=== PATIENT | female | born 1955 | race Caucasian/White ===

== ENCOUNTER 2023-10-18 04:17 | Observation (INO) | payer MEDICARE, MEDICAID, SELFPAY ==
[2023-10-18] VITALS (12 sets, daily range): BP systolic 118–167; BP diastolic 56–74; PULSE 62–93; RESP 16–21; TEMP 36–37.2; O2SAT 94–98; BMI 42.3
--- NOTE | 2023-10-18 | ECG_ITS ---
Test Reason : DYSPNEA Blood Pressure : / mmHG Vent. Rate : 075 BPM Atrial Rate : 075 BPM P-R Int : 138 ms QRS Dur : 088 ms QT Int : 426 ms P-R-T Axes : 055 006 038 degrees QTc Int : 475 ms Sinus rhythm with Premature atrial complexes Otherwise normal ECG No previous ECGs available Referred By: Generic ED Physician Electronically Signed By:PERRY MATTA
--- NOTE | ~2023-10-18 | XR_ITS ---
EXAMINATION: XR CHEST CLINICAL INFORMATION: Chest pain. COMPARISON: None available. TECHNIQUE: Frontal view of the chest was obtained. FINDINGS: The cardiac mediastinal silhouette is within normal limits. There appears to be minimal atelectasis or scarring at the right lung base. The lungs are otherwise clear. The bony structures and soft tissues are unremarkable. XR/XR chest 1V IMPRESSION: Minimal atelectasis or scarring at the right lung base. No other significant abnormality seen.
[2023-10-18 05:09] LABS: Basophils Absolute Auto 0.1 X10*3/uL (0.0-0.2); Basophils Percent Auto 0.5 % (0-2); Eosinophils Percent Auto 0.1 % (0-4); Hematocrit 37.4 % (37.0-47.0); Hemoglobin 12.2 g/dl (12.0-16.0); Imm Gran Abs Auto 0.05 X10*3/uL (0.00-0.03); Imm Gran Pct Auto 0.4 % (0.0-0.4); Lymphocytes Absolute Auto 0.9 X10*3/uL (1.2-4.9); Lymphocytes Percent Auto 7.1 % (20-40); MANUAL DIFF FLAG NO; Mean Corpuscular HGB Conc 32.6 g/dl (31.0-35.0); Mean Corpuscular Hemoglobin 31.3 pg (27.0-33.0); Mean Corpuscular Volume 95.9 fL (80.0-98.0); Mean Platelet Volume 8.5 fL (9.4-12.3); Monocytes Percent Auto 7.4 % (2-11); Neutrophils Absolute Auto 11.3 x10*3/uL (2.0-8.3); Neutrophils Percent Auto 84.5 % (45-73); Platelet Count 345 X10*3/uL (160-400); Red Cell Distribution Width 13.3 % (11.0-16.0); White Blood Count 13.3 X10*3/uL (4.8-10.8)
[2023-10-18 05:15] LABS: Prothrombin Time 12.4 SEC (11.1-13.3)
[2023-10-18 05:18] LABS: Partial Thromboplastin Time 31.6 SEC (26.0-36.4)
[2023-10-18 05:24] LABS: Alanine Aminotransferase 15 U/L (0-31); Albumin Level 3.4 g/dL (3.5-5.0); Alkaline Phosphatase 85 U/L (39-117); Anion Gap 17 (12-20); Aspartate Amino Transferase 20 U/L (5-31); Bilirubin Total 0.8 mg/dL (0.0-1.0); Blood Urea Nitrogen 13 mg/dL (9-16); Calcium 9.2 mg/dL (8.4-10.2); Carbon Dioxide 25 mmol/L (22-29); Chloride 108 mmol/L (96-108); Creatinine Clr Calc Pharmacy 79.6; Estimated Glomerular Filt Rate > 60; Glucose Random 105 mg/dL (60-115); Potassium 4.5 mmol/L (3.3-5.1); Sodium 145 mmol/L (135-145); Total Protein 6.3 g/dL (6.5-8.0)
--- OUTSIDE RECORDS SUMMARY | 2023-10-18 05:25 | XMS_ITS | Continuity of Care Document ---
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 Role Phone Quinn Mckeon MD, Emilee Rivera Primary Care Physic yakov [place] [facility] [place] 10[place]20 - 11/28/20 Wound Care [address] [place] [id number] Attending Physician: Steven Sofia MD Admitting Physician: Steven Sofia MD Referring Physician: Quinn Mckeon MD, Emilee Rivera Allergies, Adverse Reactions, Alerts Substance Reaction Severity Status codeine Active ibuprofen heartburn if too muc h slight itch - no hives Active sulindac Active aspirin Active Adhesive Bandage Active Latex Active Nickel Active CeleBREX Active Immunizations Given and Recorded Vaccine Date Status Refusal Reason pneumococcal 23-valent vaccine 11/04/19 Given Not Given Vaccine Date Status Refusal Reason pneumococcal 23-valent vaccine 11/03/14 Not Given Patient Refuses influenza virus vaccine, inactivated 08/02/20 Not Given Patient Refuses influenza virus vaccine, inactivated 11/03/14 Not Given Patient Refuses Medications 1 box of tubigrip elasticated stocking 1 box of tubigrip elasticated stocking, See Instructions, # 1 Unknown, Refills 6, Tot. Refills 6, Maintenance, size G; use as directed, 11/14/20 16:00:00 EST, Supply Start Date: 11/14/20 Status: Ordered Albuterol 90 mcg Inhaler 2, puffs, Inhalation, Every 4 hours, PRN, Maintenance, 08/29/13 12:15:58 Start Date: 08/29/13 Status: Ordered bisacodyl 10 mg rectal suppository 1 supp = 10 mg, Rectally, Daily, PRN for constipation, # 10 supp, 0 Refills, Maintenance, 10/21/19 10:24:00 EST, Suppository Start Date: 10/21/19 Status: Ordered budesonide 3 mg oral delayed release capsule 2 capsule = 6 mg, By Mouth, Daily in AM, 0 Refills, Maintenance, 10/21/19 10:21:00 EST Start Date: 10/21/19 Status: Ordered Compression Stockings 20-30mm, Topically, Daily, # 3 pair, Refills 3, Tot. Refills 3, Maintenance, Dx: CVI with ulceration, Dr. Wade Mendosa-Supervising MD, 08/02/15 12:30:30, [phone], Compound Start Date: 08/02/15 Status: Ordered duloxetine 60 mg oral enteric coated capsule 1 capsule = 60 mg, By Mouth, Daily, # 30 capsule, 0 Refills, Maintenance, 08/03/20 16:38:00 EDT, Capsule, [facility], 153, cm, 08/03/20 8:39:00 EDT, Height, 61.8, kg, 08/01/20 2:42:00 EDT, Dry Weight Start Date: 08/03/20 Status: Ordered Ensure Ensure, Refills 0, Maintenance, 10/21/19 10:22:00 EST, Compound Start Date: 10/21/19 Status: Ordered Flovent HFA 110 mcg/inh inhalation aerosol 2 puffs = 220 mcg, Inhalation, 2 times a day, # 1 each, 0 Refills, Maintenance, 08/03/20 16:37:00 EDT, Aerosol, [facility], 153, cm, 08/03/20 8:39:00 EDT, Height, 61.8, kg, 08/01/20 2:42:00 EDT, Dry Weight Start Date: 08/03/20 Status: Ordered gabapentin 800 mg oral tablet 1 tablet = 800 mg, By Mouth, 3 times a day, # 90 tablet, 0 Refills, Maintenance, 08/03/20 16:38:00 EDT, Tablet, [facility], 153, cm, 08/03/20 8:39:00 EDT, Height, 61.8, kg, 08/01/20 2:42:00 EDT, Dry Weight Start Date: 08/03/20 Status: Ordered HydrOXYzine See Instructions, 25, 0 Refills, Maintenance, 07/31/20 20:06:00 EDT Start Date: 07/31/20 Status: Ordered Lasix 40 mg oral tablet 20 mg, 0.5, tablet, By Mouth, Daily, PRN, if worsening leg swelling can take 1/2 tablet once a day,# 15 tablet, Refills 0, Tot. Refills 0, Maintenance, Congestion, 08/03/20 16:45:00 EDT, Route to Pharmacy Electronically, [facility], 153... Start Date: 08/03/20 Status: Ordered naloxone 4 mg/0.1 mL nasal spray Once, 0 Refills, Maintenance, 10/21/19 10:26:00 EST Start Date: 10/21/19 Status: Ordered prazosin 2 mg oral capsule 1 capsule = 2 mg, By Mouth, Daily at bedtime Start Date: 10/02/19 Status: Ordered Protonix 40 mg oral delayed release tablet 1 tablet = 40 mg, By Mouth, Daily, # 30 tablet, 0 Refills, Maintenance, 08/03/20 16:37:00 EDT, EC Tablet, 153, cm, 08/03/20 8:39:00 EDT, Height, 61.8, kg, 08/01/20 2:42:00 EDT, Dry Weight Start Date: 08/03/20 Status: Ordered Santyl Topical Oint 1 applicator, Topically, Daily, 0 Refills, Maintenance, Ointment Start Date: 11/10/19 Status: Ordered topiramate 50 mg oral tablet 2 tablet = 100 mg, By Mouth, 2 times a day, 0 Refills, Maintenance, 11/01/14 14:42:34 Start Date: 11/01/14 Status: Ordered ZyrTEC 10 mg oral tablet 1 tablet = 10 mg, By Mouth, Daily, # 30 tablet, 0 Refills, Maintenance, 11/10/19 9:53:00 EST, Tablet Start Date: 11/10/19 Status: Ordered Problem List Condition Effective Dates Status Health Status Inform ant Lymphocytic colitis(Confirmed) 10/08/18 Active Depression(Confirmed) Active GIB (gastrointestinal bleedi ng)- 2nd to NSAID use(Confirmed) Active Migraines(Confirmed) Active OA (osteoarthritis)(Confirmed) Active Polysubstance abuse(Confirmed) Active Serrated polyp of colon(Confirmed) 10/08/18 Active Social History Social History Type Response Smoking Status Former smoker entered on: 11/01/14 Sex
--- OUTSIDE RECORDS SUMMARY | 2023-10-18 05:25 | XMS_ITS | Continuity of Care Document ---
Author Name Unknown Organization [facility] Address [address] [place] [phone]- Care Team Providers Care Senior Training Specialist Name Role Phone Quinn Mckeon MD, Emilee Rivera Primary Care Physic yakov [place] [facility] [place] [facility] [address] [place] [phone]- [place] Allergies, Adverse Reactions, Alerts Substance Reaction Severity Status codeine Active Adhesive Bandage Active CeleBREX Active Nickel Active ibuprofen heartburn if too muc h slight itch - no hives Active sulindac Active aspirin Active Latex Active Immunizations Given and Recorded Vaccine Date [...] EST, Suppository Start Date: 10/21/19 Status: Ordered Compression Stockings 20-30mm, Topically, Daily, # 3 pair, Refills 3, Tot. Refills 3, Maintenance, Dx: CVI with ulceration, Dr. Wade Mendosa-Supervising MD, 08/02/15 12:30:30, [phone], Compound Start Date: 08/02/15 Status: Ordered duloxetine 60 mg oral enteric coated capsule 1 capsule = 60 mg, By Mouth, Daily, # 30 capsule, 0 Refills, Maintenance, 08/03/20 16:38:00 EDT, Capsule, [facility], 153, cm, 08/03/20 8:39:00 EDT, Height, 61.8, kg, 08/01/20 2:42:00 EDT, Dry Weight Start Date: 08/03/20 Status: Ordered Ensure Ensure, Refills 0, Maintenance, 10/21/19 10:22:00 EST, Compound Start Date: 10/21/19 Status: Ordered Flovent HFA 110 mcg/inh inhalation aerosol 2 puffs = 220 mcg, Inhalation, 2 times a day, # 1 each, 0 Refills, Maintenance, 08/03/20 16:37:00 EDT, Aerosol, [facility], 153, cm, 08/03/20 8:39:00 EDT, Height, 61.8, kg, 08/01/20 2:42:00 EDT, Dry Weight Start Date: 08/03/20 Status: Ordered gabapentin 800 mg oral tablet 1 tablet = 800 mg, By Mouth, 3 times a day, # 90 tablet, 0 Refills, Maintenance, 08/03/20 16:38:00 EDT, Tablet, [facility], 153, cm, 08/03/20 8:39:00 [...] 08/03/20 16:45:00 EDT, Route to Pharmacy Electronically, [facility], 153... Start Date: 08/03/20 Status: Ordered [...] Maintenance, Ointment Start Date: 11/10/19 Status: Ordered Suprep Bowel Prep Kit oral liquid See Instructions, 176ml x 2 as directed, # 1 kit, 0 Refills, Maintenance, 08/16/21 16:27:00 EDT, [id number], Partial fill upon patient request if the prescription is for a schedule II opioid drug., 176ml x 2 as directed, 153, cm, 08/19... Start Date: 08/16/21 Status: Ordered topiramate 50 mg oral tablet [...] bleedi ng)- 2nd to NSAID use(Confirmed) Active H/O gastric bypass(Confirmed) 2003 Active Migraines(Confirmed) Active OA (osteoarthritis)(Confirmed) Active Polysubstance abuse(Confirmed) Active Serrated polyp of colon(Confirmed) 10/08/18 Active Social History Social History Type Response Smoking Status Former smoker entered on: 11/01/14 Sex
--- OUTSIDE RECORDS SUMMARY | 2023-10-18 05:25 | XMS_ITS | Continuity of Care Document ---
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 Role Phone Quinn Mckeon MD, Emilee Rivera Primary Care Physic yakov Encounter [facility] Date(s): 04/03/20 - 05/03/20 [facility] [address] [place] [phone] [facility] Attending Physician: Admalona, Alfonzo Admitting Physician: AdmtrAlfonzo Referring Physician: Admtr, Ar8 Allergies, Adverse Reactions, Alerts Substance Reaction Severity [...] inactivated 11/03/14 Not Given Patient Refuses Medications Albuterol 90 mcg Inhaler 2, puffs, Inhalation, [...] [phone], Compound Start Date: 08/02/15 Status: Ordered Cymbalta 60 mg oral enteric coated capsule 1 capsule = 60 mg, By Mouth, 2 times a day Start Date: 10/02/19 Status: Ordered Eliquis 5 mg oral tablet 1 tablet = 5 mg, By Mouth, 2 times a day, # 60 tablet, 0 Refills, Maintenance, 11/02/19 4:18:00 EST, Tablet Start Date: 11/02/19 Status: Ordered Ensure Ensure, Refills 0, Maintenance, 10/21/19 10:22:00 EST, Compound Start Date: 10/21/19 Status: Ordered Flovent HFA 110 mcg/inh inhalation aerosol 2 puffs, Inhalation, 2 times a day, # 12 Gm, 0 Refills, Maintenance, 08/29/18 12:28:34 EST, Aerosol Start Date: 08/29/18 Status: Ordered gabapentin 800 mg oral tablet 1 tablet = 800 mg, By Mouth, 3 times a day, # 90 tablet, 0 Refills, Maintenance, 11/10/19 9:50:00 EST, Tablet Start Date: 11/10/19 Status: Ordered naloxone 4 mg/0.1 mL nasal spray Once, 0 Refills, Maintenance, 10/21/19 10:26:00 EST Start Date: 10/21/19 Status: Ordered prazosin 2 mg oral capsule 1 capsule = 2 mg, By Mouth, Daily at bedtime Start Date: 10/02/19 Status: Ordered Protonix 40 mg oral delayed release tablet 1 tablet = 40 mg, By Mouth, Daily, # 30 tablet, 0 Refills, Maintenance, 09/01/18 17:07:49 EST, EC Tablet Start Date: 09/01/18 Status: Ordered Santyl Topical Oint 1 applicator, Topically, Daily, 0 Refills, Maintenance, Ointment Start Date: 11/10/19 Status: Ordered topiramate 50 mg oral tablet 2 tablet = 100 mg, By Mouth, 2 times a day, 0 Refills, Maintenance, 11/01/14 14:42:34 Start Date: 11/01/14 Status: Ordered Tylenol 325 mg oral tablet 650 mg, 2, tablet, By Mouth, Every 6 hours, Refills 0, Maintenance, 10/07/19 15:37:00 EST Start Date: 10/07/19 Status: Ordered ZyrTEC 10 mg oral tablet [...]
--- OUTSIDE RECORDS SUMMARY | 2023-10-18 05:25 | XMS_ITS | Continuity of Care Document ---
Author Name Unknown Organization Wound Care Address [address] [place] [phone]- Care Team Providers Care Correctional Program Officer Name Role Phone Quinn Mckeon MD, Emilee Rivera Primary Care Physic yakov En[place] [id number] Date(s): 11/14/20 - 12/14/20 W[facility] Care [address] [place] [id number] Attending Physician: Alfonzo Grossman Admitting Physician: AdmtrAlfonzo Referring Physician: Admtr Ar8 Allergies, Adverse Reactions, Alerts Substance Reaction [...] 0 Refills, Maintenance, 08/03/20 16:38:00 EDT, Capsule, [facility], 153, cm, 08/03/20 8:39:00 EDT, Height, 61.8, kg, 08/01/20 2:42:00 EDT, Dry Weight Start Date: 08/03/20 Status: Ordered Ensure Ensure, Refills 0, Maintenance, 10/21/19 10:22:00 EST, Compound Start Date: 10/21/19 Status: Ordered Flovent HFA 110 mcg/inh inhalation aerosol 2 puffs = 220 mcg, Inhalation, 2 times a day, # 1 each, 0 Refills, Maintenance, 08/03/20 16:37:00 EDT, Aerosol, [facility], 153, cm, 08/03/20 8:39:00 EDT, Height, 61.8, kg, 08/01/20 2:42:00 EDT, Dry Weight Start Date: 08/03/20 Status: Ordered gabapentin 800 mg oral tablet 1 tablet = 800 mg, By Mouth, 3 times a day, # 90 tablet, 0 Refills, Maintenance, 08/03/20 16:38:00 EDT, Tablet, [facility], 153, cm, 08/03/20 8:39:00 [...] 08/03/20 16:45:00 EDT, Route to Pharmacy Electronically, [facility], 153... Start Date: 08/03/20 [...]
--- OUTSIDE RECORDS SUMMARY | 2023-10-18 05:25 | XMS_ITS | Continuity of Care Document ---
Author Name Unknown Organization [facility] ter Address [address] [place] [address]- Care Team Providers Care Telemarketing Representative Name Role Phone Quinn Mckeon MD, Emilee Rivera Primary Care Physic yakov Encounter [facility] [place] Date(s): 10/03/19 - 10/07/[address] [address]- [facility] Discharge Disposition: A-Transfer SNF Attending Physician: Jose Wan MD Admitting Physician: Jose Wan MD Referring Physician: Not on Staff, Referring MD Allergies, Adverse Reactions, Alerts Substance Reaction Severity Status codeine Active ibuprofen heartburn if too muc h slight itch - no hives Active sulindac Active aspirin Active Adhesive Bandage Active Latex Active Nickel Active CeleBREX Active Immunizations Not Given Vaccine Date Status Refusal Reason influenza virus vaccine, inactivated 11/03/14 Not Given Patient Refuses pneumococcal 23-valent vaccine 11/03/14 Not Given Patient Refuses Medications Albuterol 90 mcg Inhaler 2, puffs, Inhalation, Every 4 hours, PRN, Maintenance, 08/29/13 12:15:58 Start Date: 08/29/13 Status: Ordered Bacitracin Topical Oint 1 applicator, Topically, 2 times a day, 0 Refills, Maintenance, Ointment Start Date: 10/07/19 Status: Ordered Bactrim DS Tablet 1, tablet, By Mouth, 2 times a day, Maintenance, 10/07/19 15:37:00 EST Start Date: 10/07/19 Stop Date: 10/13/19 Status: Ordered budesonide 3 mg oral delayed release capsule 3 capsule = 9 mg, By Mouth, Daily in AM, for 8 week(s), # 168 capsule, 1 Refills, Acute 10/18/19 16:43:05 EST, 06/28/19 16:43:05 EDT Start Date: 06/28/19 Stop Date: 10/18/19 Status: Ordered Compression Stockings 20-30mm, Topically, Daily, # 3 pair, Refills 3, Tot. Refills 3, Maintenance, Dx: CVI with ulceration, Dr. Wade Mendosa-Supervising MD, 08/02/15 12:30:30, [phone], Compound Start Date: 08/02/15 Status: Ordered Cymbalta 60 mg oral enteric coated capsule 1 capsule = 60 mg, By Mouth, 2 times a day Start Date: 10/02/19 Status: Ordered Flovent HFA 110 mcg/inh inhalation aerosol 2 puffs, Inhalation, 2 times a day, # 12 Gm, 0 Refills, Maintenance, 08/29/18 12:28:34 EST, Aerosol Start Date: 08/29/18 Status: Ordered gabapentin 100 mg oral capsule 100 mg, 1, capsule, By Mouth, 3 times a day, Refills 0, Maintenance, 10/07/19 15:37:00 EST Start Date: 10/07/19 Status: Ordered Imodium A-D 2 mg, By Mouth, Every 4 hours, PRN, Maintenance, Loose Stool, 10/02/19 20:57:08 EST Start Date: 10/02/19 Status: Ordered LORazepam 0.5 mg oral tablet 1 tablet = 0.5 mg, By Mouth, 2 times a day, PRN as needed for anxiety Start Date: 10/02/19 Status: Ordered Multivitamin 1 tablet, By Mouth, Daily, Maintenance, 10/02/19 20:56:39 EST Start Date: 10/02/19 Status: Ordered oxyCODONE 15 mg oral tablet 1 tablet = 15 mg, By Mouth, 4 times a day, PRN Pain Start Date: 10/02/19 Status: Ordered prazosin 2 mg oral capsule 1 capsule = 2 mg, By Mouth, Daily at bedtime, for nightmares Start Date: 10/02/19 Status: Ordered Protonix 40 mg oral delayed release tablet 1 tablet = 40 mg, By Mouth, Daily, # 30 tablet, 0 Refills, Maintenance, 09/01/18 17:07:49 EST, EC Tablet Start Date: 09/01/18 Status: Ordered Santyl Topical Oint 1 applicator, Topically, Daily, 0 Refills, Maintenance, Ointment Start Date: 10/07/19 Status: Ordered topiramate 50 mg oral tablet 2 tablet = 100 mg, By Mouth, 2 times a day, 0 Refills, Maintenance, 11/01/14 14:42:34 Start Date: 11/01/14 Status: Ordered Tylenol 325 mg oral tablet 650 mg, 2, tablet, By Mouth, Every 6 hours, Refills 0, Maintenance, 10/07/19 15:37:00 EST Start Date: 10/07/19 Status: Ordered Viactiv Soft Calcium Chews 1 tablet, By Mouth, Daily, Maintenance, 10/02/19 20:57:44 EST Start Date: 10/02/19 Status: Ordered warfarin 2.5 mg oral tablet 1 tablet = 2.5 mg, By Mouth, Daily, 0 Refills, Maintenance, 10/07/19 15:37:00 EST, Tablet Start Date: 10/07/19 Status: Ordered Zyrtec 10 mg oral tablet 1 tablet = 10 mg, By Mouth, Daily, PRN allergy symptoms, 0 Refills, Maintenance, 12/18/14 10:24:44 EST Start Date: 12/18/14 Status: Ordered Problem List Condition Effective Dates Status Health Status Inform ant Lymphocytic colitis(Confirmed) 10/08/18 Active Depression(Confirmed) Active GIB (gastrointestinal bleedi ng)- 2nd to NSAID use(Confirmed) Active Migraines(Confirmed) Active OA (osteoarthritis)(Confirmed) Active Polysubstance abuse(Confirmed) Active Serrated polyp of colon(Confirmed) 10/08/18 Active Results Radiology Reports (Most Recent Ten) * Exam Date Time Procedure Performing Provider Status 10/02/19 6:14 PM Hand Min 3 Views Right Anthony Willoughby; Auth (Verified) Notes: (Hand Min 3 Views Right) Reason For Exam: with Pain;Trauma RESULT: Hand Min 3 Views Right Hand Min 3 Views Right CLINICAL INDICATION: Reason: Trauma; with Pain; Clinical Question(s): Fracture COMPARISONS: None TECHNIQUE: AP, lateral and oblique views of the right hand were obtained. FINDINGS: There is an old healed distal radial fracture. No acute wrist fracture. Metacarpal and phalanges appear intact. Normal radiocarpal alignment is maintained. There is crowding of the carpal joint spaces. There is degenerative joint space narrowing at the basal joint of the thumb. There is mild-moderate PIP and DIP joint space narrowing. No retained radiodense foreign body. IMPRESSION: Old healed distal radial fracture. No acute abnormality. WSN: [id number] Dictated By: Rod Aleman MD Dictated Date/Time: 10/02/19 6:44 pm Reviewed By: Rod Aleman MD Signed By: Rod Alemna MD Signed Date/Time: 10/02/19 6:44 pm Transcribed By: CRISSY Transcribed Date/Time: 10/02/19 6:43 pm * Exam Date Time Procedure Performing Provider Status 10/02/19 6:14 PM Forearm 2 Views Right Stupak , Anthony; Auth (Verified) Notes: (Forearm 2 Views Right) Reason For Exam: Trauma RESULT: Forearm 2 Views Right Forearm 2 Views Right CLINICAL INDICATION: Reason: Trauma; Clinical Question(s): Other: COMPARISONS: None TECHNIQUE: AP and lateral views of the right forearm were obtained. FINDINGS: Old healed distal radial fracture. No acute fracture or dislocation. Radial head is overlapping the ulna on both views. Articulations at the elbow and wrist are anatomic. No retained foreign body. IMPRESSION: No acute fracture or dislocation. Old healed distal radial fracture. Poor visualization of radial head on both views. If patient has elbow tenderness, dedicated elbow imaging may be indicated. WSN: [id number] Dictated By: Rod Aleman MD Dictated Date/Time: 10/02/19 6:43 pm Reviewed By: Rod Aleman MD Signed By: Rod Aleman MD Signed Date/Time: 10/02/19 6:43 pm Transcribed By: CRISSY Transcribed Date/Time: 10/02/19 6:32 pm * Exam Date Time Procedure Performing Provider Status 10/02/19 6:14 PM Humerus Min 2 Views Right Stupak , Ol eg; Auth (Verified) Notes: (Humerus Min 2 Views Right) Reason For Exam: Trauma RESULT: Humerus Min 2 Views Right Humerus Min 2 Views Right, 810 oh views Reason: Trauma; Clinical Question(s): Other: COMPARISON: None. FINDINGS: AP view slightly overpenetrated overlying the elbow. No fractures or bone lesions. The visualized portions of the joints are normal. Normal soft tissues. IMPRESSION: Overpenetrated exam. No fracture or dislocation given this limitation. WSN: [id number] Dictated By: Rod Aleman MD Dictated Date/Time: 10/02/19 6:32 pm Reviewed By: Rod Aleman MD Signed By: Rod Aleman MD Signed Date/Time: 10/02/19 6:32 pm Transcribed By: CSB Transcribed Date/Time: 10/02/19 6:31 pm * Exam Date Time Procedure Performing Provider Status 10/02/19 6:14 PM Shoulder Min 2 Views Right Stupak , O leg; Auth (Verified) Notes: (Shoulder Min 2 Views Right) Reason For Exam: Trauma RESULT: Shoulder Min 2 Views Right Shoulder Min 2 Views Right CLINICAL INDICATION: Reason: Trauma; Clinical Question(s): Other: COMPARISONS: None TECHNIQUE: 3 views of the right shoulder. FINDINGS: There is no fracture or dislocation. There is no acromioclavicular joint widening. No periarticular calcifications. IMPRESSION: No fracture or dislocation. WSN: [id number] Dictated By: Rod Aleman MD Dictated Date/Time: 10/02/19 6:31 pm Reviewed By: Rod Aleman MD Signed By: Rod Aleman MD Signed Date/Time: 10/02/19 6:31 pm Transcribed By: CRISSY Transcribed Date/Time: 10/02/19 6:30 pm * Exam Date Time Procedure Performing Provider Status 10/02/19 6:14 PM XR Femur 2 Views Right Stupak , Anthony; Auth (Verified) Notes: (XR Femur 2 Views Right) Reason For Exam: with Pain;Trauma RESULT: Femur 2 Views Right Femur 2 Views Right, AP and lateral views Reason: Trauma; with Pain; Clinical Question(s): Fracture COMPARISON: None. FINDINGS: No fracture, dislocation or bone lesion. There is mild-moderate joint space narrowing at the hip and knee joints. No dislocation. Normal soft tissues. IMPRESSION: No acute abnormality. WSN: [id number] Dictated By: Rod Aleman MD Dictated Date/Time: 10/02/19 6:30 pm Reviewed By: Rod Aleman MD Signed By: Rod Aleman MD Signed Date/Time: 10/02/19 6:30 pm Transcribed By: MODESTAB Transcribed Date/Time: 10/02/19 6:29 pm * Exam Date Time Procedure Performing Provider Status 10/02/19 6:14 PM Knee 1 or 2 Views Left Stupak , Anthony; Auth (Verified) Notes: (Knee 1 or 2 Views Left) Reason For Exam: with Pain;Trauma RESULT: Knee 1 or 2 Views Left Knee 1 or 2 Views Left CLINICAL INDICATION: Reason: Trauma; with Pain; Clinical Question(s): Fracture COMPARISONS: None TECHNIQUE: AP and lateral views of the left knee were obtained. FINDINGS: Status post left total knee arthroplasty. No hardware failure or loosening. No fracture or dislocation. No joint effusion. The patella is normally positioned. IMPRESSION: No acute abnormality. WSN: [id number] Dictated By: Rod Aleman MD Dictated Date/Time: 10/02/19 6:29 pm Reviewed By: Rod Aleman MD Signed By: Rod Aleman MD Signed Date/Time: 10/02/19 6:29 pm Transcribed By: CRISSY Transcribed Date/Time: 10/02/19 6:28 pm * Exam Date Time Procedure Performing Provider Status 10/02/19 6:14 PM XR Femur 2 Views Left Stupak , Anthony; Auth (Verified) Notes: (XR Femur 2 Views Left) Reason For Exam: with Pain;Trauma RESULT: Femur 2 Views Left Femur 2 Views Left, AP and lateral views Reason: Trauma; with Pain; Clinical Question(s): Fracture COMPARISON: None. FINDINGS: No fracture, dislocation or bone lesion. There is a left total knee arthroplasty. See left knee x-ray report for further discussion. Visualized portions of the joints are normal. Normal soft tissues. IMPRESSION: No fracture or dislocation. WSN: [id number] Dictated By: Rod Aleman MD Dictated Date/Time: 10/02/19 6:27 pm Reviewed By: Rod Aleman MD Signed By: Rod Aleman MD Signed Date/Time: 10/02/19 6:27 pm Transcribed By: CRISSY Transcribed Date/Time: 10/02/19 6:27 pm * Exam Date Time Procedure Performing Provider Status 10/02/19 6:14 PM Foot Min 3 Views Left Stupak , Anthony; Auth (Verified) Notes: (Foot Min 3 Views Left) Reason For Exam: with Pain;Trauma RESULT: Foot Min 3 Views Left Foot Min 3 Views Left CLINICAL INDICATION: Reason: Trauma; with Pain; Clinical Question(s): Fracture COMPARISONS: None TECHNIQUE: AP, lateral and oblique views of the left foot were obtained. FINDINGS: There is no fracture or dislocation. MTP and IP joint spaces are maintained. The Lisfranc joint space is normally aligned. No retained foreign body. Hindfoot midfoot alignment is normal. There is a prominent plantar calcaneal heel spur with adjacent soft tissue edema. IMPRESSION: No fracture or dislocation. Large plantar calcaneal heel spur. WSN: [id number] Dictated By: Rod Aleman MD Dictated Date/Time: 10/02/19 6:26 pm Reviewed By: Rod Aleman MD Signed By: Rod Aleman MD Signed Date/Time: 10/02/19 6:26 pm Transcribed By: CRISSY Transcribed Date/Time: 10/02/19 6:25 pm * Exam Date Time Procedure Performing Provider Status 10/02/19 6:14 PM Calcaneus Min 2 Views Left Stupak , O leg; Auth (Verified) Notes: (Calcaneus Min 2 Views Left) Reason For Exam: with Pain;Trauma RESULT: Calcaneus Min 2 Views Left Calcaneus Min 2 Views Left Reason: Trauma; with Pain; Clinical Question(s): Fracture. COMPARISON: None FINDINGS: 2 views of the left calcaneus. No evidence of acute or healing fracture or bone lesion. There is a prominent plantar calcaneal heel spur with adjacent soft tissue edema. There is also degenerative spur at the Achilles insertion along the posterior calcaneus. Normal alignment at the subtalar joint. IMPRESSION: No calcaneal fracture. Large plantar calcaneal heel spur with adjacent soft tissue edema. WSN: [id number] Dictated By: Rod Aleman MD Dictated Date/Time: 10/02/19 6:24 pm Reviewed By: Rod Aleman MD Signed By: Rod Aleman MD Signed Date/Time: 10/02/19 6:24 pm Transcribed By: CRISSY Transcribed Date/Time: 10/02/19 6:18 pm * Exam Date Time Procedure Performing Provider Status 10/02/19 4:58 PM Pelvis 1 or 2 Views Sudhir Marshall; Michaela h (Verified) Notes: (Pelvis 1 or 2 Views) Reason For Exam: Trauma RESULT: Pelvis 1 or 2 Views Pelvis 1 or 2 Views INDICATION/CLINICAL QUESTION: Reason: Trauma; Clinical Question(s): Other:. / Other: COMPARISON: None.. TECHNIQUE: AP pelvis. FINDINGS: There is no fracture or focal lesion of the bony pelvis. The sacroiliac joints show no gross abnormality. There is no fracture in the visualized parts of the femurs. The hip joints are grossly normal. No concerning soft tissue abnormality. IMPRESSION: 1. No bone or joint abnormality seen. WSN: [id number] Dictated By: Juan Daniel Burgess MD Dictated Date/Time: 10/02/19 5:04 pm Reviewed By: Juan Daniel Burgess MD Signed By: Juan Daniel Burgess MD Signed Date/Time: 10/02/19 5:04 pm Transcribed By: CRISSY Transcribed Date/Time: 10/02/19 5:03 pm Vital Signs Most recent to oldest [Reference Range]: 1 2 3 Height 157 cm (10/07/19 4:11 PM) 157 cm (10/07/19 12:42 PM) 157 cm (10/07/19 8:36 AM) Weight 65.3 kg (10/03/19 6:16 PM) 71.3 kg (10/02/19 10:51 PM) Oxygen Saturation [94-100 %] 100 % (10/07/19 4:11 PM) 96 % (10/07/19 12:42 PM) 98 % (10/07/19 8:36 AM) Pulse Rate [55-90 bpm] 67 bpm (10/07/19 4:11 PM) 58 bpm (10/07/19 12:42 PM) 56 bpm (10/07/19 8:36 AM) Body Mass Index [18.5-24.99] 26.49 *H* (10/03/19 6:16 PM) 28.93 *H* (10/02/19 10:51 PM) Blood Pressure [90-138/55-84 mm Hg] 107/54mm Hg (10/07/19 4:11 PM) 102/53mm Hg (10/07/19 12:42 PM) 104/55mm Hg (10/07/19 8:36 AM) Respiratory Rate [16-30 br/min] 18 br/min (10/07/19 4:11 PM) 18 br/min (10/07/19 4:00 PM) 17 br/min (10/07/19 1:29 PM) Temperature [96.8-100.4 DegF] 98.3 DegF (10/07/19 4:11 PM) 98.2 DegF (10/07/19 12:42 PM) 98.4 DegF (10/07/19 8:36 AM) Liters per Minute 0 L/min (10/05/19 4:30 AM) 0 L/min (10/04/19 11:54 PM) Mode of Delivery (Oxygen) Room air (10/07/19 3:00 AM) Room air (10/07/19 12:00 AM) Room air (10/06/19 8:14 PM) Blood pressure sites Arm, left (10/07/19 3:00 AM) Arm, left (10/07/19 12:00 AM) Arm, left (10/06/19 8:14 PM) Temperature Route Oral (10/07/19 4:11 PM) Oral (10/07/19 12:42 PM) Oral (10/07/19 8:36 AM) Dry Weight 65.3 kg (10/03/19 6:16 PM) 71.3 kg (10/02/19 10:51 PM) Sensory deficits None (10/03/19 6:16 PM) Mobility assistance Partial assistance (10/03/19 6:16 PM) Social History Social History Type Response Smoking Status Former smoker entered on: 11/01/14 Sex
--- OUTSIDE RECORDS SUMMARY | 2023-10-18 05:25 | XMS_ITS | Continuity of Care Document ---
Author Name Unknown Organization [facility] Address [address] [place] [phone]- Care Team Providers Care Financial Services Assistant Name Role Phone Quinn Mckeon MD, Emilee Rivera Primary Care Physic yakov Encounter [facility] [place] Date(s): 08/23/21 - 12/20/21 [facility] [address] [place] [address]- Attending Physician: Danyelle Chen MD Admitting Physician: Danyelle Chen MD Referring Physician: Emilee Chaidez MD Allergies, Adverse Reactions, Alerts Substance Reaction [...] 0 Refills, Maintenance, 08/03/20 16:38:00 EDT, Capsule, [facility], 153, cm, 08/03/20 8:39:00 EDT, Height, 61.8, kg, 08/01/20 2:42:00 EDT, Dry Weight Start Date: 08/03/20 Status: Ordered Ensure Ensure, Refills 0, Maintenance, 10/21/19 10:22:00 EST, Compound Start Date: 10/21/19 Status: Ordered Flovent HFA 110 mcg/inh inhalation aerosol 2 puffs = 220 mcg, Inhalation, 2 times a day, # 1 each, 0 Refills, Maintenance, 08/03/20 16:37:00 EDT, Aerosol, [facility], 153, cm, 08/03/20 8:39:00 EDT, Height, 61.8, kg, 08/01/20 2:42:00 EDT, Dry Weight Start Date: 08/03/20 Status: Ordered gabapentin 800 mg oral tablet 1 tablet = 800 mg, By Mouth, 3 times a day, # 90 tablet, 0 Refills, Maintenance, 08/03/20 16:38:00 EDT, Tablet, [facility], 153, cm, 08/03/20 8:39:00 EDT, [...] 08/03/20 16:45:00 EDT, Route to Pharmacy Electronically, [facility], 153... Start Date: 08/03/20 Status: [...] kit, 0 Refills, Maintenance, 08/16/21 16:27:00 EDT, [id number], Partial fill upon patient request if the [...]
--- OUTSIDE RECORDS SUMMARY | 2023-10-18 05:25 | XMS_ITS | Continuity of Care Document ---
Author Name Unknown Organization [facility] Address [address] [place] [id number]- Care Team Providers Care Personal Development Coach Name Role Phone Quinn Mckeon MD, Emilee Rivera Primary Care Physic yakov Encounter [facility] [place] Date(s): 07/14/20 - 08/19/20 [facility] [address] [place] [id number]- [facility] Attending Physician: Steven Sofia MD Admitting Physician: Steven Sofia MD Referring Physician: Quinn Mckeon MD, Emilee Rivera Allergies, Adverse Reactions, Alerts Substance Reaction Severity Status codeine Active ibuprofen heartburn if too muc h slight itch - no hives Active sulindac Active aspirin Active Adhesive Bandage Active Nickel Active CeleBREX Active Latex Active Immunizations Given and Recorded [...] Dx: CVI with ulceration, Dr. Wade Mendosa-Supervising , 08/02/15 12:30:30, [phone], Compound Start Date: 08/02/15 Status: Ordered duloxetine 60 mg oral enteric coated capsule 1 capsule = 60 mg, By Mouth, Daily, # 30 capsule, 0 Refills, Maintenance, 08/03/20 16:38:00 EDT, Capsule, [facility], 153, cm, 08/03/20 8:39:00 EDT, Height, 61.8, kg, 08/01/20 2:42:00 EDT, Dry Weight Start Date: 08/03/20 Status: Ordered Ensure Ensure, Refills 0, Maintenance, 10/21/19 10:22:00 EST, Compound Start Date: 10/21/19 Status: Ordered Flovent HFA 110 mcg/inh inhalation aerosol 2 puffs = 220 mcg, Inhalation, 2 times a day, # 1 each, 0 Refills, Maintenance, 08/03/20 16:37:00 EDT, Aerosol, [facility], 153, cm, 08/03/20 8:39:00 EDT, Height, 61.8, kg, 08/01/20 2:42:00 EDT, Dry Weight Start Date: 08/03/20 Status: Ordered gabapentin 800 mg oral tablet 1 tablet = 800 mg, By Mouth, 3 times a day, # 90 tablet, 0 Refills, Maintenance, 08/03/20 16:38:00 EDT, Tablet, [facility], 153, cm, 08/03/20 8:39:00 EDT, Height, [...] 08/03/20 16:45:00 EDT, Route to Pharmacy Electronically, [facility], 153... Start Date: 08/03/20 [...]
--- OUTSIDE RECORDS SUMMARY | 2023-10-18 05:25 | XMS_ITS | Continuity of Care Document ---
Author Name Unknown Organization [facility] Address [address] [place] [id number]- Care Team Providers Care Assistant Hall Director Name Role Phone Quinn Mckeon MD, Emilee Rivera Primary Care Physic yakov Encounter [facility] [place] Date(s): 04/22/22 - 04/22/[address] [address]- Encounter Diagnosis Esophageal foreign body(Final) - 04/22/22 Discharge Disposition: A-D/C Home Attending Physician: Jose Ko MD Admitting Physician: Jose Ko MD Referring Physician: Not on Staff, Referring MD Allergies, Adverse Reactions, Alerts Substance Reaction Severity Status codeine Active sulindac Active Adhesive Bandage Active CeleBREX Active ibuprofen heartburn if too muc h slight itch - no hives Active aspirin Active Latex Active Nickel Active Immunizations Given and Recorded Vaccine Date [...] 0 Refills, Maintenance, 08/03/20 16:38:00 EDT, Capsule, [facility], 153, cm, 08/03/20 8:39:00 EDT, Height, 61.8, kg, 08/01/20 2:42:00 EDT, Dry Weight Start Date: 08/03/20 Status: Ordered Ensure Ensure, Refills 0, Maintenance, 10/21/19 10:22:00 EST, Compound Start Date: 10/21/19 Status: Ordered Flovent HFA 110 mcg/inh inhalation aerosol 2 puffs = 220 mcg, Inhalation, 2 times a day, # 1 each, 0 Refills, Maintenance, 08/03/20 16:37:00 EDT, Aerosol, [facility], 153, cm, 08/03/20 8:39:00 EDT, Height, 61.8, kg, 08/01/20 2:42:00 EDT, Dry Weight Start Date: 08/03/20 Status: Ordered gabapentin 800 mg oral tablet 1 tablet = 800 mg, By Mouth, 3 times a day, # 90 tablet, 0 Refills, Maintenance, 08/03/20 16:38:00 EDT, Tablet, [facility], 153, cm, 08/03/20 8:39:00 EDT, [...] 08/03/20 16:45:00 EDT, Route to Pharmacy Electronically, [facility], 153... Start Date: 08/03/20 Status: Ordered naloxone 4 mg/0.1 mL nasal spray Once, 0 Refills, Maintenance, 10/21/19 10:26:00 EST Start Date: 10/21/19 Status: Ordered OxyCODONE 5mg/5mL Liquid 10 mg, Solution, By Mouth, Once, STAT, 04/22/22 10:12:00 EDT, Stop date 04/22/22 10:12:00 EDT Start Date: 04/22/22 Stop Date: 04/22/22 Status: Completed prazosin 2 mg oral capsule 1 capsule [...] kit, 0 Refills, Maintenance, 08/16/21 16:27:00 EDT, [facility] #[id number], Partial fill upon patient request if the [...] Active Serrated polyp of colon(Confirmed) 10/08/18 Active Vital Signs Most recent to oldest [Reference Range]: 1 2 3 Height 149.9 cm (04/22/22 10:14 AM) 149.9 cm (04/22/22 8:01 AM) Weight 61.2 kg (04/22/22 10:14 AM) 61.2 kg (04/22/22 8:01 AM) Oxygen Saturation [94-100 %] 96 % (04/22/22 12:19 PM) 96 % (04/22/22 10:14 AM) 96 % (04/22/22 9:37 AM) Pulse Rate [55-90 bpm] 59 bpm (04/22/22 12:19 PM) 50 bpm *L* (04/22/22 10:14 AM) 60 bpm (04/22/22 9:37 AM) Body Mass Index [18.5-24.99] 27.24 *H* (04/22/22 10:14 AM) 27.24 *H* (04/22/22 8:01 AM) Blood Pressure [90-138/55-84 mm Hg] 135/70mm Hg (04/22/22 12:19 PM) 137/69mm Hg (04/22/22 10:14 AM) 133/72mm Hg (04/22/22 9:37 AM) Respiratory Rate [16-30 br/min] 18 br/min (04/22/22 12:19 PM) 18 br/min (04/22/22 11:40 AM) 18 br/min (04/22/22 10:40 AM) Temperature [96.8-100.4 DegF] 98.6 DegF (04/22/22 10:14 AM) 97 DegF (04/22/22 9:08 AM) 97.7 DegF (04/22/22 8:01 AM) Mode of Delivery (Oxygen) Room air (04/22/22 12:19 PM) Room air (04/22/22 10:14 AM) Room air (04/22/22 9:37 AM) Blood pressure sites Arm, left (04/22/22 12:19 PM) Arm, left (04/22/22 9:37 AM) Arm, left (04/22/22 9:18 AM) Temperature Route Oral (04/22/22 10:14 AM) Temporal (04/22/22 9:08 AM) Temporal (04/22/22 8:01 AM) Weight Obtained Via Patient/family stated (04/22/22 8:01 AM) Social History Social History Type Response Smoking Status Former smoker entered on: 11/01/14 Sex
--- OUTSIDE RECORDS SUMMARY | 2023-10-18 05:25 | XMS_ITS | Continuity of Care Document ---
Author Name Unknown Organization [facility] ter Address [address] [place] [address]- Care Team Providers Care Broadband Technician Name Role Phone Quinn Mckeon MD, Emilee Rivera Primary Care Physic yakov Encounter [facility] Date(s): 09/29/22 - 11/27/[address] [address]- Attending Physician: Emilee Chaidez MD Admitting Physician: Emilee Chaidez MD Referring Physician: Emilee Chaidez MD Allergies, [...] 0 Refills, Maintenance, 08/03/20 16:38:00 EDT, Capsule, [facility], 153, cm, 08/03/20 8:39:00 EDT, Height, 61.8, kg, 08/01/20 2:42:00 EDT, Dry Weight Start Date: 08/03/20 Status: Ordered Ensure Ensure, Refills 0, Maintenance, 10/21/19 10:22:00 EST, Compound Start Date: 10/21/19 Status: Ordered Flovent HFA 110 mcg/inh inhalation aerosol 2 puffs = 220 mcg, Inhalation, 2 times a day, # 1 each, 0 Refills, Maintenance, 08/03/20 16:37:00 EDT, Aerosol, [facility], 153, cm, 08/03/20 8:39:00 EDT, Height, 61.8, kg, 08/01/20 2:42:00 EDT, Dry Weight Start Date: 08/03/20 Status: Ordered gabapentin 800 mg oral tablet 1 tablet = 800 mg, By Mouth, 3 times a day, # 90 tablet, 0 Refills, Maintenance, 08/03/20 16:38:00 EDT, Tablet, [facility], 153, cm, 08/03/20 8:39:00 EDT, [...] 08/03/20 16:45:00 EDT, Route to Pharmacy Electronically, [facility], 153... Start Date: 08/03/20 Status: [...] kit, 0 Refills, Maintenance, 08/16/21 16:27:00 EDT, [id number], Partial fill upon patient request if the [...] Date: 11/10/19 Status: Ordered Problem List Condition Confirmation Course Effective Dates Status H ealth Status Informant Lymphocytic colitis Confirmed 10/08/18 Active Depression Confirmed Active GIB (gastrointestinal bleeding)- 2nd to NSAID use Confirmed Active H/O gastric bypass Confirmed 2003 Active Migraines Confirmed Active OA (osteoarthritis) Confirmed Active Polysubstance abuse Confirmed Active Serrated polyp of colon Confirmed 10/08/18 Active Social History Social History Type Response Smoking Status Former smoker entered on: 11/01/14 Sex Patient Care team information Care Team Personnel Name: Sonia Bahena RN Position: [facility] RN Member Role: Primary Care Nurse Name: Kaylynn Hsu RN Position: [facility] AMB Nurse Member Role: Primary Care Nurse Name: Emilee Chaidez MD Position: [facility] Physician (General Medicine) Member Role: PCP Address: Address: [address] [place] [address] [facility] [address] Name: Lucía Allen RN Position: [facility] RN Member Role: Primary Care Nurse Name: Oralia Crisostomo RN Position: [facility] RN Member Role: Primary Care Nurse Name: Rodolfo Delgado RN Position: [facility] RN Supv Member Role: Primary Care Nurse Name: Fiona Kinsey RN Position: [facility] SN RN Member Role: Primary Care Nurse Name: Erika Sweet RN Position: [facility] RN Member Role: Primary Care Nurse Name: Kathy Quintana RN Position: [facility] ED RN W/OE and Tasks Member Role: Primary Care Nurse Name: Blanquita Jessica RN Position: [facility] RN Member Role: Primary Care Nurse Name: Sharee Gonzales RN Position: [facility] SN RN Member Role: Primary Care Nurse Care Team Related Persons Name: MATTIE LLAMAS Address: home [address] [place] [address] Name: ARMINDA QUIROGA Address: home [address] [address] Name: MARY SANTA Address: [place] [address]
--- OUTSIDE RECORDS SUMMARY | 2023-10-18 05:25 | XMS_ITS | Continuity of Care Document ---
Author Name Unknown Organization [facility] Address [address] [place] [address]- Care Team Providers Care Quantitative Manager Name Role Phone Quinn Mckeon MD, Emilee Rivera Primary Care Physic yakov Encounter [facility] Date(s): 09/11/20 - 10/17/20 [facility] [address] [place] [id number] Attending Physician: Steven Sofia MD [...] Refills, Maintenance, 08/03/20 16:38:00 EDT, Capsule, [facility], 153, cm, 08/03/20 8:39:00 EDT, Height, 61.8, kg, 08/01/20 2:42:00 EDT, Dry Weight Start Date: 08/03/20 Status: Ordered Ensure Ensure, Refills 0, Maintenance, 10/21/19 10:22:00 EST, Compound Start Date: 10/21/19 Status: Ordered Flovent HFA 110 mcg/inh inhalation aerosol 2 puffs = 220 mcg, Inhalation, 2 times a day, # 1 each, 0 Refills, Maintenance, 08/03/20 16:37:00 EDT, Aerosol, [facility], 153, cm, 08/03/20 8:39:00 EDT, Height, 61.8, kg, 08/01/20 2:42:00 EDT, Dry Weight Start Date: 08/03/20 Status: Ordered gabapentin 800 mg oral tablet 1 tablet = 800 mg, By Mouth, 3 times a day, # 90 tablet, 0 Refills, Maintenance, 08/03/20 16:38:00 EDT, Tablet, [facility], 153, cm, 08/03/20 8:39:00 EDT, [...] 16:45:00 EDT, Route to Pharmacy Electronically, [facility], 153... Start Date: 08/03/20 Status: [...]
--- OUTSIDE RECORDS SUMMARY | 2023-10-18 05:25 | XMS_ITS | Continuity of Care Document ---
Author Name Unknown Organization [facility] Address [address] [place] [address]- Care Team Providers Care Hvac Manager Name Role Phone Quinn Mckeon MD, Emilee Rivera Primary Care Physic yakov Encounter [facility] Date(s): 07/31/20 - 08/04/[address] [address]- [facility] Encounter Diagnosis Cellulitis(Final) - 07/31/20 Discharge Disposition: A-Transfer VNA/Home Health Attending Physician: Raul Lopez MD Admitting Physician: Anthony Cartagena MD Referring Physician: Not on Staff, Referring [...] 08/29/13 12:15:58 Start Date: 08/29/13 Status: Ordered Bactrim DS 800 mg-160 mg oral tablet 1 tablet, By Mouth, 2 times a day, for 2 days, # 4 tablet, 0 Refills, Acute 08/05/20 16:39:00 EDT, 08/03/20 16:39:00 EDT, Tablet, [facility], 1 tablet By Mouth 2 times a day,x2 days, 153, cm, 08/03/20 8:39:00 EDT, Height, 61.8, kg, 08/01... Start Date: 08/03/20 Stop Date: 08/05/20 Status: Ordered bisacodyl 10 mg rectal suppository [...] 0 Refills, Maintenance, 08/03/20 16:38:00 EDT, Capsule, [facility], 153, cm, 08/03/20 8:39:00 EDT, Height, 61.8, kg, 08/01/20 2:42:00 EDT, Dry Weight Start Date: 08/03/20 Status: Ordered Ensure Ensure, Refills 0, Maintenance, 10/21/19 10:22:00 EST, Compound Start Date: 10/21/19 Status: Ordered Flovent HFA 110 mcg/inh inhalation aerosol 2 puffs = 220 mcg, Inhalation, 2 times a day, # 1 each, 0 Refills, Maintenance, 08/03/20 16:37:00 EDT, Aerosol, [facility], 153, cm, 08/03/20 8:39:00 EDT, Height, 61.8, kg, 08/01/20 2:42:00 EDT, Dry Weight Start Date: 08/03/20 Status: Ordered gabapentin 800 mg oral tablet 1 tablet = 800 mg, By Mouth, 3 times a day, # 90 tablet, 0 Refills, Maintenance, 08/03/20 16:38:00 EDT, Tablet, [facility], 153, cm, 08/03/20 8:39:00 [...] 08/03/20 16:45:00 EDT, Route to Pharmacy Electronically, [facility], 153... Start Date: 08/03/20 Status: Ordered naloxone 4 mg/0.1 mL nasal spray Once, 0 Refills, Maintenance, 10/21/19 10:26:00 EST Start Date: 10/21/19 Status: Ordered oxyCODONE 15 mg oral tablet 1 tablet = 15 mg, By Mouth, Every 6 hours, PRN as needed for pain, maximum 4 tablets a day, # 16 tablet, 0 Refills, Acute 08/07/20 16:41:00 EDT, 08/03/20 16:38:00 EDT, Tablet, [facility], Partial fill upon patient request, 153, cm, 08/03... Start Date: 08/03/20 Stop Date: 08/07/20 Status: Ordered prazosin 2 mg oral capsule [...] 2, tablet, By Mouth, Every 6 hours, # 90 tablet, Refills 0, Tot. Refills 0, Acute 08/15/20 16:42:00 EDT, 08/03/20 16:42:00 EDT, Route to Pharmacy Electronically, [facility], 153, cm, 08/03/20 8:39:00 EDT, Height, 61.8, kg, ... Start Date: 08/03/20 Stop Date: 08/15/20 Status: Ordered ZyrTEC 10 mg oral tablet [...] Serrated polyp of colon(Confirmed) 10/08/18 Active Results Orders for Microbiology Reports Name Date Wound Superficial Culture W/ Gram Smear 07/31/20 Microbiology Reports TEST:Superficial Wound Culture STATUS:Auth (Verified) BODY SITE: SOURCE:SWAB1 COLLECTED DATE/TIME:07/31/20 10:20 PM Superficial Wound Culture SPECIMEN DESCRIPTION : SWAB ANKLE LT SPECIAL REQUESTS : NONE GRAM STAIN : 1+ POLYMORPHONUCLEAR LEUKOCYTES 1+ SQ.EPITHELIAL CELLS NO ORGANISMS SEEN CULTURE : NO GROWTH 2 DAYS REPORT STATUS : FINAL 08/03/2020 Vital Signs Most recent to oldest [Reference Range]: 1 2 3 Height 153 cm (08/04/20 9:23 AM) 153 cm (08/03/20 8:26 PM) 153 cm (08/03/20 8:39 AM) Weight 61.8 kg (08/01/20 2:38 AM) Oxygen Saturation [94-100 %] 96 % (08/04/20 9:23 AM) 98 % (08/03/20 8:26 PM) 97 % (08/03/20 8:39 AM) Pulse Rate [55-90 bpm] 62 bpm (08/04/20 9:23 AM) 66 bpm (08/03/20 8:26 PM) 50 bpm *L* (08/03/20 8:39 AM) Body Mass Index [18.5-24.99] 26.4 *H* (08/01/20 2:38 AM) Blood Pressure [90-138/55-84 mm Hg] 102/51mm Hg (08/04/20 9:23 AM) 104/58mm Hg (08/03/20 8:26 PM) 91/50mm Hg (08/03/20 8:39 AM) Respiratory Rate [16-30 br/min] 18 br/min (08/04/20 11:21 AM) 18 br/min (08/04/20 9:23 AM) 18 br/min (08/04/20 8:58 AM) Temperature [96.8-100.4 DegF] 98.3 DegF (08/04/20 9:23 AM) 98.1 DegF (08/03/20 8:26 PM) 98.1 DegF (08/03/20 8:39 AM) Mode of Delivery (Oxygen) Room air (08/04/20 9:23 AM) Room air (08/03/20 8:26 PM) Room air (08/03/20 8:39 AM) Blood pressure sites Arm, left (08/04/20 9:23 AM) Arm, right (08/03/20 8:26 PM) Arm, left (08/03/20 8:39 AM) Temperature Route Oral (08/04/20 9:23 AM) Oral (08/03/20 8:26 PM) Oral (08/03/20 8:39 AM) Dry Weight 61.8 kg (08/01/20 2:38 AM) Social History Social History Type Response Smoking Status Former smoker entered on: 11/01/14 Sex
--- OUTSIDE RECORDS SUMMARY | 2023-10-18 05:25 | XMS_ITS | Continuity of Care Document ---
Author Name Unknown Organization [facility] Address [address] [place] [phone]- Care Team Providers Care Courtesy Car Driver Name Role Phone Quinn Mckeon MD, Emilee Rivera Primary Care Physic yakov Encounter [facility] Date(s): 01/04/20 - 05/03/20 [facility] [address] [place] [id number]- [facility] Attending Physician: Bebo Altamirano MD Admitting Physician: Bebo Altamirano MD Referring Physician: Not on Staff, Referring [...]
--- OUTSIDE RECORDS SUMMARY | 2023-10-18 05:25 | XMS_ITS | Continuity of Care Document ---
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 Start Date: 10/12/19 Stop Date: 10/19/19 Status: Ordered Compression Stockings 20-30mm, Topically, Daily, [...] to oldest [Reference Range]: 1 2 3 Oxygen Saturation [94-100 %] 99 % (10/12/19 9:57 PM) 96 % (10/12/19 8:20 PM) 97 % (10/12/19 6:17 PM) Pulse Rate [55-90 bpm] 65 bpm (10/12/19 9:57 PM) 64 bpm (10/12/19 8:20 PM) 61 bpm (10/12/19 6:17 PM) Blood Pressure [90-138/55-84 mm Hg] 111/65mm Hg (10/12/19 9:57 PM) 100/60mm Hg (10/12/19 8:50 PM) 93/53mm Hg (10/12/19 8:20 PM) Respiratory Rate [16-30 br/min] 17 br/min (10/12/19 9:57 PM) 18 br/min (10/12/19 8:20 PM) 16 br/min (10/12/19 6:17 PM) Temperature [96.8-100.4 DegF] 98.5 DegF (10/12/19 6:30 PM) 98.5 DegF (10/12/19 3:47 PM) Mode of Delivery (Oxygen) Room air (10/12/19 9:57 PM) Room air (10/12/19 8:20 PM) Room air (10/12/19 6:17 PM) Blood pressure sites Arm, left (10/12/19 8:20 PM) Arm, left (10/12/19 6:17 PM) Arm, left (10/12/19 3:47 PM) Temperature Route Oral (10/12/19 6:30 PM) Oral (10/12/19 3:47 PM) Social History Social History Type Response Smoking Status Former smoker entered on: 11/01/14 Sex
--- OUTSIDE RECORDS SUMMARY | 2023-10-18 05:25 | XMS_ITS | Continuity of Care Document ---
Author Name Unknown Organization [facility] ter Address [address] [place] [phone]- Care Team Providers Care Transplant Case Manager Name Role Phone Quinn Mckeon MD, Emilee Rivera Primary Care Physic yakov Encounter [facility] Date(s): 08/16/21 - 11/27/[address] [address]- Attending Physician: Danyelle Chen MD Admitting Physician: Gustavo ZIEGLER, Danyelle Bruce Allergies, Adverse Reactions, Alerts Substance Reaction Severity [...] 0 Refills, Maintenance, 08/03/20 16:38:00 EDT, Capsule, [facility], 153, cm, 08/03/20 8:39:00 EDT, Height, 61.8, kg, 08/01/20 2:42:00 EDT, Dry Weight Start Date: 08/03/20 Status: Ordered Ensure Ensure, Refills 0, Maintenance, 10/21/19 10:22:00 EST, Compound Start Date: 10/21/19 Status: Ordered Flovent HFA 110 mcg/inh inhalation aerosol 2 puffs = 220 mcg, Inhalation, 2 times a day, # 1 each, 0 Refills, Maintenance, 08/03/20 16:37:00 EDT, Aerosol, [facility], 153, cm, 08/03/20 8:39:00 EDT, Height, 61.8, kg, 08/01/20 2:42:00 EDT, Dry Weight Start Date: 08/03/20 Status: Ordered gabapentin 800 mg oral tablet 1 tablet = 800 mg, By Mouth, 3 times a day, # 90 tablet, 0 Refills, Maintenance, 08/03/20 16:38:00 EDT, Tablet, [facility], 153, cm, 08/03/20 8:39:00 EDT, Height, [...] 08/03/20 16:45:00 EDT, Route to Pharmacy Electronically, [facility], 153... Start Date: 08/03/20 Status: Ordered [...] kit, 0 Refills, Maintenance, 08/16/21 16:27:00 EDT, [id number], Partial fill upon patient request if the [...]
--- OUTSIDE RECORDS SUMMARY | 2023-10-18 05:25 | XMS_ITS | Continuity of Care Document ---
Author Name Unknown Organization [facility] Address [address] [place] [phone]- Care Team Providers Care Telephone Messenger Name Role Phone Quinn Mckeon MD, Emilee Rivera Primary Care Physic yakov Encounter [facility] Date(s): 11/20/21 - 12/20/21 [facility] [address] [place] [address]- Attending Physician: Alfonzo Grossman Admitting Physician: AdmAlfonzo sage Referring Physician: Admtr, Ar8 Allergies, Adverse Reactions, Alerts Substance Reaction Severity Status codeine Active ibuprofen heartburn if too muc h slight itch - no hives Active sulindac Active aspirin Active Adhesive Bandage Active CeleBREX Active Latex Active Nickel Active Immunizations Given [...] 0 Refills, Maintenance, 08/03/20 16:38:00 EDT, Capsule, [facility], 153, cm, 08/03/20 8:39:00 EDT, Height, 61.8, kg, 08/01/20 2:42:00 EDT, Dry Weight Start Date: 08/03/20 Status: Ordered Ensure Ensure, Refills 0, Maintenance, 10/21/19 10:22:00 EST, Compound Start Date: 10/21/19 Status: Ordered Flovent HFA 110 mcg/inh inhalation aerosol 2 puffs = 220 mcg, Inhalation, 2 times a day, # 1 each, 0 Refills, Maintenance, 08/03/20 16:37:00 EDT, Aerosol, [facility], 153, cm, 08/03/20 8:39:00 EDT, Height, 61.8, kg, 08/01/20 2:42:00 EDT, Dry Weight Start Date: 08/03/20 Status: Ordered gabapentin 800 mg oral tablet 1 tablet = 800 mg, By Mouth, 3 times a day, # 90 tablet, 0 Refills, Maintenance, 08/03/20 16:38:00 EDT, Tablet, [facility], 153, cm, 08/03/20 8:39:00 [...] 08/03/20 16:45:00 EDT, Route to Pharmacy Electronically, [facility], 153... Start Date: 08/03/20 Status: [...] kit, 0 Refills, Maintenance, 08/16/21 16:27:00 EDT, [facility][id number], Partial fill upon patient request if the [...]
--- OUTSIDE RECORDS SUMMARY | 2023-10-18 05:26 | XMS_ITS | Continuity of Care Document ---
Author Name Unknown Organization [facility] Address [address] [place] [phone]- Care Team Providers Care Fpga Design Engineer Name Role Phone Quinn Mckeon MD, Emilee Rivera Primary Care Physic yakov Encounter [facility] [place] Date(s): 10/11/20 - 11/16/20 [facility] [address] [place] [id number] Attending Physician: Steven Sofia MD Admitting Physician: Steven Sofia MD Referring Physician: Emilee Chaidez MD Allergies, [...] 0 Refills, Maintenance, 08/03/20 16:38:00 EDT, Capsule, [facility], 153, cm, 08/03/20 8:39:00 EDT, Height, 61.8, kg, 08/01/20 2:42:00 EDT, Dry Weight Start Date: 08/03/20 Status: Ordered Ensure Ensure, Refills 0, Maintenance, 10/21/19 10:22:00 EST, Compound Start Date: 10/21/19 Status: Ordered Flovent HFA 110 mcg/inh inhalation aerosol 2 puffs = 220 mcg, Inhalation, 2 times a day, # 1 each, 0 Refills, Maintenance, 08/03/20 16:37:00 EDT, Aerosol, [facility], 153, cm, 08/03/20 8:39:00 EDT, Height, 61.8, kg, 08/01/20 2:42:00 EDT, Dry Weight Start Date: 08/03/20 Status: Ordered gabapentin 800 mg oral tablet 1 tablet = 800 mg, By Mouth, 3 times a day, # 90 tablet, 0 Refills, Maintenance, 08/03/20 16:38:00 EDT, Tablet, [facility], 153, cm, 08/03/20 8:39:00 EDT, Height, [...] 08/03/20 16:45:00 EDT, Route to Pharmacy Electronically, [facility], 153... Start Date: 08/03/20 [...]
--- OUTSIDE RECORDS SUMMARY | 2023-10-18 05:26 | XMS_ITS | Continuity of Care Document ---
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 Name Role Phone Quinn Mckeon MD, Emilee Rivera Primary Care Physic yakov Encounter [facility] Date(s): 11/01/19 - 11/10/[address] [address]- [facility] Encounter Diagnosis CHF (congestive heart failure)(Final) - 11/01/19 Leg edema(Discharge Diagnosis) - 11/01/19 Chronic pain in right shoulder(Discharge Diagnosis) - 11/10/19 Wrist drop, right wrist(Discharge Diagnosis) - 11/10/19 Discharge Disposition: A-Transfer SNF Attending Physician: Kathy Stewart MD Admitting Physician: Mamta Rene MD Referring Physician: Not on Staff, Referring [...] EST, Tablet Start Date: 11/10/19 Status: Ordered LORazepam 0.5 mg oral tablet 1 tablet = 0.5 mg, By Mouth, 2 times a day, PRN as needed for anxiety, for 3 days, # 6 tablet, 0 Refills, Acute 11/13/19 9:51:00 EST, 11/10/19 9:51:00 EST, Tablet, Partial fill available upon request. Printing Rx since pt going to Rehab Start Date: 11/10/19 Stop Date: 11/13/19 Status: Ordered naloxone 4 mg/0.1 mL nasal spray Once, 0 Refills, Maintenance, 10/21/19 10:26:00 EST Start Date: 10/21/19 Status: Ordered oxyCODONE 15 mg oral tablet 1 tablet = 15 mg, By Mouth, 4 times a day, PRN Pain, for 3 days, # 12 tablet, 0 Refills, Acute 11/13/19 9:51:00 EST, 11/10/19 9:51:00 EST, Tablet, Partial fill upon patient request. Printing Rx sincept going to Rehab Start Date: 11/10/19 Stop Date: 11/13/19 Status: Ordered prazosin 2 mg oral capsule [...] Active Serrated polyp of colon(Confirmed) 10/08/18 Active Diagnosis Diagnosis Type Effective Dates Health Status Cl inical Service Informant Leg edema Discharge Diagnosis 11/01/19 Non-Specified Chronic pain in right shoulder Discharge Diagnosis 11/10/19 Non-Specified Wrist drop, right wrist Discharge Diagnosis 11/10/19 Non-Specified Results Radiology Reports * Exam Date Time Procedure Performing Provider Status 11/07/19 7:50 PM Chest 2 Views Frontal and Lat Samantha Negrete; Auth (Verified) Notes: (Chest 2 Views Frontal and Lat) Reason For Exam: Cough RESULT: Chest 2 Views Frontal and Lat Chest 2 Views Frontal and Lat Refer to EMR; Reason: Cough; Clinical Question(s): Pneumonia; Hx of Present Illness: from home, woke up with severe non pitting edema bilat LE and RUE 4+, recently had a dresser fall on her for 48 hrs, pinched nerve and a R brachial DVT from accident, no CP (11 01 19 13:41); Other Objective Findings: pt a Ox4, speech clear, resp even and unlabored, able to speak in full sentences, lung sounds cl COMPARISON: 11/01/2019. FINDINGS: LINES AND TUBES: None. LUNGS AND PLEURA: Clear lungs. Normal pulmonary vascularity. No pleural effusion. No pneumothorax. HEART, MEDIASTINUM AND JACKI: Heart is normal in size. Normal mediastinal and hilar contour. BONES AND SOFT TISSUES: No acute abnormality. IMPRESSION: No acute abnormality. Right lower lobe infiltrate has resolved. WSN: [id number] Dictated By: Rod Aleman MD Dictated Date/Time: 11/07/19 8:27 pm Reviewed By: Rod Aleman MD Signed By: Rod Aleman MD Signed Date/Time: 11/07/19 8:27 pm Transcribed By: CRISSY Transcribed Date/Time: 11/07/19 8:16 pm * Exam Date Time Procedure Performing Provider Status 11/04/19 1:35 PM Shoulder Min 2 Views Right Philly Lafleur; Auth (Verified) Notes: (Shoulder Min 2 Views Right) Reason For Exam: fall;Decreased ROM RESULT: Shoulder Min 2 Views Right Shoulder Min 2 Views Right, 3 views Refer to EMR; Reason: Decreased ROM; fall; Clinical Question(s): Fracture; Hx of Present Illness: from home, woke up with severe non pitting edema bilat LE and RUE 4+, recently had a dresser fall on her for 48 hrs, pinched nerve and a R brachial DVT from accident, no CP (11 01 19 13:41); Other Objective Findings: pt a Ox4, speech clear, resp even and unlabored, able to speak in full sentences, l COMPARISON: None. FINDINGS: No fracture or dislocation. No arthritic change of the glenohumeral joint. Normal AC joint and portions of the clavicle included on the exam. Small calcifications adjacent to the humeral head likely reflect rotator cuff tendinopathy. IMPRESSION: 1. No acute fracture or dislocation. 2. Small calcification adjacent to the humeral head likely reflecting underlying rotator cuff tendinopathy. WSN: [id number] Dictated By: Dustin Sharp MD Dictated Date/Time: 11/04/19 1:54 pm Reviewed By: Dustin Sharp MD Signed By: Dustin Sharp MD Signed Date/Time: 11/04/19 1:54 pm Transcribed By: CRISSY Transcribed Date/Time: 11/04/19 1:52 pm * Exam Date Time Procedure Performing Provider Status 11/04/19 1:35 PM Wrist Comp Min 3 Views Right Philly Lafleur; Auth (Verified) Notes: (Wrist Comp Min 3 Views Right) Reason For Exam: fall;Decreased ROM RESULT: Wrist Comp Min 3 Views Right Wrist Comp Min 3 Views Right Refer to EMR; Reason: Decreased ROM; fall; Clinical Question(s): Fracture; Hx of Present Illness: from home, woke up with severe non pitting edema bilat LE and RUE 4+, recently had a dresser fall on her for 48 hrs, pinched nerve and a R brachial DVT from accident, no CP (11 01 19 13:41); Other Objective Findings: pt a Ox4, speech clear, resp even and unlabored, able to speak in full sentences, l COMPARISON: Radiographs of the right wrist dated October 02, 2019. FINDINGS: Irregularity of the distal right radius with dorsal regulation of the distal fracture fragment is similar to the prior study and consistent with a healed remote prior fracture. There is no definite evidence of new superimposed fracture. There are mild degenerative changes at the first CMC and triscaphe joints. IMPRESSION: 1. No acute fracture or dislocation. 2. Similar appearance of the chronic deformity of the distal right radius without convincing evidence of reinjury. WSN: [id number] Dictated By: Dustin Sharp MD Dictated Date/Time: 11/04/19 1:52 pm Reviewed By: Dustin Sharp MD Signed By: Dustin Sharp MD Signed Date/Time: 11/04/19 1:52 pm Transcribed By: CRISSY Transcribed Date/Time: 11/04/19 1:47 pm * Exam Date Time Procedure Performing Provider Status 11/01/19 4:25 PM Chest 2 Views Frontal and Lat Yuliana Klaudia; Gricel (Verified) Notes: (Chest 2 Views Frontal and Lat) Reason For Exam: Shortness of Breath RESULT: Chest 2 Views Frontal and Lat Chest 2 Views Frontal and Lat INDICATION: Shortness of breath. COMPARISON: Multiple priors, most recent 10/02/2019. FINDINGS: LINES AND TUBES: None. LUNGS AND PLEURA: Minimal hazy opacity overlying the right lower lobe. There is also mild increased pulmonary vascularity with slight Kimber B lines. No pleural effusion or pneumothorax. HEART, MEDIASTINUM AND JACKI: Heart is normal in size. Normal mediastinal and hilar contour. BONES AND SOFT TISSUES: No acute osseous abnormality. Mild degenerative changes of the visualized spine. IMPRESSION: Minimal hazy opacity overlying the right lower lobe, which could represent atelectasis and/or pneumonia in the appropriate clinical setting. Follow-up after treatment is recommended. Possible mild interstitial edema. I have personally reviewed the images and I agree with this report. WSN: [id number] Dictated By: Gilmer Suarez MD Dictated Date/Time: 11/01/19 4:29 pm Reviewed By: Moses Joy MD Signed By: Moses Joy MD Signed Date/Time: 11/01/19 4:34 pm Transcribed By: CRISSY Transcribed Date/Time: 11/01/19 4:27 pm Vital Signs Most recent to oldest [Reference Range]: 1 2 3 Height 153 cm (11/10/19 2:51 PM) 153 cm (11/10/19 5:08 AM) 153 cm (11/09/19 8:46 PM) Weight 60.2 kg (11/10/19 6:24 AM) 54.7 kg (11/09/19 4:23 AM) 53.1 kg (11/08/19 7:19 PM) Oxygen Saturation [94-100 %] 95 % (11/10/19 2:51 PM) 99 % (11/10/19 5:08 AM) 97 % (11/09/19 7:48 PM) Pulse Rate [55-90 bpm] 62 bpm (11/10/19 2:51 PM) 65 bpm (11/10/19 5:08 AM) 67 bpm (11/09/19 8:46 PM) Body Mass Index [18.5-24.99] 22.68 (11/08/19 7:19 PM) 21.91 (11/06/19 7:48 AM) 26.49 *H* (11/02/19 10:51 PM) Blood Pressure [90-138/55-84 mm Hg] 146/62mm Hg *H* (11/10/19 2:51 PM) 129/77mm Hg (11/10/19 5:08 AM) 108/54mm Hg (11/09/19 8:46 PM) Respiratory Rate [16-30 br/min] 16 br/min (11/10/19 2:51 PM) 20 br/min (11/10/19 9:58 AM) 20 br/min (11/10/19 9:58 AM) Temperature [96.8-100.4 DegF] 98.6 DegF (11/10/19 2:51 PM) 98.3 DegF (11/10/19 5:08 AM) 98.0 DegF (11/09/19 7:48 PM) Mode of Delivery (Oxygen) Room air (11/10/19 2:51 PM) Room air (11/10/19 5:08 AM) Room air (11/09/19 7:48 PM) Blood pressure sites Arm, right (11/10/19 2:51 PM) Leg, right (11/10/19 5:08 AM) Leg, right (11/09/19 8:46 PM) Temperature Route Oral (11/10/19 2:51 PM) Oral (11/10/19 5:08 AM) Oral (11/09/19 7:48 PM) Dry Weight 57.1 kg (11/02/19 10:51 PM) Weight Obtained Via Bed scale (11/10/19 6:24 AM) Standing scale (11/09/19 4:23 AM) Bed scale (11/08/19 7:19 PM) Dry Weight Obtained Via Patient/family s tated (11/02/19 10:51 PM) Sensory deficits None (11/02/19 10:51 PM) Mobility assistance Independent (11/02/19 10:51 PM) Social History Social History Type Response Smoking Status Former smoker entered on: 11/01/14 Sex
[2023-10-18 05:31] LABS: Troponin-I High Sensitivity 8.6 ng/L (<3.5-17.0)
[2023-10-18 05:46] LABS: Influenza A PCR NEGATIVE (Negative); Influenza B PCR NEGATIVE (Negative); Resp Syncy Virus RNA Qual PCR NEGATIVE (Negative); SARS COV2 PCR INHOUSE NEGATIVE (Negative)
--- NOTE | 2023-10-18 06:45 | ED_ITS ---
HPI - SOB/Dyspnea General Chief Complaint: Dyspnea Stated Complaint: DIFFICULTY BREATHING Time Seen by Provider: 10/18/23 06:40 Source: patient and EMS Mode of arrival: EMS Limitations: no limitations History of Present Illness HPI Narrative: 67 year old female with pmhx significant for asthma presents to the ED today via EMS from home for evaluation of cough and shortness of breath x6 days. Reports dry cough beginning 6 days ago with yellow sputum production that began yesterday. Admits to feeling more short of breath than usual. Has using her albuterol inhaler at home, last used around 0300 this morning without relief. Patient reports right sided chest discomfort on coughing. Denies chest pain or palpitations. Denies known sick contacts. Denies hx of COPD. Denies current or previous tobacco use. Denies recent travel or long car rides. Denies fever, chills, BELTRAN, dizziness, sore throat, N/V, palpitations. Related Data Allergies Allergy/AdvReac Type Severity Reaction Status Date / Time No Known Allergies Allergy Verified 10/18/23 05:23 Review of Systems 2 Review of Systems: Constitutional: No fever, chills, fatigue, night sweats, weight changes ENT/Mouth: No ear pain, hearing loss, nasal congestion, sinus pain, rhinorrhea, sore throat Eyes: No eye pain, swelling, redness, vision changes, discharge Cardio: No chest pain, palpitations, WARD, orthopnea, peripheral edema Pulm: +SOB, +cough, +sputum, No wheezing, dyspnea, hemoptysis GI: No nausea, vomiting, hematemesis, abdominal pain, diarrhea, constipation, hematochezia, melena : No irregular bleeding, dysuria, frequency, urgency, hesitancy, hematuria, flank pain, urinary flow changes, urinary incontinence or retention MSK: No back pain, neck pain, joint pain, myalgias Skin: No lesions, rashes Neuro: No weakness, numbness, paresthesias, LOC, dizziness, headache All other systems reviewed and are negative. [facility] Past Medical History Attestation statement: The following information was validated with the patient. Source: old records reviewed and nursing notes reviewed Social History Social History Smoked in Last 30 Days: No Advance Directives: No Advance Directives Information Provided: No Physical Exam 2 Vital Signs: Vital Signs: Last Vital Signs Temp 99.0 F 10/18/23 04:35 Pulse 93 10/18/23 10:09 Resp 19 10/18/23 10:09 BP 130/56 L 10/18/23 10:09 Pulse Ox 94 10/18/23 10:09 O2 Del Method Room Air 10/18/23 10:09 BMI result Body Mass Index 42.3 Patient initially tachypneic to 21, now WNL Const: General: cooperative, comfortable, no acute distress, alert and awake Nutritional Appearance: overweight Orientation/consciousness: patient oriented x3 Limitations: no limitations HEENT: Head: Yes normal to inspection General nose exam: Normal external nose present and No nasal discharge present Eyes: General: appearance normal, both eyes and all related structures C onjunctivae: conjunctivae normal Sclerae: sclerae normal Pupils: Equal, round and reactive pupils present Neck: Neck: Yes normal visual inspection and Yes no lymphadenopathy Chest: Chest palpation & inspection: normal inspection of the chest, normal palpation of entire chest wall, no crepitus and no tenderness Resp: Other: + bilateral expiratory wheezes and rhonc hi. Actively coughing on exam. Effort & Inspection: normal respiratory effort, able to speak in complete sentences and Actively coughing Cardio: Other: + 1+ pitting edema to b/l LE Jugular venous distension: no JVD Rate: regular rate Rhythm: regular rhythm Peripheral pulses: radial pulses present GI: Inspection: Yes normal to inspection Palpation (GI): Soft to palpation, nontender and no guarding Skin: General skin exam: no rashes or lesions noted Neuro: General: patient oriented x3, gait normal and moves all extremities Cranial nerves: Yes Equal, round and reactive pupils present Extrem: General: Yes normal to inspection, Yes capillary refill normal, Yes no calf tenderness and Yes normal gait Course Course Course Narrative: 0753-- patient tested negative for flu, RSV, COVID. CBC with slight leukocytosis to 13.3, left shift. No anemia. H&H stable. Chemistry without acute electrolyte abnormality requiring intervention. Troponin undetectable however will repeat. Chest x-ray shows minimal atelectasis or scarring at the right lung base, otherwise unremarkable. EKG showing sinus rhythm with premature atrial complexes, rate of 75 beats per minute, QT 426, QTC 475, no acute iscemic changes or ST elevations. 0851-- Patient reports some improvement in breathing after RT albuterol duoneb and solumedrol. On exam, patient still has bilateral expiratory wheezes and rhonchi after treatment. > patient has 1+ pitting edema to bilateral LE. BNP is elevated to 476 without priors to compare to. Patient is denying any known cardiovascular disease or CHF. Given patient's continued rhonchi on exam despite breathing treatments along with peripheral edema and elevated BNP, I'm suspecting new onset heart failure. Will present for admission. 917-- Delta troponin flat. Spoke with hospitalist Dr. Kyle who will put in admission orders for new onset heart failure and asthma exacerbation. Medications Administered Discontinued Medications Generic Name Dose Route Start Last Admin Trade Name Freq PRN Reason Stop Dose Admin Acetaminophen 975 mg 10/18/23 08:17 10/18/23 08:35 Acetaminophen 325 Mg Tablet PO 10/18/23 08:18 975 mg ONCE ONE Administration Albuterol Sulfate 2.5 mg/ 5 mg 10/18/23 07:44 10/18/23 07:47 Albuterol Sulfate 2.5 mg INHALE 10/18/23 07:45 5 mg ONCE ONE Administration Albuterol Sulfate 2.5 mg/ 0 mg 10/18/23 07:33 10/18/23 07:36 Albuterol/Ipratropium 3 ml INHALE 10/18/23 07:34 1 dose ONCE ONE Administration Furosemide 40 mg 10/18/23 09:39 10/18/23 10:03 Furosemide 40 Mg/4 Ml Vial IVPUSH 10/18/23 09:40 40 mg ONCE ONE Administration Protocol Methylprednisolone Sodium Succinate 125 mg 10/18/23 07:52 10/18/23 10:01 Methylprednisolone Sod Succ 125 Mg/2 Ml Vial IVPUSH 10/18/23 07:53 125 mg ONCE ONE Administration Oxycodone HCl 15 mg 10/18/23 07:20 10/18/23 07:33 Oxycodone Hcl Immed Release 15 Mg Tablet PO 10/18/23 07:21 15 mg ONCE ONE Administration Medical Decision Making Medical Decision Making MDM Narrative: 67 year old female with pmhx significant for asthma presents to the ED today via EMS from home for evaluation of productive cough and shortness of breath x6 days. Vital signs notable for tachypnea on arrival. Now WNL. Afebrile. Patient is nontoxic appearing and in no acute distress. Lungs with bilateral expiratory wheezes and rhonchi. RRR. No JVD. No calf tenderness. 1+ pitting edema to b/l LE. Clinical concern for viral syndrome, pneumonia, asthma exacerbation, CHF. Unlikely pulmonary embolism, pleural effusion, arrhythmia, ACS, dissection, DVT, cardiac tamponade. Plan for EKG, labs, trop, chest x-ray, ED bronch protocol, re-evaluation Differential Diagnosis Differential Diagnoses: The differential diagnosis associated with the presentation includes as above. Admission/Observation Consideration of admission/observation: Escalation of care including admission/observation considered This 67-year-old patient with suspected new onset heart failure will be admitted. Consult Healthcare Provider Management of the patient was discussed with: Hospitalist (Dr. Kyle) Lab Data MDM Lab Attestation statement: I reviewed the patient's lab results. as above. 10/18/23 05:02 10/18/23 05:02 Labs: Lab Results 10/18/23 10/18/23 Range/Units 05:02 08:50 WBC 13.3 H (4.8-10.8) X10*3/uL RBC 3.90 L (4.20-5.50) X10*6/uL Hgb 12.2 (12.0-16.0) g/dl Hct 37.4 (37.0-47.0) % MCV 95.9 (80.0-98.0) fL MCH 31.3 (27.0-33.0) pg MCHC 32.6 (31.0-35.0) g/dl RDW 13.3 (11.0-16.0) % Plt Count 345 (160-400) X10*3/uL MPV 8.5 L (9.4-12.3) fL Immature Gran % (Auto) 0.4 (0.0-0.4) % Neut % (Auto) 84.5 H (45-73) % Lymph % (Auto) 7.1 L (20-40) % [place] % (Auto) 7.4 (2-11) % Eos % (Auto) 0.1 (0-4) % Baso % (Auto) 0.5 (0-2) % Lymph # (Auto) 0.9 L (1.2-4.9) X10*3/uL [place] # (Auto) 1.0 (0.1-1.2) X10*3/uL Eos # (Auto) 0.0 (0.0-0.4) X10*3/uL Baso # (Auto) 0.1 (0.0-0.2) X10*3/uL Abs Immat Gran (auto) 0.05 H (0.00-0.03) X10*3/uL Absolute Neuts (auto) 11.3 H (2.0-8.3) x10*3/uL Absolute Nucleated RBC 0.000 (0.0-0.012) X10*3/uL Nucleated RBC % (auto) 0.0 (0.0-0.2) /100WBC PT 12.4 (11.1-13.3) SEC INR 1.0 (0.9-1.1) APTT 31.6 (26.0-36.4) SEC Sodium 145 (135-145) mmol/L Potassium 4.5 (3.3-5.1) mmol/L Chloride 108 (96-108) mmol/L Carbon Dioxide 25 (22-29) mmol/L Anion Gap 17 (12-20) BUN 13 (9-16) mg/dL Creatinine 0.71 (0.5-1.4) mg/dL Estim Creat Clear Calc 79.6 Estimated GFR > 60 Random Glucose 105 (60-115) mg/dL Calcium 9.2 (8.4-10.2) mg/dL Total Bilirubin 0.8 (0.0-1.0) mg/dL AST 20 (5-31) U/L ALT 15 (0-31) U/L Alkaline Phosphatase 85 (39-117) U/L Troponin I High Sens 8.6 8.4 (<3.5-17.0) ng/L B-Natriuretic Peptide 476 H (<100) pg/mL Total Protein 6.3 L (6.5-8.0) g/dL Albumin 3.4 L (3.5-5.0) g/dL Influenza Type A (PCR) NEGATIVE (Negative) Influenza Type B (PCR) NEGATIVE (Negative) RSV RNA Qual (PCR) NEGATIVE (Negative) SARS-CoV-2 RNA (RT-PCR) NEGATIVE (Negative) Independent Interpretation I performed an independent interpretation of an: EKG and Plain X-Ray Interpretation: EKG showing sinus rhythm with premature atrial complexes, rate of 75 beats per minute, QT 426, QTC 475, no acute iscemic changes or ST elevations. I have personally reviewed chest x-ray and agree with radiologist's interpretation. Radiology Impression Discussion of test interpretation with radiology: I have reviewed the radiologist's reading. Radiologist Impression: XR chest 1V IMPRESSION: Minimal atelectasis or scarring at the right lung base. No other significant abnormality seen. Independent Historian Clinical information obtained from an independent historian. History obtained from or confirmed by: EMS External Record Review External record reviewed: Inpatient record Prescription Management I considered prescription management with: Other (steroid) Chronic Conditions Patient?s care impacted by: Other (asthma) Social Determinants Patient?s care significantly limited by Social Determinants of Health including: Other Social Determinant of Health Critical Care Time Critical Care Time Critical Care Time: Yes Total Critical Care Time: 60 Attestation: Critical care time in the amount of 60 minutes has been provided to the patient in terms of direct patient care, frequent reevaluation, consultation with hospitalist, review and interpretation of medical data and results, and management of potentially life-threatening conditions. This is all outside of any medical procedures. Discharge Plan Discharge Clinical Impression: Asthma with exacerbation, Congestive heart failure Patient Disposition: Admitted As Inpatient
--- NOTE | 2023-10-18 07:00 | CA_ITS ---
Transthoracic Echocardiogram Patient (Last, First, Middle): Meaghan Martino M Gender: Female Date of : 1955 Age: 67 Procedure Date: 10/18/2023 Procedure Type: Transthoracic Echocardiogram Location: ER Height: 149.86 cm Weight: 94.8 kg BSA: 1.88 m2 Heart Rate: bpm BP: 118 / 66 mmHg Gunner'S Mate G: Referring MD: Ion Shah MD Symptoms: chf? Study Quality: Fair ECG Rhythm: Sinus Conclusions: - The left ventricular systolic function is hyperdynamic. The visually estimated ejection fraction is >70%. - There is mild to moderate tricuspid valve regurgitation. - Moderate pulmonary hypertension is present. - The inferior vena cava is dilated and collapses less than 50% with inspiration. Findings Left Ventricle Normal left ventricular cavity size. There is moderately increased left ventricular wall thickness. The left ventricular systolic function is hyperdynamic. The visually estimated ejection fraction is >70%. There is no evidence of regional wall motion abnormalities. Diastolic function is normal for age. Right Ventricle Mildly increased right ventricular cavity size. There is normal right ventricular systolic function. Atria The left atrium is moderately dilated. The right atrium is normal in size. Aortic Valve There is a normal trileaflet aortic valve. There is mild calcification of the aortic valve. There is no aortic valve stenosis. There is no aortic valve regurgitation. Mitral Valve The mitral valve appears normal. There is trace mitral valve regurgitation. There is no mitral valve stenosis. Pulmonic Valve The pulmonic valve is likely normal. Tricuspid Valve Normal tricuspid valve structure. There is mild to moderate tricuspid valve regurgitation. Moderate pulmonary hypertension is present. Great Vessels The asc aorta is normal in size. Venous The inferior vena cava is dilated and collapses less than 50% with inspiration. Pericardium/Pleural There is no evidence of pericardial effusion. Prior Study Comparison No prior study available for comparison. Measurements 2D Linear Measurements IVSd: 1.30 0.6-0.9/0.6-1.0 cm LVIDd: 4.82 3.9-5.3/4.2-5.9 cm LVIDd Index: 2.56 2.4-3.2/2.2-3.1 cm/m2 LVIDs: 2.91 2.0-3.6 cm LVPWd: 1.30 0.7-1.1 cm Ao Root: 3.20 2.1-3.5 cm LA Diam: 4.40 2.7-3.8/3.0-4.0 cm LAIDs Index: 2.34 1.5-2.3 cm/m2 LV Mass: 308.40 67-162/88-224 g LV Mass Index: 164.04 43-95/49-115 g/m2 LVOT Diam: 2.00 3.0+(-)1.3 cm 2D Systolic Function EF 4C: 72.80 >55% EF 2C: 75.50 >55% EF BiP: 73.90 >55% Mitral Valve MV Pk E: 0.90 MV PK A: 0.78 MV Decel Time: 163.00 E/A: 1.20 E'Lateral: 9.90 E'Medial: 9.36 E/E' Med: 9.60 E/E' Lat: 9.00 PHT: 48.00 MVA PHT: 4.58 Decel [place]: 5.48 Aortic Valve AoV Pk Jose Cruz: 1.86 AoV Mn Jose Cruz: 1.18 AoV VTI: 0.37 AoV Pk Grad: 14.00 Aov Mn Grad: 7.00 TAWNYA Cont.VTI: 3.13 LVOT LVOT Pk Jose Cruz: 1.54 LVOT Mn Jose Cruz: 1.09 LVOT VTI: 0.37 LVOT Pk Grad: 9.00 LVOT Mn Grad: 5.00 LVOT Diam: 2.00 LVOT Area: 3.14 Diastolic Function MV Pk E: 0.90 MV Pk A: 0.78 E/A: 1.20 E'Medial: 9.36 E/E' Med: 9.60 E' Laterial: 9.90 E/E' Lat: 9.00 Right Ventricle TAPSE (mm): 30.00 TVS' Jose Cruz: 20.00 Tricuspid Valve TR Pk Jose Cruz: 3.16 TR Pk Grad: 40.00 RA Press: 15.00 RVSP: 55.00 Great Vessels Aorta Ao Root-2D: 3.20 2.0-3.7 cm Ao Asc: 3.00 2.1-3.4 cm Pulmonary Valve PV Pk Jose Cruz: 1.29 Peak PV Grad: 7.00 Updated in Other Vendor System with Status of Final Iker Madden MD electronically signed on 10/18/2023 2:34:23 PM with status of Final
--- NOTE | 2023-10-18 07:24 | PC.NURSE ---
Addendum entered by Gay Garcia RN 10/18/23 07:44: pt had bad pleth. pt sating 96% on room air. Original Note: assumed care of pt at 0700. pt a&o x4, calm, and cooperative. pt ambulated to bathroom independently. currently asking for her oxycodone that she takes at home for arthritic pain. LASHAWN Palmer aware and ordered. pt also asking for Ventolin inhaler. pt on bedside monitor, rr even/unlabored, sating 92% on room air. resting quietly on stretcher, call riley within reach. plan of care ongoing.
[2023-10-18] MEDS: oxyCODONE HCl Immed Release 15 MG TABLET PO ×3 (07:33→22:03)
[2023-10-18] MEDS: Albuterol Sulfate 2.5 MG, Albuterol/Iprat 2.5/0.5MG 3 ML 3 ML INHALE (07:36)
[2023-10-18] MEDS: Albuterol Sulfate 2.5 MG, Albuterol Sulfate (0.083%) 2.5 MG 5 MG INHALE (07:47)
--- NOTE | 2023-10-18 07:47 | PC.NURSE ---
pt medicated per dec for arthritic pain. RT currently in pt room giving pt breathing treatment.
--- NOTE | 2023-10-18 08:18 | PC.NURSE ---
pt teary, stating she keeps having to blow her nose. asking for more tissues and gaviota bag for trash. pt also requesting tylenol for headache that was not relieved with oxycodone. LASHAWN Palmer aware.
[2023-10-18] MEDS: Acetaminophen 325 MG TABLET 975 MG PO (08:35)
[2023-10-18 08:59] LABS: B Type Natriuretic Peptide 476 pg/mL (<100)
[2023-10-18 09:18] LABS: Troponin-I High Sensitivity 8.4 ng/L (<3.5-17.0)
[2023-10-18] MEDS: methylPREDNISolone Sod Succ 125 MG/2 ML VIAL IVPUSH (10:01)
[2023-10-18] MEDS: Furosemide 40 MG/4 ML VIAL IVPUSH (10:03)
--- NOTE | 2023-10-18 10:08 | PC.NURSE ---
pt late medication administration due to code in next room. pt medicated per dec. pt allowed to unhook from monitor to ambulate to bathroom. plan of care ongoing.
--- NOTE | 2023-10-18 10:39 | PHA.MEDREC ---
Pharmacy Consult ? Medication Reconciliation Pharmacy has completed the medication reconciliation.
--- NOTE | 2023-10-18 10:56 | P.HPHOSP_ITS ---
History of Present Illness Date of Service: 10/18/23 Attending physician on admission: Ion Shah Chief Complaint: sob ,cough 67 y/o F pmhx significant for asthma(mild intermittent asthma),morbid obesity- presents to the ED today via EMS from home for evaluation of cough and shortness of breath x6 days.she says she has soarthroat and rinnhae with it, Reports dry cough beginning 6 days ago with yellow sputum production , tried nebs no relief, aggressive cough. Denies recent travel or Denies known sick contacts. She says she uses 1 pillow to sleep which is usual, denies orthopnea. Denies gaining any weight, has mild leg edema but no pains. Denies chest pain or palpitations or current or previous tobacco use. Denies fever, chills, BELTRAN, dizziness, sore throat, N/V. labs imaging ekg reviewed: wbc: 13.3 bmp fine bnp: 476 trops flat ekg-Sinus rhythm with Premature atrial complexes. cxr:Minimal atelectasis or scarring at the right lung base.No other significant abnormality seen In ED:patient given neb,steriods ,lasix -requested admission - asthma excerebation. Review of Systems 2 Review of Systems: Yes all other systems are reviewed and are negative [facility] Social History Smoked in Last 30 Days: No Advance Directives: No Advance Directives Information Provided: No Meds Allergies Allergy/AdvReac Type Severity Reaction Status Date / Time No Known Allergies Allergy Verified 10/18/23 05:23 Active Medications: Current Medications Albuterol/Ipratropium (Albuterol/Iprat 2.5/0.5mg 3 Ml Ampul.Neb) 3 ml INHALE Q4H ARMANDO Albuterol/Ipratropium (Albuterol/Iprat 2.5/0.5mg 3 Ml Ampul.Neb) 3 ml INHALE Q3H PRN PRN Reason: sob Cefuroxime Axetil (Cefuroxime Axetil 500 Mg Tablet) 500 mg PO BID ONE Stop: 10/18/23 10:54 Doxycycline Monohydrate (Doxycycline Monohydrate 100 Mg Capsule) 100 mg PO BID ARMANDO Gabapentin (Gabapentin 300 Mg Capsule) 300 mg PO TID ARMANDO Methylprednisolone Sodium Succinate (Methylprednisolone Sod Succ 40 Mg/Ml Vial) 40 mg IVPUSH BID [facility] Non-Formulary Medication (Pantoprazole) 40 mg PO DAILY@0630 [facility] Sodium Chloride (0.9 % Sodium Chloride Flush 3 Ml Syringe) 3 ml IVFLUSH QSHIFT [facility] Home Medications Medication Instructions Recorded Confirmed Last Taken Type albuterol sulfate 90 mcg/actuation 2 puff inhalation QID PRN 10/18/23 10/18/23 Unknown History aerosol inhaler (Ventolin HFA) Shortness Of Breath Or Wheezing fluticasone propionate 50 1 spray intranasal BID PRN Allergy 10/18/23 10/18/23 Unknown History mcg/actuation nasal Symptoms spray,suspension (Flonase Allergy Relief) gabapentin 300 mg capsule 300 mg PO TID 10/18/23 10/18/23 10/17/23 History oxycodone 15 mg tablet 15 mg PO QID PRN pain 10/18/23 10/18/23 10/17/23 History pantoprazole 40 mg tablet,delayed 40 mg PO DAILY@0630 10/18/23 10/18/23 10/17/23 History release Physical Exam 2 Vital Signs and Narrative: Vital Signs: Last Vital Signs Temp 99.0 F 10/18/23 04:35 Pulse 93 10/18/23 10:09 Resp 19 10/18/23 10:09 BP 130/56 L 10/18/23 10:09 Pulse Ox 94 10/18/23 10:09 O2 Del Method Room Air 10/18/23 10:09 BMI result Body Mass Index 42.3 Appearance: Alert.? Oriented X3.sob ,taking in bronken sentences.? Eyes: Pupils equal, round and reactive to light.? Sclera nonicteric.? ENT: Pharynx normal.? Moist mucous membranes. cvs: rrr, [id number] . res: air entry diminshed ,has b/l exp. wheezing abd: no rebound or guarding ,nt, bs present. ext pulses present , no cyanosis , generalized weak.leg edema 1+ neuro: axo3 , nonfocal. Results Labs 10/18/23 05:02 10/18/23 05:02 Labs: Laboratory Results - last 24 hr 10/18/23 05:02 MCV 95.9 MCH 31.3 MCHC 32.6 RDW 13.3 Plt Count 345 MPV 8.5 L Immature Gran % (Auto) 0.4 Neut % (Auto) 84.5 H Lymph % (Auto) 7.1 L [place] % (Auto) 7.4 Eos % (Auto) 0.1 Baso % (Auto) 0.5 Lymph # (Auto) 0.9 L [place] # (Auto) 1.0 Eos # (Auto) 0.0 Baso # (Auto) 0.1 Abs Immat Gran (auto) 0.05 H Absolute Neuts (auto) 11.3 H Absolute Nucleated RBC 0.000 Nucleated RBC % (auto) 0.0 PT 12.4 INR 1.0 APTT 31.6 Anion Gap 17 Estim Creat Clear Calc 79.6 Estimated GFR > 60 Random Glucose 105 Calcium 9.2 Total Bilirubin 0.8 AST 20 ALT 15 Alkaline Phosphatase 85 B-Natriuretic Peptide 476 H Total Protein 6.3 L Albumin 3.4 L Influenza Type A (PCR) NEGATIVE Influenza Type B (PCR) NEGATIVE RSV RNA Qual (PCR) NEGATIVE SARS-CoV-2 RNA (RT-PCR) NEGATIVE Imaging Radiologist's Impressions: Impressions Chest X-Ray 10/18/23 04:40 IMPRESSION: Minimal atelectasis or scarring at the right lung base. No other significant abnormality seen. Assessment and Plan (1) Asthma with exacerbation: Qualifiers: Asthma severity: mild Asthma persistence: intermittent Qualified Code(s): J45.21 - Mild intermittent asthma with (acute) exacerbation Status: Acute Plan 67 y/o F pmhx significant for asthma(mild intermittent asthma),morbid obesity came with mild intermittent asthma exacerbation with acute bronchitis , mild intermittent asthma exacerbation with acute bronchitis : has sob with minimal excersion even after nebs ,steriods,also failed nebs at home had productive cough with sputum any URI like symptoms normal lactic acid Added respiratory panel,procalcitonin levels continue nebs ,steriods ,antibiotics, moniter for worsening respiratory symptoms Morbid obesity: Encouraged to lose weight, cut on calories elevated bnp/leg edema:? chf (less likely) given lasix in ed. echo added . given presenatation-seems more asthma/bronchitis Patient will benefit from 24-48 hour hospital stay: Consideringmild intermittent asthma exacerbation with acute bronchitis-failed outpatient nebs, has URI like symptoms-needs nebs , IV steroids, antibiotics and also need workup for cardiac disease-considering elevated BNP, leg edema-received Lasix and need renal function and electrolyte monitoring. Quality Stroke Does the patient have a stroke diagnosis?: No VTE Prior VTE?: No VTE Risk Level:: Medical - moderate - high VTE Device Contraindication: N/A - Device Ordered VTE Drug Contraindication: N/A - Med Ordered
[2023-10-18] MEDS: cefuroxime axetiL 500 MG TABLET PO (11:56)
[2023-10-18] MEDS: Albuterol/Iprat 2.5/0.5MG 3 ML AMPUL.NEB INHALE ×3 (12:10→19:20)
[2023-10-18 13:20] LABS: Procalcitonin 0.03 ng/mL
[2023-10-18] MEDS: Butalb/Acetamin/Caff 50/325/40 TABLET 1 TAB PO ×2 (14:41→19:16)
[2023-10-18] MEDS: Enoxaparin Sodium 40 MG/0.4 ML SYRINGE SUBCUT (14:41)
--- NOTE | 2023-10-18 14:47 | PC.NURSE ---
pt medicated per mar for headache as headache was unrelieved by oxycodone and tylenol. pt resting quietly. teary. rr even/unlabored. plan of care ongoing.
[2023-10-18] MEDS: Gabapentin 300 MG CAPSULE PO ×2 (15:15→21:38)
--- NOTE | 2023-10-18 15:29 | PC.NURSE ---
pt was pacing around ED and out of room at legal secretary receptionist desk demanding her oxycodone, becoming agitated. pt medicated per dec for pain. pt resting quietly. awaiting bed assignment.
[2023-10-18] MEDS: Doxycycline Monohydrate 100 MG CAPSULE PO (21:38)
[2023-10-18] MEDS: methylPREDNISolone Sod Succ 40 MG/ML VIAL IVPUSH (21:39)
[2023-10-18] MEDS: 0.9 % Sodium Chloride Flush 3 ML SYRINGE IVFLUSH (21:39)
[2023-10-18] MEDS: Acetaminophen 325 MG TABLET 650 MG PO (22:02)
[2023-10-19] MEDS: Albuterol/Iprat 2.5/0.5MG 3 ML AMPUL.NEB INHALE ×3 (00:11→12:24)
[2023-10-19 00:12] VITALS: PULSE 70; RESP 16; O2SAT 95
[2023-10-19 03:53] VITALS: PULSE 78; RESP 16; O2SAT 96
[2023-10-19 04:00] VITALS: BP 140/73; PULSE 84; RESP 16; TEMP 36; O2SAT 95
[2023-10-19] MEDS: Omeprazole 20 MG CAPSULE.DR PO (05:37)
[2023-10-19] MEDS: guaiFENesin 200 MG/10 ML 10 ML LIQUID PO ×4 (05:43→16:03)
[2023-10-19] MEDS: oxyCODONE HCl Immed Release 15 MG TABLET PO ×3 (05:43→16:03)
[2023-10-19] MEDS: Acetaminophen 325 MG TABLET 650 MG PO ×2 (06:53→12:15)
[2023-10-19 07:35] VITALS: BP 106/55; PULSE 72; RESP 16; TEMP 36.1; O2SAT 93
[2023-10-19] MEDS: predniSONE 20 MG TABLET 40 MG PO (08:18)
[2023-10-19] MEDS: Butalb/Acetamin/Caff 50/325/40 TABLET 1 TAB PO ×2 (08:18→12:16)
[2023-10-19] MEDS: Doxycycline Monohydrate 100 MG CAPSULE PO ×2 (08:18→14:49)
[2023-10-19] MEDS: Gabapentin 300 MG CAPSULE PO ×2 (08:18→14:32)
[2023-10-19] MEDS: Loratadine 10 MG TABLET PO (08:18)
[2023-10-19] MEDS: cefuroxime axetiL 500 MG TABLET PO ×2 (08:18→14:49)
[2023-10-19] MEDS: 0.9 % Sodium Chloride Flush 3 ML SYRINGE IVFLUSH (08:23)
--- NOTE | 2023-10-19 11:22 | MHC.CM.PN ---
pt lives alone has servies thru [facility] [facility] and mow may need a ride home
[2023-10-19 11:30] LABS: Adenovirus PCR Not Detected (Not Detect.); Bordetella parapertussis PCR Not Detected (Not Detect.); Bordetella pertussis PCR Not Detected (Not Detect.); Chlamydia pneumoniae PCR Not Detected (Not Detect.); Coronavirus 229E PCR Not Detected (Not Detect.); Coronavirus HKU1 PCR Not Detected (Not Detect.); Coronavirus NL63 PCR Not Detected (Not Detect.); Coronavirus OC43 PCR Not Detected (Not Detect.); Human metapneumovirus PCR Not Detected (Not Detect.); Influenza A PCR Not Detected (Not Detect.); Influenza B PCR Not Detected (Not Detect.); Mycoplasma pneumoniae PCR Not Detected (Not Detect.); Parainfluenza 1 PCR Not Detected (Not Detect.); Parainfluenza 2 PCR Not Detected (Not Detect.); Parainfluenza 3 PCR Not Detected (Not Detect.); Parainfluenza 4 PCR Not Detected (Not Detect.); RSV PCR Not Detected (Not Detect.); Rhino/Enterovirus PCR Not Detected (Not Detect.)
--- NOTE | 2023-10-19 12:17 | PM.DS ---
DS: Providers Provider Date of Service: 10/19/23 Date of admission: 10/18/23 10:47 Date of discharge: 10/19/23 Primary care physician: Emilee Lopez MD Attending physician on discharge: Ion Shah Discharging clinician: Ion Shah DS: Diagnosis Discharge Diagnosis (1) Asthma with exacerbation: Status: Acute DS: Summary Hospital Course Hospital Course: Hospital course: mild intermittent asthma exacerbation with acute bronchitis-failed outpatient nebs, has URI like symptoms,mild leucocytosis -needs nebs , IV steroids, antibiotics with supportive management patient seems to be improved significantly . sats fine ,no fever. respiratory viral panel negative and throat cultures still pending upon discharge ,she denies any throat pain today-since patient improved significantly follow throat culture results outpatiently with pcp. patient will complete 6more days of po ceftin 500mg po bid and doxyxycline 100 mg po bid ,continue loratidine and robitussin. inaddition she was told by Ed ? chf -given her presentation less likely but considering elevated BNP, mild leg edema-received Lasix in ed ,echo ef : 70% ,has moderate pulm htn. she requesting for po lasix until she see pcp and consider outpatient cardiology eval as per pcp. plan: complete 6more days of po ceftin 500mg po bid and doxyxycline 100 mg po bid ,continue loratidine and robitussin. follow throat culture results outpatiently with pcp. consider outpatient cardiology eval as per pcp. Above management discussed with patient detail, she understand and in agreement above plan, time spent 50 min. Time Attestation Discharge coordination time: Greater than 30 minutes Quality: Safe Use of Opioids Does Pt have an Active Cancer Diagnosis on the Problem List?: No Quality: Stroke Does the patient have a stroke diagnosis?: No Physical Exam Vital Signs: Vital Signs: Last Vital Signs Temp 96.9 F 10/19/23 07:35 Pulse 72 10/19/23 07:35 Resp 16 10/19/23 07:35 BP 106/55 L 10/19/23 07:35 Pulse Ox 93 10/19/23 07:35 O2 Del Method Room Air 10/19/23 07:35 BMI result Body Mass Index 42.3 Appearance: Alert.? Oriented X3.not in any distress ,back to baseline.? Eyes: Pupils equal, round and reactive to light.? Sclera nonicteric.? ENT: Pharynx normal.? Moist mucous membranes. throat-no erythema or pain. cvs: rrr, [id number] . res: air entry fair , no rales or wheezing. abd: no rebound or guarding ,nt, bs present. ext pulses present , no cyanosis , trace edema. neuro: axo3 , nonfocal. DS: Data Data Completed and Pending Labs on day of discharge: Laboratory Results - last 24 hr 10/18/23 05:02 Procalcitonin 0.03 Imaging Chest x-ray: Radiologist's impression: ITS Impressions Chest X-Ray 10/18/23 04:40 IMPRESSION: Minimal atelectasis or scarring at the right lung base. No other significant abnormality seen. Echo: Conclusions: - The left ventricular systolic function is hyperdynamic. The visually estimated ejection fraction is >70%. - There is mild to moderate tricuspid valve regurgitation. - Moderate pulmonary hypertension is present. - The inferior vena cava is dilated and collapses less than 50% with inspiration. Findings Left Ventricle Normal left ventricular cavity size. There is moderately increased left ventricular wall thickness. The left ventricular systolic function is hyperdynamic. The visually estimated ejection fraction is >70%. There is no evidence of regional wall motion abnormalities. Diastolic function is normal for age. Right Ventricle Mildly increased right ventricular cavity size. There is normal right ventricular systolic function. Atria The left atrium is moderately dilated. The right atrium is normal in size. Aortic Valve There is a normal trileaflet aortic valve. There is mild calcification of the aortic valve. There is no aortic valve stenosis. There is no aortic valve regurgitation. Mitral Valve The mitral valve appears normal. There is trace mitral valve regurgitation. There is no mitral valve stenosis. Pulmonic Valve The pulmonic valve is likely normal. Tricuspid Valve Normal tricuspid valve structure. There is mild to moderate tricuspid valve regurgitation. Moderate pulmonary hypertension is present. Great Vessels The asc aorta is normal in size. Venous The inferior vena cava is dilated and collapses less than 50% with inspiration. Pericardium/Pleural There is no evidence of pericardial effusion. Prior Study Comparison No prior study available for comparison. Discharge Plan Discharge Anticipated Discharge Date/Time: 10/19/23 12:07 Patient Disposition: Home Health Service Discharge Diagnosis: Asthma exacerbation with acute bronchitis. Pulmonary hypertension Referrals: Emilee Lopez MD [Primary Care Provider] - 1 Week Discharge Medications: New doxycycline monohydrate 100 mg Capsule 100 mg PO BID Qty: 14 0RF loratadine 10 mg Tablet 10 mg PO DAILY Qty: 10 0RF prednisone 20 mg Tablet 40 mg PO DAILY Qty: 8 0RF cefuroxime axetil 500 mg Tablet 500 mg PO BID Qty: 14 0RF guaifenesin 100 mg/5 mL Liquid 100 mg PO Q4H PRN (Reason: cough) Qty: 100 0RF furosemide [Lasix] 20 mg tablet 20 mg PO Q OTHER DAY Qty: 10 0RF Continued oxycodone 15 mg tablet 15 mg PO QID PRN (Reason: pain) pantoprazole 40 mg tablet,delayed release (DR/EC) 40 mg PO DAILY@0630 gabapentin 300 mg capsule 300 mg PO TID albuterol sulfate [Ventolin HFA] 90 mcg/actuation HFA aerosol inhaler 2 puff INHALATION QID PRN (Reason: Shortness Of Breath Or Wheezing) fluticasone propionate [Flonase Allergy Relief] 50 mcg/actuation [place],Suspension 1 spray INTRANASAL BID PRN (Reason: Allergy Symptoms) Rx Instructions: administer into each nostril Discharge Orders: Discharge Order (Routine); Ordered 10/19/23 Ordered By: Ion Shah Diet: Advance to usual diet Activity on Discharge: As tolerated Stand Alone Forms: Patient Portal Discharge page Care Plan Goals: mild intermittent asthma exacerbation with acute bronchitis-failed outpatient nebs, has URI like symptoms,mild leucocytosis -needs nebs , IV steroids, antibiotics with supportive management patient seems to be improved significantly . sats fine ,no fever. respiratory viral negative and throat cultures still pending at discharge ( follow outpatiently) since patient improved significantly. patient will complete 6more days of po ceftin 500mg po bid and doxyxycline 100 mg po bid ,continue loratidine and robitussin. inaddition she was told by Ed ? chf -given her presentation less likely but considering elevated BNP, mild leg edema-received Lasix in ed ,echo ef : 70% ,has moderate pulm htn. she requesting for po lasix until she see pcp and consider outpatient cardiology eval as per pcp. Health Concerns: as above. Plan of Treatment: as above. Assessment: as above.
--- NOTE | 2023-10-19 12:21 | P.F2F_ITS ---
Service Date Service Date: 10/19/23 Encounter Date of encounter: 10/19/23 Encounter: mild intermittent asthma exacerbation with acute bronchitis ,elevated bnp. Reasons for Services Signs and symptoms assessed: sob or fevers or new symptoms Reason for long-term: CV/CP assess and/or care, medication management, medication treatment and teach disease management MD Overseeing Care: Emilee Lopez Homebound: Leaving the home is medically contraindicated at this time without the asist of a device and/or another person due th the listed conditions above and below. Reason homebound: weakness related to hospital stay Homebound supporting statement: Patient was asthma exacerbation with acute bronchitis,morbid obesity- need help with appointments ,labs draws and disease amangement. Certification: Based on the above findings, I certify that this patient is confined to the home and needs intermittent long-term care, physical therapy and/or speech therapy, or continues to need occupational therapy. The patient is under my care, and I have initiated the establishment of the plan of care. The patient will be followed by a physician who will periodically review the plan of care. Time Spent With Patient Time: Total time managing care of this patient today ____ minutes.
[2023-10-19 12:25] VITALS: PULSE 68; RESP 16; O2SAT 96
[2023-10-19 12:26] LABS: SARS-CoV-2 PCR Not Detected (Not Detect.)
--- NOTE | 2023-10-19 12:42 | MHC.CM.PN ---
pt referred to [facility] as [facility]ns not responding to coworkers referrals
== END 2023-10-19 16:04 | disposition home health service (06) ==
LOC: HO.ED 09:36 → HO.EDOVER 11:02 → HO.S3 19:08
PROVIDERS: Physician Assistant Medical; Admitting Provider Internal Medicine; Emergency Provider Emergency Medicine; PCP Internal Medicine Endocrinology, Diabetes & Metabolism; Visit Provider Internal Medicine
DX: J45.21 Mild intermittent asthma with (acute) exacerbation (principal); J40 Bronchitis, not specified as acute or chronic; I27.20 Pulmonary hypertension, unspecified; R06.00 Dyspnea, unspecified; R07.9 Chest pain, unspecified; R05.9 Cough, unspecified; I50.9 Heart failure, unspecified; J45.31 Mild persistent asthma with (acute) exacerbation; D72.829 Elevated white blood cell count, unspecified; E66.01 Morbid (severe) obesity due to excess calories; Z68.41 Body mass index [BMI] 40.0-44.9, adult; Z20.822 Contact with and (suspected) exposure to COVID-19; Z20.828 Contact with and (suspected) exposure to other viral communicable diseases
CPT/HCPCS: 0241U; 36415; 71045; 80053; 83880; 84145; 84484; 85025; 85610; 85730; 87070; 87633; 93005; 93306; 94640; 96372; 96374; 96375; 96376; 99222; 99285; J1650; J1940; J2920; J2930

== ENCOUNTER → 2023-10-18 05:39 | Outpatient (BNV) | payer MEDICARE, MEDICAID, SELFPAY | PROVIDERS: Admitting Provider Internal Medicine; Emergency Provider Emergency Medicine; PCP Internal Medicine Endocrinology, Diabetes & Metabolism; Visit Provider Internal Medicine | DX: I36.1 Nonrheumatic tricuspid (valve) insufficiency (principal); I49.1 Atrial premature depolarization | CPT/HCPCS: 93010; 93306 ==

== ENCOUNTER → 2023-10-18 10:47 | Outpatient (BNV) | payer MEDICARE, MEDICAID, SELFPAY | PROVIDERS: Admitting Provider Internal Medicine; Emergency Provider Emergency Medicine; PCP Internal Medicine Endocrinology, Diabetes & Metabolism; Visit Provider Internal Medicine | DX: J45.21 Mild intermittent asthma with (acute) exacerbation (principal); J20.9 Acute bronchitis, unspecified | CPT/HCPCS: 99222; 99239; G0180 ==

== ENCOUNTER 2023-10-23 00:57 | Inpatient (IN) | payer MEDICARE, MEDICAID, SELFPAY ==
[2023-10-23] VITALS (17 sets, daily range): BP systolic 133–174; BP diastolic 51–89; PULSE 56–87; RESP 16–20; TEMP 36.3–38.2; O2SAT 90–99; BMI 37.3
--- NOTE | 2023-10-23 01:35 | MHC.EDTECH ---
Patient came in by ambulance,patient was changed into hospital attire,case monitor placed,vitals taken and EKG done per order and signed by provider. Labs and Sars/Flu/Rsv obtained and sen to lab.Call riley within reach
--- NOTE | 2023-10-23 01:51 | MHC.EDTECH ---
1 assist to commode, patient urinated with a moderate amount of soft stool, patient was ambulated with a walking O2 sat of 95% on room air. Patient ambulated steady with cane
--- NOTE | 2023-10-23 07:57 | ED.SOB ---
HPI - SOB/Dyspnea General Chief Complaint: Dyspnea Stated Complaint: difficulty breathing Time Seen by Provider: 10/23/23 07:15 Source: patient Mode of arrival: ambulatory Limitations: no limitations History of Present Illness HPI Narrative: 57-year-old female history of CHF, asthma, recent bronchitis presenting with complaints of fatigue, malaise, myalgias, cough, wheezing, shortness of breath, chest pressure worsening for the past few days. Patient reports she was recently admitted to this hospital and discharged on October 19. She does not seem to be improving despite multiple treatments, steroids. Denies fevers, chills, nausea, vomiting, headache, vision changes Related Data Home Medications Medication Instructions Recorded Confirmed albuterol sulfate 90 mcg/actuation 2 puff inhalation QID PRN 10/18/23 10/18/23 aerosol inhaler (Ventolin HFA) Shortness Of Breath Or Wheezing fluticasone propionate 50 1 spray intranasal BID PRN Allergy 10/18/23 10/18/23 mcg/actuation nasal Symptoms spray,suspension (Flonase Allergy Relief) gabapentin 300 mg capsule 300 mg PO TID 10/18/23 10/18/23 oxycodone 15 mg tablet 15 mg PO QID PRN pain 10/18/23 10/18/23 pantoprazole 40 mg tablet,delayed 40 mg PO DAILY@0630 10/18/23 10/18/23 release Previous Rx's Medication Instructions Recorded cefuroxime axetil 500 mg tablet 500 mg PO BID #14 tabs 10/19/23 doxycycline monohydrate 100 mg 100 mg PO BID #14 caps 10/19/23 capsule furosemide 20 mg tablet (Lasix) 20 mg PO Q OTHER DAY #10 tabs 10/19/23 guaifenesin 100 mg/5 mL oral liquid 100 mg (5 mL) PO Q4H PRN cough 10/19/23 #100 mL loratadine 10 mg tablet 10 mg PO DAILY #10 tabs 10/19/23 prednisone 20 mg tablet 40 mg (2 x 20 mg) PO DAILY #8 tabs 10/19/23 albuterol sulfate 90 mcg/actuation 2 puff inhalation Q4-6H PRN 10/23/23 aerosol inhaler (Ventolin HFA) shortness of breath or wheezing #8.5 grams prednisone 20 mg tablet 40 mg (2 x 20 mg) PO DAILY 5 days 10/23/23 #10 tabs Allergies Allergy/AdvReac Type Severity Reaction Status Date / Time No Known Allergies Allergy Verified 10/23/23 04:05 Review of Systems Review of Systems: Constitutional : No Weight loss, No Fever, No Chills, No Fatigue, No Malaise ENT/Mouth : No sore throat, No Rhinorrhea Eyes: No Eye Pain, No Swelling, No Redness Cardiovascular : No Chest Pain, + SOB, No Dyspnea on Exertion, No Orthopnea, No Edema, No Palpitations Respiratory : No Cough, No Sputum, + Wheezing Gastrointestinal : No Nausea, No Vomiting, No Diarrhea, No Constipation, No abdominal Pain, No Hematochezia, No Melena Genitourinary : No Dysuria, No Urinary Frequency, No Hematuria, Musculoskeletal : No joint pain, No Myalgias, No Joint Swelling Skin : No Skin Lesions, No rash Neuro : No Weakness, No Numbness, No Dizziness, No Headache Psych : No Anxiety/Panic, No Depression All other systems reviewed and are negative Yes all other systems are reviewed and are negative [facility] Past Medical History Attestation statement: The following information was validated with the patient. Source: old records reviewed and nursing notes reviewed Onset Date is defined in the Problem List Problems that require an onset date and time if occurred within 24 hrs of arrival to the ED Aortic Dissection and Rupture; Neurologic impairment; Cardiopulmonary Arrest; Endotracheal Intubation; Insertion or Replacement of Mechanical Circulatory Assist Device Social History Social History Patient Tobacco Use Status: Never used Tobacco Smoked in Last 30 Days: No Use of substances other than those prescribed or required for medical reasons: No Advance Directives: No Advance Directives Information Provided: No service: No Physical Exam Vital Signs: Vital Signs: Last Vital Signs Temp 100.8 F H 10/23/23 06:41 Pulse 61 10/23/23 08:11 Resp 18 10/23/23 08:11 BP 174/80 H 10/23/23 06:41 Pulse Ox 96 10/23/23 06:41 O2 Del Method Room Air 10/23/23 06:41 BMI result Body Mass Index 37.3 vss Appearance: Alert.? Oriented X3.? No acute distress.? Head: Normocephalic, atraumatic, no step-offs or deformities Eyes: Pupils equal, round and reactive to light.? Neck: Normal inspection.? Neck supple.? CVS: Normal heart rate and rhythm.? Pulses normal.? Respiratory: No respiratory distress.? Breath sounds diffuse expiratory wheezing ( moderate - severe) through all lung begum .? Abdomen: Soft and nontender.? Skin: Skin warm and dry.? Normal skin color.? Normal skin turgor.? Extremities: No lower extremity edema.? No calf ttp. 5/5 strength to bilateral upper and lower extremities Back: No midline tenderness, no C-spine tenderness, full range of motion, no CVA tenderness bilaterally Neuro: Oriented X 3.? No motor deficit.? No sensory deficit. CN 2-12 intact Course Reevaluation(s) Reevaluation #1: CBC with leukocytosis and elevated platelet count this is likely secondary to viral illness. Chemistry with potassium of 2.9 oral potassium ordered. Calcium low. Flu RSV negative. COVID positive. X-ray chest low lung volumes bilateral perihilar interstitial markings, ordered a CT chest for clarification. Time: 10:17 Reevaluation #2: Chest ct w/ multifocal opacities in upper and lower lobes representing developing infiltrates. At this time infection suspecte, ordered blood cultures, lactic acid, plan hospital admission. Time: 10:38 Reevaluation #3: Still having significant wheezing patient aware of plan. Time: 10:40 Medications Administered Discontinued Medications Generic Name Dose Route Start Last Admin Trade Name Freq PRN Reason Stop Dose Admin Acetaminophen 650 mg 10/23/23 07:52 10/23/23 10:43 Acetaminophen 325 Mg Tablet PO 10/23/23 07:53 650 mg ONCE ONE Administration Albuterol Sulfate 2.5 mg/ 0 mg 10/23/23 08:06 10/23/23 08:11 Albuterol/Ipratropium 3 ml INHALE 10/23/23 08:07 1 dose ONCE ONE Administration Magnesium Sulfate 2 gm in 50 mls @ 25 mls/hr 10/23/23 07:57 10/23/23 10:34 Magnesium Sulfate/H2o IV 10/23/23 09:56 25 mls/hr ONCE ONE Administration Methylprednisolone Sodium Succinate 125 mg 10/23/23 07:57 10/23/23 10:34 Methylprednisolone Sod Succ 125 Mg/2 Ml Vial IVPUSH 10/23/23 07:58 125 mg ONCE ONE Administration Potassium Chloride 40 meq 10/23/23 08:15 10/23/23 10:33 Potassium Chloride Er 20 Meq Tab.Er.Prt PO 10/23/23 08:16 40 meq ONCE ONE Administration Medical Decision Making Medical Decision Making [facility] Narrative: 67-year-old female presents with upper respiratory symptoms for the past few weeks. Recently discharged from this facility on for bronchitis/ asthma PE w/ Breath sounds diffuse expiratory wheezing ( moderate - severe) through all lung begum .? history and physical exam concerning for viral illness versus asthma versus bronchitis. Unlikely pneumonia, PE, ACS, dissection. Unlikely sepsis. Plan at this time labs, imaging. Differential Diagnosis Differential Diagnoses: The differential diagnosis associated with the presentation includes history and physical exam concerning for viral illness versus asthma versus bronchitis. Unlikely pneumonia, PE, ACS, dissection. Unlikely sepsis. Admission/Observation Consideration of admission/observation: Escalation of care including admission/observation considered Lab Data [facility] Lab Attestation statement: I reviewed the patient's lab results. 10/23/23 01:29 10/23/23 01:29 Labs: Lab Results 10/23/23 Range/Units 01:29 WBC 11.5 H (4.8-10.8) X10*3/uL RBC 4.14 L (4.20-5.50) X10*6/uL Hgb 13.0 (12.0-16.0) g/dl Hct 39.3 (37.0-47.0) % MCV 94.9 (80.0-98.0) fL MCH 31.4 (27.0-33.0) pg MCHC 33.1 (31.0-35.0) g/dl RDW 13.4 (11.0-16.0) % Plt Count 431 H (160-400) X10*3/uL MPV 8.5 L (9.4-12.3) fL Immature Gran % (Auto) Cancelled Neut % (Auto) Cancelled Lymph % (Auto) Cancelled [place] % (Auto) Cancelled Eos % (Auto) Cancelled Baso % (Auto) Cancelled Lymph # (Auto) Cancelled [place] # (Auto) Cancelled Eos # (Auto) Cancelled Baso # (Auto) Cancelled Abs Immat Gran (auto) Cancelled Absolute Neuts (auto) Cancelled Absolute Nucleated RBC 0.040 H (0.0-0.012) X10*3/uL Nucleated RBC % (auto) 0.3 H (0.0-0.2) /100WBC Neutrophils % (Manual) 84 H (45-73) % Band Neutrophils % 7 H (3-5) % Lymphocytes % (Manual) 6 L (20-40) % Atypical Lymphs % (Man) 1 (0-6) % Monocytes % (Manual) 2 (2-11) % Abs Neuts (Manual) 10.5 H (2.0-8.3) X10*3/uL Lymphocytes # (Manual) 0.7 L (1.2-4.9) X10*3/uL Atyp Lymphs # (Manual) 0.1 x10*3/uL Monocytes # (Manual) 0.2 (0.1-1.2) X10*3/uL Toxic Vacuolation PRESENT Platelet Estimate NORMAL (NORMAL) Large Platelets PRESENT Plt Morphology Comment NOTED RBC Morphology NOTED Ovalocytes 1+ (5-14) /OIF Sodium 144 (135-145) mmol/L Potassium 2.9 L D (3.3-5.1) mmol/L Chloride 113 H (96-108) mmol/L Carbon Dioxide 23 (22-29) mmol/L Anion Gap 11 L (12-20) BUN 11 (9-16) mg/dL Creatinine 0.68 (0.5-1.4) mg/dL Estim Creat Clear Calc 90.6 Estimated GFR > 60 Random Glucose 73 (60-115) mg/dL Calcium 7.8 L D (8.4-10.2) mg/dL Total Bilirubin 0.3 (0.0-1.0) mg/dL AST 21 (5-31) U/L ALT 18 (0-31) U/L Alkaline Phosphatase 65 (39-117) U/L Total Protein 5.4 L (6.5-8.0) g/dL Albumin 3.0 L (3.5-5.0) g/dL Influenza Type A (PCR) NEGATIVE (Negative) Influenza Type B (PCR) NEGATIVE (Negative) RSV RNA Qual (PCR) NEGATIVE (Negative) SARS-CoV-2 RNA (RT-PCR) POSITIVE A (Negative) Independent Interpretation I performed an independent interpretation of an: Plain X-Ray and CT Scan (CT/CT chest wo IV con IMPRESSION: 1. Multifocal patchy opacities throughout both upper and lower lobes suggestive of developing infiltrate. 2. There is minimal right basilar posterior pleural thickening. No pleural effusion seen. 3. Small hiatal hernia with evidence of previous gastric surgical ) Critical Care Time Critical Care Time Critical Care Time: Yes Total Critical Care Time: 45 Attestation: I attest to this time spent taking care of the patient, obtaining history, physical, reviewing labs, imaging, speaking to my attending, speaking to specialist. Discharge Plan Discharge Clinical Impression: COVID-19 Pneumonia Qualifiers: Pneumonia type: due to COVID-19 virus Qualified Code(s): U07.1 - COVID-19; J12.82 - Pneumonia due to coronavirus disease 2019 Patient Disposition: Admitted As Inpatient Additional Instructions: Take your medications as prescribed. If you were prescribed antibiotics today, it is important that you take your medication to their entirety, do not skip any doses, do not finish them early. Follow-up with your primary care provider this week. Return to the emergency department with new or worsening symptoms. Such as fevers, chills, chest pain, shortness of breath, nausea, vomiting, dizziness, headache, vision changes, lethargy In case of emergency call 911
--- NOTE | 2023-10-23 09:30 | PC.NURSE ---
handoff from devonte doty
--- NOTE | 2023-10-23 11:10 | PC.NURSE ---
tech at bedside roula one set of bc's. attempted 2nd set twice- difficult veins- another tech ctrying
--- NOTE | 2023-10-23 11:18 | PM.IMHP ---
History of Present Illness Date of Service: 10/23/23 Attending physician on admission: Everette Prabhakar Chief Complaint: SOB Pt is a 67-year-old female with a PMH significant for?mild intermittent asthma, peripheral neuropathy, GERD, and hx of gastric bypass who presents to the ED for evaluation of generalized weakness, myalgias, cough, and shortness of breath. Patient was admitted to the hospital less than 1 week prior on 10/18/2023 through 10/19/2023 and treated for a mild intermittent asthma exacerbation with acute bronchitis. Patient was discharged home on 6 days of Ceftin 500 mg p.o. b.i.d. and doxycycline 100 mg p.o. b.i.d.. Pt reports she started taking her medications immediately and as prescribed. [place] mildly better the first day after discharge but then started feeling progressively worse: had increasing SOB, cough productive of yellowish sputum, fatigue, myalgias, subjective fever and chills. Today felt so fatigued and overall sick she decided to re-present to the ED. Also complains of migraine headache, chest tightness, and left-sided upper abdominal pain associated with cough. In the ED pt had elevated temperature of 100.8 degrees, was hypertensive up to 174/80, satting as low as 90% on RA. Labs were significant for testing positive for COVID, leukocytosis of 11.5, and potassium 2.9. Labs otherwise unremarkable: Stable H&H, renal and hepatic function baseline. Lactic acid WNL at 0.8. CXR showed bilateral perihilar increased markings likely technical and or chronic, but no focal lung consolidations or pleural effusions. CT of chest found multifocal patchy opacities throughout both upper and lower lobe suggestive of developing infiltrate, and minimal right basilar posterior pleural thickening with no pleural effusion seen. Also found small hiatal hernia, and mild exaggerated thoracic kyphosis with degenerative disc changes. EKG demonstrated and aberrant conduction but no evidence of significant ST elevations or depressions. Pt was treated with DuoNebs, Mag sulfate, Solu-Medrol, potassium chloride, ondansetron, morphine, ceftriaxone and azithromycin. Pt will be admitted to the hospital for treatment further evaluation acute hypoxic respiratory failure in the setting COVID infection, acute asthma exacerbation, and possible pneumonia. Review of Systems Review of Systems: Negative except for that stated in the [facility] Medical History (Updated 10/23/23 @ 12:46 by LASHAWN Argueta) Peripheral neuropathy GERD (gastroesophageal reflux disease) Surgical History (Updated 10/23/23 @ 12:46 by LASHAWN Argueta) H/O gastric bypass Social History Patient Tobacco Use Status: Never used Tobacco Smoked in Last 30 Days: No Use of substances other than those prescribed or required for medical reasons: No Advance Directives: No Advance Directives Information Provided: No service: No Meds Allergies Allergy/AdvReac Type Severity Reaction Status Date / Time No Known Allergies Allergy Verified 10/23/23 04:05 Active Medications: Current Medications Azithromycin 500 mg/ Sodium (Chloride) 250 mls @ 125 mls/hr IV ONCE ONE Stop: 10/23/23 12:33 Home Medications Medication Instructions Recorded Confirmed Last Taken Type fluticasone propionate 50 1 spray intranasal BID PRN Allergy 10/18/23 10/23/23 Unknown History mcg/actuation nasal Symptoms spray,suspension (Flonase Allergy Relief) gabapentin 300 mg capsule 300 mg PO TID 10/18/23 10/23/23 3 Days Ago History ~10/20/23 oxycodone 15 mg tablet 15 mg PO QID PRN pain 10/18/23 10/23/23 3 Days Ago History ~10/20/23 pantoprazole 40 mg tablet,delayed 40 mg PO DAILY@0630 10/18/23 10/23/23 3 Days Ago History release ~10/20/23 calcium carbonate 500 mg calcium 500 mg PO DAILY 10/23/23 10/23/23 Unknown History (1,250 mg) tablet cholecalciferol (vitamin D3) 25 25 mcg PO DAILY 10/23/23 10/23/23 Unknown History mcg (1,000 unit) tablet (Vitamin D3) cyanocobalamin (vitamin B-12) 500 500 mcg PO DAILY 10/23/23 10/23/23 Unknown History mcg tablet multivitamin 1 tab PO DAILY 10/23/23 10/23/23 Unknown History Physical Exam Vital Signs and Narrative: Vital Signs: Last Vital Signs Temp 98.2 F 10/23/23 11:14 Pulse 61 10/23/23 11:14 Resp 19 10/23/23 11:14 BP 174/80 H 01/05/24 06:41 Pulse Ox 93 10/23/23 11:14 O2 Del Method Room Air 10/23/23 11:14 BMI result Body Mass Index 37.3 Constitutional: Alert, uncomfortable-looking, in no acute distress. Mental Status: Oriented to person, place and time. Eyes: Pupils are equal, round, and reactive to light. Ear, Nose, and Throat: Oropharynx clear, mucous membranes moist. Ears and nose without deformities. Trachea midline. Respiratory: Diffuse expiratory wheezing bilaterally. Cardiovascular: Regularly irregular rhythm. Gastrointestinal: Abdomen soft, non-distended, mild left-sided tenderness. Normal bowel sounds. Neurologic: Cranial nerves II-XII are grossly intact bilaterally. No focal neurological deficits. Moves all extremities spontaneously. Skin: Warm, dry. Musculoskeletal: No cyanosis or clubbing. Extremities: Trace bilateral edema. Psychiatric: Normal mood and affect. Results Labs 10/23/23 01:29 10/23/23 01:29 Labs: Laboratory Results - last 24 hr 10/23/23 01:29 MCV 94.9 MCH 31.4 MCHC 33.1 RDW 13.4 Plt Count 431 H MPV 8.5 L Immature Gran % (Auto) Cancelled Neut % (Auto) Cancelled Lymph % (Auto) Cancelled [place] % (Auto) Cancelled Eos % (Auto) Cancelled Baso % (Auto) Cancelled Lymph # (Auto) Cancelled [place] # (Auto) Cancelled Eos # (Auto) Cancelled Baso # (Auto) Cancelled Abs Immat Gran (auto) Cancelled Absolute Neuts (auto) Cancelled Absolute Nucleated RBC 0.040 H Nucleated RBC % (auto) 0.3 H Neutrophils % (Manual) 84 H Band Neutrophils % 7 H Lymphocytes % (Manual) 6 L Atypical Lymphs % (Man) 1 Monocytes % (Manual) 2 Abs Neuts (Manual) 10.5 H Lymphocytes # (Manual) 0.7 L Atyp Lymphs # (Manual) 0.1 Monocytes # (Manual) 0.2 Toxic Vacuolation PRESENT Platelet Estimate NORMAL Large Platelets PRESENT Plt Morphology Comment NOTED RBC Morphology NOTED Ovalocytes 1+ (5-14) Anion Gap 11 L Estim Creat Clear Calc 90.6 Estimated GFR > 60 Random Glucose 73 Calcium 7.8 L D Total Bilirubin 0.3 AST 21 ALT 18 Alkaline Phosphatase 65 Total Protein 5.4 L Albumin 3.0 L Influenza Type A (PCR) NEGATIVE Influenza Type B (PCR) NEGATIVE RSV RNA Qual (PCR) NEGATIVE SARS-CoV-2 RNA (RT-PCR) POSITIVE A Imaging Radiologist's Impressions: Impressions Chest X-Ray 10/23/23 01:23 IMPRESSION: Low lung volumes. Bilateral perihilar increased markings likely technical and/or chronic. There is no focal lung consolidation or pleural effusion. Chest CT 10/23/23 09:15 IMPRESSION: 1. Multifocal patchy opacities throughout both upper and lower lobes suggestive of developing infiltrate. 2. There is minimal right basilar posterior pleural thickening. No pleural effusion seen. 3. Small hiatal hernia with evidence of previous gastric surgical changes. 4. Mild exaggerated thoracic kyphosis with degenerative disc changes at every disc level. No visible acute fracture, dislocation or subluxation seen. Fleischner guidelines were followed. Assessment and Plan (1) COVID-19: Status: Acute (2) Asthma with exacerbation: Qualifiers: Asthma persistence: intermittent Asthma severity: mild Qualified Code(s): J45.21 - Mild intermittent asthma with (acute) exacerbation Status: Acute Plan Pt is a 67-year-old female with a PMH significant for?mild intermittent asthma, peripheral neuropathy, GERD, and hx of gastric bypass who presents to the ED for evaluation of generalized weakness, myalgias, cough, and shortness of breath. Pt will be admitted to the hospital for treatment further evaluation acute hypoxic respiratory failure in the setting COVID infection, acute asthma exacerbation, and possible pneumonia. Acute hypoxic respiratory failure in the setting of COVID infection and acute asthma exacerbation Patient desatting as low as 88% on RA, COIVD+, significant wheezing on exam despite mutiple treatments in ED Will treat with DuoNebs, dexamethasone, and remdesivir Titrate supplemental O2>92, wean as tolerated Monitor respiratory status Question of pneumonia CT of chest found multifocal patchy opacities throughout both upper and lower lobes suggestive of developing infiltrate Question of viral versus bacterial Patient had already been on p.o. Ceftin and doxycycline since 10/19 Patient received ceftriaxone and azithromycin in ED, started 10/23/2023 Patient does not meet sepsis criteria: No tachycardia, tachypnea, fever, leukocytosis Will check procalcitonin Hypokalemia Potassium 2.9 at time of presentation Received p.o. potassium supplementation in ED Follow BMP Elevated BNP BNP 602, up from 476 on 10/18/2023 Patient with no formal CHF diagnosis or known cardiac history Echocardiogram on 10/18/2023 found left ventricular systolic function hyperdynamic with EF >70%, [id number] tricuspid valve regurgitation, moderate pulmonary hypertension, and dilated inferior vena cava Was discharged on 10/19/2022 with home Lasix and suggestion to follow-up outpatient with PCP further cardiac evaluation Continue home Lasix Migraines Fioricet prn GERD Continue PPI Peripheral neuropathy Continue gabapentin Full Code Attending:?Dr. Prabhakar DVT Prophylaxis: Lovenox Pt will require a hospitalization of at least two nights for treatment of?acute hypoxic respiratory failure in setting of COVID infection, asthma exacerbation, and possible multifocal pneumonia. Patient will be treated with IV steroids, breathing treatments, remdesivir, and IV antibiotics. Give patient was hospitalized less than 1 week ago and presents with worsening symptoms, patient require hospitalization to prevent further decompensation. Quality Stroke Does the patient have a stroke diagnosis?: No VTE Prior VTE?: No VTE Risk Level:: Medical - moderate - high VTE Device Contraindication: Treatment Not Indicated VTE Drug Contraindication: N/A - Med Ordered
--- NOTE | 2023-10-23 12:37 | PHA.MEDREC ---
Pharmacy Consult ? Medication Reconciliation Pharmacy has completed the medication reconciliation.
--- NOTE | 2023-10-23 16:15 | PC.NURSE ---
joana abarca aware pt has only 1 iv so azithro is running and remdesivir next. pt remdesivir per joana abarca verbal order rescheduled for 1 hour.
--- NOTE | 2023-10-23 16:21 | PC.NURSE ---
new purewick given. clear yellow urine. new pad. pt given wipes for pt personal ruperto care
[2023-10-24] VITALS (11 sets, daily range): BP systolic 114–129; BP diastolic 52–67; PULSE 55–68; RESP 16–20; TEMP 36.1–36.7; O2SAT 95–99
--- NOTE | 2023-10-24 01:02 | PC.NURSE ---
Pt requesting a breathing treatment and reports sob with coughing. VSS. o2 sat 97% on 3L nc. [place] text sent to Dr. Garcia. Pending orders.
--- NOTE | 2023-10-24 03:43 | PC.NURSE ---
Pt sleeping/resting at the bedside. No apparent distress noted. Breaths are even regular and unlabored with equal chest rises. Monitoring is ongoing.
--- NOTE | 2023-10-24 04:32 | PC.NURSE ---
Pt reports increased back pain and headache, 06/28, and is requesting pain medication. Medicated as per DEC. Pt tolerated well.
--- NOTE | 2023-10-24 05:56 | PC.NURSE ---
Pt reports increased sob and is requesting a breathing treatment. No apparent distress noted. Breaths are even and regular with audible wheezes. Respiratory called and at bedside for treatment.
--- NOTE | 2023-10-24 07:43 | HO.PM.IMPN ---
Subjective Subjective Date of Service: 10/24/23 Interval History: Seen in follow up for covid19, pneumonia, hypoxia Interval history: Still sob, dry cough, chest congestion, pleuritic chest pain. No overnight events Review of Systems Review of Systems: Yes all other systems are reviewed and are negative Physical Exam Vital Signs: Vital Signs: Last Vital Signs Temp 98.1 F 10/24/23 06:00 Pulse 56 10/24/23 06:16 Resp 16 10/24/23 06:16 BP 124/65 10/24/23 06:00 Pulse Ox 95 10/24/23 06:00 O2 Del Method Nasal Cannula 10/24/23 06:00 O2 Flow Rate 3 10/24/23 06:00 BMI result Body Mass Index 37.3 Constitutional - Awake and Alert, No apparent distress Eyes - PERRLA, EOMI Cardiovascular - S1S2, RRR, No edema Respiratory - Normal lung expansion, Normal respiratory effort, No respiratory distress on 3L O2, coarse lung sounds with diffuse expiratory wheezing Gastrointestinal - NT / ND; +BS; No rebound or guarding Extremities - no calf tenderness bilaterally, no swelling Skin - Warm/Dry Neurological - Alert & oriented x3 Psychological - Appropriate affect Objective Data Active Medications Acetaminophen (Acetaminophen 325 Mg Tablet) 650 mg PO Q6H PRN PRN Reason: Pain, Mild (Pain Scale 1-3) Last Admin: 10/23/23 20:28 Dose: 650 mg Documented By: CHELSIE Acetaminophen/Butalbital/Caffeine (Butalb/Acetamin/Caff 50/325/40 Tablet) 1 tab PO Q4H PRN PRN Reason: Migraine Headache Last Admin: 10/24/23 04:07 Dose: 1 tab Documented By: CHELSIE Albuterol/Ipratropium (Albuterol/Iprat 2.5/0.5mg 3 Ml Ampul.Neb) 3 ml INHALE RQ4H WHILE AWAKE ARMANDO Last Admin: 10/23/23 19:29 Dose: 3 ml Documented By: MARTA Albuterol/Ipratropium (Albuterol/Iprat 2.5/0.5mg 3 Ml Ampul.Neb) 3 ml INHALE Q4H PRN PRN Reason: Wheezing Last Admin: 10/24/23 06:16 Dose: 3 ml Documented By: HO.WILSOK Calcium Carbonate (Calcium Carbonate 500 Mg Tablet) 500 mg PO DAILY [facility] Cyanocobalamin (Cyanocobalamin (Vitamin B-12) 500 Mcg Tablet) 500 mcg PO DAILY [facility] Dexamethasone Sodium Phosphate (Dexamethasone Sod Phosphate 4 Mg/Ml Vial) 6 mg IVPUSH DAILY [facility] Last Admin: 10/23/23 13:02 Dose: 6 mg Documented By: ANDREINA Docusate Sodium (Docusate Sodium 100 Mg Capsule) 100 mg PO DAILY PRN PRN Reason: Constipation Enoxaparin Sodium (Enoxaparin Sodium 40 Mg/0.4 Ml Syringe) 40 mg SUBCUT Q24H [facility] Last Admin: 10/23/23 13:01 Dose: 40 mg Documented By: ANDREINA Fluticasone Propionate (Fluticasone Propionate Nasal 16 Gm [place]) 1 spray NOSTRIL-B BID PRN PRN Reason: Allergy Symptoms Furosemide (Furosemide 20 Mg Tablet) 20 mg PO Q48H [facility]; Protocol Gabapentin (Gabapentin 300 Mg Capsule) 300 mg PO TID [facility] Last Admin: 10/23/23 20:27 Dose: 300 mg Documented By: CHELSIE Guaifenesin/Dextromethorphan (Guaifenesin Dm 200/20/10 Ml 10 Ml Syrup) 10 ml PO Q4H PRN PRN Reason: Cough Last Admin: 10/24/23 01:13 Dose: 10 ml Documented By: CHELSIE Ceftriaxone Sodium 1 gm/ (Sodium Chloride) 50 mls @ 100 mls/hr IV Q24H [facility] Azithromycin 500 mg/ Sodium (Chloride) 250 mls @ 125 mls/hr IV Q24H [facility] Remdesivir 100 mg/ Sodium (Chloride) 230 mls @ 115 mls/hr IV Q24H [facility] Stop: 10/27/23 15:59 Melatonin (Melatonin 3 Mg Tablet) 6 mg PO BEDTIME PRN PRN Reason: Insomnia Last Admin: 10/24/23 01:13 Dose: 6 mg Documented By: CHELSIE Multivitamins/Vitamin C (Multivitamin Tablet) 1 tab PO DAILY [facility] Omeprazole (Omeprazole 20 Mg Capsule.) 20 mg PO DAILY@0630 [facility] Ondansetron HCl (Ondansetron Hcl 4 Mg/2 Ml Vial) 4 mg IVPUSH Q8H PRN PRN Reason: Nausea and Vomiting Last Admin: 10/23/23 13:02 Dose: 4 mg Documented By: ANDREINA Oxycodone HCl (Oxycodone Hcl Immed Release 15 Mg Tablet) 15 mg PO QID PRN PRN Reason: Pain, Moderate(Pain Scale 4-6) Last Admin: 10/24/23 04:31 Dose: 15 mg Documented By: CHELSIE Sodium Chloride (0.9 % Sodium Chloride Flush 3 Ml Syringe) 3 ml IVFLUSH QSHIFT [facility] Last Admin: 10/23/23 23:53 Dose: 3 ml Documented By: CHELSIE Vitamin D (Cholecalciferol (Vitamin D3) 25 Mcg Tablet) 25 mcg PO DAILY [facility] Labs 10/24/23 10:32 10/24/23 11:24 Labs: Laboratory Results - last 24 hr 10/23/23 10/23/23 10/23/23 01:29 11:01 11:27 MCV 94.9 MCH 31.4 MCHC 33.1 RDW 13.4 Plt Count 431 H MPV 8.5 L Absolute Nucleated RBC 0.040 H Nucleated RBC % (auto) 0.3 H Neutrophils % (Manual) 84 H Band Neutrophils % 7 H Lymphocytes % (Manual) 6 L Atypical Lymphs % (Man) 1 Monocytes % (Manual) 2 Abs Neuts (Manual) 10.5 H Lymphocytes # (Manual) 0.7 L Atyp Lymphs # (Manual) 0.1 Monocytes # (Manual) 0.2 Toxic Vacuolation PRESENT Platelet Estimate NORMAL Large Platelets PRESENT Plt Morphology Comment NOTED RBC Morphology NOTED Ovalocytes 1+ (5-14) Lactic Acid 0.8 B-Natriuretic Peptide 602 H Procalcitonin 0.02 Assessment and Plan (1) Pneumonia: Status: Acute (2) COVID-19: Status: Acute (3) Asthma with exacerbation: Status: Acute Plan Pt is a 67-year-old female with a PMH significant for?mild intermittent asthma, peripheral neuropathy, GERD, and hx of gastric bypass who presents to the ED for evaluation of generalized weakness, myalgias, cough, and shortness of breath. Pt will be admitted to the hospital for treatment further evaluation acute hypoxic respiratory failure in the setting COVID infection, acute asthma exacerbation, and pneumonia. Acute hypoxic respiratory failure in the setting of COVID infection and acute asthma exacerbation duonebs q4h, albuterol prn iv dexamethasone (initiated 1/5) iv remdesivir (initiated 10/23) Titrate supplemental O2>92, wean as tolerated Monitor respiratory status airborne/contact precautions Acute multifocal pneumonia CT of chest found multifocal patchy opacities throughout both upper and lower lobes suggestive of developing infiltrate Continue ceftriaxone and azithromycin (initiated 10/23/2023) sputum culture, legionella ag, strep pneumo ag pending symptomatic management PCT 0.2 Follow cbc, cultures Hypokalemia Repleted Follow BMP Elevated BNP BNP 602, likely in setting of COVID19 infection Clinically euvolemic Continue home Lasix Elevated trop demand in setting of covid19/hypoxia no chest pain, ekg nonischemic Migraines Fioricet prn GERD Continue PPI Peripheral neuropathy Continue gabapentin Full Code DVT Prophylaxis: Lovenox Pt requires ongoing inpt stay for management of COVID19 complicated by acute hypoxemic respiratory failure, asthma exacerbation, and multifocal pneumonia requiring IV antiviral therapy, IV steroids, IV abx, and nebs with close montitoring of respiratory status Quality Stroke Does the patient have a stroke diagnosis?: No VTE Prior VTE?: No VTE Risk Level:: Medical - moderate - high VTE Device Contraindication: Treatment Not Indicated VTE Drug Contraindication: N/A - Med Ordered
--- NOTE | 2023-10-24 09:24 | PC.NURSE ---
medication administration per provider order. pt speaking w/ admitting provider at this time.
--- NOTE | 2023-10-24 10:04 | PC.NURSE ---
pt receiving breathing treatment via RT at this time.
--- NOTE | 2023-10-24 10:42 | PC.NURSE ---
labs obtained/sent.
--- NOTE | 2023-10-24 13:27 | PC.NURSE ---
pt c/o pain at orginal IV access - no signs of complications in regards to infiltration or phlebitis noted at this time. new 22gIV placed in the left AC w/o complications. IV abx continue to run at this time.
--- NOTE | 2023-10-24 15:14 | PC.NURSE ---
medication administered per provider order. resting comfortably in no apparent distress w/ the lights dimmed. respirations remain even and unlabored. call riley placed within reach.
--- NOTE | 2023-10-24 16:08 | PC.NURSE ---
report given at this time. pt currently receiving breathing treatment. edger technician will transport pt upstairs when treatment is finished.
--- NOTE | 2023-10-24 16:28 | PC.NURSE ---
pt being transported upstairs at this time.
[2023-10-25] VITALS (10 sets, daily range): BP systolic 113–131; BP diastolic 55–75; PULSE 53–76; RESP 16–24; TEMP 36–36.6; O2SAT 91–96
--- NOTE | 2023-10-25 08:02 | HO.PM.IMPN ---
Subjective Subjective Date of Service: 10/25/23 Interval History: Seen in follow up for covid19, pneumonia, hypoxia Interval history: Still sob, dry cough, chest congestion, pleuritic chest pain. Complaining of burning pain Left foot. Significant watery diarrhea, 10+ episodes started last night. No abd pain, n/v. Review of Systems Review of Systems: Yes all other systems are reviewed and are negative Physical Exam Vital Signs: Vital Signs: Last Vital Signs Temp 97.9 F 10/25/23 07:54 Pulse 56 10/25/23 07:54 Resp 18 10/25/23 07:54 BP 119/60 10/25/23 07:54 Pulse Ox 96 10/25/23 07:54 O2 Del Method Nasal Cannula 10/25/23 07:54 O2 Flow Rate 2 10/25/23 07:54 BMI result Body Mass Index 37.3 Constitutional - Awake and Alert, No apparent distress Eyes - PERRLA, EOMI Cardiovascular - S1S2, RRR, No edema Respiratory - Normal lung expansion, Normal respiratory effort, No respiratory distress, CTA bilaterally Gastrointestinal - NT / ND; +BS; No rebound or guarding Extremities - b/l calf tenderness, no swelling, dusky erythema anterior lower legs b/l, pain with light palpation dorsal left foot Musculoskeletal - Normal inspection, normal ROM Skin - Warm/Dry Neurological - Alert & oriented x3 Psychological - Appropriate affect Objective Data Active Medications Acetaminophen (Acetaminophen 325 Mg Tablet) 650 mg PO Q6H PRN PRN Reason: Pain, Mild (Pain Scale 1-3) Last Admin: 10/24/23 20:34 Dose: 650 mg Documented By: BEVERLEY Acetaminophen/Butalbital/Caffeine (Butalb/Acetamin/Caff 50/325/40 Tablet) 1 tab PO Q4H PRN PRN Reason: Migraine Headache Last Admin: 10/25/23 02:16 Dose: 1 tab Documented By: BEVERLEY Albuterol Sulfate (Albuterol Sulfate 90 Mcg 8 Gm Inhaler) 2 puff INHALE Q2H PRN PRN Reason: Shortness of Breath/Wheezing Albuterol/Ipratropium (Albuterol/Iprat 2.5/0.5mg 3 Ml Ampul.Neb) 3 ml INHALE RQ4H WHILE AWAKE ARMANDO Last Admin: 10/25/23 02:18 Dose: 3 ml Documented By: AMELIA Albuterol/Ipratropium (Albuterol/Iprat 2.5/0.5mg 3 Ml Ampul.Neb) 3 ml INHALE Q4H PRN PRN Reason: Wheezing Last Admin: 10/24/23 06:16 Dose: 3 ml Documented By: MARTA Calcium Carbonate (Calcium Carbonate 500 Mg Tablet) 500 mg PO DAILY [facility] Last Admin: 10/24/23 09:17 Dose: 500 mg Documented By: GIACOMO Cyanocobalamin (Cyanocobalamin (Vitamin B-12) 500 Mcg Tablet) 500 mcg PO DAILY [facility] Last Admin: 10/24/23 09:17 Dose: 500 mcg Documented By: GIACOMO Dexamethasone Sodium Phosphate (Dexamethasone Sod Phosphate 4 Mg/Ml Vial) 6 mg IVPUSH DAILY [facility] Last Admin: 10/24/23 10:51 Dose: 6 mg Documented By: GIACOMO Docusate Sodium (Docusate Sodium 100 Mg Capsule) 100 mg PO DAILY PRN PRN Reason: Constipation Enoxaparin Sodium (Enoxaparin Sodium 40 Mg/0.4 Ml Syringe) 40 mg SUBCUT Q24H [facility] Last Admin: 10/24/23 11:22 Dose: 40 mg Documented By: GIACOMO Fluticasone Propionate (Fluticasone Propionate Nasal 16 Gm [place]) 1 spray NOSTRIL-B BID PRN PRN Reason: Allergy Symptoms Furosemide (Furosemide 20 Mg Tablet) 20 mg PO Q48H [facility]; Protocol Last Admin: 10/24/23 09:17 Dose: 20 mg Documented By: GIACOMO Gabapentin (Gabapentin 300 Mg Capsule) 300 mg PO TID [facility] Last Admin: 10/24/23 20:34 Dose: 300 mg Documented By: BEVERLEY Guaifenesin/Codeine Phosphate (Guaifen/Codeine Sf 200/20/10ml 10 Ml Liquid) 10 ml PO Q4H [facility] Last Admin: 10/25/23 06:21 Dose: 10 ml Documented By: BEVERLEY Ceftriaxone Sodium 1 gm/ (Sodium Chloride) 50 mls @ 100 mls/hr IV Q24H [facility] Last Infusion: 10/24/23 11:22 Dose: Infused Documented By: GIACOMO Azithromycin 500 mg/ Sodium (Chloride) 250 mls @ 125 mls/hr IV Q24H [facility] Last Infusion: 10/24/23 13:21 Dose: Infused Documented By: GIACOMO Remdesivir 100 mg/ Sodium (Chloride) 230 mls @ 115 mls/hr IV Q24H [facility] Stop: 10/27/23 15:59 Last Infusion: 10/24/23 19:16 Dose: Infused Documented By: HIMANSHU Lidocaine (Lidocaine 4 % Patch Adh..Patch) 2 patch TRANSDERMA DAILY [facility]; Protocol Last Admin: 10/24/23 09:48 Dose: 2 patch Documented By: GIACOMO Melatonin (Melatonin 3 Mg Tablet) 6 mg PO BEDTIME PRN PRN Reason: Insomnia Last Admin: 10/24/23 01:13 Dose: 6 mg Documented By: CHELSIE Multivitamins/Vitamin C (Multivitamin Tablet) 1 tab PO DAILY [facility] Last Admin: 10/24/23 09:17 Dose: 1 tab Documented By: GIACOMO Omeprazole (Omeprazole 20 Mg Capsule.Dr) 20 mg PO DAILY@0630 [facility] Last Admin: 10/25/23 06:21 Dose: 20 mg Documented By: BEVERLEY Ondansetron HCl (Ondansetron Hcl 4 Mg/2 Ml Vial) 4 mg IVPUSH Q8H PRN PRN Reason: Nausea and Vomiting Last Admin: 10/23/23 13:02 Dose: 4 mg Documented By: ANDREINA Oxycodone HCl (Oxycodone Hcl Immed Release 15 Mg Tablet) 15 mg PO QID PRN PRN Reason: Pain, Moderate(Pain Scale 4-6) Last Admin: 10/25/23 06:27 Dose: 15 mg Documented By: BEVERLEY Sodium Chloride (0.9 % Sodium Chloride Flush 3 Ml Syringe) 3 ml IVFLUSH QSHIFT [facility] Last Admin: 10/25/23 00:24 Dose: Not Given Documented By: BEVERLEY Non-Admin Reason: Previously Administered Vitamin D (Cholecalciferol (Vitamin D3) 25 Mcg Tablet) 25 mcg PO DAILY [facility] Last Admin: 10/24/23 09:17 Dose: 25 mcg Documented By: GIACOMO Zolpidem Tartrate (Zolpidem Tartrate 5 Mg Tablet) 5 mg PO BEDTIME PRN PRN Reason: Insomnia Last Admin: 10/24/23 22:33 Dose: 5 mg Documented By: BEVERLEY Labs 10/25/23 09:13 10/25/23 09:13 Labs: Laboratory Results - last 24 hr 10/24/23 10/24/23 10:32 11:24 MCV 93.0 MCH 30.9 MCHC 33.2 RDW 13.9 Plt Count 400 MPV 8.8 L Absolute Nucleated RBC 0.030 H Nucleated RBC % (auto) 0.2 Anion Gap 11 L Estim Creat Clear Calc 70.8 Estimated GFR > 60 Random Glucose 92 Calcium 8.7 D Microbiology Microbiology Results: Microbiology 10/23/23 11:27 Blood Culture - Preliminary Blood - Venous No growth after 24 hours. 10/23/23 11:02 Blood Culture - Preliminary Blood - Venous No growth after 24 hours. Assessment and Plan (1) Pneumonia: Status: Acute (2) COVID-19: Status: Acute (3) Asthma with exacerbation: Status: Acute Plan Pt is a 67-year-old female with a PMH significant for?mild intermittent asthma, peripheral neuropathy, GERD, and hx of gastric bypass who presents to the ED for evaluation of generalized weakness, myalgias, cough, and shortness of breath. Pt will be admitted to the hospital for treatment further evaluation acute hypoxic respiratory failure in the setting COVID infection, acute asthma exacerbation, and pneumonia. Acute hypoxic respiratory failure in the setting of COVID infection and acute asthma exacerbation duonebs q4h, albuterol prn iv dexamethasone (initiated 10/23) iv remdesivir (initiated 10/23), ID consult Titrate supplemental O2>92, wean as tolerated Monitor respiratory status airborne/contact precautions Acute multifocal pneumonia CT of chest found multifocal patchy opacities throughout both upper and lower lobes suggestive of developing infiltrate WBC trending down, no sepsis Continue ceftriaxone and azithromycin (initiated 10/23/2023) sputum culture, legionella ag, strep pneumo ag pending symptomatic management PCT 0.2 Follow cbc, cultures Acute diarrhea copious watery diarrhea since last night gi panel, cdiff pcr ordered immodium x1 zinc oxide for comfort BLE calf tenderness Venous duplex b/l ordered Hypokalemia Repleted- resolved Follow BMP Elevated BNP BNP 602, likely in setting of COVID19 infection Clinically euvolemic Continue home Lasix Elevated trop demand in setting of covid19/hypoxia no chest pain, ekg nonischemic Migraines Fioricet prn GERD Continue PPI Peripheral neuropathy Continue gabapentin Full Code DVT Prophylaxis: Lovenox Pt requires ongoing inpt stay for management of COVID19 complicated by acute hypoxemic respiratory failure, asthma exacerbation, and multifocal pneumonia requiring IV antiviral therapy, IV steroids, IV abx, and nebs with close montitoring of respiratory status Quality Stroke Does the patient have a stroke diagnosis?: No VTE Prior VTE?: No VTE Risk Level:: Medical - moderate - high VTE Device Contraindication: Treatment Not Indicated VTE Drug Contraindication: N/A - Med Ordered
--- NOTE | 2023-10-25 12:07 | MHC.CM.PN ---
IMM 10/25. 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 Pts son to transport her home. No HCP, declined at this time. PCP: Dr. Emilee Lopez
[2023-10-26] VITALS (11 sets, daily range): BP systolic 89–139; BP diastolic 50–66; PULSE 51–85; RESP 16–20; TEMP 36.3–37.3; O2SAT 92–96
--- NOTE | 2023-10-26 10:49 | HO.PM.IMPN ---
Subjective Subjective Date of Service: 10/26/23 Interval History: Seen in follow up for covid19, pneumonia, hypoxia Interval history: Feeling better. Slept well, mood improved. Still sob with wheezing and cough. Diarrhea improved to 4-5x daily. Afebrile. Missed remdesivir dose yesterday Review of Systems Review of Systems: Yes all other systems are reviewed and are negative Physical Exam Vital Signs: Vital Signs: Last Vital Signs Temp 99.0 F 10/26/23 07:53 Pulse 85 10/26/23 08:46 Resp 20 10/26/23 08:46 BP 133/63 10/26/23 07:53 Pulse Ox 96 10/26/23 07:53 O2 Del Method Room Air 10/26/23 07:53 O2 Flow Rate 2 10/25/23 12:00 BMI result Body Mass Index 37.3 Constitutional - Awake and Alert, No apparent distress Eyes - PERRLA, EOMI Cardiovascular - S1S2, RRR, No edema Respiratory - Normal lung expansion, Normal respiratory effort, No respiratory distress, bilateral rhonchi with expiratory wheezing Gastrointestinal - NT / ND; +BS; No rebound or guarding Extremities - no calf tenderness bilaterally, no swelling Skin - Warm/Dry Neurological - Alert & oriented x3 Psychological - Appropriate affect Objective Data Active Medications Acetaminophen (Acetaminophen 325 Mg Tablet) 650 mg PO Q6H PRN PRN Reason: Pain, Mild (Pain Scale 1-3) Last Admin: 10/24/23 20:34 Dose: 650 mg Documented By: BEVERLEY Acetaminophen/Butalbital/Caffeine (Butalb/Acetamin/Caff 50/325/40 Tablet) 1 tab PO Q4H PRN PRN Reason: Migraine Headache Last Admin: 10/25/23 17:26 Dose: 1 tab Documented By: HIMANSHU Albuterol Sulfate (Albuterol Sulfate 90 Mcg 8 Gm Inhaler) 2 puff INHALE Q2H PRN PRN Reason: Shortness of Breath/Wheezing Albuterol/Ipratropium (Albuterol/Iprat 2.5/0.5mg 3 Ml Ampul.Neb) 3 ml INHALE RQ4H WHILE AWAKE [place]ANDO Last Admin: 10/26/23 08:46 Dose: 3 ml Documented By: RAISSA Albuterol/Ipratropium (Albuterol/Iprat 2.5/0.5mg 3 Ml Ampul.Neb) 3 ml INHALE Q4H PRN PRN Reason: Wheezing Last Admin: 10/24/23 06:16 Dose: 3 ml Documented By: MARTA Calcium Carbonate (Calcium Carbonate 500 Mg Tablet) 500 mg PO DAILY [facility] Last Admin: 10/26/23 10:30 Dose: 500 mg Documented By: KETAN Cyanocobalamin (Cyanocobalamin (Vitamin B-12) 500 Mcg Tablet) 500 mcg PO DAILY [facility] Last Admin: 10/26/23 10:30 Dose: 500 mcg Documented By: KETAN Dexamethasone Sodium Phosphate (Dexamethasone Sod Phosphate 4 Mg/Ml Vial) 6 mg IVPUSH DAILY [facility] Last Admin: 10/26/23 10:37 Dose: 6 mg Documented By: KETAN Docusate Sodium (Docusate Sodium 100 Mg Capsule) 100 mg PO DAILY PRN PRN Reason: Constipation Enoxaparin Sodium (Enoxaparin Sodium 40 Mg/0.4 Ml Syringe) 40 mg SUBCUT Q24H [facility] Last Admin: 10/25/23 12:04 Dose: 40 mg Documented By: HIMANSHU Fluticasone Propionate (Fluticasone Propionate Nasal 16 Gm [place]) 1 spray NOSTRIL-B BID PRN PRN Reason: Allergy Symptoms Furosemide (Furosemide 20 Mg Tablet) 20 mg PO Q48H [facility]; Protocol Last Admin: 10/26/23 10:30 Dose: 20 mg Documented By: KETAN Gabapentin (Gabapentin 300 Mg Capsule) 300 mg PO TID [facility] Last Admin: 10/26/23 10:31 Dose: 300 mg Documented By: KETAN Guaifenesin/Codeine Phosphate (Guaifen/Codeine Sf 200/20/10ml 10 Ml Liquid) 10 ml PO Q4H [facility] Last Admin: 10/26/23 10:30 Dose: 10 ml Documented By: KETAN Ceftriaxone Sodium 1 gm/ (Sodium Chloride) 50 mls @ 100 mls/hr IV Q24H [facility] Last Infusion: 10/25/23 12:53 Dose: Infused Documented By: HIMANSHU Azithromycin 500 mg/ Sodium (Chloride) 250 mls @ 125 mls/hr IV Q24H [facility] Last Admin: 10/26/23 10:30 Dose: 125 mls/hr Documented By: KETAN Remdesivir 100 mg/ Sodium (Chloride) 230 mls @ 115 mls/hr IV Q24H [facility] Stop: 10/27/23 12:59 Lidocaine (Lidocaine 4 % Patch Adh..Patch) 2 patch TRANSDERMA DAILY [facility]; Protocol Last Admin: 10/25/23 09:47 Dose: 2 patch Documented By: VIVIANTEKJayson Melatonin (Melatonin 3 Mg Tablet) 6 mg PO BEDTIME PRN PRN Reason: Insomnia Last Admin: 10/25/23 23:35 Dose: 6 mg Documented By: OSMIN Multivitamins/Vitamin C (Multivitamin Tablet) 1 tab PO DAILY [facility] Last Admin: 10/26/23 10:31 Dose: 1 tab Documented By: KETAN Omeprazole (Omeprazole 20 Mg Capsule.) 20 mg PO DAILY@0630 [facility] Last Admin: 10/26/23 06:41 Dose: 20 mg Documented By: OSMIN Ondansetron HCl (Ondansetron Hcl 4 Mg/2 Ml Vial) 4 mg IVPUSH Q8H PRN PRN Reason: Nausea and Vomiting Last Admin: 10/23/23 13:02 Dose: 4 mg Documented By: ANDREINA Oxycodone HCl (Oxycodone Hcl Immed Release 15 Mg Tablet) 15 mg PO QID PRN PRN Reason: Pain, Moderate(Pain Scale 4-6) Last Admin: 10/26/23 06:41 Dose: 15 mg Documented By: OSMIN Sodium Chloride (0.9 % Sodium Chloride Flush 3 Ml Syringe) 3 ml IVFLUSH QSHIFT [facility] Last Admin: 10/26/23 10:31 Dose: 3 ml Documented By: KETAN Trazodone HCl (Trazodone Hcl 50 Mg Tablet) 50 mg PO BEDTIME MRX1 PRN PRN Reason: Insomnia Last Admin: 10/25/23 23:35 Dose: 50 mg Documented By: OSMIN Vancomycin HCl (Vancomycin Hcl 125 Mg Capsule) 125 mg PO Q6H [facility] Last Admin: 10/26/23 06:41 Dose: 125 mg Documented By: OSMIN Vitamin D (Cholecalciferol (Vitamin D3) 25 Mcg Tablet) 25 mcg PO DAILY [facility] Last Admin: 10/26/23 10:31 Dose: 25 mcg Documented By: KETAN Zinc Oxide (Zinc Oxide (Triple Paste) 56.7 Gm Oint) 1 appl TOPICAL 8XD PRN; Protocol PRN Reason: Perineal Discomfort Labs 10/26/23 10:06 10/26/23 10:06 Labs: Laboratory Results - last 24 hr 10/25/23 10/26/23 10:41 10:06 MCV 95.8 MCH 31.3 MCHC 32.6 RDW 14.2 Plt Count 360 MPV 8.6 L Immature Gran % (Auto) Cancelled Neut % (Auto) Cancelled Lymph % (Auto) Cancelled [place] % (Auto) Cancelled Eos % (Auto) Cancelled Baso % (Auto) Cancelled Lymph # (Auto) Cancelled [place] # (Auto) Cancelled Eos # (Auto) Cancelled Baso # (Auto) Cancelled Abs Immat Gran (auto) Cancelled Absolute Neuts (auto) Cancelled Absolute Nucleated RBC 0.000 Nucleated RBC % (auto) 0.0 C. difficile Tox B Gene POSITIVE A* C. difficile Toxin A&B Negative C. difficile Interpret SEE NOTE Microbiology Microbiology Results: Microbiology 10/23/23 11:27 Blood Culture - Preliminary Blood - Venous No growth after 48 hours. 10/23/23 11:02 Blood Culture - Preliminary Blood - Venous No growth after 48 hours. Assessment and Plan (1) Pneumonia: Status: Acute (2) COVID-19: Status: Acute (3) Asthma with exacerbation: Status: Acute Plan Pt is a 67-year-old female with a PMH significant for?mild intermittent asthma, peripheral neuropathy, GERD, and hx of gastric bypass who presents to the ED for evaluation of generalized weakness, myalgias, cough, and shortness of breath. Pt will be admitted to the hospital for treatment further evaluation acute hypoxic respiratory failure in the setting COVID infection, acute asthma exacerbation, and pneumonia. Acute hypoxic respiratory failure in the setting of COVID infection and acute asthma exacerbation Weaned from supplemental O2 10/25 duonebs q4h, albuterol prn iv dexamethasone (initiated 10/23) iv remdesivir (initiated 10/23), ID consult. Missed dose yesterday, resume today Monitor respiratory status airborne/contact precautions Acute multifocal pneumonia CT of chest found multifocal patchy opacities throughout both upper and lower lobes suggestive of developing infiltrate WBC stable, no sepsis Continue ceftriaxone and azithromycin (initiated 10/23/2023) sputum culture, legionella ag, strep pneumo ag pending symptomatic management PCT 0.2 Follow cbc, cultures Acute diarrhea CDiff gene positive, toxin negative. likely colonized GI panel pending No significant leukocytosis (likely r/t steroids rather than infection), afebrile Will treat prophylactically with po vanco given symptoms immodium x1 zinc oxide for comfort BLE calf tenderness Venous duplex negative Hypokalemia- likely due to COVID-19/remdesivir K3.1 this morning, 40meq KCl ordered add mag level Follow BMP Elevated BNP BNP 602, likely in setting of COVID19 infection Clinically euvolemic Continue home Lasix Elevated trop demand in setting of covid19/hypoxia no chest pain, ekg nonischemic Migraines Fioricet prn GERD Continue PPI Peripheral neuropathy Continue gabapentin Full Code DVT Prophylaxis: Lovenox Pt requires ongoing inpt stay for management of COVID19 complicated by acute hypoxemic respiratory failure, asthma exacerbation, electrolyte imbalance and multifocal pneumonia requiring IV antiviral therapy, IV steroids, IV abx, and nebs with close montitoring of respiratory status and electrolyte levels and expert consultation Quality Stroke Does the patient have a stroke diagnosis?: No VTE Prior VTE?: No VTE Risk Level:: Medical - moderate - high VTE Device Contraindication: Treatment Not Indicated VTE Drug Contraindication: N/A - Med Ordered
[2023-10-26 10:55] LABS: Anion Gap 13 (12-20); Blood Urea Nitrogen 18 mg/dL (9-16); Calcium 8.9 mg/dL (8.4-10.2); Carbon Dioxide 28 mmol/L (22-29); Chloride 105 mmol/L (96-108); Creatinine Clr Calc Pharmacy 71.7; Estimated Glomerular Filt Rate > 60; Glucose Random 89 mg/dL (60-115); Potassium 3.1 mmol/L (3.3-5.1); Sodium 143 mmol/L (135-145)
[2023-10-26 14:34] LABS: Magnesium 1.6 mg/dL (1.6-2.6)
[2023-10-26] MEDS: vancomycin HCL 125 MG CAPSULE PO (17:58)
[2023-10-26] MEDS: guaiFEN/Codeine SF 200/20/10ML 10 ML LIQUID PO ×2 (17:58→20:43)
[2023-10-26] MEDS: oxyCODONE HCl Immed Release 15 MG TABLET PO (17:59)
[2023-10-26] MEDS: Albuterol/Iprat 2.5/0.5MG 3 ML AMPUL.NEB INHALE (19:37)
[2023-10-26] MEDS: Lidocaine 4 % Patch ADH..PATCH 2 PATCH TRANSDERMA (20:40)
[2023-10-26] MEDS: Gabapentin 300 MG CAPSULE PO (20:43)
[2023-10-26] MEDS: traZODone HCL 50 MG TABLET PO (20:44)
[2023-10-26] MEDS: Loperamide HCl 2 MG CAPSULE PO (20:44)
--- NOTE | 2023-10-26 22:02 | P.CNID_ITS ---
History of Present Illness Data of Consult Service Date: 10/26/23 Requesting physician: Candace Jiménez Primary Care Provider: Emilee Lopez MD HPI Reason for consult: COVID, Cdiff PCR positive She presents with cough for two days as well as diarrhea,watery. She has patchy infiltrate 1/5 CT chest. She also has Cdiff PCR positive. She has procalcitonin level .02. She has no productive sputum. Review of Systems 2 Review of Systems: Yes all other systems are reviewed and are negative PMF Past Medical History Medical History Congestive heart failure Peripheral neuropathy GERD (gastroesophageal reflux disease) Family History Family history: reviewed and not pertinent Surgical History Surgical History H/O gastric bypass Social History Social History Household Members: None Housing: Apartment Do you presently have visiting nurse or other home services: No Patient Tobacco Use Status: Never used Tobacco e-Cigarette/Vaping Use: Never Used service: No Meds Allergies Allergy/AdvReac Type Severity Reaction Status Date / Time No Known Allergies Allergy Verified 10/23/23 04:05 Active Medications: Current Medications Acetaminophen (Acetaminophen 325 Mg Tablet) 650 mg PO Q6H PRN PRN Reason: Pain, Mild (Pain Scale 1-3) Last Admin: 10/24/23 20:34 Dose: 650 mg Acetaminophen/Butalbital/Caffeine (Butalb/Acetamin/Caff 50/325/40 Tablet) 1 tab PO Q4H PRN PRN Reason: Migraine Headache Last Admin: 10/25/23 17:26 Dose: 1 tab Albuterol Sulfate (Albuterol Sulfate 90 Mcg 8 Gm Inhaler) 2 puff INHALE Q2H PRN PRN Reason: Shortness of Breath/Wheezing Albuterol/Ipratropium (Albuterol/Iprat 2.5/0.5mg 3 Ml Ampul.Neb) 3 ml INHALE RQ4H WHILE AWAKE [place] Last Admin: 10/26/23 19:37 Dose: 3 ml Albuterol/Ipratropium (Albuterol/Iprat 2.5/0.5mg 3 Ml Ampul.Neb) 3 ml INHALE Q4H PRN PRN Reason: Wheezing Last Admin: 10/24/23 06:16 Dose: 3 ml Calcium Carbonate (Calcium Carbonate 500 Mg Tablet) 500 mg PO DAILY [facility] Last Admin: 10/26/23 10:30 Dose: 500 mg Cyanocobalamin (Cyanocobalamin (Vitamin B-12) 500 Mcg Tablet) 500 mcg PO DAILY [facility] Last Admin: 10/26/23 10:30 Dose: 500 mcg Dexamethasone Sodium Phosphate (Dexamethasone Sod Phosphate 4 Mg/Ml Vial) 6 mg IVPUSH DAILY [facility] Last Admin: 10/26/23 10:37 Dose: 6 mg Docusate Sodium (Docusate Sodium 100 Mg Capsule) 100 mg PO DAILY PRN PRN Reason: Constipation Enoxaparin Sodium (Enoxaparin Sodium 40 Mg/0.4 Ml Syringe) 40 mg SUBCUT Q24H [facility] Last Admin: 10/26/23 12:42 Dose: 40 mg Fluticasone Propionate (Fluticasone Propionate Nasal 16 Gm [place]) 1 spray NOSTRIL-B BID PRN PRN Reason: Allergy Symptoms Furosemide (Furosemide 20 Mg Tablet) 20 mg PO Q48H [facility]; Protocol Last Admin: 10/26/23 10:30 Dose: 20 mg Gabapentin (Gabapentin 300 Mg Capsule) 300 mg PO TID [facility] Last Admin: 10/26/23 20:43 Dose: 300 mg Guaifenesin/Codeine Phosphate (Guaifen/Codeine Sf 200/20/10ml 10 Ml Liquid) 10 ml PO Q4H [facility] Last Admin: 10/26/23 20:43 Dose: 10 ml Ceftriaxone Sodium 1 gm/ (Sodium Chloride) 50 mls @ 100 mls/hr IV Q24H [facility] Last Infusion: 10/26/23 14:11 Dose: Infused Azithromycin 500 mg/ Sodium (Chloride) 250 mls @ 125 mls/hr IV Q24H [facility] Last Infusion: 10/26/23 12:47 Dose: Infused Remdesivir 100 mg/ Sodium (Chloride) 230 mls @ 115 mls/hr IV Q24H [facility] Stop: 10/27/23 12:59 Last Infusion: 10/26/23 16:12 Dose: Infused Lidocaine (Lidocaine 4 % Patch Adh..Patch) 2 patch TRANSDERMA DAILY [facility]; Protocol Last Admin: 10/26/23 20:40 Dose: 2 patch Melatonin (Melatonin 3 Mg Tablet) 6 mg PO BEDTIME PRN PRN Reason: Insomnia Last Admin: 10/25/23 23:35 Dose: 6 mg Multivitamins/Vitamin C (Multivitamin Tablet) 1 tab PO DAILY [facility] Last Admin: 10/26/23 10:31 Dose: 1 tab Omeprazole (Omeprazole 20 Mg Capsule.Dr) 20 mg PO DAILY@0630 [facility] Last Admin: 10/26/23 06:41 Dose: 20 mg Ondansetron HCl (Ondansetron Hcl 4 Mg/2 Ml Vial) 4 mg IVPUSH Q8H PRN PRN Reason: Nausea and Vomiting Last Admin: 10/23/23 13:02 Dose: 4 mg Oxycodone HCl (Oxycodone Hcl Immed Release 15 Mg Tablet) 15 mg PO QID PRN PRN Reason: Pain, Moderate(Pain Scale 4-6) Last Admin: 10/26/23 17:59 Dose: 15 mg Sodium Chloride (0.9 % Sodium Chloride Flush 3 Ml Syringe) 3 ml IVFLUSH QSHIFT [facility] Last Admin: 10/26/23 15:28 Dose: 3 ml Trazodone HCl (Trazodone Hcl 50 Mg Tablet) 50 mg PO BEDTIME MRX1 PRN PRN Reason: Insomnia Last Admin: 10/26/23 20:44 Dose: 50 mg Vancomycin HCl (Vancomycin Hcl 125 Mg Capsule) 125 mg PO Q6H [facility] Last Admin: 10/26/23 17:58 Dose: 125 mg Vitamin D (Cholecalciferol (Vitamin D3) 25 Mcg Tablet) 25 mcg PO DAILY [facility] Last Admin: 10/26/23 10:31 Dose: 25 mcg Zinc Oxide (Zinc Oxide (Triple Paste) 56.7 Gm Oint) 1 appl TOPICAL 8XD PRN; Protocol PRN Reason: Perineal Discomfort Home Medications Medication Instructions Recorded Confirmed Last Taken Type fluticasone propionate 50 1 spray intranasal BID PRN Allergy 10/18/23 10/23/23 Unknown History mcg/actuation nasal Symptoms spray,suspension (Flonase Allergy Relief) gabapentin 300 mg capsule 300 mg PO TID 10/18/23 10/23/23 3 Days Ago History ~10/20/23 oxycodone 15 mg tablet 15 mg PO QID PRN pain 10/18/23 10/23/23 3 Days Ago History ~10/20/23 pantoprazole 40 mg tablet,delayed 40 mg PO DAILY@0630 10/18/23 10/23/23 3 Days Ago History release ~10/20/23 calcium carbonate 500 mg calcium 500 mg PO DAILY 10/23/23 10/23/23 Unknown History (1,250 mg) tablet cholecalciferol (vitamin D3) 25 25 mcg PO DAILY 10/23/23 10/23/23 Unknown History mcg (1,000 unit) tablet (Vitamin D3) cyanocobalamin (vitamin B-12) 500 500 mcg PO DAILY 10/23/23 10/23/23 Unknown History mcg tablet multivitamin 1 tab PO DAILY 10/23/23 10/23/23 Unknown History Physical Exam 2 Vital Signs: Vital Signs: Last Vital Signs Temp 97.3 F 10/26/23 19:43 Pulse 53 10/26/23 19:43 Resp 20 10/26/23 19:43 BP 139/65 10/26/23 19:43 Pulse Ox 94 10/26/23 19:43 O2 Del Method Room Air 10/26/23 19:43 O2 Flow Rate 2 10/25/23 12:00 BMI result Body Mass Index 37.3 Const: General: cooperative HEENT: Head: Yes normal to inspection Face and sinus: Yes normal facial exam Mouth: Normal oral and palatal mucosa present Teeth and gingiva: d entition normal Eyes: General: appearance normal, both eyes and all related structures P upils: Equal, round and reactive pupils present Resp: Effort & Inspection: normal respiratory effort Cardio: Rate: regular rate Rhythm: regular rhythm GI: Palpation (GI): Soft to palpation and nontender : General: Yes no CVA tenderness Back/Spine/Pelvis: Back: no CVA tenderness Skin: General skin exam: no rashes or lesions noted Neuro: General: moves all extremities Cranial nerves: Yes Equal, round and reactive pupils present Extrem: General: Yes normal to inspection Psych: Appearance: grossly normal Results Labs 10/26/23 10:06 10/26/23 10:06 Labs: Short CBC 10/26/23 Range/Units 10:06 WBC 13.8 H (4.8-10.8) X10*3/uL Hgb 12.6 (12.0-16.0) g/dl Hct 38.6 (37.0-47.0) % Plt Count 360 (160-400) X10*3/uL BMP 10/26/23 10:06 Sodium 143 Potassium 3.1 L Chloride 105 Carbon Dioxide 28 BUN 18 H Creatinine 0.86 Calcium 8.9 Microbiology Microbiology Results: Microbiology 10/23/23 11:27 Blood - Venous Blood Culture - Preliminary No growth after 48 hours. 10/23/23 11:02 Blood - Venous Blood Culture - Preliminary No growth after 48 hours. Assessment and Plan (1) Pneumonia: Qualifiers: Pneumonia type: due to COVID-19 virus Qualified Code(s): U07.1 - COVID- 19; J12.82 - Pneumonia due to coronavirus disease 2019 Status: Acute (2) COVID-19: Status: Acute She has COVID of recent duration She has no oxygen need and oxygen 95% on room air. Procalcitonin is .02. There is no evidence of bacterial pneumonia. Cdiff positive with diarrhea so should treat. Plan Vancomycin 125 mg po qid for 10 days. Would stop Dexamethasone as not hypoxic. No antibiotics needed at this time.
[2023-10-27] VITALS (11 sets, daily range): BP systolic 106–150; BP diastolic 53–75; PULSE 51–57; RESP 16–20; TEMP 36.3–36.7; O2SAT 93–96
[2023-10-27] MEDS: vancomycin HCL 125 MG CAPSULE PO ×4 (00:35→18:57)
[2023-10-27] MEDS: traZODone HCL 50 MG TABLET PO ×2 (00:36→21:54)
[2023-10-27] MEDS: guaiFEN/Codeine SF 200/20/10ML 10 ML LIQUID PO ×6 (00:36→21:54)
[2023-10-27] MEDS: oxyCODONE HCl Immed Release 15 MG TABLET PO ×4 (00:39→19:43)
[2023-10-27] MEDS: Omeprazole 20 MG CAPSULE.DR PO (05:49)
[2023-10-27] MEDS: Acetaminophen 325 MG TABLET 650 MG PO (05:51)
[2023-10-27] MEDS: Cyanocobalamin (Vitamin B-12) 500 MCG TABLET PO (07:51)
[2023-10-27] MEDS: Gabapentin 300 MG CAPSULE PO ×3 (07:51→21:54)
[2023-10-27] MEDS: Multivitamin TABLET 1 TAB PO (07:51)
[2023-10-27] MEDS: Cholecalciferol (Vitamin D3) 25 MCG TABLET PO (07:51)
[2023-10-27] MEDS: Lidocaine 4 % Patch ADH..PATCH 2 PATCH TRANSDERMA (07:51)
[2023-10-27 08:07] LABS: Anion Gap 10 (12-20); Blood Urea Nitrogen 19 mg/dL (9-16); Calcium 8.7 mg/dL (8.4-10.2); Carbon Dioxide 29 mmol/L (22-29); Chloride 107 mmol/L (96-108); Estimated Glomerular Filt Rate > 60; Glucose Random 86 mg/dL (60-115); Sodium 142 mmol/L (135-145)
[2023-10-27] MEDS: Albuterol/Iprat 2.5/0.5MG 3 ML AMPUL.NEB INHALE ×4 (08:34→19:35)
[2023-10-27] MEDS: Remdesivir 100 MG in 0.9 % Sodium Chloride 230 ML 115 MG IV (11:00)
[2023-10-27] MEDS: Enoxaparin Sodium 40 MG/0.4 ML SYRINGE SUBCUT (11:01)
[2023-10-27] MEDS: methylPREDNISolone Sod Succ 40 MG/ML VIAL IVPUSH ×2 (11:01→21:54)
[2023-10-27] MEDS: Butalb/Acetamin/Caff 50/325/40 TABLET 1 TAB PO ×2 (12:35→21:54)
--- NOTE | 2023-10-27 14:22 | HO.PM.IMPN ---
Subjective Subjective Date of Service: 10/27/23 Interval History: Seen in follow up for covid19, pneumonia, hypoxia Interval history: Feeling better. SOB, cough improving. Still with 4-5 episodes of diarrhea daily. Review of Systems Review of Systems: Yes all other systems are reviewed and are negative Physical Exam Vital Signs: Vital Signs: Last Vital Signs Temp 98.1 F 10/27/23 12:00 Pulse 55 10/27/23 12:00 Resp 18 10/27/23 12:00 BP 114/56 L 10/27/23 12:00 Pulse Ox 94 10/27/23 12:00 O2 Del Method Room Air 10/27/23 12:00 O2 Flow Rate 2 10/27/23 08:00 BMI result Body Mass Index 37.3 Constitutional - Awake and Alert, No apparent distress Eyes - PERRLA, EOMI Cardiovascular - S1S2, RRR, No edema Respiratory - Normal lung expansion, Normal respiratory effort, No respiratory distress, bilateral rhonchi with expiratory wheezing Gastrointestinal - NT / ND; +BS; No rebound or guarding Extremities - no calf tenderness bilaterally, no swelling Skin - Warm/Dry Neurological - Alert & oriented x3 Psychological - Appropriate affect Objective Data Active Medications Acetaminophen (Acetaminophen 325 Mg Tablet) 650 mg PO Q6H PRN PRN Reason: Pain, Mild (Pain Scale 1-3) Last Admin: 10/27/23 05:51 Dose: 650 mg Documented By: ANTOIC Acetaminophen/Butalbital/Caffeine (Butalb/Acetamin/Caff 50/325/40 Tablet) 1 tab PO Q4H PRN PRN Reason: Migraine Headache Last Admin: 10/27/23 12:35 Dose: 1 tab Documented By: KETAN Albuterol Sulfate (Albuterol Sulfate 90 Mcg 8 Gm Inhaler) 2 puff INHALE Q2H PRN PRN Reason: Shortness of Breath/Wheezing Albuterol/Ipratropium (Albuterol/Iprat 2.5/0.5mg 3 Ml Ampul.Neb) 3 ml INHALE RQ4H WHILE AWAKE ARMANDO Last Admin: 10/27/23 11:39 Dose: 3 ml Documented By: RAISSA Albuterol/Ipratropium (Albuterol/Iprat 2.5/0.5mg 3 Ml Ampul.Neb) 3 ml INHALE Q4H PRN PRN Reason: Wheezing Last Admin: 10/24/23 06:16 Dose: 3 ml Documented By: MARTA Calcium Carbonate (Calcium Carbonate 500 Mg Tablet) 500 mg PO DAILY [facility] Last Admin: 10/27/23 07:51 Dose: 500 mg Documented By: KETAN Cyanocobalamin (Cyanocobalamin (Vitamin B-12) 500 Mcg Tablet) 500 mcg PO DAILY [facility] Last Admin: 10/27/23 07:51 Dose: 500 mcg Documented By: KETAN Docusate Sodium (Docusate Sodium 100 Mg Capsule) 100 mg PO DAILY PRN PRN Reason: Constipation Enoxaparin Sodium (Enoxaparin Sodium 40 Mg/0.4 Ml Syringe) 40 mg SUBCUT Q24H [facility] Last Admin: 10/27/23 11:01 Dose: 40 mg Documented By: KETAN Fluticasone Propionate (Fluticasone Propionate Nasal 16 Gm [place]) 1 spray NOSTRIL-B BID PRN PRN Reason: Allergy Symptoms Furosemide (Furosemide 20 Mg Tablet) 20 mg PO Q48H [facility]; Protocol Last Admin: 10/26/23 10:30 Dose: 20 mg Documented By: KETAN Gabapentin (Gabapentin 300 Mg Capsule) 300 mg PO TID [facility] Last Admin: 10/27/23 07:51 Dose: 300 mg Documented By: KETAN Guaifenesin/Codeine Phosphate (Guaifen/Codeine Sf 200/20/10ml 10 Ml Liquid) 10 ml PO Q4H [facility] Last Admin: 10/27/23 12:37 Dose: 10 ml Documented By: KETAN Lidocaine (Lidocaine 4 % Patch Adh..Patch) 2 patch TRANSDERMA DAILY [facility]; Protocol Last Admin: 10/27/23 07:51 Dose: 2 patch Documented By: KETAN Melatonin (Melatonin 3 Mg Tablet) 6 mg PO BEDTIME PRN PRN Reason: Insomnia Last Admin: 10/25/23 23:35 Dose: 6 mg Documented By: ANTELI Methylprednisolone Sodium Succinate (Methylprednisolone Sod Succ 40 Mg/Ml Vial) 40 mg IVPUSH Q12H [facility] Last Admin: 10/27/23 11:01 Dose: 40 mg Documented By: KETAN Multivitamins/Vitamin C (Multivitamin Tablet) 1 tab PO DAILY [facility] Last Admin: 10/27/23 07:51 Dose: 1 tab Documented By: KETAN Omeprazole (Omeprazole 20 Mg Capsule.Dr) 20 mg PO DAILY@0630 [facility] Last Admin: 10/27/23 05:49 Dose: 20 mg Documented By: OSMIN Ondansetron HCl (Ondansetron Hcl 4 Mg/2 Ml Vial) 4 mg IVPUSH Q8H PRN PRN Reason: Nausea and Vomiting Last Admin: 10/23/23 13:02 Dose: 4 mg Documented By: ANDREINA Oxycodone HCl (Oxycodone Hcl Immed Release 15 Mg Tablet) 15 mg PO QID PRN PRN Reason: Pain, Moderate(Pain Scale 4-6) Last Admin: 10/27/23 14:06 Dose: 15 mg Documented By: KETAN Sodium Chloride (0.9 % Sodium Chloride Flush 3 Ml Syringe) 3 ml IVFLUSH QSHIFT [facility] Last Admin: 10/27/23 07:52 Dose: 3 ml Documented By: KETAN Trazodone HCl (Trazodone Hcl 50 Mg Tablet) 50 mg PO BEDTIME MRX1 PRN PRN Reason: Insomnia Last Admin: 10/27/23 00:36 Dose: 50 mg Documented By: OSMIN Vancomycin HCl (Vancomycin Hcl 125 Mg Capsule) 125 mg PO Q6H [facility] Last Admin: 10/27/23 11:01 Dose: 125 mg Documented By: KETAN Vitamin D (Cholecalciferol (Vitamin D3) 25 Mcg Tablet) 25 mcg PO DAILY [facility] Last Admin: 10/27/23 07:51 Dose: 25 mcg Documented By: KETAN Zinc Oxide (Zinc Oxide (Triple Paste) 56.7 Gm Oint) 1 appl TOPICAL 8XD PRN; Protocol PRN Reason: Perineal Discomfort Labs 10/26/23 10:06 10/27/23 07:14 Labs: Laboratory Results - last 24 hr 10/25/23 10/26/23 10/27/23 10:41 10:06 07:14 Hold Purple Top SEE NOTE Anion Gap 10 L Estim Creat Clear Calc 79.0 Estimated GFR > 60 Random Glucose 86 Calcium 8.7 Magnesium 1.6 Stl C. cayetanensis PCR Cancelled Stool Rotavirus A PCR Cancelled Stl Adenov F 40/41 PCR Cancelled Stool Astrovirus (PCR) Cancelled Stool Campylobacter PCR Cancelled Stool Cryptosporidium PCR Cancelled Stl Sh Tox Pr E STEC PCR Cancelled Stool E coli O157 PCR Cancelled Stl Enterotoxigenic E PCR Cancelled Stool EPEC (PCR) Cancelled Stool EAEC (PCR) Cancelled Stl E. histolytica PCR Cancelled Stool Giardia Lamblia PCR Cancelled Stl P. shigelloides PCR Cancelled Stool Salmonella PCR Cancelled Stool Sapovirus (PCR) Cancelled Stl Shigella/EIEC PCR Cancelled St Y.enterocolitica PCR Cancelled Stool Vibrio (PCR) Cancelled Stl Vibrio cholerae PCR Cancelled Stl Norovirus GI/GII PCR Cancelled Assessment and Plan (1) Pneumonia: Status: Acute (2) COVID-19: Status: Acute (3) Asthma with exacerbation: Status: Acute Plan Pt is a 67-year-old female with a PMH significant for?mild intermittent asthma, peripheral neuropathy, GERD, and hx of gastric bypass who presents to the ED for evaluation of generalized weakness, myalgias, cough, and shortness of breath. Pt will be admitted to the hospital for treatment further evaluation acute hypoxic respiratory failure in the setting COVID infection, acute asthma exacerbation, and pneumonia. Acute hypoxic respiratory failure in the setting of COVID infection and acute asthma exacerbation Weaned from supplemental O2 10/25 duonebs q4h, albuterol prn DC dexamethason as hypoxia resolved. Initiated IV methylprednisolone 40 mg b.i.d. given ongoing coarse lung sounds/expiratory wheezing iv remdesivir (final dose 10/27) Monitor respiratory status airborne/contact precautions Acute multifocal pneumonia CT of chest found multifocal patchy opacities throughout both upper and lower lobes suggestive of developing infiltrate WBC stable, no sepsis Continue ceftriaxone and azithromycin (initiated 10/23/2023) sputum culture, legionella ag, strep pneumo ag pending symptomatic management PCT 0.2 Follow cbc, cultures Acute diarrhea CDiff gene positive, toxin negative. likely colonized GI panel pending No significant leukocytosis (likely r/t steroids rather than infection), afebrile Will treat prophylactically with po vanco given symptoms x10 days per ID immodium sparingly zinc oxide for comfort BLE calf tenderness Venous duplex negative Hypokalemia- likely due to COVID-19/remdesivir repleted- resolved Follow BMP Elevated BNP BNP 602, likely in setting of COVID19 infection Clinically euvolemic Continue home Lasix Elevated trop demand in setting of covid19/hypoxia no chest pain, ekg nonischemic Migraines Fioricet prn GERD Continue PPI Peripheral neuropathy Continue gabapentin Full Code DVT Prophylaxis: Lovenox Dispo- weak from IV steroids and dc per PT recommendations Pt requires ongoing inpt stay for management of COVID19 complicated by acute hypoxemic respiratory failure, asthma exacerbation, electrolyte imbalance and multifocal pneumonia requiring IV antiviral therapy, IV steroids, IV abx, and nebs with close montitoring of respiratory status and electrolyte levels and expert consultation Quality Stroke Does the patient have a stroke diagnosis?: No VTE Prior VTE?: No VTE Risk Level:: Medical - moderate - high VTE Device Contraindication: Treatment Not Indicated VTE Drug Contraindication: N/A - Med Ordered
--- NOTE | 2023-10-27 14:36 | P.CDIM_ITS ---
PROVIDER RESPONSE TEXT: To clarify, the appropriate diagnosis supported by the clinical indicators: Obesity Due to excess calories QUERY TEXT: PHYSICIAN'S DOCUMENTATION REQUEST Date of Query: 10/26/2023 09:29 AM EST Patient Name: Meaghan Martino Admit Date: 10/23/2023 Dear Candace Jiménez, A review of the medical record indicates additional documentation may be needed. Please review below and update the documentation accordingly. Clinical Indicators: BMI: 37.3 5ft 3in If possible, please provide an associated diagnosis related to the abnormal BMI, such as: Overweight Obesity Due to excess calories Obesity Drug induced Obesity Due to other cause Specify the other cause Other (explain) Clinically unable to determine (explain) Thank you, Xiomara Marie, CCS, CDIS Use of terms such as suspected, likely, concern for, or probable (associated with a specific diagnosi s that is being evaluated, monitored, or treated as if it exists) are acceptable and can be coded in the inpatient se tting, when documented at the time of discharge. Please use your independent medical judgment in providing your response. THIS QUERY IS PART OF THE PERMANENT MEDICAL RECORD
--- NOTE | 2023-10-27 14:36 | P.CDIM_ITS ---
PROVIDER RESPONSE TEXT: To clarify, the appropriate diagnosis supported by the clinical indicators: Mild intermittent QUERY TEXT: PHYSICIAN'S DOCUMENTATION REQUEST Date of Query: 10/26/2023 09:26 AM EST Patient Name: Meaghan Martino Admit Date: 10/23/2023 Dear Candace Jiménez, A review of the medical record indicates additional documentation may be needed. Please review below and update the documentation accordingly. Clinical indicators: PN: Assessment and plan - Acute asthma exacerbation duonebs q4h, albuterol prn monitor respiratory status Based on the above, please clarify in the Progress Notes further specificity regarding the type of as thma: Mild intermittent Mild persistent Moderate persistent Severe persistent Exercise induced Other (explain) Clinically unable to determine (explain) Thank you, Xiomara Marie, CCS, CDIS Use of terms such as suspected, likely, concern for, or probable (associated with a specific diagnosi s that is being evaluated, monitored, or treated as if it exists) are acceptable and can be coded in the inpatient se tting, when documented at the time of discharge. Please use your independent medical judgment in providing your response. THIS QUERY IS PART OF THE PERMANENT MEDICAL RECORD
[2023-10-27] MEDS: Loperamide HCl 2 MG CAPSULE PO (21:54)
[2023-10-28] VITALS (12 sets, daily range): BP systolic 131–178; BP diastolic 67–94; PULSE 49–75; RESP 18–20; TEMP 36.1–36.6; O2SAT 92–97
[2023-10-28] MEDS: traZODone HCL 50 MG TABLET PO ×3 (00:10→21:58)
[2023-10-28] MEDS: vancomycin HCL 125 MG CAPSULE PO ×4 (00:10→17:54)
[2023-10-28] MEDS: Acetaminophen 325 MG TABLET 650 MG PO ×2 (00:13→06:04)
[2023-10-28] MEDS: guaiFEN/Codeine SF 200/20/10ML 10 ML LIQUID PO ×6 (00:56→21:58)
[2023-10-28] MEDS: oxyCODONE HCl Immed Release 15 MG TABLET PO ×4 (03:59→21:58)
[2023-10-28] MEDS: Omeprazole 20 MG CAPSULE.DR PO (06:03)
[2023-10-28 08:03] LABS: Anion Gap 14 (12-20); Blood Urea Nitrogen 19 mg/dL (9-16); Calcium 8.7 mg/dL (8.4-10.2); Carbon Dioxide 23 mmol/L (22-29); Chloride 107 mmol/L (96-108); Estimated Glomerular Filt Rate > 60; Glucose Random 120 mg/dL (60-115); Potassium 4.3 mmol/L (3.3-5.1); Sodium 140 mmol/L (135-145)
[2023-10-28] MEDS: Albuterol/Iprat 2.5/0.5MG 3 ML AMPUL.NEB INHALE ×3 (08:21→15:30)
[2023-10-28] MEDS: Cyanocobalamin (Vitamin B-12) 500 MCG TABLET PO (10:27)
[2023-10-28] MEDS: Cholecalciferol (Vitamin D3) 25 MCG TABLET PO (10:27)
[2023-10-28] MEDS: Furosemide 20 MG TABLET PO (10:27)
[2023-10-28] MEDS: Gabapentin 300 MG CAPSULE PO ×3 (10:27→21:58)
[2023-10-28] MEDS: Multivitamin TABLET 1 TAB PO (10:27)
[2023-10-28] MEDS: Lidocaine 4 % Patch ADH..PATCH 2 PATCH TRANSDERMA (10:27)
[2023-10-28] MEDS: methylPREDNISolone Sod Succ 40 MG/ML VIAL IVPUSH ×2 (11:23→21:58)
[2023-10-28] MEDS: Enoxaparin Sodium 40 MG/0.4 ML SYRINGE SUBCUT (13:38)
--- NOTE | 2023-10-28 13:43 | MHC.CM.PN ---
Pt not yet medically cleared for DC. PT eval rec. home PT, referral to [facility] updated with this eval and they accept pt and will provide care. Pt requiring further treatment for COVID, hypoxic respiratory failure, asthma exacerbation, electrolyte imbalance. She is improving, anticipate DC date 10/29/23. CM to follow and assist with DC plan.
--- NOTE | 2023-10-28 14:42 | MHC.CM.PN ---
Second IMM 10/28/23, Pt plans to DC tomorrow, she will have home care from [facility] and resume her meals on wheels, and [employer] from [facility]. Her son will pick her up late in the day on 10/29/23.
[2023-10-28] MEDS: Loperamide HCl 2 MG CAPSULE PO (20:33)
[2023-10-28 23:09] LABS: Strep Pneumo Ag urine Not Detected (Not Detected)
[2023-10-29] VITALS (7 sets, daily range): BP systolic 102–148; BP diastolic 57–66; PULSE 54–55; RESP 16–20; TEMP 36.1–37.2; O2SAT 93–95
[2023-10-29] MEDS: guaiFEN/Codeine SF 200/20/10ML 10 ML LIQUID PO ×2 (00:38→05:31)
[2023-10-29] MEDS: vancomycin HCL 125 MG CAPSULE PO ×4 (00:38→18:02)
[2023-10-29] MEDS: Acetaminophen 325 MG TABLET 650 MG PO ×2 (00:46→12:31)
[2023-10-29 03:03] LABS: Legionella Ag Urine Not Detected (Not Detected)
[2023-10-29] MEDS: Loperamide HCl 2 MG CAPSULE PO (03:45)
[2023-10-29] MEDS: oxyCODONE HCl Immed Release 15 MG TABLET PO ×3 (03:45→15:03)
[2023-10-29] MEDS: Omeprazole 20 MG CAPSULE.DR PO (05:31)
[2023-10-29] MEDS: Albuterol/Iprat 2.5/0.5MG 3 ML AMPUL.NEB INHALE ×2 (08:00→15:14)
[2023-10-29] MEDS: Multivitamin TABLET 1 TAB PO (09:40)
[2023-10-29] MEDS: Lidocaine 4 % Patch ADH..PATCH 2 PATCH TRANSDERMA (09:41)
[2023-10-29] MEDS: Cyanocobalamin (Vitamin B-12) 500 MCG TABLET PO (09:41)
[2023-10-29] MEDS: Cholecalciferol (Vitamin D3) 25 MCG TABLET PO (09:41)
[2023-10-29] MEDS: Gabapentin 300 MG CAPSULE PO ×2 (09:41→15:03)
[2023-10-29] MEDS: methylPREDNISolone Sod Succ 40 MG/ML VIAL IVPUSH (09:43)
--- NOTE | 2023-10-29 12:14 | MHC.CM.PN ---
Pt has been medically cleared for DC, she will go home via family to transport her, and she will have home care services from [facility].
[2023-10-29] MEDS: Enoxaparin Sodium 40 MG/0.4 ML SYRINGE SUBCUT (12:32)
--- NOTE | 2023-10-29 13:03 | PM.DS ---
DS: Providers Provider Date of Service: 10/29/23 Date of admission: 10/23/23 11:59 Primary care physician: Emilee Lopez MD Consults: 10/25/23 11:55 Consult to Infectious Diseases Routine Consulting Provider: [facility] [place] Infectious Disease Reason for consultation: cdiff, covid on remdesivir DS: Diagnosis Discharge Diagnosis (1) Pneumonia: Status: Acute (2) COVID-19: Status: Acute (3) Asthma with exacerbation: Status: Acute DS: Summary Hospital Course Hospital Course: Presenting HPI: Pt is a 67-year-old female with a PMH significant for?mild intermittent asthma, peripheral neuropathy, GERD, and hx of gastric bypass who presents to the ED for evaluation of generalized weakness, myalgias, cough, and shortness of breath. Patient was admitted to the hospital less than 1 week prior on 10/18/2023 through 10/19/2023 and treated for a mild intermittent asthma exacerbation with acute bronchitis. Patient was discharged home on 6 days of Ceftin 500 mg p.o. b.i.d. and doxycycline 100 mg p.o. b.i.d.. Pt reports she started taking her medications immediately and as prescribed. Cory mildly better the first day after discharge but then started feeling progressively worse: had increasing SOB, cough productive of yellowish sputum, fatigue, myalgias, subjective fever and chills. Today felt so fatigued and overall sick she decided to re-present to the ED. Also complains of migraine headache, chest tightness, and left-sided upper abdominal pain associated with cough. In the ED pt had elevated temperature of 100.8 degrees, was hypertensive up to 174/80, satting as low as 90% on RA. Labs were significant for testing positive for COVID, leukocytosis of 11.5, and potassium 2.9. Labs otherwise unremarkable: Stable H&H, renal and hepatic function baseline. Lactic acid WNL at 0.8. CXR showed bilateral perihilar increased markings likely technical and or chronic, but no focal lung consolidations or pleural effusions. CT of chest found multifocal patchy opacities throughout both upper and lower lobe suggestive of developing infiltrate, and minimal right basilar posterior pleural thickening with no pleural effusion seen. Also found small hiatal hernia, and mild exaggerated thoracic kyphosis with degenerative disc changes. EKG demonstrated and aberrant conduction but no evidence of significant ST elevations or depressions. Pt was treated with DuoNebs, Mag sulfate, Solu-Medrol, potassium chloride, ondansetron, morphine, ceftriaxone and azithromycin. Pt will be admitted to the hospital for treatment further evaluation acute hypoxic respiratory failure in the setting COVID infection, acute asthma exacerbation, and possible pneumonia. Hospital course: Patient was treated for acute hypoxic respiratory failure in setting of COVID infection and acute asthma exacerbation with supplemental oxygen, dexamethasone, remdesivir, and DuoNebs. Patient was weaned from supplemental O2 on 10/25 and dexamethasone was stopped as hypoxia resolved. Patient was initially started on ceftriaxone and azithromycin for possible pneumonia as CT showed possible multifocal patchy opacities. Developed diarrhea on 10/25/2023 and C diff positive. ID was consult and recommended stopping antibiotics for pneumonia as there was no evidence for bacterial infection, and treating patient with p.o. vanco x10 days total. Has already received 3 days of treatment. Diarrhea episodes improved. Pt also presented with hypokalemia, which was repleated and resolved. Plan is to continue vanco p.o. x7 days, complete prednisone taper, and albuterol inhaler prn. Continue home meds. Pt should follow up with PCP within the week. long term care social worker has contacted [facility] services about pt's discharge. Pt will no longer be on contact precautions starting 11/02/2023. Plan of discharge was discussed in detail with the pt. All questions were answered and pt is in agreement with discharge plan. Time Attestation Total time managing care of this patient today: 45 mintues. Discharge coordination time: Greater than 30 minutes Quality: Safe Use of Opioids Does Pt have an Active Cancer Diagnosis on the Problem List?: No Quality: Stroke Does the patient have a stroke diagnosis?: No Physical Exam Vital Signs: Vital Signs: Last Vital Signs Temp 98.9 F 10/29/23 11:43 Pulse 55 10/29/23 11:43 Resp 16 10/29/23 11:43 BP 148/63 H 10/29/23 11:43 Pulse Ox 94 10/29/23 11:43 O2 Del Method Room Air 10/29/23 11:43 O2 Flow Rate 2 10/28/23 03:20 BMI result Body Mass Index 37.3 General: AOx3, no acute distress Resp: Coarse breath sounds bilaterally CVS: S1, S2, RRR GI: +BS, NT, no distention Skin: Warm, dry Neuro: Cranial nerves II-XII grossly intact bilaterally. Motor grossly intact bilaterally Extremities: No edema Psych: Appropriate affect DS: Data Data Completed and Pending Labs on day of discharge: Laboratory Results - last 24 hr 10/24/23 13:27 Ur L.pneumophila Ag Not Detected Ur Strep pneumoniae Ag Not Detected Discharge Plan Discharge Anticipated Discharge Date/Time: 10/28/23 13:06 Patient Disposition: Home Health Service Discharge Diagnosis: covid pneumonia, c diff diarrhae Referrals: [facility] [Outside] - 1 Week Emilee Lopez MD [Primary Care Provider] - 2 days Discharge Medications: New albuterol sulfate [Ventolin HFA] 90 mcg/actuation HFA aerosol inhaler 2 puff inhalation Q4-6H PRN (Reason: shortness of breath or wheezing) Qty: 8.5 0RF prednisone 20 mg tablet 40 mg PO DAILY 5 Days Qty: 10 0RF vancomycin 125 mg Capsule 125 mg PO Q6H Qty: 29 0RF trazodone 50 mg tablet 25 mg PO BEDTIME MDD 25 mg PRN (Reason: insomnia) Qty: 7 0RF Rx Instructions: Take one 25mg tablet at bedtime as necessary for insomnia Continued oxycodone 15 mg tablet 15 mg PO QID PRN (Reason: pain) pantoprazole 40 mg tablet,delayed release (DR/EC) 40 mg PO DAILY@0630 gabapentin 300 mg capsule 300 mg PO TID fluticasone propionate [Flonase Allergy Relief] 50 mcg/actuation [place],Suspension 1 spray INTRANASAL BID PRN (Reason: Allergy Symptoms) Rx Instructions: administer into each nostril furosemide [Lasix] 20 mg tablet 20 mg PO Q OTHER DAY Qty: 10 0RF guaifenesin 100 mg/5 mL Liquid 100 mg PO Q4H PRN (Reason: cough) Qty: 100 0RF multivitamin Tablet 1 tab PO DAILY cyanocobalamin (vitamin B-12) 500 mcg Tablet 500 mcg PO DAILY calcium carbonate 500 mg calcium (1,250 mg) Tablet 500 mg PO DAILY cholecalciferol (vitamin D3) [Vitamin D3] 25 mcg (1,000 unit) Tablet 25 mcg PO DAILY Discontinued doxycycline monohydrate 100 mg Capsule 100 mg PO BID Qty: 14 0RF cefuroxime axetil 500 mg Tablet 500 mg PO BID Qty: 14 0RF Discharge Orders: Discharge Order (Routine); Ordered 10/29/23 Ordered By: Edith Gorman Diet: Advance to usual diet Activity on Discharge: As tolerated Stand Alone Forms: Patient Portal Discharge page Other Ambulatory Orders: Basic Metabolic Panel (Routine) Timeframe: 1 Week Facility: [facility] - Location: Laboratory Ordered By: Ion Shah Activity Restrictions/Additional Instructions: Take your medications as prescribed. If you were prescribed antibiotics today, it is important that you take your medication to their entirety, do not skip any doses, do not finish them early. Follow-up with your primary care provider this week. Return to the emergency department with new or worsening symptoms. Such as fevers, chills, chest pain, shortness of breath, nausea, vomiting, dizziness, headache, vision changes, lethargy In case of emergency call 911 Care Plan Goals: Patient was initially admitted for acute hypoxemic respiratory failure secondary to COVID infection, asthma exacerbation: Patient was given nebs, steroids, remdesivir, also initially received IV antibiotics: With above supportive care patient shortness of breath seems to improved off oxygen, also has diarrhea found to have C diff: For which patient was started on went p.o. vancomycin 125 mg q.i.d. for 7 more days(end date will be 11/04/23). Patient tolerating diet, no fever, no abdominal pain. Diarrhea also improving significantly. Patient also has elevated blood pressure in 140-170 range, fluctuating: Will add small dose amlodipine. Monitor blood pressure outpatient. Patient is to monitor renal function and electrolytes outpatiently. follow up with pcp outpatient,patient will go home with vna/pt. Pt will be off COVID isolation precautions starting Thursday11/02/2023. Health Concerns: As above. Plan of Treatment: As above. Assessment: As above. Patient Instructions: COVID-19 (Coronavirus Disease 2019) (ED) Discharge Date/Time: 10/29/23 18:37
[2023-10-29] MEDS: Butalb/Acetamin/Caff 50/325/40 TABLET 1 TAB PO (15:03)
== END 2023-10-29 18:37 | disposition home health service (06) | DRG 177 ==
LOC: HO.ED 10:36 → HO.EDOVER 12:21 → HO.IMC 10-24 15:53
PROVIDERS: Physician Assistant; Admitting Provider Student in an Organized Health Care Education/Training Program; Emergency Provider Student in an Organized Health Care Education/Training Program; PCP Internal Medicine Endocrinology, Diabetes & Metabolism; Visit Provider Internal Medicine
DX: U07.1 COVID-19 (principal); J12.82 Pneumonia due to coronavirus disease 2019; J45.21 Mild intermittent asthma with (acute) exacerbation; E66.09 Other obesity due to excess calories; Z68.37 Body mass index [BMI] 37.0-37.9, adult; Z22.1 Carrier of other intestinal infectious diseases; G43.909 Migraine, unspecified, not intractable, without status migrainosus; E87.6 Hypokalemia; I07.1 Rheumatic tricuspid insufficiency; I27.20 Pulmonary hypertension, unspecified; G62.9 Polyneuropathy, unspecified; K21.9 Gastro-esophageal reflux disease without esophagitis; Z98.84 Bariatric surgery status; Z79.899 Other long term (current) drug therapy
CPT/HCPCS: 0241U; 36415; 71045; 71250; 80048; 80053; 83605; 83735; 83880; 84145; 84484; 85007; 85027; 87040; 87324; 87449; 87493; 87899; 93005; 93970; 94640; 97116; 97162; 99285; J0248; J0456; J0696; J1100; J1650; J2270; J2405; J2920; J2930; J3475

== ENCOUNTER → 2023-10-23 01:24 | Outpatient (BNV) | payer MEDICARE, MEDICAID, SELFPAY | PROVIDERS: Admitting Provider Student in an Organized Health Care Education/Training Program; Emergency Provider Student in an Organized Health Care Education/Training Program; PCP Internal Medicine Endocrinology, Diabetes & Metabolism; Visit Provider Internal Medicine Cardiovascular Disease | DX: I49.1 Atrial premature depolarization (principal) | CPT/HCPCS: 93010 ==

== ENCOUNTER → 2023-10-23 11:59 | Outpatient (BNV) | payer MEDICARE, MEDICAID, SELFPAY | PROVIDERS: Admitting Provider Student in an Organized Health Care Education/Training Program; Emergency Provider Student in an Organized Health Care Education/Training Program; PCP Internal Medicine Endocrinology, Diabetes & Metabolism; Visit Provider Internal Medicine | DX: U07.1 COVID-19 (principal); J12.82 Pneumonia due to coronavirus disease 2019 | CPT/HCPCS: 99222 ==

== ENCOUNTER → 2023-10-23 11:59 | Outpatient (BNV) | payer MEDICARE, MEDICAID, SELFPAY | PROVIDERS: Admitting Provider Student in an Organized Health Care Education/Training Program; Emergency Provider Student in an Organized Health Care Education/Training Program; PCP Internal Medicine Endocrinology, Diabetes & Metabolism; Visit Provider Student in an Organized Health Care Education/Training Program | DX: U07.1 COVID-19 (principal); J12.82 Pneumonia due to coronavirus disease 2019; J45.21 Mild intermittent asthma with (acute) exacerbation | CPT/HCPCS: 99223; 99232; 99233; 99239 ==

== ENCOUNTER 2024-09-30 11:04 | Emergency (ER) | payer MEDICARE, MEDICAID, SELFPAY ==
[2024-09-30] VITALS (7 sets, daily range): BP systolic 101–180; BP diastolic 46–80; PULSE 53–98; RESP 16–17; TEMP 36.6–37.2; O2SAT 95–99; BMI 33.9
--- NOTE | ~2024-09-30 | XR_ITS ---
EXAMINATION: XR CHEST CLINICAL INFORMATION: sob/cp COMPARISON: X-ray dated October 23, 2023. TECHNIQUE: 2 views of the chest were obtained. FINDINGS: Linear opacity right lower hemithorax. Pulmonary reticular pattern. Poor inspiration. No pneumothorax. Cardiomediastinal silhouette is normal in size. Multilevel cervical lumbar spondylosis with a kyphotic deformity lower thoracic upper lumbar spine junction. XR/XR chest 2V IMPRESSION: Chronic interstitial lung disease with questionable mild interstitial lung edema in the correct clinical settings. Spondylosis thoracolumbar spine. Electronically signed by: Rashad Anaya MD 09/30/2024 01:32 PM [facility]
--- NOTE | 2024-09-30 11:18 | ED_ITS ---
HPI - Nausea/Vomiting/Diarrhea General Chief complaint: Abdominal Pain Stated complaint: NAUSEA ABD CRAMPING Time Seen by Provider: 09/30/24 11:17 Source: patient, EMS, RN notes reviewed and old records reviewed Mode of arrival: EMS History of Present Illness ED Provider: Debbie Hernández PA-C HPI Narrative: 68-year-old female with a past medical history of GERD, asthma, peripheral neuropathy, gastric bypass, presenting to the ED via EMS complaining of abdominal pain/cramping, nausea, decreased p.o. intake, productive cough, SOB, and chest tightness x 3 days. Also reports pruritic rash. Denies known new exposures, soaps/lotions/detergent. Denies fever, chills, vomiting, diarrhea, dysuria/hematuria, travel, sick contacts Related Data Home Medications ?Medication ?Instructions ?Recorded ?Confirmed fluticasone propionate 50 1 spray intranasal BID PRN Allergy 10/18/23 10/23/23 mcg/actuation nasal Symptoms spray,suspension (Flonase Allergy Relief) gabapentin 300 mg capsule 300 mg PO TID 10/18/23 10/23/23 oxycodone 15 mg tablet 15 mg PO QID PRN pain 10/18/23 10/23/23 pantoprazole 40 mg tablet,delayed 40 mg PO DAILY@0630 10/18/23 10/23/23 release calcium carbonate 500 mg PO DAILY 10/23/23 10/23/23 cholecalciferol (vitamin D3) 25 25 mcg PO DAILY 10/23/23 10/23/23 mcg (1,000 unit) tablet (Vitamin D3) cyanocobalamin (vitamin B-12) 500 500 mcg PO DAILY 10/23/23 10/23/23 mcg tablet multivitamin 1 tab PO DAILY 10/23/23 10/23/23 Previous Rx's ?Medication ?Instructions ?Recorded furosemide 20 mg tablet (Lasix) 20 mg PO Q OTHER DAY #10 tabs 10/19/23 guaifenesin 100 mg/5 mL oral liquid 100 mg (5 mL) PO Q4H PRN cough 10/19/23 #100 mL albuterol sulfate 90 mcg/actuation 2 puff inhalation Q4-6H PRN 10/23/23 aerosol inhaler (Ventolin HFA) shortness of breath or wheezing #8.5 grams prednisone 20 mg tablet 40 mg (2 x 20 mg) PO DAILY 5 days 10/23/23 #10 tabs vancomycin 125 mg capsule 125 mg PO Q6H #29 caps 10/28/23 trazodone 50 mg tablet 25 mg (1/2 x 50 mg) PO BEDTIME PRN 10/29/23 insomnia #7 tabs ondansetron 4 mg disintegrating 4 mg PO Q8H PRN nausea and 09/30/24 tablet vomiting #10 tabs Allergies Allergy/AdvReac Type Severity Reaction Status Date / Time No Known Allergies Allergy Verified 09/30/24 11:16 Review of Systems 2 Review of Systems: Yes all other systems are reviewed and are negative Constitutional: Constitutional: Reports as per [facility] Past Medical History Attestation statement: The following information was validated with the patient. Source: old records reviewed Medical History Peripheral neuropathy GERD (gastroesophageal reflux disease) Surgical History H/O gastric bypass Social History Social History Household Members: None Housing: Apartment Do you presently have visiting nurse or other home services: No Comment: N/A Patient Tobacco Use Status: Never used Tobacco Smoked in Last 30 Days: No e-Cigarette/Vaping Use: Never Used Use of substances other than those prescribed or required for medical reasons: No Advance Directives: Yes Advance Directives Information Provided: Yes Advance Directives on File: No Do you have a plan to hurt others: No Plan service: No Physical Exam 2 Vital Signs: Vital Signs: Last Vital Signs Temp 98.9 F 09/30/24 15:50 Pulse 68 09/30/24 15:50 Resp 16 09/30/24 15:50 BP 101/46 L 09/30/24 15:50 Pulse Ox 95 09/30/24 15:50 O2 Del Method Room Air 09/30/24 15:50 BMI result Body Mass Index 33.9 Const: General: cooperative and no acute distress O rientation/consciousness: patient oriented x3 Limitations: no limitations HEENT: Head: Yes normal to inspection and Yes atraumatic Ears: hearing grossly normal bilaterally General nose exam: Normal external nose present Face and sinus: Yes normal facial exam Eyes: General: appearance normal, both eyes and all related structures EOM: EOMs intact bilaterally Neck: Neck: Yes normal visual inspection and Yes no meningeal signs Resp: Effort & Inspection: normal respiratory effort and no respiratory distress Auscultation: wheezes expiratory wheezes and lower bilaterally Cardio: Rate: regular rate Heart sounds: S1 normal heart sound present and S2 normal heart sound present GI: Inspection: Yes normal to inspection Palpation (GI): Soft to palpation, nontender, no guarding and not rigid : General: Yes no CVA tenderness Back/Spine/Pelvis: Back: no CVA tenderness Skin: Other: + linear scabs/rash noted to chest, back , abdomen. No sloughing. No open wounds/lesions. No palm/sole or mucous membrane involvement Wounds: no wounds Neuro: General: patient oriented x3, tone normal, moves all extremities, no meningeal signs, no focal motor deficits and CN's II-XI intact bilaterally C ranial nerves: Yes CN's II-XII intact bilaterally Extrem: Other: Chronic LE pedal edema Course Course Course Narrative: -1337--no leukocytosis. H/H stable. AST mildly elevated with mild hemolysis. ALT mildly elevated. -Initial troponin 8.4 > will obtain repeat -BNP 160, chronically elevated. -Viral studies negative XR chest 2V IMPRESSION: Chronic interstitial lung disease with questionable mild interstitial lung edema in the correct clinical settings. Spondylosis thoracolumbar spine. > on re-evaluation lungs without wheeze, mild bibasilar coarseness appreciated, no crackles, no hypoxia -1534-- repeat troponin without rise > [place] unlikely -1557--UA with leuk esterase and wbc's > will treat with p.o. antibiotics >> patient tolerated p.o. in the ED without difficulty, nausea or vomiting. Safe for discharge home at this time Results discussed with patient including worrisome signs and symptoms and strict return precautions, and when to return to the emergency department. They verbalized understanding and feel safe for discharge at this time. Medications Administered Discontinued Medications Generic Name Dose Route Start Last Admin Trade Name Freq PRN Reason Stop Dose Admin Albuterol Sulfate 2.5 mg/ 0 mg 09/30/24 11:59 09/30/24 12:03 Albuterol/Ipratropium 3 ml INHALE 09/30/24 12:00 5 dose ONCE ONE Administration Furosemide 20 mg 09/30/24 13:42 09/30/24 13:48 Furosemide 20 Mg Tablet PO 09/30/24 13:43 20 mg ONCE ONE Administration Protocol Sodium Chloride 500 mls @ 999 mls/hr 09/30/24 11:45 09/30/24 13:34 Ns IV 09/30/24 12:15 Infused .Q31M ARMANDO Infusion Ondansetron HCl 4 mg 09/30/24 13:42 09/30/24 13:48 Ondansetron Hcl 4 Mg/2 Ml Vial IVPUSH 09/30/24 13:43 4 mg ONCE ONE Administration Oxycodone HCl 10 mg 09/30/24 12:51 09/30/24 13:03 Oxycodone Hcl Immed Release 5 Mg Tablet PO 09/30/24 12:52 10 mg ONCE ONE Administration Medical Decision Making Medical Decision Making MDM Narrative: 68-year-old female with a past medical history of GERD, asthma, peripheral neuropathy, gastric bypass, presenting to the ED via EMS complaining of abdominal pain/cramping, nausea, decreased p.o. intake, productive cough, SOB, and chest tightness x 3 days. On exam vital signs stable, NAD, nontoxic appearing, + bibasilar end expiratory wheeze, abdomen soft/nontender. Concern for atypical ACS vs asthma exacerbation vs viral illness vs gastroenteritis. Rule out metabolic abnormalities. Lower suspicion for appendicitis/diverticulitis, cholecystitis or pancreatitis at this time without tenderness on exam Plan: EKG, Labs, viral studies, UA, CXR, ED bronch protocol Please refer to course for remaining clinical decision making, interpretation of labs/imaging results, and discussions with consultants and/or family members. Differential Diagnosis Differential Diagnoses: The differential diagnosis associated with the presentation includes As above Admission/Observation Consideration of admission/observation: Escalation of care including admission/observation considered Lab Data [facility] Lab Attestation statement: I reviewed the patient's lab results. 09/30/24 12:10 09/30/24 12:10 Labs: Lab Results 09/30/24 09/30/24 09/30/24 Range/Units 11:44 12:10 15:01 WBC 10.6 (4.8-10.8) X10*3/uL RBC 4.35 (4.20-5.50) X10*6/uL Hgb 14.4 (12.0-16.0) g/dl Hct 39.8 (37.0-47.0) % MCV 91.5 (80.0-98.0) fL MCH 33.1 H (27.0-33.0) pg MCHC 36.2 H (31.0-35.0) g/dl RDW 13.0 (11.0-16.0) % Plt Count 427 H (160-400) X10*3/uL MPV 8.9 L (9.4-12.3) fL Immature Gran % (Auto) 0.8 H (0.0-0.4) % Neut % (Auto) 77.7 H (45-73) % Lymph % (Auto) 14.7 L (20-40) % Bond % (Auto) 5.9 (2-11) % Eos % (Auto) 0.1 (0-4) % Baso % (Auto) 0.8 (0-2) % Lymph # (Auto) 1.6 (1.2-4.9) X10*3/uL Bond # (Auto) 0.6 (0.1-1.2) X10*3/uL Eos # (Auto) 0.0 (0.0-0.4) X10*3/uL Baso # (Auto) 0.1 (0.0-0.2) X10*3/uL Abs Immat Gran (auto) 0.09 H (0.00-0.03) X10*3/uL Absolute Neuts (auto) 8.2 (2.0-8.3) x10*3/uL Absolute Nucleated RBC 0.000 (0.0-0.012) X10*3/uL Nucleated RBC % (auto) 0.0 (0.0-0.2) /100WBC Sodium 137 (135-145) mmol/L Potassium 4.4 (3.3-5.1) mmol/L Chloride 106 (96-108) mmol/L Carbon Dioxide 19 L (22-29) mmol/L Anion Gap 16 (12-20) BUN 21 H (9-16) mg/dL Creatinine 0.67 (0.5-1.4) mg/dL Estim Creat Clear Calc 83.0 Estimated GFR > 60 Random Glucose 102 (60-115) mg/dL Calcium 8.9 (8.4-10.2) mg/dL Magnesium 1.7 (1.6-2.6) mg/dL Total Bilirubin 0.6 (0.0-1.0) mg/dL Direct Bilirubin 0.2 (0.0-0.5) mg/dL AST 46 H (5-31) U/L ALT 44 H (0-31) U/L Alkaline Phosphatase 62 (39-117) U/L Troponin I High Sens 8.4 D 8.6 (<3.5-17.0) ng/L B-Natriuretic Peptide 160 H (<100) pg/mL Total Protein 6.7 (6.5-8.0) g/dL Albumin 3.7 (3.5-5.0) g/dL Lipase 27 (8-78) U/L Urine Color Urine Appearance Urine pH (5.0-9.0) Ur Specific [place] (1.005-1.025) Urine Protein (Neg-Trace) mg/dL Urine Glucose (UA) (Negative) mg/dL Urine Ketones (Negative) mg/dL Urine Blood (Negative) Urine Nitrite (Negative) Ur Leukocyte Esterase (Negative) Urine RBC (0-2) /HPF Urine WBC (0-5) /HPF Ur Squamous Epith Cells (0-2) /HPF Urine Bacteria (None Seen) Hyaline Casts (0-2) /LPF Influenza Type A (PCR) NEGATIVE (Negative) Influenza Type B (PCR) NEGATIVE (Negative) RSV RNA Qual (PCR) NEGATIVE (Negative) SARS-CoV-2 RNA (RT-PCR) NEGATIVE (Negative) 09/30/24 Range/Units 15:07 WBC (4.8-10.8) X10*3/uL RBC (4.20-5.50) X10*6/uL Hgb (12.0-16.0) g/dl Hct (37.0-47.0) % MCV (80.0-98.0) fL MCH (27.0-33.0) pg MCHC (31.0-35.0) g/dl RDW (11.0-16.0) % Plt Count (160-400) X10*3/uL MPV (9.4-12.3) fL Immature Gran % (Auto) (0.0-0.4) % Neut % (Auto) (45-73) % Lymph % (Auto) (20-40) % Bond % (Auto) (2-11) % Eos % (Auto) (0-4) % Baso % (Auto) (0-2) % Lymph # (Auto) (1.2-4.9) X10*3/uL Bond # (Auto) (0.1-1.2) X10*3/uL Eos # (Auto) (0.0-0.4) X10*3/uL Baso # (Auto) (0.0-0.2) X10*3/uL Abs Immat Gran (auto) (0.00-0.03) X10*3/uL Absolute Neuts (auto) (2.0-8.3) x10*3/uL Absolute Nucleated RBC (0.0-0.012) X10*3/uL Nucleated RBC % (auto) (0.0-0.2) /100WBC Sodium (135-145) mmol/L Potassium (3.3-5.1) mmol/L Chloride (96-108) mmol/L Carbon Dioxide (22-29) mmol/L Anion Gap (12-20) BUN (9-16) mg/dL Creatinine (0.5-1.4) mg/dL Estim Creat Clear Calc Estimated GFR Random Glucose (60-115) mg/dL Calcium (8.4-10.2) mg/dL Magnesium (1.6-2.6) mg/dL Total Bilirubin (0.0-1.0) mg/dL Direct Bilirubin (0.0-0.5) mg/dL AST (5-31) U/L ALT (0-31) U/L Alkaline Phosphatase (39-117) U/L Troponin I High Sens (<3.5-17.0) ng/L B-Natriuretic Peptide (<100) pg/mL Total Protein (6.5-8.0) g/dL Albumin (3.5-5.0) g/dL Lipase (8-78) U/L Urine Color Yellow Urine Appearance Clear Urine pH 5.5 (5.0-9.0) Ur Specific [place] 1.025 (1.005-1.025) Urine Protein Negative (Neg-Trace) mg/dL Urine Glucose (UA) Negative (Negative) mg/dL Urine Ketones 80 (Negative) mg/dL Urine Blood Negative (Negative) Urine Nitrite Negative (Negative) Ur Leukocyte Esterase Moderate (2+) H (Negative) Urine RBC 0-2 (0-2) /HPF Urine WBC 11-20 H (0-5) /HPF Ur Squamous Epith Cells 3-5 (0-2) /HPF Urine Bacteria None Seen (None Seen) Hyaline Casts 0-2 (0-2) /LPF Influenza Type A (PCR) (Negative) Influenza Type B (PCR) (Negative) RSV RNA Qual (PCR) (Negative) SARS-CoV-2 RNA (RT-PCR) (Negative) Independent Interpretation I performed an independent interpretation of an: EKG and Plain X-Ray Radiology Impression Discussion of test interpretation with radiology: I have reviewed the radiologist's reading. Independent Historian Clinical information obtained from an independent historian. History obtained from or confirmed by: EMS External Record Review External record reviewed: Inpatient record, Office record, Outpatient record, Prior outpatient labs, Prior outpatient radiology, Primary care record and Outside ED record Tests considered The following testing was considered but not selected: As above Prescription Management I considered prescription management with: Pain Medication Chronic Conditions Patient?s care impacted by: Other Social Determinants Patient?s care significantly limited by Social Determinants of Health including: Other Social Determinant of Health Discharge Plan Discharge Clinical Impression: Nausea, Decreased oral intake, Shortness of breath Patient Disposition: Still a Patient Instructions: Acute Nausea and Vomiting (ED), Shortness of Breath (ED) Additional Instructions: Your blood work is reassuring Your x-ray does not show pneumonia You tested negative for COVID, flu, RSV Make sure you are staying hydrated at home Zofran is for nausea, take as needed for nausea and vomiting Please have close follow-up with your doctor If her symptoms persist or worsen you constant or worsening cough, shortness of breath, chest pain, nausea/vomiting or diarrhea, you are unable to eat or drink return to the ED immediately Prescriptions: New ondansetron 4 mg tablet,disintegrating 4 mg PO Q8H PRN (Reason: nausea and vomiting) Qty: 10 0RF No Action oxycodone 15 mg tablet 15 mg PO QID PRN (Reason: pain) pantoprazole 40 mg tablet,delayed release (DR/EC) 40 mg PO DAILY@0630 gabapentin 300 mg capsule 300 mg PO TID fluticasone propionate [Flonase Allergy Relief] 50 mcg/actuation Erhard,Suspension 1 spray INTRANASAL BID PRN (Reason: Allergy Symptoms) Rx Instructions: administer into each nostril furosemide [Lasix] 20 mg tablet 20 mg PO Q OTHER DAY Qty: 10 0RF guaifenesin 100 mg/5 mL Liquid 100 mg PO Q4H PRN (Reason: cough) Qty: 100 0RF albuterol sulfate [Ventolin HFA] 90 mcg/actuation HFA aerosol inhaler 2 puff inhalation Q4-6H PRN (Reason: shortness of breath or wheezing) Qty: 8.5 0RF prednisone 20 mg tablet 40 mg PO DAILY 5 Days Qty: 10 0RF multivitamin Tablet 1 tab PO DAILY cyanocobalamin (vitamin B-12) 500 mcg Tablet 500 mcg PO DAILY calcium carbonate 500 mg calcium (1,250 mg) Tablet 500 mg PO DAILY cholecalciferol (vitamin D3) [Vitamin D3] 25 mcg (1,000 unit) Tablet 25 mcg PO DAILY vancomycin 125 mg Capsule 125 mg PO Q6H Qty: 29 0RF trazodone 50 mg tablet 25 mg PO BEDTIME MDD 25 mg PRN (Reason: insomnia) Qty: 7 0RF Rx Instructions: Take one 25mg tablet at bedtime as necessary for insomnia Print Language: Armenian
--- OUTSIDE RECORDS SUMMARY | 2024-09-30 11:30 | XMS_ITS | Continuity of Care Document ---
Author Organization [facility] [address] [place] [address] Phone [phone] Care Team Providers Care Circular Stuffer Name Role Phone Emilee Lopez M.D. Care Team Informati on Straightedge Man [phone] Problems Active Problems Provider Date Asthma Emilee Lopez M.D. Ons et: 09/16/2022 Obesity Emilee Lopez M.D. Ons et: 09/16/2022 Osteoarthritis Emilee Lopez M.D. Ons et: 09/16/2022 Edema of lower leg Emilee Lopez M.D. Onset: 09/16/2022 Osteoporosis Emilee Lopez M.D. Ons et: 09/16/2022 Anxiety Emilee Lopez M.D. Ons et: 09/16/2022 Depressive disorder Emilee Lopez M.D. Onset: 09/16/2022 Cellulitis of leg, excluding foot Emilee Salvador M.D. Onset: 09/16/2022 Chronic headache disorder Emilee Lopez M.D. Onset: 09/16/2022 Lymphocytic colitis Emilee Lopez M.D. Onset: 09/16/2022 Posttraumatic stress disorder Emilee bah M.D. Onset: 09/16/2022 Gastroesophageal reflux disease Emilee Mckeon M.D. Onset: 09/16/2022 Tinnitus Emilee Lopez M.D. Ons et: 09/16/2022 Sensorineural hearing loss Emilee bustos M.D. Onset: 09/16/2022 Degeneration of lumbar inter vertebral disc Emilee Lopez M.D. Onset: 09/16/2022 Sleep terror disorder Gayla Ferrari Onset: 09/16/2022 Right radial nerve palsy Emilee Lopez M.D. Onset: 09/16/2022 Brachial plexopathy of right upper limb Emilee Lopez M.D. Onset: 09/16/2022 History of deep vein thrombosis Emilee Mckeon M.D. Onset: 09/16/2022 Chronic anemia Emilee Lopez M.D. Ons et: 09/16/2022 Chronic interstitial cystitis Emilee bah M.D. Onset: 09/16/2022 History of diverticulitis Emilee Lopez M.D. Onset: 09/16/2022 Clostridium difficile colitis Emilee bah M.D. 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 ETOH Use Denies alcohol use Tobacco Use Start: Unknown End: Patient is a former smoker Allergies and adverse reactions Active Allergies Criticality Reaction Severity Comments Date Codeine Unable to assess criticality 09/16/2022 Celebrex Unable to assess criticality melena 09/16/2022 Effexor Unable to assess criticality 09/16/2022 Fluoxetine Unable to assess criticality nightmares 09/16/2022 Lisinopril Unable to assess criticality Cough 09/16/2022 Medications Active Medications SIG Qnty Indications Ordering Provider Date Fluticasone Scaadbdzth08dai/Act Suspension Instill 2 Sprays Each Nostril Every Day as Needed 48gm Emilee Lopez M.D. 04/27/2024 Arnuity Cbmtqbp732pci/Act Aerosol Inhale 1 puff by mouth every day 30units Emilee Lopez M.D. 04/11/2024 Bbbmderirw57kz Tablets take 1 tablet by mouth every day 90tabs Emilee Lopez M.D. 12/15/2023 Trazodone HJW55rq Tablets take 1/2-1 tablet by mouth daily at bedtime as needed 90tabs Emilee Lopez M.D. 11/06/2023 Fluticasone Propionate Nasal Roslyn 24- Wjar99uun/Act Suspension 2 sprays each nostril every day as needed 1units Emilee Lopez M.D. 11/06/2023 Juorqnlegh697cv Capsules take one capsule by mouth three times daily 360caps Emilee Lopez M.D. 08/28/2022 Oxycodone EOF06np Tablets Take 1 tablet every 6 hours prn Theron Osorio, Ventolin IYE152(90Base) mcg/Act Aerosol Inhale 2 Puffs By Mouth Four Times Daily as Needed 18units J45.909 Noe Beck M.D. Pantoprazole Bbzpko69ys Tablets DR take 1 tablet by mouth every day 90tabs Emilee Lopez M.D. Multivitamin Adults 50+Adlt 50+ Tablets 1 by mouth every day Emilee Lopez M.D. KP Ferrous Ofybfcb858(65Fe) mg Tablets 1 by mouth every day Emilee Lopez M.D. Calcium 600 + Y602-3fe-uoo Tablets 1 by mouth every day Emilee Lopez M.D. Eql Vitamin B-12 [id number] Tablets ER 1 by mouth every day Emilee Lopez M.D. Ilunanj345um Capsules 1-2 every 6 hours as needed Emilee Lopez M.D. History Medications Qddgtpzhyaz635xi Tablets 1 tab by mouth twice a day 14tabs Emilee Lopez M.D. 12/17/2023 - 12/17/2023 Vital Signs Date Vital Result Comment 03/02/2024 1:09pm BP Systolic 120 mmHg BP Diastolic 70 mmHg Heart Rate 75 /min Height 59 inches 4'11 Weight 192.38 lb BMI (Body Mass Index) 38.9 kg/m2 Results Test Acquired Date Facility Test Result H/L Range Note CBC With Differential/Plat elet 03/02/2024 [facility] WBC 6.5 x10E3/uL 3.4-10.8 RBC 4.33 x10E6/uL 3.77-5.2 8 Hemoglobin 13.7 g/dL 11.1-15. 9 Hematocrit 43.0 % 34.0-46. 6 MCV 99 fL High 79-97 MCH 31.6 pg 26.6-33. 0 MCHC 31.9 g/dL 31.5-35. 7 RDW 13.5 % 11.7-15. 4 Platelets 327 x10E3/uL 150-450 Neutrophils 65 % Not Estab. Lymphs 24 % Not Estab. Monocytes 7 % Not Estab. Eos 2 % Not Estab. Basos 1 % Not Estab. Immature Cells TNP Neutrophils (Absolute) 4.1 x10E3/uL 1.4-7.0 Lymphs (Absolute) 1.6 x10E3/uL 0.7-3.1 Monocytes(Absol u te) 0.5 x10E3/uL 0.1-0.9 Eos (Absolute) 0.2 x10E3/uL 0.0-0.4 Baso (Absolute) 0.1 x10E3/uL 0.0-0.2 Immature Granulocytes 1 % Not Estab. Immature Grans (Abs) 0.0 x10E3/uL 0.0-0.1 NRBC TNP Hematology Comments: TNP Comp. Metabolic Panel (14) 03/02/2024 [facility] Glucose 84 mg/dL 70-99 BUN 16 mg/dL 8-27 Creatinine 0.89 mg/dL 0.57-1.0 0 eGFR 71 mL/min/1. 73 >59 BUN/Creatinine Ratio 18 12-28 Sodium 143 mmol/L 134-144 Potassium 5.6 mmol/L High 3.5-5.2 Chloride 104 mmol/L 96-106 Carbon Dioxide, Total 23 mmol/L 20-29 Calcium 10.1 mg/dL 8.7-10.3 Protein, Total 6.2 g/dL 6.0-8.5 Albumin 4.4 g/dL 3.9-4.9 Globulin, Total 1.8 g/dL 1.5-4.5 A/G Ratio 2.4 High 1.2-2.2 Bilirubin, Total 0.5 mg/dL 0.0-1 .2 Alkaline Phosphatase 52 IU/L 44-121 Ast (Sgot) 22 IU/L 0-40 Alt (SGPT) 14 IU/L 0-32 Laboratory test finding 03/02/2024 [facility] Hemoglobin A1c 5.3 % 4.8-5.6 1 Ferritin 52 ng/mL 15-150 Comprehensive Metabolic Panl 11/06/2023 [facility] Glucose 96 mg/dL (70-99) BUN 21 mg/dL (8-23) Creatinine 1.0 mg/dL (0.5-1.0 ) Sodium 142 mmol/L (133-145 ) Potassium 4.5 mmol/L (3.6-5.2 ) Chloride 104 mmol/L (98-107) Bicarbonate 25 mmol/L (22-29) Anion Gap 13 (4-17) Albumin 4.1 GM/DL (3.4-4.8 ) Calcium 9.4 mg/dL (8.6-10. 5) Bilirubin,Total 0.3 mg/dL (0-1.2 ) Total Protein 6.3 GM/DL (6.2-8.2 ) Ag Ratio 1.9 Ast 19 U/L (0-32) Alk Phos 58 U/L (35-104) Alt 20 U/L (0-33) Estimated GFR Creatinine 66 ML/MIN/1. 73M2 2 Comprehensive Metabolic Panl 09/16/2022 [facility] Glucose 84 mg/dL (70-99) BUN 11 mg/dL (8-23) Creatinine 0.7 mg/dL (0.5-1.0 ) Sodium 138 mmol/L (133-145 ) Potassium 4.9 mmol/L (3.6-5.2 ) Chloride 102 mmol/L (98-107) Bicarbonate 25 mmol/L (22-29) Anion Gap 11 (4-17) Albumin 4.5 GM/DL (3.4-4.8 ) Calcium 8.6 mg/dL (8.6-10. 5) Bilirubin,Total 0.5 mg/dL (0-1.2 ) Total Protein 6.6 GM/DL (6.2-8.2 ) Ag Ratio 2.1 Ast 22 U/L (0-32) Alk Phos 79 U/L (35-104) Alt 9 U/L (0-33) Estimated GFR Creatinine 97 ML/MIN/1. 73M2 3 Laboratory test finding 09/16/2022 [facility] Hemoglobin A1c 5.3 % (4.0-5.6 ) 4 Lipid Panel 09/16/2022 [facility] Cholesterol, Total 192 mg/dL (<200) Triglyceride 52 mg/dL (<150) HDL Chol 112 mg/dL (>39) LDL Cholesterol , Calculated 70 mg/dL (0-130) Non HDL Cholesterol (Calc) 80 mg/dL (<160) Complete Abc With Diff 09/16/2022 [facility] WBC 8.0 K/MM3 (4.0-11. 0) RBC 4.11 M/MM3 Low (4.20-5. 40) HGB 11.5 GM/DL Low (11.7-15 .5) HCT 37.2 % (35.7-45 .8) MCV 90.5 FL (80.0-10 0.0) MCH 28.0 pg (27.0-34 .0) MCHC 30.9 g/dL Low (33.0-37 .0) PLT 385 K/MM3 (150-460 ) RDW-SD 48.4 FL High (<47.0) MPV 9.3 FL Low (9.4-12. 4) Automated NRBC 0.0 #/100WBC' S Abs. NRBC 0.0 K/MM3 Neut # 5.8 K/MM3 (1.3-7.0 ) Lymph # 1.2 K/MM3 (0.8-3.1 ) Alfalfa# 0.6 K/MM3 (0.4-0.9 ) Eo # 0.2 K/MM3 (0.0-0.4 ) Baso # 0.1 K/MM3 (0.0-0.1 ) Abs. Imm Gran 0.0 K/MM3 Neut 72.7 % (44-76) Lymph 15.3 % (15-43) Monocyte 7.3 % (4.5-10. 5) Eo 3.0 % (0-6) Baso 1.4 % (0-2) Imm Gran 0.3 % Laboratory test finding 09/16/2022 [facility] TSH With Reflex To FT4 0.94 uIU/mL (0.4-4.2 ) Probnp 1004 pg/mL High (0-125) 25Oh Vitamin D 39.5 NG/ML (20-50) Ferritin 17 NG/ML (14-283) Vitamin B12 697 pg/mL (232-124 5) 1 Prediabetes: 5.7 - 6 .4 Diabetes: >6.4 Glycemic control for adults with diabetes: <7.0 2 Creatinine based est imated glomerular filtration (eGFR) in adults is calculated using the National [employer] recommended 2020 CKD-EPI equation. Estimates GFR from serum creatinine, age and sex. 3 Creatinine based est imated glomerular filtration (eGFR) in adults is calculated using the National [employer] recommended 202 CKD-EPI equation. Estimates GFR from serum creatinine, age and sex. 4 MONITORING: In known diabetic patients, hemoglobin A1c targets should be discussed with health care provider. DIAGNOSTIC USE: The [place] [employer] (ADA) and the World Health Organization (WHO) recommend the use of HbA1c to diagnose diabetes using a threshold of 6.5%. Patients who have an HbA1c between 5.7% and 6.4% are considered at increased risk for developing diabetes in the future. CAUTION: Falsely low HbA1c results may be observed in patients with hemolytic anemia, homozygous forms of abnormal hemoglobin (e.g. SS, CC, SC), , recent blood loss or hemoglobin F greater than 7%. Fructosamine may be used as an alternate test in these cases. REFERENCE: ADA: Standards of Medical Care in Diabetes 2020, The Journal of Clinical and Applied Research and Education Volume 43, Supplement 1 Procedures Date Code Description Status 03/02/2024 42207 Collection Of Venous Blood B y Venipuncture Completed 11/06/2023 10475 Collection Of Venous Blood B y Venipuncture Completed 07/08/2023 NSHOWOFF No Show Office Visit Complet ed 09/16/2022 04792 Collection Of Venous Blood B y Venipuncture Completed Medical Devices Description No Information Available Encounters Type Date Location Provider Dx Diagnosis Office Visit 03/02/2024 1:15p Main Office Emilee Lopez M.D. J45.30 Mild persistent asthma, uncomplicated E66.9 Obesity, unspecified I87.2 Venous insufficiency (chronic) (peripheral) F43.21 Adjustment disorder with depressed mood M81.0 Age-related osteopor osis w/o current pathological fracture K21.9 Gastro-esophageal re flux disease without esophagitis Z68.38 Body mass index [BMI ] 38.0-38.9, adult Assessments Date Code Description Provider 03/02/2024 J45.30 Mild persistent asthma, unco mplicated Emilee Lopez M.D. 03/02/2024 E66.9 Obesity NOS Emilee Liz M.D. 03/02/2024 I87.2 Venous insuffici ency (chronic) (peripheral) Emilee Lopez M.D. 03/02/2024 F43.21 Adjustment disor delfino with depressed mood Emilee Lopez M.D. 03/02/2024 M81.0 Age-related oste oporosis without current pathological fracture Emilee Lopez M.D. 03/02/2024 K21.9 Gastro-esophagea l reflux disease without esophagitis Emilee Lopez M.D. 03/02/2024 Z68.38 Body mass index [BMI] 38.0-3 8.9, adult Emilee Lopez M.D. Plan of Treatment Future Appointment(s):* 11/30/2024 3:15 pm - Emilee Lopez M.D. at Main Office 03/02/2024 - Emilee Lopez M.D.* J45.30 Mild persistent asthma, uncomplicated * E66.9 Obesity NOS * I87.2 Venous insufficiency (chronic) (peripheral) * F43.21 Adjustment disorder with depressed mood * M81.0 Age-related osteoporosis without current pathological fracture * K21.9 Gastro-esophageal reflux disease without esophagitis * Z68.38 Body mass index [BMI] 38.0-38.9, adult Functional Status Description No Information Available Mental Status Description No Information Available Referrals Refer to Dr Reason for Referral Status Appt [facility] LEG ADEMA, ELAVATED PROBNP C losed 11/14/[address] [place] [address] [address] [place] [id number] [phone]
--- NOTE | 2024-09-30 11:31 | ECG_ITS ---
Test Reason : CP/SOB Blood Pressure : / mmHG Vent. Rate : 052 BPM Atrial Rate : 052 BPM P-R Int : 138 ms QRS Dur : 090 ms QT Int : 480 ms P-R-T Axes : 043 -18 037 degrees QTc Int : 446 ms Sinus bradycardia Nonspecific ST abnormality Abnormal ECG When compared with ECG of 23-OCT-2023 10:51, Aberrant conduction is no longer Present Referred By: Debbie Hernández Electronically Signed By:JORDAN NORRIS MD
--- OUTSIDE RECORDS SUMMARY | 2024-09-30 11:31 | XMS_ITS | Clinical Summary ---
Author Organization Unknown Care Team Providers Care Palm Gatherer Name Role Phone JOSEFA HAGER MD, ANDRADE Unavailable Unava lien SIMPSON RN, KATERIN Unavailable Unavailable Payers Payer Name Policy Type Policy Number Effective Date Expira tion Date MEDIC[place] - [place] [id number] MEDICAID [facility] [id number] Problems Condition Name Condition Details Condition Category Status Onset Date Resolution Date Last Treatment Date Treating Clinician Comments COVID-19 Active 10-30 00:00: 00 PNEUMONIA DUE TO CORONAVIRUS DISEASE 2019 Active 10-30 00:00: 00 MILD INTERMITTENT ASTHMA, UNCOMPLICATE D Active 10-30 00:00: 00 HEART FAILURE, UNSPECIFIED Active 10-30 00:00: 00 GASTRO-ESOPH AGEAL REFLUX DISEASE WITHOUT ESOPHAGITIS Active 10-30 00:00: 00 POLYNEUROPAT HY, UNSPECIFIED Active 10-30 00:00: 00 ACUTE RESPIRATORY FAILURE, UNSP W HYPOXIA OR HYPERCAPNIA Active 10-30 00:00: 00 HYPOKALEMIA Active 10-30 00:00: 00 MIGRAINE, UNSP, NOT INTRACTABLE, WITHOUT STATUS MIGRAINOSUS Active 10-30 00:00: 00 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 Ordering Clinician Indication Dosage Frequency Signature (SIG) Comments Components albuterol sulfate HFA 90 mcg/actuati on aerosol inhaler 10-30 00:00: 00 Yes [id number] 2 puff NEEDED 2 puff NEEDED (route: inhalation ) Med Classific ation: Respirato ry Therapy Agents B Complex-Vit arias B12 tablet 10-30 00:00: 00 Yes [id number] 1 tablet DAILY 1 tablet DAILY (route: oral) Med Classific ation: Electroly te Balance-N utritiona l Products calcium carbonate 200 mg calcium (500 mg) chewable tablet 10-30 00:00: 00 Yes [id number] 1 tablet DAILY 1 tablet DAILY (route: oral) Med Classific ation: Gastroint estinal Therapy Agents gabapentin 300 mg capsule 10-30 00:00: 00 Yes [id number] 1 capsule 3 TIMES DAILY 1 capsule 3 TIMES DAILY (route: oral) Med Classific ation: Central Nervous System Agents multivitami n tablet 10-30 00:00: 00 Yes [id number] 1 tablet DAILY 1 tablet DAILY (route: oral) Med Classific ation: Electroly te Balance-N utritiona l Products oxycodone 15 mg tablet 10-30 00:00: 00 Yes [id number] 1 tablet DIRECTED 1 tablet DIRECTED (route: oral) Med Classific ation: Analgesic , Anti-infl ammatory or Antipyret ic prednisone 20 mg tablet 10-29 00:00: 00 11-03 23:59 :00 No [id number] 2 tablet DAILY 2 tablet DAILY (route: oral) Med Classific ation: Endocrine Protonix 40 mg tablet,mary ann yed release 10-30 00:00: 00 Yes [id number] 1 tablet DAILY 1 tablet DAILY (route: oral) Med Classific ation: Gastroint estinal Therapy Agents Vancocin 125 mg capsule 10-29 00:00: 00 11-05 23:59 :00 No [id number] 1 capsule EVERY 6 HOURS 1 capsule EVERY 6 HOURS (route: oral) Med Classific ation: Anti-Infe ctive Agents Vitamin D3 25 mcg (1,000 unit) tablet 10-30 00:00: 00 Yes [id number] 1 tablet DAILY 1 tablet DAILY (route: oral) Med Classific ation: Electroly te Balance-N utritiona l Products Immunizations Ordered Immunization Name Filled Immunization Name Date Status Comments Refusal Reason COVID-19, COVID-19 2023-06-19 00:00:00 Vital Signs Vital Name Observation Time Observation Value Commen ts Temperature 2023-12-22 13:12:00.000 98 [degF] Temperature 2023-12-15 12:05:00.000 98.5 [degF] Temperature 2023-12-08 20:08:00.000 98.3 [degF] Temperature 2023-12-01 16:38:00.000 98 [degF] Temperature 2023-11-17 12:14:00.000 98 [degF] Temperature 2023-11-10 12:51:00.000 97 [degF] Temperature 2023-11-05 09:42:00.000 97.6 [degF] Temperature 2023-11-03 16:26:00.000 98 [degF] Temperature 2023-10-30 14:56:00.000 98.6 [degF] BMI (%) 2023-10-30 14:06:24.000 38 kg/m2 Height 2023-10-30 14:06:08.000 62 [in_us] Pulse 2023-12-22 13:12:00.000 76 /min Pulse 2023-12-15 12:05:00.000 85 /min Pulse 2023-12-08 20:08:00.000 80 /min Pulse 2023-12-01 16:38:00.000 70 /min Pulse 2023-11-17 12:14:00.000 76 /min Pulse 2023-11-10 12:51:00.000 78 /min Pulse 2023-11-05 09:42:00.000 62 /min Pulse 2023-11-03 16:26:00.000 78 /min Pulse 2023-10-30 14:56:00.000 76 /min O2 Saturation (%) 2023-12-22 13:12:00.000 97 % O2 Saturation (%) 2023-12-15 12:05:00.000 94 % O2 Saturation (%) 2023-12-08 20:09:00.000 98 % O2 Saturation (%) 2023-12-01 16:38:00.000 97 % O2 Saturation (%) 2023-11-17 12:14:00.000 98 % O2 Saturation (%) 2023-11-10 12:51:00.000 97 % O2 Saturation (%) 2023-11-05 09:42:00.000 98 % O2 Saturation (%) 2023-11-03 16:26:00.000 96 % O2 Saturation (%) 2023-10-30 14:56:00.000 97 % Respirations 2023-12-22 13:12:00.000 18 /min Respirations 2023-12-15 12:05:00.000 18 /min Respirations 2023-12-08 20:08:00.000 18 /min Respirations 2023-12-01 16:38:00.000 19 /min Respirations 2023-11-17 12:14:00.000 19 /min Respirations 2023-11-10 12:51:00.000 18 /min Respirations 2023-11-05 09:42:00.000 18 /min Respirations 2023-11-03 16:26:00.000 18 /min Respirations 2023-10-30 14:56:00.000 18 /min Weight (lbs) 2023-12-15 12:05:00.000 203 [lb_av] Weight (lbs) 2023-12-08 20:09:00.000 198 [lb_av] Weight (lbs) 2023-11-10 12:51:00.000 198 [lb_av] Weight (lbs) 2023-10-30 14:06:24.000 208 [lb_av] Systolic Blood Pressure 2023-12-22 13:12:00.000 132 mm [Hg] Systolic Blood Pressure 2023-12-15 12:05:00.000 110 mm [Hg] Systolic Blood Pressure 2023-12-08 20:08:00.000 130 mm [Hg] Systolic Blood Pressure 2023-12-01 16:38:00.000 136 mm [Hg] Systolic Blood Pressure 2023-11-17 12:14:00.000 134 mm [Hg] Systolic Blood Pressure 2023-11-10 12:51:00.000 140 mm [Hg] Systolic Blood Pressure 2023-11-05 09:42:00.000 138 mm [Hg] Systolic Blood Pressure 2023-11-03 16:26:00.000 152 mm [Hg] Systolic Blood Pressure 2023-10-30 14:56:00.000 132 mm [Hg] Diastolic Blood Pressure 2023-12-22 13:12:00.000 76 mm [Hg] Diastolic Blood Pressure 2023-12-15 12:05:00.000 64 mm [Hg] Diastolic Blood Pressure 2023-12-08 20:08:00.000 78 mm [Hg] Diastolic Blood Pressure 2023-12-01 16:38:00.000 70 mm [Hg] Diastolic Blood Pressure 2023-11-17 12:14:00.000 84 mm [Hg] Diastolic Blood Pressure 2023-11-10 12:51:00.000 74 mm [Hg] Diastolic Blood Pressure 2023-11-05 09:42:00.000 80 mm [Hg] Diastolic Blood Pressure 2023-11-03 16:26:00.000 74 mm [Hg] Diastolic Blood Pressure 2023-10-30 14:56:00.000 74 mm [Hg] Plan of Treatment Planned Activity Planned Date Details Comments Future Scheduled Test SKILLED NU RSE TO EVALUATE PATIENT, IDENTIFY PRIMARY AND CO-MORBID CONDITIONS CODED PER CODING GUIDELINES, AND DEVELOP PATIENT SPECIFIC PLAN OF CARE THAT INCLUDES PATIENT GOAL FOR HOME HEALTH. [code = SKILLED NURSE TO EVALUATE PATIENT, IDENTIFY PRIMARY AND CO-MORBID CONDITIONS CODED PER CODING GUIDELINES, AND DEVELOP PATIENT SPECIFIC PLAN OF CARE THAT INCLUDES PATIENT GOAL FOR HOME HEALTH.] Future Scheduled Test SKILLED NU RSE TO REVIEW PATIENT MEDICATIONS. INSTRUCT PATIENT/CAREGIVER ON MONITORING OF EFFECTIVENESS, ADVERSE DRUG REACTIONS, SIDE EFFECTS OF ALL MEDICATIONS (PRESCRIPTION/-OTC), AND HOW AND WHEN TO REPORT PROBLEMS. [code = SKILLED NURSE TO REVIEW PATIENT MEDICATIONS. INSTRUCT PATIENT/CAREGIVER ON MONITORING OF EFFECTIVENESS, ADVERSE DRUG REACTIONS, SIDE EFFECTS OF ALL MEDICATIONS (PRESCRIPTION/-OTC), AND HOW AND WHEN TO REPORT PROBLEMS.] Future Scheduled Test SKILLED NU RSE FOR INSTRUCTION/ REINFORCEMENT OF NEEDS RELATED TO NUTRITION/HYDRATION R/T HYPOKALEMIA. [code = SKILLED NURSE FOR INSTRUCTION/ REINFORCEMENT OF NEEDS RELATED TO NUTRITION/HYDRATION R/T HYPOKALEMIA.] Future Scheduled Test SKILLED NU RSE FOR O/A, TEACHING RELATED TO GERD FOR EARLY IDENTIFICATION OF EXACERBATION OF DISEASE PROCESS. [code = SKILLED NURSE FOR O/A, TEACHING RELATED TO GERD FOR EARLY IDENTIFICATION OF EXACERBATION OF DISEASE PROCESS.] Future Scheduled Test SKILLED NU RSE FOR O/A OF RESPIRATORY SYSTEM TO IDENTIFY CHANGES ASSOCIATED WITH EXACERBATION AND TO PROVIDE SKILLED TEACHING ON MANAGEMENT OF ASTHMA, ACUTE RESPIRATORY FAILURE [code = SKILLED NURSE FOR O/A OF RESPIRATORY SYSTEM TO IDENTIFY CHANGES ASSOCIATED WITH EXACERBATION AND TO PROVIDE SKILLED TEACHING ON MANAGEMENT OF ASTHMA, ACUTE RESPIRATORY FAILURE ] Future Scheduled Test SKILLED NU RSE FOR TEACHING ON ADMINSTRATION OF INHALATION THERAPY AND CARE OF EQUIPMENT [code = SKILLED NURSE FOR TEACHING ON ADMINSTRATION OF INHALATION THERAPY AND CARE OF EQUIPMENT] Future Scheduled Test SKILLED NU RSE FOR O/A AND SKILLED TEACHING RELATED TO SIGNS AND SYMPTOMS OF INFECTION AND INFECTION CONTROL MEASURES R/T COVID-19, PNA. [code = SKILLED NURSE FOR O/A AND SKILLED TEACHING RELATED TO SIGNS AND SYMPTOMS OF INFECTION AND INFECTION CONTROL MEASURES R/T COVID-19, PNA.] Future Scheduled Test SKILLED NU RSE FOR O/A TO IDENTIFY CHANGES ASSOCIATED WITH PERIPHERAL NEUROPATHY, MIGRAINE AND PROVIDE INSTRUCTION RELATED TO SAFETY MEASURES TO PREVENT INJURY SECONDARY TO IMPAIRED NEUROLOGICAL STATUS. SKILLED NURSE TO REPORT SIGNIFICANT CHANGES OF NEUROLOGIC STATUS TO PHYSICIAN FOR EARLY INTERVENTION. [code = SKILLED NURSE FOR O/A TO IDENTIFY CHANGES ASSOCIATED WITH PERIPHERAL NEUROPATHY, MIGRAINE AND PROVIDE INSTRUCTION RELATED TO SAFETY MEASURES TO PREVENT INJURY SECONDARY TO IMPAIRED NEUROLOGICAL STATUS. SKILLED NURSE TO REPORT SIGNIFICANT CHANGES OF NEUROLOGIC STATUS TO PHYSICIAN FOR EARLY INTERVENTION.] Future Scheduled Test SKILLED NU RSE FOR O/A, TEACHING AND SELF-MANAGEMENT RELATED TO HEART FAILURE. INSTRUCT PATIENT/CAREGIVER ON SIGNS AND SYMPTOMS OF EXACERBATION TO REPORT. WEIGHT TO BE OBTAINED DAILY AND WEIGHT GAIN OF 2 LBS OVERNIGHT OR 5 LBS IN 1 WEEK TO BE REPORTED TO PHYSICIAN. IF UNABLE TO WEIGH PATIENT, SKILLED NURSE TO OBTAIN MEASUREMENT OF LE IN CM AT EACH VISIT AND REPORT AN INCREASE OF 1 CM TO PHYSICIAN. [code = SKILLED NURSE FOR O/A, TEACHING AND SELF-MANAGEMENT RELATED TO HEART FAILURE. INSTRUCT PATIENT/CAREGIVER ON SIGNS AND SYMPTOMS OF EXACERBATION TO REPORT. WEIGHT TO BE OBTAINED DAILY AND WEIGHT GAIN OF 2 LBS OVERNIGHT OR 5 LBS IN 1 WEEK TO BE REPORTED TO PHYSICIAN. IF UNABLE TO WEIGH PATIENT, SKILLED NURSE TO OBTAIN MEASUREMENT OF LE IN CM AT EACH VISIT AND REPORT AN INCREASE OF 1 CM TO PHYSICIAN.] Future Scheduled Test START WEEK OF 11/01/23 VIRTUAL VISIT FREQUENCY: 1-6 PER WEEK X 3 WEEKS AND 6 PRN VIRTUAL VISITS MAY BE PERFORMED UTILIZING [employer] SYSTEM TO OPTIMIZE SKILLED SERVICES FURNISHED ON THE PLAN OF CARE. SKILLED NURSE TO ESTABLISH SUPPORT MEASURES TO MINIMIZE RISK OF REHOSPITALIZATION, AND INSTRUCT PATIENT/CAREGIVER ON METHODS TO REDUCE AVOIDABLE HOSPITALIZATION. [code = START WEEK OF 11/01/23 VIRTUAL VISIT FREQUENCY: 1-6 PER WEEK X 3 WEEKS AND 6 PRN VIRTUAL VISITS MAY BE PERFORMED UTILIZING [employer] SYSTEM TO OPTIMIZE SKILLED SERVICES FURNISHED ON THE PLAN OF CARE. SKILLED NURSE TO ESTABLISH SUPPORT MEASURES TO MINIMIZE RISK OF REHOSPITALIZATION, AND INSTRUCT PATIENT/CAREGIVER ON METHODS TO REDUCE AVOIDABLE HOSPITALIZATION.] Future Scheduled Test PATIENT BELTRAN S A RISK OF HOSPITALIZATION AND ED USE. SKILLED NURSE TO ESTABLISH SUPPORT MEASURES TO MINIMIZE RISK OF HOSPITALIZATION AND ED USE, AND INSTRUCT PATIENT/CAREGIVER ON METHODS TO REDUCE AVOIDABLE HOSPITALIZATION AND ED USE. [code = PATIENT HAS A RISK OF HOSPITALIZATION AND ED USE. SKILLED NURSE TO ESTABLISH SUPPORT MEASURES TO MINIMIZE RISK OF HOSPITALIZATION AND ED USE, AND INSTRUCT PATIENT/CAREGIVER ON METHODS TO REDUCE AVOIDABLE HOSPITALIZATION AND ED USE.] Future Scheduled Test SKILLED NU RSE TO PROVIDE INSTRUCTION TO PATIENT/CAREGIVER RELATED TO DISCHARGE PLANNING. [code = SKILLED NURSE TO PROVIDE INSTRUCTION TO PATIENT/CAREGIVER RELATED TO DISCHARGE PLANNING.] Future Scheduled Test SKILLED NU RSE TO PERFORM HOME SAFETY AND FALL ASSESSMENT AND PROVIDE INSTRUCTION TO IMPLEMENT HOME SAFETY AND FALL PREVENTION STRATEGIES. [code = SKILLED NURSE TO PERFORM HOME SAFETY AND FALL ASSESSMENT AND PROVIDE INSTRUCTION TO IMPLEMENT HOME SAFETY AND FALL PREVENTION STRATEGIES.] Future Scheduled Test SKILLED NU RSE FOR OBSERVATION AND ASSESSMENT OF PATIENTS PAIN LEVEL AND EFFECTIVENESS OF PAIN MANAGEMENT REGIMEN. SKILLED NURSE TO INSTRUCT PATIENT/CAREGIVER REGARDING PHARMACOLOGIC AND NON-PHARMACOLOGIC PAIN CONTROL MEASURES. SKILLED NURSE TO REPORT TO PHYSICIAN IF PAIN IS UNCONTROLLED WITH CURRENT PAIN MANAGEMENT REGIMEN. [code = SKILLED NURSE FOR OBSERVATION AND ASSESSMENT OF PATIENTS PAIN LEVEL AND EFFECTIVENESS OF PAIN MANAGEMENT REGIMEN. SKILLED NURSE TO INSTRUCT PATIENT/CAREGIVER REGARDING PHARMACOLOGIC AND NON-PHARMACOLOGIC PAIN CONTROL MEASURES. SKILLED NURSE TO REPORT TO PHYSICIAN IF PAIN IS UNCONTROLLED WITH CURRENT PAIN MANAGEMENT REGIMEN.] Future Scheduled Test SKILLED NU RSE TO ASSESS PATIENT'S SKIN INTEGRITY AND INSTRUCT PATIENT/CAREGIVER ON MEASURES TO PREVENT PRESSURE ULCERS. [code = SKILLED NURSE TO ASSESS PATIENT'S SKIN INTEGRITY AND INSTRUCT PATIENT/CAREGIVER ON MEASURES TO PREVENT PRESSURE ULCERS.] Goal 2023-12-22 Patient Goal - STAY HOME AND FEEL BETTER Goal Provider Goal - A PLAN OF CARE WILL BE ESTABLISHED THAT MEETS PATIENT'S NURSING HOME NEEDS AND INCLUDES PATIENT GOAL FOR HOME HEALTH. Goal Provider Goal - PATIENT/CAREGIVER WILL VERBALIZE UNDERSTANDING OF EDUCATION PROVIDED ON MEDICATIONS BY THE END OF THE CERTIFICATION PERIOD. Goal Provider Goal - PATIENT/CAREGIVER WILL DEMONSTRATE ABILITY TO SELF MANAGE NEEDS RELATED TO NUTRITION/HYDRATION THROUGHOUT THE EPISODE. Goal Provider Goal - EXACERBATIONS OF GASTROINTESTINAL DISEASE WILL BE PROMPTLY IDENTIFIED AND INTERVENTIONS IMPLEMENTED TO MINIMIZE RISKS TO PATIENT BY END OF EPISODE. Goal Provider Goal - PATIENT/CAREGIVER WILL VERBALIZE/DEMONSTRATE MANAGEMENT OF RESPIRATORY DISEASE PROCESS. CHANGES IN RESPIRATORY STATUS WILL BE IDENTIFIED AND REPORTED TO PHYSICIAN FOR PROMPT INTERVENTION THROUGHOUT THE CERTIFICATION PERIOD. Goal Provider Goal - PATIENT/CAREGIVER WILL VERBALIZE/DEMONSTRATE INDEPENDENCE WITH ADMINISTRATION OF ORDERED INHALATION THERAPY AND CARE OF EQUIPMENT A RESULT OF SKILLED TEACHING THROUGHOUT THE EPISODE. Goal Provider Goal - PATIENT/CAREGIVER WILL VERBALIZE/DEMONSTRATE UNDERSTANDING OF S/S OF INFECTION AND INFECTION CONTROL MEASURES. SIGNS AND SYMPTOMS OF INFECTION WILL BE IDENTIFIED AND PHYSICIAN NOTIFIED FOR PROMPT INTERVENTION THROUGHOUT THE CERTIFICATION PERIOD. Goal Provider Goal - CHANGES IN NEUROLOGIC STATUS WILL BE IDENTIFIED AND REPORTED TO THE PHYSICIAN FOR PROMPT INTERVENTION OF ASSOCIATED RISK. PATIENT/CAREGIVER WILL VERBALIZE/DEMONSTRATE APPROPRIATE SAFETY MEASURES TO PREVENT INJURY BY THE END OF THE CERTIFICATION PERIOD. Goal Provider Goal - PATIENT/CAREGIVER WILL VERBALIZE/DEMONSTRATE KNOWLEDGE AND MANAGEMENT OF HEART FAILURE DISEASE PROCESS BY END OF EPISODE. Goal Provider Goal - PATIENT/CAREGIVER WILL UTILIZE VIRTUAL VISITS TO ACHIEVE GOALS OUTLINED ON THE PLAN OF CARE. PATIENT WILL HAVE SUPPORT MEASURES ESTABLISHED TO PREVENT HOSPITALIZATION AND PATIENT/CAREGIVER WILL VERBALIZE/DEMONSTRATE METHODS TO REDUCE AVOIDABLE HOSPITALIZATION THROUGHOUT THE CERTIFICATION PERIOD. Goal Provider Goal - PATIENT WILL HAVE SUPPORT MEASURES ESTABLISHED TO PREVENT HOSPITALIZATION AND ED USE AND PATIENT/CAREGIVER WILL VERBALIZE/DEMONSTRATE METHODS TO REDUCE AVOIDABLE HOSPITALIZATION AND ED USE BY END OF EPISODE. Goal Provider Goal - PATIENT/CAREGIVER WILL VERBALIZE UNDERSTANDING OF DISCHARGE PLANNING INSTRUCTIONS BY DATE OF DISCHARGE. Goal Provider Goal - PATIENT/CAREGIVER WILL VERBALIZE/DEMONSTRATE EFFECTIVE HOME SAFETY AND FALL PREVENTION STRATEGIES THROUGHOUT CERTIFICATION PERIOD. Goal Provider Goal - PATIENT/CAREGIVER WILL DEMONSTRATE UNDERSTANDING OF PHARMACOLOGIC AND NONPHARMACOLOGIC PAIN CONTROL MEASURES AND PATIENT WILL HAVE IMPROVEMENT IN PAIN INTERFERING WITH ACTIVITY EVIDENCED BY PAIN CONTROLLED AT LEVEL OF 7 OR LESS BY END OF CERTIFICATION PERIOD. Goal Provider Goal - PATIENT/CAREGIVER WILL VERBALIZE UNDERSTANDING OF PRESSURE ULCER PREVENTION BY END OF THE EPISODE. Reason for Visit INDEPENDENT IN THE COMMUNITY Encounters Start Date/Time End Date/Time Encounter Type Admission Type Attending [facility] Care Department Encounter ID Discharge Date Discharge Status Discharge Condition Discharge Reason Percent Goals Met 2023-10-30 00:00:00 2023-12-22 00:00:00 Outpatient KATERIN FERNANDEZ [facility] [id number] 2023-12-22 00:00:00 DISCHARGE TO HOME OR SELF CARE INDEPENDEN T IN THE COMMUNITY GOALS MET ( ONLY) 96.88
[2024-09-30] MEDS: 0.9 % Sodium Chloride 500 ML 999 ML IV (11:58)
[2024-09-30] MEDS: Albuterol Sulfate 2.5 MG, Albuterol/Iprat 2.5/0.5MG 3 ML 3 ML INHALE (12:03)
[2024-09-30 12:14] LABS: MANUAL DIFF FLAG NO
[2024-09-30 12:26] LABS: Basophils Absolute Auto 0.1 X10*3/uL (0.0-0.2); Basophils Percent Auto 0.8 % (0-2); Eosinophils Percent Auto 0.1 % (0-4); Hematocrit 39.8 % (37.0-47.0); Hemoglobin 14.4 g/dl (12.0-16.0); Imm Gran Abs Auto 0.09 X10*3/uL (0.00-0.03); Imm Gran Pct Auto 0.8 % (0.0-0.4); Lymphocytes Absolute Auto 1.6 X10*3/uL (1.2-4.9); Lymphocytes Percent Auto 14.7 % (20-40); Mean Corpuscular HGB Conc 36.2 g/dl (31.0-35.0); Mean Corpuscular Hemoglobin 33.1 pg (27.0-33.0); Mean Corpuscular Volume 91.5 fL (80.0-98.0); Mean Platelet Volume 8.9 fL (9.4-12.3); Monocytes Absolute Auto 0.6 X10*3/uL (0.1-1.2); Monocytes Percent Auto 5.9 % (2-11); Neutrophils Absolute Auto 8.2 x10*3/uL (2.0-8.3); Neutrophils Percent Auto 77.7 % (45-73); Platelet Count 427 X10*3/uL (160-400); Red Blood Count 4.35 X10*6/uL (4.20-5.50); White Blood Count 10.6 X10*3/uL (4.8-10.8)
[2024-09-30 12:36] LABS: B Type Natriuretic Peptide 160 pg/mL (<100)
[2024-09-30 12:40] LABS: Troponin-I High Sensitivity 8.4 ng/L (<3.5-17.0)
[2024-09-30 12:46] LABS: Alanine Aminotransferase 44 U/L (0-31); Albumin Level 3.7 g/dL (3.5-5.0); Alkaline Phosphatase 62 U/L (39-117); Anion Gap 16 (12-20); Aspartate Amino Transferase 46 U/L (5-31); Bilirubin Direct 0.2 mg/dL (0.0-0.5); Bilirubin Total 0.6 mg/dL (0.0-1.0); Blood Urea Nitrogen 21 mg/dL (9-16); Calcium 8.9 mg/dL (8.4-10.2); Carbon Dioxide 19 mmol/L (22-29); Chloride 106 mmol/L (96-108); Estimated Glomerular Filt Rate > 60; Glucose Random 102 mg/dL (60-115); Lipase 27 U/L (8-78); Magnesium 1.7 mg/dL (1.6-2.6); Potassium 4.4 mmol/L (3.3-5.1); Sodium 137 mmol/L (135-145); Total Protein 6.7 g/dL (6.5-8.0)
[2024-09-30] MEDS: oxyCODONE HCl Immed Release 5 MG TABLET 10 MG PO (13:03)
[2024-09-30 13:20] LABS: Influenza A PCR NEGATIVE (Negative); Influenza B PCR NEGATIVE (Negative); Resp Syncy Virus RNA Qual PCR NEGATIVE (Negative); SARS COV2 PCR INHOUSE NEGATIVE (Negative)
[2024-09-30] MEDS: ondansetron HCL 4 MG/2 ML VIAL IVPUSH (13:48)
[2024-09-30] MEDS: Furosemide 20 MG TABLET PO (13:48)
[2024-09-30 15:26] LABS: Troponin-I High Sensitivity 8.6 ng/L (<3.5-17.0)
[2024-09-30 15:26] LABS: Appearance Urine Clear; Color Urine Yellow; Glucose Urine UA Negative (Negative); Leukocyte Esterase Urine Moderate (2+) (Negative); Nitrite Urine Negative (Negative); PH 5.5 (5.0-9.0); Specific Gravity - Urine 1.025 (1.005-1.025); UMIC TRIGGER UACC YES; Urine Blood Negative (Negative); Urine Ketones 80 mg/dL (Negative); Urine Protein Negative (Neg-Trace)
[2024-09-30 15:50] LABS: Bacteria Urine None Seen (None Seen); Hyaline Casts Urine 0-2 /LPF (0-2); RBC Urine 0-2 /HPF (0-2); UACC Culture Trigger YES
[2024-09-30] MEDS: Acetaminophen 325 MG TABLET 650 MG PO (16:06)
== END 2024-09-30 19:09 | disposition home or self-care (01) ==
PROVIDERS: Physician Assistant; Emergency Provider Student in an Organized Health Care Education/Training Program; PCP Internal Medicine Endocrinology, Diabetes & Metabolism
DX: R11.0 Nausea (principal); R06.02 Shortness of breath; K21.9 Gastro-esophageal reflux disease without esophagitis; J45.909 Unspecified asthma, uncomplicated; R10.9 Unspecified abdominal pain; R07.89 Other chest pain
CPT/HCPCS: 0241U; 36415; 71046; 80048; 80076; 81001; 83690; 83735; 83880; 84484; 85025; 87086; 93005; 94640; 99285; J2405

== ENCOUNTER → 2024-09-30 11:31 | Outpatient (BNV) | payer MEDICARE, MEDICAID, SELFPAY | PROVIDERS: Emergency Provider Student in an Organized Health Care Education/Training Program; PCP Internal Medicine Endocrinology, Diabetes & Metabolism; Visit Provider Internal Medicine Cardiovascular Disease | DX: R94.31 Abnormal electrocardiogram [ECG] [EKG] (principal) | CPT/HCPCS: 93010 ==

== ENCOUNTER → 2024-09-30 11:32 | Outpatient (BNV) | payer MEDICARE, MEDICAID, SELFPAY | PROVIDERS: Emergency Provider Student in an Organized Health Care Education/Training Program; PCP Internal Medicine Endocrinology, Diabetes & Metabolism; Visit Provider Radiology Diagnostic Radiology | DX: J84.9 Interstitial pulmonary disease, unspecified (principal); M43.05 Spondylolysis, thoracolumbar region | CPT/HCPCS: 71046 ==

== ENCOUNTER 2024-10-01 07:40 | Inpatient (IN) | payer MEDICARE, MEDICAID, SELFPAY ==
--- NOTE | ~2024-10-01 | CT_ITS ---
EXAMINATION: CT ABDOMEN AND PELVIS WITH CONTRAST CLINICAL INFORMATION: Constipation abdominal pain. COMPARISON: None available. TECHNIQUE: Multidetector volumetric images were obtained from the superior aspect of the liver through the pubic symphysis following administration 85 mL of Omnipaque 350 intravenous contrast. Sagittal and coronal reformatted images were obtained on the technologist's workstation. Oral contrast: No This CT examination was performed using dose optimization techniques as appropriate, variously including the following: *Automated exposure control *Adjustment of mA and/or kV according to patient size (this includes techniques or standardized protocols for targeted exams where dose is matched to indication/reason for exam; i.e. extremities or head) *Use of iterative reconstruction technique DLP: 832 mGy-cm. FINDINGS: LUNG BASES: Heart size is normal. Moderate coronary artery calcification seen. No pericardial effusion seen. Linear atelectatic changes right lung base. Left lung base is clear. LIVER, GALLBLADDER, AND BILIARY TREE: The liver is normal in size, shape, and attenuation. No focal hepatic lesion or biliary ductal dilatation is present. The gallbladder is nondistended with a small focal mucosal thickening or a radiolucent stone seen in the dependent segment of the gallbladder. No wall thickening seen. No pericholecystic fluid collection.. PANCREAS: Unremarkable. SPLEEN: Unremarkable. ADRENAL GLANDS: Unremarkable. KIDNEYS AND URETERS: The kidneys are normal size, shape and lobulated contour. Radial no radiopaque calculi or hydronephrosis seen. BLADDER: Unremarkable. GASTROINTESTINAL TRACT: There is scattered stool, diverticuli and gas seen in colon without distention. The small bowel loops are normal caliber. Postsurgical changes are seen in the small bowel loop in the left midabdomen with mild mural thickening, question postsurgical changes versus inflammatory process on axial slice 44/3. Minimal proximal small bowel segment. Appendix is normal caliber. Postsurgical changes are seen at the GE junction likely from hiatal hernia repair. ABDOMINAL WALL: A small umbilical hernia containing fat is noted. LYMPH NODES: Normal. VASCULAR: Unremarkable. PELVIC VISCERA: There are calcifications adjacent to the right vagina likely within the Bartholin's gland, nonspecific. No free fluid. The uterus is anteverted with punctate calcifications in the fundus likely fibroid. OSSEOUS STRUCTURES: Mild degenerative disc changes throughout lumbar spine sparing the L5-S1 disc level. Grade 1 anterolisthesis L4 over L5 is noted. No aggressive lytic or sclerotic process seen. CT/CT abdomen pelvis w IV con IMPRESSION: 1. No acute intra-abdominal process seen. 2. Mild constipation with scattered colonic diverticulosis without diverticulitis. Postsurgical changes left midabdomen involving a loop of small bowel with mural thickening question inflammatory process or postsurgical changes. Minimal proximal bowel prominent/distention. If patient persists in left mid abdomen a small bowel follow-through can be performed as an outpatient. 3. Small umbilical hernia containing fat. 4. Small radiolucent stone or mucosal thickening in the dependent segment of the gallbladder. No wall thickening or pericholecystic fluid collection. Correlate with ultrasound 5. Calcifications adjacent to the right vagina likely calcification within the Bartholin's gland, nonspecific. 6. Grade 1 anterolisthesis L4 over L5 with degenerative disc changes throughout lumbar spine sparing the L5-S1 disc level. Fleischner guidelines were followed. Electronically signed by: Merlin Gomez MD 10/01/2024 10:21 AM [facility]
--- NOTE | ~2024-10-01 | XR_ITS ---
EXAMINATION: XR CHEST CLINICAL INFORMATION: sob, cough COMPARISON: Chest 09/30/2024 TECHNIQUE: 2 views of the chest were obtained. FINDINGS: The lungs are well-expanded with right middle lobe patchy opacity question infiltrate versus atelectasis. Rest of the lungs are clear. The heart size and pulmonary vascularity is normal. No gross bony abnormality seen. XR/XR chest 2V IMPRESSION: Right middle lobe infiltrate versus atelectasis. Electronically signed by: Merlin Gomez MD 10/01/2024 11:19 AM [facility]
[2024-10-01 07:54] VITALS: BP 148/53; BP 160/90; PULSE 54; PULSE 60; RESP 18; TEMP 36.8; O2SAT 96; O2SAT 97; BMI 34.6
[2024-10-01 07:58] VITALS: RESP 16; O2SAT 97
--- NOTE | 2024-10-01 08:14 | ECG_ITS ---
Test Reason : SOB Blood Pressure : / mmHG Vent. Rate : 052 BPM Atrial Rate : 052 BPM P-R Int : 142 ms QRS Dur : 090 ms QT Int : 506 ms P-R-T Axes : 030 -06 039 degrees QTc Int : 470 ms Sinus bradycardia Cannot rule out Inferior infarct , age undetermined Abnormal ECG When compared with ECG of 30-SEP-2024 11:38, No significant change was found Referred By: Debbie Hernández Electronically Signed By:JORDAN NORRIS MD
[2024-10-01 08:32] VITALS: PULSE 57; RESP 16; O2SAT 96
[2024-10-01 08:33] VITALS: BP 148/43; PULSE 80; RESP 12; TEMP 36.7; O2SAT 98
[2024-10-01] MEDS: Albuterol/Iprat 2.5/0.5MG 3 ML AMPUL.NEB INHALE ×3 (08:42→20:26)
[2024-10-01 08:50] LABS: MANUAL DIFF FLAG NO
[2024-10-01 08:53] LABS: Basophils Absolute Auto 0.1 X10*3/uL (0.0-0.2); Basophils Percent Auto 0.9 % (0-2); Eosinophils Percent Auto 0.2 % (0-4); Hematocrit 39.1 % (37.0-47.0); Hemoglobin 13.4 g/dl (12.0-16.0); Imm Gran Abs Auto 0.04 X10*3/uL (0.00-0.03); Imm Gran Pct Auto 0.4 % (0.0-0.4); Lymphocytes Absolute Auto 1.6 X10*3/uL (1.2-4.9); Lymphocytes Percent Auto 15.6 % (20-40); Mean Corpuscular HGB Conc 34.3 g/dl (31.0-35.0); Mean Corpuscular Hemoglobin 32.5 pg (27.0-33.0); Mean Corpuscular Volume 94.9 fL (80.0-98.0); Mean Platelet Volume 8.3 fL (9.4-12.3); Monocytes Absolute Auto 0.7 X10*3/uL (0.1-1.2); Monocytes Percent Auto 6.3 % (2-11); Neutrophils Percent Auto 76.6 % (45-73); Platelet Count 415 X10*3/uL (160-400); Red Blood Count 4.12 X10*6/uL (4.20-5.50); Red Cell Distribution Width 13.1 % (11.0-16.0); White Blood Count 10.4 X10*3/uL (4.8-10.8)
[2024-10-01 09:17] LABS: Alanine Aminotransferase 45 U/L (0-31); Alkaline Phosphatase 61 U/L (39-117); Anion Gap 14 (12-20); Aspartate Amino Transferase 43 U/L (5-31); Bilirubin Direct 0.2 mg/dL (0.0-0.5); Bilirubin Total 0.6 mg/dL (0.0-1.0); Blood Urea Nitrogen 16 mg/dL (9-16); Calcium 8.8 mg/dL (8.4-10.2); Carbon Dioxide 26 mmol/L (22-29); Chloride 102 mmol/L (96-108); Creatinine Clr Calc Pharmacy 87.8; Estimated Glomerular Filt Rate > 60; Glucose Random 108 mg/dL (60-115); Lipase 31 U/L (8-78); Magnesium 1.7 mg/dL (1.6-2.6); Potassium 3.5 mmol/L (3.3-5.1); Sodium 138 mmol/L (135-145); Total Protein 6.6 g/dL (6.5-8.0)
[2024-10-01 09:22] LABS: B Type Natriuretic Peptide 162 pg/mL (<100)
[2024-10-01 09:28] LABS: Influenza A PCR NEGATIVE (Negative); Influenza B PCR NEGATIVE (Negative); Resp Syncy Virus RNA Qual PCR NEGATIVE (Negative); SARS COV2 PCR INHOUSE NEGATIVE (Negative)
[2024-10-01] MEDS: iohexoL 350 MG/ML 100 ML INFUS..BTL IV (09:43)
[2024-10-01] MEDS: Ketorolac Tromethamine 15 MG/ML VIAL IVPUSH (09:44)
[2024-10-01] MEDS: methylPREDNISolone Sod Succ 125 MG/2 ML VIAL 60 MG IVPUSH (09:44)
[2024-10-01 09:48] VITALS: BP 156/63; PULSE 68; RESP 16; O2SAT 95
--- NOTE | 2024-10-01 09:48 | PC.NURSE ---
Medicated as charted, vss. awaiting imaging results and dispo
--- NOTE | 2024-10-01 10:11 | ED.GENADULT ---
HPI - General Adult General Chief complaint: General Medical Stated complaint: SOB/96%,ABD PAIN, SEEN 8H AGO PER EMS Time Seen by Provider: 10/01/24 08:03 Source: patient, EMS, RN notes reviewed and old records reviewed Mode of arrival: EMS History of Present Illness ED Provider: Debbie Hernándze PA-C HPI narrative: 68-year-old female with a past medical history of GERD, asthma, peripheral neuropathy, gastric bypass, presenting to the ED via EMS complaining of continued nausea, abdominal pain, constipation without BM x4 days, cough, SOB x 4 days. Patient was evaluated in our ED yesterday for similar complaints diagnosed with UTI started on Ceftin, and possible scabies. Denies passing flatus. Also reports migraine headache. Denies fever, chills, chest pain, dysuria/hematuria. Admits to picking of only 2 medications yesterday from pharmacy (Ceftin, Zofran, albuterol inhaler and Permethrin sent) Related Data Home Medications ?Medication ?Instructions ?Recorded ?Confirmed gabapentin 300 mg capsule 300 mg PO TID 10/18/23 10/01/24 calcium carbonate 500 mg PO DAILY 10/23/23 10/01/24 cholecalciferol (vitamin D3) 25 25 mcg PO DAILY 10/23/23 10/01/24 mcg (1,000 unit) tablet (Vitamin D3) albuterol sulfate 90 mcg/actuation 2 puff inhalation Q6H PRN 10/01/24 10/01/24 aerosol inhaler (Ventolin HFA) shortness of breath or wheezing epinephrine 0.125 mg/actuation 1 puff inhalation Q4H PRN 10/01/24 10/01/24 aerosol inhaler Shortness Of Breath Or Wheezing oxycodone 15 mg tablet 15 mg PO QID PRN pain 10/01/24 10/01/24 Previous Rx's ?Medication ?Instructions ?Recorded cefuroxime axetil 250 mg tablet 250 mg PO BID 7 days #14 tabs 09/30/24 permethrin 5 % topical cream 1 appl topical Q14D 2 doses #60 09/30/24 grams Allergies Allergy/AdvReac Type Severity Reaction Status Date / Time No Known Allergies Allergy Verified 10/01/24 07:56 Review of Systems Review of Systems: Yes all other systems are reviewed and are negative Constitutional: Constitutional: Reports as per HPI [facility] Past Medical History Attestation statement: The following information was validated with the patient. Source: old records reviewed Medical History (Updated 10/01/24 @ 15:02 by LASHAWN Trammell) Abdominal pain Peripheral neuropathy GERD (gastroesophageal reflux disease) Surgical History H/O gastric bypass Social History Social History Household Members: None Housing: Apartment Do you presently have visiting nurse or other home services: No Comment: N/A Patient Tobacco Use Status: Never used Tobacco Smoked in Last 30 Days: No e-Cigarette/Vaping Use: Never Used Use of substances other than those prescribed or required for medical reasons: No Advance Directives: No Advance Directives Information Provided: Yes service: No Physical Exam ED Vital Signs: Vital Signs - 24 hr 10/01/24 07:54 10/01/24 07:58 10/01/24 08:32 Temperature 98.3 F Pulse Rate 54 57 Respiratory Rate 18 16 16 Blood Pressure 148/53 H Pulse Oximetry 97 97 Oxygen Delivery Method Room Air Room Air 10/01/24 08:33 10/01/24 09:48 Temperature 98.1 F Pulse Rate 80 68 Respiratory Rate 12 16 Blood Pressure 148/43 H 156/63 H Pulse Oximetry 98 95 Oxygen Delivery Method Room Air Room Air BMI result Body Mass Index 34.6 Const General: cooperative, healthy appearing and no acute distress Orientation/consciousness: patient oriented x3 Limitations: no limitations HENMT Head: Yes normal to inspection and Yes atraumatic Ears: hearing grossly normal bilaterally General nose exam: Normal external nose present Face and sinus: Yes normal facial exam Mouth: Normal oral and palatal mucosa present Eyes General: appearance normal, both eyes and all related structures EOM: EOMs intact bilaterally Neck Neck: Yes normal visual inspection and Yes no meningeal signs Resp Effort & Inspection: normal respiratory effort and no respiratory distress Auscultation: wheezes expiratory wheezes and lower bilaterally Cardio Rate: regular rate Heart sounds: S1 normal heart sound present and S2 normal heart sound present GI Inspection: Yes normal to inspection Palpation (GI): Soft to palpation, Tenderness to palpation present (GI) (Diffusely) with no rebound tenderness, no guarding and not rigid General: Yes no CVA tenderness Back/Spine/Pelvis Back: no CVA tenderness Skin Rashes: no rashes Wounds: no wounds Neuro General: patient oriented x3, tone normal and no meningeal signs Cranial nerves: Yes CN's II-XII intact bilaterally Gait exam (Neuro): Normal gait present Extrem General: Yes normal to inspection Course Course Course Narrative: -1023--labs unremarkable/unchanged from yesterday. Viral studies negative 1030--CT abdomen pelvis w IV con IMPRESSION: 1. No acute intra-abdominal process seen. 2. Mild constipation with scattered colonic diverticulosis without diverticulitis. Postsurgical changes left midabdomen involving a loop of small bowel with mural thickening question inflammatory process or postsurgical changes. Minimal proximal bowel prominent/distention. If patient persists in left mid abdomen a small bowel follow-through can be performed as an outpatient. 3. Small umbilical hernia containing fat. 4. Small radiolucent stone or mucosal thickening in the dependent segment of the gallbladder. No wall thickening or pericholecystic fluid collection. Correlate with ultrasound 5. Calcifications adjacent to the right vagina likely calcification within the Bartholin's gland, nonspecific. 6. Grade 1 anterolisthesis L4 over L5 with degenerative disc changes throughout lumbar spine sparing the L5-S1 disc level. Fleischner guidelines were followed. > case discussed with general surgery, Dr. Wright who will evaluate patient in the ED > 1118--Dr. Wright evaluated patient and recommended hospitalist admission. 1136--XR chest 2V IMPRESSION: Right middle lobe infiltrate versus atelectasis. > will initiate on Abx for pneumonia > patient already started Ceftin yesterday for UTI, did not take any medications today thus will give dose of Rocephin and Azithromycin in the ED to cover both pneumonia and UTI > case discussed with hospitalist Dr. Shah Medications Administered Generic Name Dose Route Start Last Admin Trade Name Freq PRN Reason Stop Dose Admin Acetaminophen 650 mg 10/01/24 14:06 10/01/24 14:54 Acetaminophen 325 Mg Tablet PO 650 mg Q6H PRN Administration Pain, Mild (Pain Scale 1-3), fever or headache Gabapentin 300 mg 10/01/24 15:00 10/01/24 14:55 Gabapentin 300 Mg Capsule PO 300 mg TID ARMANDO Administration Discontinued Medications Generic Name Dose Route Start Last Admin Trade Name Freq PRN Reason Stop Dose Admin Albuterol/Ipratropium 3 ml 10/01/24 08:31 10/01/24 08:42 Albuterol/Iprat 2.5/0.5mg 3 Ml Ampul.Neb INHALE 10/01/24 08:32 3 ml ONCE ONE Administration Ceftriaxone Sodium 1 gm 10/01/24 11:37 10/01/24 12:29 Ceftriaxone Sodium 1 Gm Vial IVPUSH 10/01/24 11:38 1 gm ONCE ONE Administration Azithromycin 500 mg/ Sodium 250 mls @ 125 mls/hr 10/01/24 11:37 10/01/24 12:29 Chloride IV 10/01/24 13:36 125 mls/hr ONCE ONE Administration Iohexol 100 ml 10/01/24 09:43 10/01/24 09:43 Iohexol 350 Mg/Ml 100 Ml Infus..Btl IV 10/01/24 09:44 85 ml ONCE ONE Administration Ketorolac Tromethamine 15 mg 10/01/24 08:18 10/01/24 09:44 Ketorolac Tromethamine 15 Mg/Ml Vial IVPUSH 10/01/24 08:19 15 mg ONCE ONE Administration Methylprednisolone Sodium Succinate 60 mg 10/01/24 08:15 10/01/24 09:44 Methylprednisolone Sod Succ 125 Mg/2 Ml Vial IVPUSH 10/01/24 08:16 60 mg ONCE ONE Administration Oxycodone HCl 10 mg 10/01/24 10:23 10/01/24 10:30 Oxycodone Hcl Immed Release 5 Mg Tablet PO 10/01/24 10:24 10 mg ONCE ONE Administration Permethrin 1 appl 10/01/24 13:01 10/01/24 14:48 Permethrin 5 % Cream 60 Gm Tube TOPICAL 10/01/24 13:02 1 appl ONCE ONE Administration Protocol Medical Decision Making Medical Decision Making MDM Narrative: 68-year-old female with a past medical history of GERD, asthma, peripheral neuropathy, gastric bypass, presenting to the ED via EMS complaining of continued nausea, abdominal pain, constipation without BM x4 days, cough, SOB x 4 days. On exam vital signs stable, NAD, nontoxic appearing, bibasilar expiratory wheeze appreciated, abdomen soft diffusely tender, no rebound or guarding. Concern for continued UTI vs constipation vs SBO vs asthma exacerbation vs viral illness vs ? CHF although lower suspicion. Rule out pneumonia although x-ray negative yesterday. Unlikely PE/DVT. Lower suspicion for pyelo or renal stone Plan: EKG, labs, CXR, viral studies, CT AP, pain control, IV Solu-Medrol, ED bronch protocol, re-evaluate Please refer to course for remaining clinical decision making, interpretation of labs/imaging results, and discussions with consultants and/or family members. Differential Diagnosis Differential Diagnoses: The differential diagnosis associated with the presentation includes As above Admission/Observation Consideration of admission/observation: Escalation of care including admission/observation considered Consult Healthcare Provider Management of the patient was discussed with: Observer [employer] Lab Data MDM Lab Attestation statement: I reviewed the patient's lab results. 10/01/24 08:47 10/01/24 08:47 Labs: Lab Results 10/01/24 Range/Units 08:47 WBC 10.4 (4.8-10.8) X10*3/uL RBC 4.12 L (4.20-5.50) X10*6/uL Hgb 13.4 (12.0-16.0) g/dl Hct 39.1 (37.0-47.0) % MCV 94.9 (80.0-98.0) fL MCH 32.5 (27.0-33.0) pg MCHC 34.3 (31.0-35.0) g/dl RDW 13.1 (11.0-16.0) % Plt Count 415 H (160-400) X10*3/uL MPV 8.3 L (9.4-12.3) fL Immature Gran % (Auto) 0.4 (0.0-0.4) % Neut % (Auto) 76.6 H (45-73) % Lymph % (Auto) 15.6 L (20-40) % [place] % (Auto) 6.3 (2-11) % Eos % (Auto) 0.2 (0-4) % Baso % (Auto) 0.9 (0-2) % Lymph # (Auto) 1.6 (1.2-4.9) X10*3/uL [place] # (Auto) 0.7 (0.1-1.2) X10*3/uL Eos # (Auto) 0.0 (0.0-0.4) X10*3/uL Baso # (Auto) 0.1 (0.0-0.2) X10*3/uL Abs Immat Gran (auto) 0.04 H (0.00-0.03) X10*3/uL Absolute Neuts (auto) 8.0 (2.0-8.3) x10*3/uL Absolute Nucleated RBC 0.000 (0.0-0.012) X10*3/uL Nucleated RBC % (auto) 0.0 (0.0-0.2) /100WBC Sodium 138 (135-145) mmol/L Potassium 3.5 D (3.3-5.1) mmol/L Chloride 102 (96-108) mmol/L Carbon Dioxide 26 (22-29) mmol/L Anion Gap 14 (12-20) BUN 16 (9-16) mg/dL Creatinine 0.64 (0.5-1.4) mg/dL Estim Creat Clear Calc 87.8 Estimated GFR > 60 Random Glucose 108 (60-115) mg/dL Calcium 8.8 (8.4-10.2) mg/dL Magnesium 1.7 (1.6-2.6) mg/dL Total Bilirubin 0.6 (0.0-1.0) mg/dL Direct Bilirubin 0.2 (0.0-0.5) mg/dL AST 43 H (5-31) U/L ALT 45 H (0-31) U/L Alkaline Phosphatase 61 (39-117) U/L B-Natriuretic Peptide 162 H (<100) pg/mL Total Protein 6.6 (6.5-8.0) g/dL Albumin 4.0 (3.5-5.0) g/dL Lipase 31 (8-78) U/L Influenza Type A (PCR) NEGATIVE (Negative) Influenza Type B (PCR) NEGATIVE (Negative) RSV RNA Qual (PCR) NEGATIVE (Negative) SARS-CoV-2 RNA (RT-PCR) NEGATIVE (Negative) Independent Interpretation I performed an independent interpretation of an: EKG, Plain X-Ray and CT Scan Radiology Impression Discussion of test interpretation with radiology: I have reviewed the radiologist's reading. Independent Historian Clinical information obtained from an independent historian. History obtained from or confirmed by: EMS External Record Review External record reviewed: Inpatient record, Office record, Outpatient record, Prior outpatient labs, Prior outpatient radiology, Primary care record and Outside ED record Tests considered The following testing was considered but not selected: As above Prescription Management I considered prescription management with: Pain Medication and Antibiotic Chronic Conditions Patient?s care impacted by: Other Social Determinants Patient?s care significantly limited by Social Determinants of Health including: Other Social Determinant of Health Discharge Plan Discharge Clinical Impression: Abdominal pain, Pneumonia, UTI (urinary tract infection) Patient Disposition: Admitted As Inpatient
[2024-10-01] MEDS: oxyCODONE HCl Immed Release 5 MG TABLET 10 MG PO (10:30)
--- NOTE | 2024-10-01 11:45 | PM.CNGS ---
History of Present Illness Consult details Consult date: 10/01/24 Narrative: 68-year-old female with history of asthma, previous bariatric surgery with bypass, here in the ER because of pelvic pain. She says that she has started about 4 or 5 days ago. She also felt significant discomfort whenever her bladder was full. She was went to the ER yesterday and was diagnosed to have a urinary tract infection. However, she says she continues to have the same discomfort and lower abdominal pain. He has had nausea without vomiting. She states that she has unable to have significant oral intake for about 4 days now. She is passing flatus although says that she has had no good BM for about 4 days as well She denies any fever or chills. She does admit to some coughing spells in subsequent shortness of breath. Review of Systems Constitutional: Constitutional: Denies chills and Denies fever(s) Cardiovascular: Cardiovascular: Denies chest pain, Denies dyspnea and Denies dyspnea on exertion Respiratory: Respiratory: Reports cough, Denies dyspnea and Denies dyspnea on exertion Gastrointestinal: Gastrointestinal: Denies hematochezia and Denies change in bowel habits Genitourinary: Genitourinary: Denies hematuria Musculoskeletal: Musculoskeletal: Denies back pain and Denies limited range of motion Neurologic: Denies focal weakness and Denies convulsions Psychiatric: Psychiatric: Denies depression and Denies mood swings PMFSH Past Medical History Medical History Abdominal pain Peripheral neuropathy GERD (gastroesophageal reflux disease) Surgical History Surgical History H/O gastric bypass Social History Social History Household Members: None Housing: Apartment Do you presently have visiting nurse or other home services: No Comment: N/A Patient Tobacco Use Status: Never used Tobacco e-Cigarette/Vaping Use: Never Used Second Hand Smoke Exposure: No service: No Meds Allergies Allergy/AdvReac Type Severity Reaction Status Date / Time No Known Allergies Allergy Verified 10/01/24 07:56 Active Medications: Current Medications Azithromycin 500 mg/ Sodium (Chloride) 250 mls @ 125 mls/hr IV ONCE ONE Stop: 10/01/24 13:36 Home Medications ?Medication ?Instructions ?Recorded ?Confirmed ?Last Taken ?Type gabapentin 300 mg capsule 300 mg PO TID 10/18/23 10/01/24 09/30/24 History calcium carbonate 500 mg PO DAILY 10/23/23 10/01/24 09/30/24 History cholecalciferol (vitamin D3) 25 25 mcg PO DAILY 10/23/23 10/01/24 09/30/24 History mcg (1,000 unit) tablet (Vitamin D3) albuterol sulfate 90 mcg/actuation 2 puff inhalation Q6H PRN 10/01/24 10/01/24 Unknown History aerosol inhaler (Ventolin HFA) shortness of breath or wheezing epinephrine 0.125 mg/actuation 1 puff inhalation Q4H PRN 10/01/24 10/01/24 Unknown History aerosol inhaler Shortness Of Breath Or Wheezing oxycodone 15 mg tablet 15 mg PO QID PRN pain 10/01/24 10/01/24 Unknown History Physical Exam Vital Signs: Vital Signs: Last Vital Signs Temp 98.1 F 10/01/24 08:33 Pulse 68 10/01/24 09:48 Resp 16 10/01/24 09:48 BP 156/63 H 10/01/24 09:48 Pulse Ox 95 10/01/24 09:48 O2 Del Method Room Air 10/01/24 09:48 BMI result Body Mass Index 34.6 Const: General: comfortable and no acute distress Orientation/consciousness: patient oriented x3 Neck: Neck: Yes no lymphadenopathy Resp: Auscultation: clear to auscultation bilaterally Cardio: Rhythm: regular rhythm GI: Other: Mild tenderness on the lower abdomen mostly in the pelvic areas, no Castanon's sign Palpation (GI): Soft to palpation, Tenderness to palpation present (GI), no guarding and not rigid Neuro: General: patient oriented x3 Results Labs 10/01/24 08:47 10/02/24 06:36 Labs: Abnormal lab results 10/01/24 Range/Units 08:47 RBC 4.12 L (4.20-5.50) X10*6/uL Plt Count 415 H (160-400) X10*3/uL MPV 8.3 L (9.4-12.3) fL Neut % (Auto) 76.6 H (45-73) % Lymph % (Auto) 15.6 L (20-40) % Abs Immat Gran (auto) 0.04 H (0.00-0.03) X10*3/uL AST 43 H (5-31) U/L ALT 45 H (0-31) U/L B-Natriuretic Peptide 162 H (<100) pg/mL Short CBC 10/01/24 Range/Units 08:47 WBC 10.4 (4.8-10.8) X10*3/uL Hgb 13.4 (12.0-16.0) g/dl Hct 39.1 (37.0-47.0) % Plt Count 415 H (160-400) X10*3/uL BMP 10/01/24 08:47 Sodium 138 Potassium 3.5 D Chloride 102 Carbon Dioxide 26 BUN 16 Creatinine 0.64 Calcium 8.8 Liver Function 10/01/24 Range/Units 08:47 Total Bilirubin 0.6 (0.0-1.0) mg/dL Direct Bilirubin 0.2 (0.0-0.5) mg/dL AST 43 H (5-31) U/L ALT 45 H (0-31) U/L Alkaline Phosphatase 61 (39-117) U/L Albumin 4.0 (3.5-5.0) g/dL All other labs normal. Laboratory Results WBC 10.4 X10*3/uL (4.8-10.8) 10/01/24 08:47 RBC 4.12 X10*6/uL (4.20-5.50) L 10/01/24 08:47 Hgb 13.4 g/dl (12.0-16.0) 10/01/24 08:47 Hct 39.1 % (37.0-47.0) 10/01/24 08:47 MCV 94.9 fL (80.0-98.0) 10/01/24 08:47 MCH 32.5 pg (27.0-33.0) 10/01/24 08:47 MCHC 34.3 g/dl (31.0-35.0) 10/01/24 08:47 RDW 13.1 % (11.0-16.0) 10/01/24 08:47 Plt Count 415 X10*3/uL (160-400) H 10/01/24 08:47 MPV 8.3 fL (9.4-12.3) L 10/01/24 08:47 Immature Gran % (Auto) 0.4 % (0.0-0.4) 10/01/24 08:47 Neut % (Auto) 76.6 % (45-73) H 10/01/24 08:47 Lymph % (Auto) 15.6 % (20-40) L 10/01/24 08:47 [place] % (Auto) 6.3 % (2-11) 10/01/24 08:47 Eos % (Auto) 0.2 % (0-4) 10/01/24 08:47 Baso % (Auto) 0.9 % (0-2) 10/01/24 08:47 Lymph # (Auto) 1.6 X10*3/uL (1.2-4.9) 10/01/24 08:47 [place] # (Auto) 0.7 X10*3/uL (0.1-1.2) 10/01/24 08:47 Eos # (Auto) 0.0 X10*3/uL (0.0-0.4) 10/01/24 08:47 Baso # (Auto) 0.1 X10*3/uL (0.0-0.2) 10/01/24 08:47 Abs Immat Gran (auto) 0.04 X10*3/uL (0.00-0.03) H 10/01/24 08:47 Absolute Neuts (auto) 8.0 x10*3/uL (2.0-8.3) 10/01/24 08:47 Absolute Nucleated RBC 0.000 X10*3/uL (0.0-0.012) 10/01/24 08:47 Nucleated RBC % (auto) 0.0 /100WBC (0.0-0.2) 10/01/24 08:47 Sodium 138 mmol/L (135-145) 10/01/24 08:47 Potassium 3.5 mmol/L (3.3-5.1) D 10/01/24 08:47 Chloride 102 mmol/L (96-108) 10/01/24 08:47 Carbon Dioxide 26 mmol/L (22-29) 10/01/24 08:47 Anion Gap 14 (12-20) 10/01/24 08:47 BUN 16 mg/dL (9-16) 10/01/24 08:47 Creatinine 0.64 mg/dL (0.5-1.4) 10/01/24 08:47 Estim Creat Clear Calc 87.8 10/01/24 08:47 Estimated GFR > 60 10/01/24 08:47 Random Glucose 108 mg/dL (60-115) 10/01/24 08:47 Calcium 8.8 mg/dL (8.4-10.2) 10/01/24 08:47 Magnesium 1.7 mg/dL (1.6-2.6) 10/01/24 08:47 Total Bilirubin 0.6 mg/dL (0.0-1.0) 10/01/24 08:47 Direct Bilirubin 0.2 mg/dL (0.0-0.5) 10/01/24 08:47 AST 43 U/L (5-31) H 10/01/24 08:47 ALT 45 U/L (0-31) H 10/01/24 08:47 Alkaline Phosphatase 61 U/L (39-117) 10/01/24 08:47 B-Natriuretic Peptide 162 pg/mL (<100) H 10/01/24 08:47 Total Protein 6.6 g/dL (6.5-8.0) 10/01/24 08:47 Albumin 4.0 g/dL (3.5-5.0) 10/01/24 08:47 Lipase 31 U/L (8-78) 10/01/24 08:47 Influenza Type A (PCR) NEGATIVE (Negative) 10/01/24 08:47 Influenza Type B (PCR) NEGATIVE (Negative) 10/01/24 08:47 RSV RNA Qual (PCR) NEGATIVE (Negative) 10/01/24 08:47 SARS-CoV-2 RNA (RT-PCR) NEGATIVE (Negative) 10/01/24 08:47 Impressions Chest X-Ray 10/01/24 09:00 IMPRESSION: Right middle lobe infiltrate versus atelectasis. Electronically signed by: Merlin Gomez MD 10/01/2024 11:19 AM [facility] Abdomen/Pelvis CT 10/01/24 09:25 IMPRESSION: 1. No acute intra-abdominal process seen. 2. Mild constipation with scattered colonic diverticulosis without diverticulitis. Postsurgical changes left midabdomen involving a loop of small bowel with mural thickening question inflammatory process or postsurgical changes. Minimal proximal bowel prominent/distention. If patient persists in left mid abdomen a small bowel follow-through can be performed as an outpatient. 3. Small umbilical hernia containing fat. 4. Small radiolucent stone or mucosal thickening in the dependent segment of the gallbladder. No wall thickening or pericholecystic fluid collection. Correlate with ultrasound 5. Calcifications adjacent to the right vagina likely calcification within the Bartholin's gland, nonspecific. 6. Grade 1 anterolisthesis L4 over L5 with degenerative disc changes throughout lumbar spine sparing the L5-S1 disc level. Fleischner guidelines were followed. Electronically signed by: Merlin Gomez MD 10/01/2024 10:21 AM [facility] Imaging Abdomen CT scan report/results: report reviewed and image reviewed CT scan - pelvis: report reviewed and image reviewed Assessment and Plan (1) Abdominal pain: Status: Acute She has had lower abdominal pain for the past 4 or 5 days. She describes nausea with the vomiting. I have reviewed her CAT scan images. There is no evidence of any acute intra-abdominal pathology. She does not appear to be obstructed. There is no inflammatory process in the abdominal cavity She does have a history of gastric bypass as well as in the distant past She has had no good oral intake for about 4 days now. She describes persistent nausea. I am uncertain as to the exact etiology of her symptoms. However, she does have a diagnosis of urinary tract infection. In view of her poor oral intake, may be reasonable to have her admitted for IV fluids and observation. If she gets admitted, I will follow him closely while she is in the hospital. Procedures Date of Service Date of Service: 10/02/24
--- NOTE | 2024-10-01 12:19 | PC.NURSE ---
late admin of abx- due to need to re-establish access, as well as hospitalist eval at bedside
[2024-10-01] MEDS: cefTRIAXone sodium 1 GM VIAL IVPUSH (12:29)
[2024-10-01] MEDS: Azithromycin 500 MG in 0.9 % Sodium Chloride 250 ML 125 MG IV (12:29)
--- NOTE | 2024-10-01 12:53 | PHA.MEDREC ---
Addendum entered by Evelyn Huff [facility] 10/01/24 13:27: REVIEWED Original Note: Pharmacy Consult ? Medication Reconciliation Pharmacy has completed the medication reconciliation. Spoke to pt to confirm meds, which has bag of her RX bottles in it.
--- NOTE | 2024-10-01 14:04 | PM.IMHP ---
History of Present Illness Date of Service: 10/01/24 Attending physician on admission: Ion Shah Chief Complaint: Abd pain Pt is a 68-year-old female with a PMH significant for mild intermittent asthma, peripheral neuropathy, GERD, chronic back pain on chronic opioids, and hx of gastric bypass?who presents to the ED with?multiple complaints, but especially intractable nausea and lower abdominal pain. Patient previously presented to the ED yesterday evening with similar complaints and was diagnosed with a UTI and possible scabies, and was discharged home on cefuroxime and permethrin. Patient reports abdominal pain worsened last night after she went home. This morning symptoms continue to worsen and she also developed increased shortness of breath which prompted her to re-presented to the ED today. Patient states she has neither been eating or had a bowel movement for the past 4 days. Has been ?extremely? nauseous during this time without vomiting. Reports mild dysuria and ?strong smelling? urine, though has been going less than normal. Patient also reports has been itching bilateral upper shoulders and lower right extremity with the past few days. Patient lives alone with no known recent sick contacts. Reports does get her laundry service outside of the home. No chest pain/pressure, palpitations. Denies significant cough above baseline. Patient reports last night applied her permethrin, but only to areas of pruritus: her shoulders and right leg. In the ED pt was hypertensive up to 156/63, vitals otherwise stable and WNL, satting at 98% on RA. Labs were grossly unremarkable and unchanged from yesterday's. No leukocytosis. Stable H&H. No significant electrolyte abnormalities. Renal function baseline. Mildly transaminitis and baseline. BNP chronically elevated at 162. UA from yesterday not convincingly positive for UTI. Urine from today negative for UTI. Tested negative for flu, COVID, RSV. CXR showed right middle lobe patchy opacity question of infiltrate vs atelectasis. CT of abdomen and pelvis showing mild constipation but no acute intra-abdominal process. EKG demonstrated sinus bradycardia of 52 without evidence of significant ischemia. Pt was treated with DuoNebs, Solu-Medrol, ketorolac, oxycodone, ceftriaxone, and azithromycin. Pt will be admitted to the hospital under observation for intractable nausea, abdominal pain, and inability to tolerate p.o. intake. Review of Systems Review of Systems: Negative except for that which is stated in the [facility] Medical History Abdominal pain Peripheral neuropathy GERD (gastroesophageal reflux disease) Surgical History H/O gastric bypass Social History Household Members: None Housing: Apartment Do you presently have visiting nurse or other home services: No Comment: N/A Patient Tobacco Use Status: Never used Tobacco Smoked in Last 30 Days: No e-Cigarette/Vaping Use: Never Used Use of substances other than those prescribed or required for medical reasons: No Advance Directives: No Advance Directives Information Provided: Yes service: No Meds Allergies Allergy/AdvReac Type Severity Reaction Status Date / Time No Known Allergies Allergy Verified 10/01/24 07:56 Home Medications ?Medication ?Instructions ?Recorded ?Confirmed ?Last Taken ?Type gabapentin 300 mg capsule 300 mg PO TID 10/18/23 10/01/24 09/30/24 History calcium carbonate 500 mg PO DAILY 10/23/23 10/01/24 09/30/24 History cholecalciferol (vitamin D3) 25 25 mcg PO DAILY 10/23/23 10/01/24 09/30/24 History mcg (1,000 unit) tablet (Vitamin D3) albuterol sulfate 90 mcg/actuation 2 puff inhalation Q6H PRN 10/01/24 10/01/24 Unknown History aerosol inhaler (Ventolin HFA) shortness of breath or wheezing epinephrine 0.125 mg/actuation 1 puff inhalation Q4H PRN 10/01/24 10/01/24 Unknown History aerosol inhaler Shortness Of Breath Or Wheezing oxycodone 15 mg tablet 15 mg PO QID PRN pain 10/01/24 10/01/24 Unknown History Physical Exam Vital Signs and Narrative: Vital Signs: Last Vital Signs Temp 98.1 F 10/01/24 08:33 Pulse 68 10/01/24 09:48 Resp 16 10/01/24 09:48 BP 156/63 H 10/01/24 09:48 Pulse Ox 95 10/01/24 09:48 O2 Del Method Room Air 10/01/24 09:48 BMI result Body Mass Index 34.6 Constitutional: Alert, in no acute distress. Mental Status: Oriented to person, place and time. Eyes: Pupils are equal, round, and reactive to light. Ear, Nose, and Throat: Oropharynx clear, mucous membranes moist. Ears and nose without deformities. Trachea midline. Respiratory: Clear to auscultation bilaterally. No wheezing, rales, or rhonchi. Cardiovascular: S1, S2 regular. No murmurs, rubs, or gallops. Gastrointestinal: Abdomen soft, non-distended. Normal bowel sounds. Neurologic: Cranial nerves II-XII are grossly intact bilaterally. No focal neurological deficits. Moves all extremities spontaneously. Skin: Warm, dry. Musculoskeletal: No cyanosis or clubbing. Extremities: No edema. Chronic venous stasis dermatitis changes bilaterally. Right leg and bilateral shoulders with areas of excoriation as pictured below. Hands and wrists clear without lesions, rash, or burrows. Psychiatric: Anxious, emotionally labile. Results Labs 10/01/24 08:47 10/01/24 08:47 Labs: Laboratory Results - last 24 hr 10/01/24 08:47 MCV 94.9 MCH 32.5 MCHC 34.3 RDW 13.1 Plt Count 415 H MPV 8.3 L Immature Gran % (Auto) 0.4 Neut % (Auto) 76.6 H Lymph % (Auto) 15.6 L [place] % (Auto) 6.3 Eos % (Auto) 0.2 Baso % (Auto) 0.9 Lymph # (Auto) 1.6 [place] # (Auto) 0.7 Eos # (Auto) 0.0 Baso # (Auto) 0.1 Abs Immat Gran (auto) 0.04 H Absolute Neuts (auto) 8.0 Absolute Nucleated RBC 0.000 Nucleated RBC % (auto) 0.0 Anion Gap 14 Estim Creat Clear Calc 87.8 Estimated GFR > 60 Random Glucose 108 Calcium 8.8 Magnesium 1.7 Total Bilirubin 0.6 Direct Bilirubin 0.2 AST 43 H ALT 45 H Alkaline Phosphatase 61 B-Natriuretic Peptide 162 H Total Protein 6.6 Albumin 4.0 Lipase 31 Influenza Type A (PCR) NEGATIVE Influenza Type B (PCR) NEGATIVE RSV RNA Qual (PCR) NEGATIVE SARS-CoV-2 RNA (RT-PCR) NEGATIVE Imaging Radiologist's Impressions: Impressions Chest X-Ray 10/01/24 09:00 IMPRESSION: Right middle lobe infiltrate versus atelectasis. Electronically signed by: Merlin Gomez MD 10/01/2024 11:19 AM EST RP Abdomen/Pelvis CT 10/01/24 09:25 IMPRESSION: 1. No acute intra-abdominal process seen. 2. Mild constipation with scattered colonic diverticulosis without diverticulitis. Postsurgical changes left midabdomen involving a loop of small bowel with mural thickening question inflammatory process or postsurgical changes. Minimal proximal bowel prominent/distention. If patient persists in left mid abdomen a small bowel follow-through can be performed as an outpatient. 3. Small umbilical hernia containing fat. 4. Small radiolucent stone or mucosal thickening in the dependent segment of the gallbladder. No wall thickening or pericholecystic fluid collection. Correlate with ultrasound 5. Calcifications adjacent to the right vagina likely calcification within the Bartholin's gland, nonspecific. 6. Grade 1 anterolisthesis L4 over L5 with degenerative disc changes throughout lumbar spine sparing the L5-S1 disc level. Fleischner guidelines were followed. Electronically signed by: Merlin Gomez MD 10/01/2024 10:21 AM EST RP Assessment and Plan (1) Abdominal pain: Status: Acute Plan Pt is a 68-year-old female with a PMH significant for mild intermittent asthma, peripheral neuropathy, GERD, chronic back pain on chronic opioids, and hx of gastric bypass?who presents to the ED with?multiple complaints, but especially intractable nausea and lower abdominal pain. Pt will be admitted to the hospital under observation for intractable nausea, abdominal pain, and inability to tolerate p.o. intake. Intractable nausea and lower abdominal pain Ongoing x4 days, unable to tolerate p.o. inake Unclear etiology: CT of abd negative for acute intra-abdominal process We will give IVF, analgesics, antiemetics General surgery consult ?Pneumonia Some SOB x1 day, no cough CXR questionable for right middle lobe infiltrate vs atelectasis Will empirically treat with ceftriaxone and azithromycin, started 10/01/2024 ?UTI UA yesterday with moderate leukocyte esterase, 11-20 wbc's, 3-5 epithelial cells, and no bacteria UA today negative No sepsis no, tachycardia, tachypnea, or leukocytosis; lactic acid WNL Will empirically treat with ceftriaxone, started 10/01/2024 ?Scabies Pt with itching shoulders and right lower leg for the past few days Diagnosed with possible scabies last night in ED Poor application of permethrin at home Permethrin reapplied correctly in the ED Will need to re-apply permetrin to whole body from scalp Asthma Not in acute exacerbation Continue home inhalers DuoNebs p.r.n. Peripheral neuropathy Continue gabapentin Full Code Attending:?Dr. Shah DVT Prophylaxis: Lovenox Patient will be admitted to the hospital under observation for treatment and further evaluation of intractable nausea and abdominal pain of unclear etiology. Patient will require hospital level care for administration of IVF, IV analgesics, and IV antiemetics while awaiting patient to be able to tolerate p.o. intake. Quality Stroke Does the patient have a stroke diagnosis?: No VTE Prior VTE?: No VTE Risk Level:: Medical - moderate - high VTE Device Contraindication: Treatment Not Indicated VTE Drug Contraindication: N/A - Med Ordered
--- NOTE | 2024-10-01 14:13 | PC.NURSE ---
awaiting elemite from pharmacy
--- NOTE | 2024-10-01 14:14 | PC.NURSE ---
pt moved from ED15 to ED 16 as pt was seen in dept yesterday, and DC'd with permethrin tx for scabies outbreak- contract precautions
--- NOTE | 2024-10-01 14:41 | MHC.EDTECH ---
pt requesting pain meds
[2024-10-01] MEDS: Permethrin 5 % Cream 60 GM TUBE 1 APPL TOPICAL (14:48)
[2024-10-01] MEDS: Acetaminophen 325 MG TABLET 650 MG PO (14:54)
[2024-10-01] MEDS: Gabapentin 300 MG CAPSULE PO ×2 (14:55→21:28)
--- NOTE | 2024-10-01 15:03 | PC.NURSE ---
pt mediacated per MAR for headache pain
--- NOTE | 2024-10-01 15:29 | PC.NURSE ---
Nell applied from neck to knees- PA Jay to bedside discussing additional plans for admission
[2024-10-01 15:34] LABS: Appearance Urine Clear; Color Urine Yellow; Glucose Urine UA Negative (Negative); Leukocyte Esterase Urine Negative (Negative); Nitrite Urine Negative (Negative); PH 5.5 (5.0-9.0); Specific Gravity - Urine >= 1.030 (1.005-1.025); Urine Blood Negative (Negative); Urine Ketones 80 mg/dL (Negative); Urine Protein Trace mg/dL (Neg-Trace)
--- NOTE | 2024-10-01 16:18 | PM.EVENT ---
Event Note Date of Service: 10/01/24 Event Note: seen on afternoon rounds says she is currently comfortable does have periodic pelvic pain no vomitting, some nausea looks well abd soft, benign etiol of symptoms uncertain clinically not obstructed will follow Time Spent With Patient Time: Total time managing care of this patient today ____ minutes.
[2024-10-01 16:27] VITALS: PULSE 60; RESP 16; O2SAT 93
[2024-10-01] MEDS: Enoxaparin Sodium 40 MG/0.4 ML SYRINGE SUBCUT (16:37)
[2024-10-01] MEDS: 0.9 % Sodium Chloride Flush 3 ML SYRINGE IVFLUSH (16:38)
[2024-10-01] MEDS: Calcium Carbonate 750 MG TAB.CHEW PO ×2 (17:35→23:02)
[2024-10-01] MEDS: oxyCODONE HCl Immed Release 15 MG TABLET PO ×2 (17:36→23:03)
[2024-10-02] VITALS (15 sets, daily range): BP systolic 84–147; BP diastolic 37–89; PULSE 52–96; RESP 14–18; TEMP 36.1–36.6; O2SAT 80–98
[2024-10-02] MEDS: 0.9 % Sodium Chloride Flush 3 ML SYRINGE IVFLUSH ×4 (00:45→22:13)
[2024-10-02] MEDS: Ibuprofen 200 MG TABLET PO (01:17)
[2024-10-02] MEDS: Lactated Ringers 1,000 ML 999 ML IV (01:20)
--- NOTE | 2024-10-02 01:23 | PC.NURSE ---
Addendum entered by Carlyn Jones 10/02/24 01:27: Pt reports dizziness when she stood up to ambulate to BR at around 2300. Original Note: This typewriter ribbon winder assumed care of this Pt at 2300. Pt A&Ox3, reports 8/10 chronic back pain with some relief of pain medication given by previous RN. Pt revitalized, BP noted to be in the 80s/30s with no difference in arms. Provider Gloria made aware, verbal order of fluids given per DEC.
[2024-10-02] MEDS: oxyCODONE HCl Immed Release 15 MG TABLET PO ×2 (06:58→12:58)
[2024-10-02 06:59] LABS: Anion Gap 11 (12-20); Blood Urea Nitrogen 16 mg/dL (9-16); Calcium 8.8 mg/dL (8.4-10.2); Carbon Dioxide 24 mmol/L (22-29); Chloride 105 mmol/L (96-108); Estimated Glomerular Filt Rate > 60; Glucose Random 96 mg/dL (60-115); Potassium 3.3 mmol/L (3.3-5.1); Sodium 137 mmol/L (135-145)
--- NOTE | 2024-10-02 07:21 | PC.NURSE ---
Care of Pt assumed at change of shift. Pt resting quietly, watching TV Breakfast provided. Pt offers no complaints at this time.
[2024-10-02] MEDS: Acetaminophen 325 MG TABLET 650 MG PO ×2 (08:14→20:44)
[2024-10-02] MEDS: Calcium Oyster Shell Elemental 500 MG TABLET PO (09:34)
[2024-10-02] MEDS: Cholecalciferol (Vitamin D3) 25 MCG TABLET PO (09:34)
[2024-10-02] MEDS: Calcium Carbonate 750 MG TAB.CHEW PO (09:34)
[2024-10-02] MEDS: Gabapentin 300 MG CAPSULE PO ×3 (09:34→20:32)
--- NOTE | 2024-10-02 10:35 | P.PNGS_ITS ---
Subjective Subjective Date of Service: 10/02/24 Interval history: Feels better this morning Less pain Says she has occasional nausea Passing flatus Physical Exam 2 Vital Signs: Vital Signs: Last Vital Signs Temp 97.7 F 10/02/24 09:23 Pulse 62 10/02/24 09:23 Resp 16 10/02/24 09:23 BP 144/63 H 10/02/24 09:23 Pulse Ox 96 10/02/24 09:23 O2 Del Method Room Air 10/02/24 09:23 BMI result Body Mass Index 34.6 Const: General: comfortable and no acute distress Resp: Effort & Inspection: normal respiratory effort Cardio: Rate: regular rate GI: Palpation (GI): Soft to palpation, not firm, nontender and no guarding Objective Data Active Medications Acetaminophen (Acetaminophen 325 Mg Tablet) 650 mg PO Q6H PRN PRN Reason: Pain, Mild (Pain Scale 1-3), fever or headache Last Admin: 10/02/24 08:14 Dose: 650 mg Documented By: MENA Albuterol Sulfate (Albuterol Sulfate 90 Mcg 8 Gm Inhaler) 2 puff INHALE Q6H PRN PRN Reason: shortness of breath or wheezing Albuterol/Ipratropium (Albuterol/Iprat 2.5/0.5mg 3 Ml Ampul.Neb) 3 ml INHALE RQ4H WHILE AWAKE [facility] Last Admin: 10/02/24 08:00 Dose: Not Given Documented By: EUGENIO Non-Admin Reason: Patient Asleep Calcium Carbonate (Calcium Carbonate 750 Mg Tab.Chew) 750 mg PO Q4H PRN PRN Reason: Heartburn Last Admin: 10/02/24 09:34 Dose: 750 mg Documented By: JAMAR Calcium Carbonate (Calcium Oyster Shell Elemental 500 Mg Tablet) 500 mg PO DAILY [facility] Last Admin: 10/02/24 09:34 Dose: 500 mg Documented By: JAMAR Ceftriaxone Sodium (Ceftriaxone Sodium 1 Gm Vial) 1 gm IVPUSH Q24H [facility] Enoxaparin Sodium (Enoxaparin Sodium 40 Mg/0.4 Ml Syringe) 40 mg SUBCUT Q24H [facility] Last Admin: 10/01/24 16:37 Dose: 40 mg Documented By: STEVE Furosemide (Furosemide 40 Mg/4 Ml Vial) 40 mg IVPUSH DAILY [facility]; Protocol Gabapentin (Gabapentin 300 Mg Capsule) 300 mg PO TID [facility] Last Admin: 10/02/24 09:34 Dose: 300 mg Documented By: JAMAR Azithromycin 500 mg/ Sodium (Chloride) 250 mls @ 125 mls/hr IV Q24H [facility] Magnesium Hydroxide (Milk Of Magnesia 30 Ml Oral.Susp) 30 ml PO DAILY PRN PRN Reason: Constipation Melatonin (Melatonin 3 Mg Tablet) 6 mg PO BEDTIME PRN PRN Reason: Insomnia Ondansetron HCl (Ondansetron Hcl 4 Mg/2 Ml Vial) 4 mg IVPUSH Q8H PRN PRN Reason: Nausea and Vomiting Oxycodone HCl (Oxycodone Hcl Immed Release 15 Mg Tablet) 15 mg PO QID PRN PRN Reason: Pain, Severe (Pain Scale 7-10) Last Admin: 10/02/24 06:58 Dose: 15 mg Documented By: JOHNY Sodium Chloride (0.9 % Sodium Chloride Flush 3 Ml Syringe) [facility] Last Admin: 10/02/24 08:15 Dose: 3 ml Documented By: MENA Spironolactone (Spironolactone 25 Mg Tablet) 12.5 mg PO BID@0900,1800 [facility]; Protocol Vitamin D (Cholecalciferol (Vitamin D3) 25 Mcg Tablet) 25 mcg PO DAILY [facility] Last Admin: 10/02/24 09:34 Dose: 25 mcg Documented By: JAMAR Labs 10/01/24 08:47 10/02/24 06:36 Labs: Laboratory Results - last 24 hr 10/01/24 10/02/24 15:27 06:36 Hold Purple Top SEE NOTE Anion Gap 11 L Estim Creat Clear Calc 74.0 Estimated GFR > 60 Random Glucose 96 Calcium 8.8 Urine Color Yellow Urine Appearance Clear Urine pH 5.5 Ur Specific [place] >= 1.030 H Urine Protein Trace Urine Glucose (UA) Negative Urine Ketones 80 Urine Blood Negative Urine Nitrite Negative Ur Leukocyte Esterase Negative Procedures Date of Service Date of Service: 10/02/24 Progress Note: A&P Assessment and plan (1) Abdominal pain: Status: Acute Assessment and Plan: Exam remains very benign Abdominal pain unlikely be from obstructive etiology She does have a UTI Okay to advance diet as tolerated Encouraged ambulation She looks well overall Labs okay Time Spent With Patient Time: Total time managing care of this patient today ____ minutes. Quality Stroke Does the patient have a stroke diagnosis?: No VTE Prior VTE?: No VTE Risk Level:: Medical - moderate - high VTE Device Contraindication: Treatment Not Indicated VTE Drug Contraindication: N/A - Med Ordered
[2024-10-02] MEDS: cefTRIAXone sodium 1 GM VIAL IVPUSH (11:39)
[2024-10-02] MEDS: Furosemide 40 MG/4 ML VIAL IVPUSH (11:39)
[2024-10-02] MEDS: Azithromycin 500 MG in 0.9 % Sodium Chloride 250 ML 125 MG IV (11:40)
[2024-10-02] MEDS: Albuterol/Iprat 2.5/0.5MG 3 ML AMPUL.NEB INHALE ×3 (12:21→19:57)
[2024-10-02] MEDS: Permethrin 5 % Cream 60 GM TUBE 1 APPL TOPICAL (12:55)
--- NOTE | 2024-10-02 13:28 | P.PNIM_ITS ---
Subjective Subjective Date of Service: 10/02/24 Interval History: constipation ?bronchitis mild Review of Systems cough seems improving no fever or chills Physical Exam 2 Vital Signs: Vital Signs: Last Vital Signs Temp 97.7 F 10/02/24 09:23 Pulse 52 10/02/24 12:24 Resp 16 10/02/24 12:24 BP 144/63 H 10/02/24 09:23 Pulse Ox 96 10/02/24 09:23 O2 Del Method Room Air 10/02/24 09:23 BMI result Body Mass Index 34.6 Appearance: Alert.? Oriented X3.? cvs: [id number], [id number] . res: clear to auscultation ,no rhonchii or wheezing abd: no rebound or guarding ,nt, bs present. ext pulses present , no cyanosis . neuro: axo3 , nonfocal. Objective Data Active Medications Acetaminophen (Acetaminophen 325 Mg Tablet) 650 mg PO Q6H PRN PRN Reason: Pain, Mild (Pain Scale 1-3), fever or headache Last Admin: 10/02/24 08:14 Dose: 650 mg Documented By: MENA Albuterol Sulfate (Albuterol Sulfate 90 Mcg 8 Gm Inhaler) 2 puff INHALE Q6H PRN PRN Reason: shortness of breath or wheezing Albuterol/Ipratropium (Albuterol/Iprat 2.5/0.5mg 3 Ml Ampul.Neb) 3 ml INHALE RQ4H WHILE AWAKE [facility] Last Admin: 10/02/24 12:21 Dose: 3 ml Documented By: BASIA Calcium Carbonate (Calcium Carbonate 750 Mg Tab.Chew) 750 mg PO Q4H PRN PRN Reason: Heartburn Last Admin: 10/02/24 09:34 Dose: 750 mg Documented By: JAMAR Calcium Carbonate (Calcium Oyster Shell Elemental 500 Mg Tablet) 500 mg PO DAILY [facility] Last Admin: 10/02/24 09:34 Dose: 500 mg Documented By: JAMAR Ceftriaxone Sodium (Ceftriaxone Sodium 1 Gm Vial) 1 gm IVPUSH Q24H [facility] Last Admin: 10/02/24 11:39 Dose: 1 gm Documented By: JAMAR Enoxaparin Sodium (Enoxaparin Sodium 40 Mg/0.4 Ml Syringe) 40 mg SUBCUT Q24H [facility] Last Admin: 10/01/24 16:37 Dose: 40 mg Documented By: STEVE Furosemide (Furosemide 40 Mg/4 Ml Vial) 40 mg IVPUSH DAILY [facility]; Protocol Last Admin: 10/02/24 11:39 Dose: 40 mg Documented By: JAMAR Gabapentin (Gabapentin 300 Mg Capsule) 300 mg PO TID [facility] Last Admin: 10/02/24 09:34 Dose: 300 mg Documented By: JAMAR Azithromycin 500 mg/ Sodium (Chloride) 250 mls @ 125 mls/hr IV Q24H [facility] Last Admin: 10/02/24 11:40 Dose: 125 mls/hr Documented By: JAMAR Magnesium Hydroxide (Milk Of Magnesia 30 Ml Oral.Susp) 30 ml PO DAILY PRN PRN Reason: Constipation Melatonin (Melatonin 3 Mg Tablet) 6 mg PO BEDTIME PRN PRN Reason: Insomnia Ondansetron HCl (Ondansetron Hcl 4 Mg/2 Ml Vial) 4 mg IVPUSH Q8H PRN PRN Reason: Nausea and Vomiting Oxycodone HCl (Oxycodone Hcl Immed Release 15 Mg Tablet) 15 mg PO QID PRN PRN Reason: Pain, Severe (Pain Scale 7-10) Last Admin: 10/02/24 12:58 Dose: 15 mg Documented By: JAMAR Sodium Chloride (0.9 % Sodium Chloride Flush 3 Ml Syringe) 3 ml IVFLUSH QSHIFT [facility] Last Admin: 10/02/24 08:15 Dose: 3 ml Documented By: MENA Spironolactone (Spironolactone 25 Mg Tablet) 12.5 mg PO BID@0900,1800 [facility]; Protocol Vitamin D (Cholecalciferol (Vitamin D3) 25 Mcg Tablet) 25 mcg PO DAILY [facility] Last Admin: 10/02/24 09:34 Dose: 25 mcg Documented By: JAMAR Labs 10/01/24 08:47 10/02/24 06:36 Labs: Laboratory Results - last 24 hr 10/01/24 10/02/24 15:27 06:36 Hold Purple Top SEE NOTE Anion Gap 11 L Estim Creat Clear Calc 74.0 Estimated GFR > 60 Random Glucose 96 Calcium 8.8 Urine Color Yellow Urine Appearance Clear Urine pH 5.5 Ur Specific [place]rick >= 1.030 H Urine Protein Trace Urine Glucose (UA) Negative Urine Ketones 80 Urine Blood Negative Urine Nitrite Negative Ur Leukocyte Esterase Negative Assessment and Plan (1) Constipation: Status: Acute Assessment and Plan: 68-year-old female with a PMH significant for mild intermittent asthma, peripheral neuropathy, GERD, chronic back pain on chronic opioids, and hx of gastric bypass?who presents to the ED with?multiple complaints, but especially intractable nausea and lower abdominal pain. Pt will be admitted to the hospital under observation for intractable nausea, abdominal pain, and inability to tolerate p.o. intake. Intractable nausea and lower abdominal pain vs constipation Ongoing x4 days, unable to tolerate p.o. inake Unclear etiology: CT of abd negative except Minimal proximal bowel prominent/distention We will give IVF, analgesics, antiemetics, luxative , prn enema General surgery consult noted-less likely obstruction possible mild bronchitls vs atlactasis vs pneumonia Some SOB x1 day, no cough CXR questionable for right middle lobe infiltrate vs atelectasis Will empirically treat with ceftriaxone and azithromycin, started 10/01/2024 ?UTI: UA today negative No sepsis no, tachycardia, tachypnea, or leukocytosis; lactic acid WNL urine culture and blood cultures pending. ?Scabies Pt with itching shoulders and right lower leg for the past few days Diagnosed with possible scabies last night in ED Poor application of permethrin at home Permethrin reapplied correctly in the ED Will need to re-apply permetrin to whole body from scalp Asthma Not in acute exacerbation Continue home inhalers DuoNebs p.r.n. Peripheral neuropathy Continue gabapentin Full Code DVT Prophylaxis: Lovenox ongoing need -abd pain,? pneumonia , constipation -need iv antibiotics ,blood and urine cultures pending , also moniter currently for abd pain /constipation- on luxatives. Quality Stroke Does the patient have a stroke diagnosis?: No VTE Prior VTE?: No VTE Risk Level:: Medical - moderate - high VTE Device Contraindication: Treatment Not Indicated VTE Drug Contraindication: N/A - Med Ordered
[2024-10-02] MEDS: polyethylene glycoL 3350 17 GM POWD.PACK PO (14:03)
[2024-10-02] MEDS: Docusate Sodium 100 MG/10 ML LIQUID PO (14:03)
--- NOTE | 2024-10-02 15:36 | MHC.CM.PN ---
PT REPORTS SHE LIVES ALONE AND IS INDEPENDENT WITH MOST CARE SHE HAS A MATERIALS INTERN THAT COMES A COUPLE TIMES PER WEEK FOR HOUSEWORK, HOWEVER SHE WILL ALSO STANDBY WHILE PT SHOWERS PT HAS A CANE AND SHOWER CHAIR FOR DME PT WILL COMPLETE A HCP NAMING HER SON HER AGENT PCP: ANDRADE RUBIO OBSERVATION NOTICE DELIVERED DCP: [facility] [employer] SHE WILL NEED C SHUTTLE TRANSPORT
[2024-10-02] MEDS: Spironolactone 25 MG TABLET 12.5 MG PO (17:03)
[2024-10-02] MEDS: Enoxaparin Sodium 40 MG/0.4 ML SYRINGE SUBCUT (17:04)
[2024-10-02] MEDS: Milk of Magnesia 30 ML ORAL.SUSP PO (17:07)
[2024-10-02] MEDS: oxyCODONE HCl Immed Release 5 MG TABLET 10 MG PO (18:31)
[2024-10-02] MEDS: Melatonin 3 MG TABLET 6 MG PO (20:32)
[2024-10-03] MEDS: oxyCODONE HCl Immed Release 5 MG TABLET 10 MG PO ×2 (01:44→07:31)
[2024-10-03] MEDS: Acetaminophen 325 MG TABLET 650 MG PO ×3 (03:24→22:28)
--- NOTE | 2024-10-03 03:40 | PC.NURSE ---
patient said she was able to have a bowel movement but it was loose stool
[2024-10-03 07:13] VITALS: PULSE 52; RESP 16; O2SAT 96
[2024-10-03] MEDS: Albuterol/Iprat 2.5/0.5MG 3 ML AMPUL.NEB INHALE ×4 (07:13→20:40)
[2024-10-03] MEDS: Cholecalciferol (Vitamin D3) 25 MCG TABLET PO (07:31)
[2024-10-03] MEDS: Gabapentin 300 MG CAPSULE PO ×3 (07:31→20:01)
[2024-10-03] MEDS: Calcium Oyster Shell Elemental 500 MG TABLET PO (07:31)
[2024-10-03] MEDS: 0.9 % Sodium Chloride Flush 3 ML SYRINGE IVFLUSH ×3 (07:36→20:02)
[2024-10-03 08:00] VITALS: BP 118/58; PULSE 62; RESP 18; TEMP 36.1; O2SAT 95
[2024-10-03] MEDS: Furosemide 40 MG/4 ML VIAL IVPUSH (09:23)
[2024-10-03] MEDS: diphenhydrAMINE HCL 25 MG CAPSULE PO ×2 (09:52→20:29)
[2024-10-03] MEDS: oxyCODONE HCl Immed Release 5 MG TABLET PO (09:52)
--- NOTE | 2024-10-03 11:01 | P.PNGS_ITS ---
Subjective Subjective Date of Service: 10/03/24 Interval history: Has been tolerating diet well No nausea or vomiting Passing flatus Main complaint now is rash on her extremity Physical Exam 2 Vital Signs: Vital Signs: Last Vital Signs Temp 97.0 F 10/03/24 08:00 Pulse 62 10/03/24 08:00 Resp 18 10/03/24 08:00 BP 118/58 L 10/03/24 08:00 Pulse Ox 95 10/03/24 08:00 O2 Del Method Room Air 10/03/24 08:00 BMI result Body Mass Index 34.6 Const: General: comfortable and no acute distress Resp: Effort & Inspection: normal respiratory effort Cardio: Rate: regular rate GI: Inspection: No distended Palpation (GI): Soft to palpation and nontender Objective Data Active Medications Acetaminophen (Acetaminophen 325 Mg Tablet) 650 mg PO Q6H PRN PRN Reason: Pain, Mild (Pain Scale 1-3), fever or headache Last Admin: 10/03/24 09:22 Dose: 650 mg Documented By: MARGUERITE Albuterol Sulfate (Albuterol Sulfate 90 Mcg 8 Gm Inhaler) 2 puff INHALE Q6H PRN PRN Reason: shortness of breath or wheezing Albuterol/Ipratropium (Albuterol/Iprat 2.5/0.5mg 3 Ml Ampul.Neb) 3 ml INHALE RQ4H [facility]ILE [facility]KE [facility] Last Admin: 10/03/24 07:13 Dose: 3 ml Documented By: MARTIN Calcium Carbonate (Calcium Carbonate 750 Mg Tab.Chew) 750 mg PO Q4H PRN PRN Reason: Heartburn Last Admin: 10/02/24 09:34 Dose: 750 mg Documented By: JAMAR Calcium Carbonate (Calcium Oyster Shell Elemental 500 Mg Tablet) 500 mg PO DAILY [facility] Last Admin: 10/03/24 07:31 Dose: 500 mg Documented By: ELLA Ceftriaxone Sodium (Ceftriaxone Sodium 1 Gm Vial) 1 gm IVPUSH Q24H [facility] Last Admin: 10/02/24 11:39 Dose: 1 gm Documented By: JAMAR Docusate Sodium (Docusate Sodium 100 Mg/10 Ml Liquid) 100 mg PO BID [facility] Last Admin: 10/03/24 07:34 Dose: Not Given Documented By: ELLA Non-Admin Reason: Patient Refused Enoxaparin Sodium (Enoxaparin Sodium 40 Mg/0.4 Ml Syringe) 40 mg SUBCUT Q24H [facility] Last Admin: 10/02/24 17:04 Dose: 40 mg Documented By: JAMAR Furosemide (Furosemide 40 Mg/4 Ml Vial) 40 mg IVPUSH DAILY [facility]; Protocol Last Admin: 10/03/24 09:23 Dose: 40 mg Documented By: MARGUERITE Gabapentin (Gabapentin 300 Mg Capsule) 300 mg PO TID [facility] Last Admin: 10/03/24 07:31 Dose: 300 mg Documented By: ELLA Azithromycin 500 mg/ Sodium (Chloride) 250 mls @ 125 mls/hr IV Q24H [facility] Last Infusion: 10/02/24 13:50 Dose: Infused Documented By: JAMAR Magnesium Hydroxide (Milk Of Magnesia 30 Ml Oral.Susp) 30 ml PO DAILY PRN PRN Reason: Constipation Last Admin: 10/02/24 17:07 Dose: 30 ml Documented By: JAMAR Melatonin (Melatonin 3 Mg Tablet) 6 mg PO BEDTIME PRN PRN Reason: Insomnia Last Admin: 10/02/24 20:32 Dose: 6 mg Documented By: KAJAL Ondansetron HCl (Ondansetron Hcl 4 Mg/2 Ml Vial) 4 mg IVPUSH Q8H PRN PRN Reason: Nausea and Vomiting Oxycodone HCl (Oxycodone Hcl Immed Release 15 Mg Tablet) 15 mg PO QID PRN PRN Reason: Pain, Severe (Pain Scale 7-10) Polyethylene Glycol (Polyethylene Glycol 3350 17 Gm Powd.Pack) 17 gm PO DAILY [facility] Last Admin: 10/03/24 07:34 Dose: Not Given Documented By: ELLA Non-Admin Reason: Patient Refused Sodium Biphosphate/Sodium Phosphate (Sodium Phosphate,[place]-Dibasic 133 Ml Enema) 133 ml [place] ONCE PRN PRN Reason: Constipation Sodium Chloride (0.9 % Sodium Chloride Flush 3 Ml Syringe) 3 ml IVFLUSH QSHIFT [facility] Last Admin: 10/03/24 07:36 Dose: 3 ml Documented By: ELLA Vitamin D (Cholecalciferol (Vitamin D3) 25 Mcg Tablet) 25 mcg PO DAILY [facility] Last Admin: 10/03/24 07:31 Dose: 25 mcg Documented By: ELLA Labs 10/01/24 08:47 10/02/24 06:36 Microbiology Microbiology Results: Microbiology 10/01/24 12:28 Blood Culture - Preliminary Blood - Venous No growth after 24 hours. 10/01/24 12:28 Blood Culture - Preliminary Blood - Venous No growth after 24 hours. Procedures Date of Service Date of Service: 10/03/24 Progress Note: A&P Assessment and plan (1) Abdominal pain: Status: Acute Assessment and Plan: Clinically not obstructed Does have UTI Abdomen remained soft and benign Good GI functions She looks well overall Diet as tolerated Management as per hospitalist service Time Spent With Patient Time: Total time managing care of this patient today ____ minutes. Quality Stroke Does the patient have a stroke diagnosis?: No VTE Prior VTE?: No VTE Risk Level:: Medical - moderate - high VTE Device Contraindication: Treatment Not Indicated VTE Drug Contraindication: N/A - Med Ordered
--- NOTE | 2024-10-03 11:07 | MHC.CM.PN ---
PER MD ROUNDS, PT NOT READY TO DC IMM DELIVERED DCP HOME VIA PRIVATE TRANSPORT
[2024-10-03 11:23] VITALS: PULSE 62; RESP 18; O2SAT 97
--- NOTE | 2024-10-03 13:34 | P.PNIM_ITS ---
Subjective Subjective Date of Service: 10/03/24 Interval History: rash,? pneumonia Review of Systems rash -look like scratches knott,linear sob seems improving has constipation Physical Exam 2 Vital Signs: Vital Signs: Last Vital Signs Temp 97.0 F 10/03/24 08:00 Pulse 62 10/03/24 11:23 Resp 18 10/03/24 11:23 BP 118/58 L 10/03/24 08:00 Pulse Ox 95 10/03/24 08:00 O2 Del Method Room Air 10/03/24 08:00 BMI result Body Mass Index 34.6 Appearance: Alert.? Oriented X3.? cvs: rrr, [id number] . res:air entry improivng , has few rhochii ,no rales abd: no rebound or guarding ,nt, bs present. ext pulses present , no cyanosis . neuro: axo3 , nonfocal. Objective Data Active Medications Acetaminophen (Acetaminophen 325 Mg Tablet) 650 mg PO Q6H PRN PRN Reason: Pain, Mild (Pain Scale 1-3), fever or headache Last Admin: 10/03/24 09:22 Dose: 650 mg Documented By: MARGUERITE Albuterol Sulfate (Albuterol Sulfate 90 Mcg 8 Gm Inhaler) 2 puff INHALE Q6H PRN PRN Reason: shortness of breath or wheezing Albuterol/Ipratropium (Albuterol/Iprat 2.5/0.5mg 3 Ml Ampul.Neb) 3 ml INHALE RQ4H WHILE AWAKE [facility] Last Admin: 10/03/24 11:22 Dose: 3 ml Documented By: MARTIN Calcium Carbonate (Calcium Carbonate 750 Mg Tab.Chew) 750 mg PO Q4H PRN PRN Reason: Heartburn Last Admin: 10/02/24 09:34 Dose: 750 mg Documented By: JAMAR Calcium Carbonate (Calcium Oyster Shell Elemental 500 Mg Tablet) 500 mg PO DAILY [facility] Last Admin: 10/03/24 07:31 Dose: 500 mg Documented By: ELLA Ceftriaxone Sodium (Ceftriaxone Sodium 1 Gm Vial) 1 gm IVPUSH Q24H [facility] Last Admin: 10/02/24 11:39 Dose: 1 gm Documented By: JAMAR Docusate Sodium (Docusate Sodium 100 Mg/10 Ml Liquid) 100 mg PO BID [facility] Last Admin: 10/03/24 07:34 Dose: Not Given Documented By: ELLA Non-Admin Reason: Patient Refused Enoxaparin Sodium (Enoxaparin Sodium 40 Mg/0.4 Ml Syringe) 40 mg SUBCUT Q24H [facility] Last Admin: 10/02/24 17:04 Dose: 40 mg Documented By: JAMAR Furosemide (Furosemide 40 Mg/4 Ml Vial) 40 mg IVPUSH DAILY [facility]; Protocol Last Admin: 10/03/24 09:23 Dose: 40 mg Documented By: MARGUERITE Gabapentin (Gabapentin 300 Mg Capsule) 300 mg PO TID [facility] Last Admin: 10/03/24 07:31 Dose: 300 mg Documented By: ELLA Azithromycin 500 mg/ Sodium (Chloride) 250 mls @ 125 mls/hr IV Q24H [facility] Last Infusion: 10/02/24 13:50 Dose: Infused Documented By: JAMAR Magnesium Hydroxide (Milk Of Magnesia 30 Ml Oral.Susp) 30 ml PO DAILY PRN PRN Reason: Constipation Last Admin: 10/02/24 17:07 Dose: 30 ml Documented By: JAMAR Melatonin (Melatonin 3 Mg Tablet) 6 mg PO BEDTIME PRN PRN Reason: Insomnia Last Admin: 10/02/24 20:32 Dose: 6 mg Documented By: KAJAL Ondansetron HCl (Ondansetron Hcl 4 Mg/2 Ml Vial) 4 mg IVPUSH Q8H PRN PRN Reason: Nausea and Vomiting Oxycodone HCl (Oxycodone Hcl Immed Release 15 Mg Tablet) 15 mg PO QID PRN PRN Reason: Pain, Severe (Pain Scale 7-10) Polyethylene Glycol (Polyethylene Glycol 3350 17 Gm Powd.Pack) 17 gm PO DAILY [facility] Last Admin: 10/03/24 07:34 Dose: Not Given Documented By: ELLA Non-Admin Reason: Patient Refused Sodium Biphosphate/Sodium Phosphate (Sodium Phosphate,[place]-Dibasic 133 Ml Enema) 133 ml [place] ONCE PRN PRN Reason: Constipation Sodium Chloride (0.9 % Sodium Chloride Flush 3 Ml Syringe) 3 ml IVFLUSH QSHIFT [facility] Last Admin: 10/03/24 07:36 Dose: 3 ml Documented By: ELLA Vitamin D (Cholecalciferol (Vitamin D3) 25 Mcg Tablet) 25 mcg PO DAILY [facility] Last Admin: 10/03/24 07:31 Dose: 25 mcg Documented By: ELLA Labs 10/01/24 08:47 10/02/24 06:36 Microbiology Microbiology Results: Microbiology 10/01/24 12:28 Blood Culture - Preliminary Blood - Venous No growth after 24 hours. 10/01/24 12:28 Blood Culture - Preliminary Blood - Venous No growth after 24 hours. Assessment and Plan (1) Constipation: Status: Acute Assessment and Plan: 68-year-old female with a PMH significant for mild intermittent asthma, peripheral neuropathy, GERD, chronic back pain on chronic opioids, and hx of gastric bypass?who presents to the ED with?multiple complaints, but especially intractable nausea and lower abdominal pain. Pt will be admitted to the hospital under observation for intractable nausea, abdominal pain, and inability to tolerate p.o. intake. Intractable nausea and lower abdominal pain vs constipation Ongoing x4 days, unable to tolerate p.o. inake Unclear etiology: CT of abd negative except Minimal proximal bowel prominent/distention We will give IVF, analgesics, antiemetics, luxative , prn enema General surgery consult noted-less likely obstruction possible mild bronchitls vs atlactasis vs pneumonia Some SOB x1 day, no cough CXR questionable for right middle lobe infiltrate vs atelectasis Will empirically treat with ceftriaxone and azithromycin, started 10/01/2024 ?UTI: UA today negative No sepsis no, tachycardia, tachypnea, or leukocytosis; lactic acid WNL urine culture and blood cultures pending. ?Scabies Pt with itching shoulders and right lower leg for the past few days Diagnosed with possible scabies last night in ED Poor application of permethrin at home Permethrin reapplied correctly in the ED Will need to re-apply permetrin to whole body from scalp Id eval added for above . Asthma Not in acute exacerbation Continue home inhalers DuoNebs p.r.n. Peripheral neuropathy Continue gabapentin Full Code DVT Prophylaxis: Lovenox ongoing need -abd pain,? pneumonia , constipation -need iv antibiotics ,blood and urine cultures pending , also moniter currently for abd pain /constipation- on luxatives. Quality Stroke Does the patient have a stroke diagnosis?: No VTE Prior VTE?: No VTE Risk Level:: Medical - moderate - high VTE Device Contraindication: Treatment Not Indicated VTE Drug Contraindication: N/A - Med Ordered
[2024-10-03] MEDS: cefTRIAXone sodium 1 GM VIAL IVPUSH (13:56)
[2024-10-03] MEDS: oxyCODONE HCl Immed Release 15 MG TABLET PO ×2 (14:02→20:01)
[2024-10-03] MEDS: Azithromycin 500 MG in 0.9 % Sodium Chloride 250 ML 125 MG IV (14:04)
[2024-10-03 15:18] VITALS: PULSE 68; RESP 19; O2SAT 97
[2024-10-03 15:28] VITALS: BP 109/68; PULSE 89; RESP 20; TEMP 36.6; O2SAT 96
[2024-10-03] MEDS: Permethrin 5 % Cream 60 GM TUBE 1 APPL TOPICAL (17:24)
[2024-10-03] MEDS: Enoxaparin Sodium 40 MG/0.4 ML SYRINGE SUBCUT (17:25)
[2024-10-03] MEDS: Melatonin 3 MG TABLET 6 MG PO (20:01)
[2024-10-03 20:40] VITALS: PULSE 75; RESP 20; O2SAT 95
[2024-10-03 23:41] LABS: CDiff Gene PCR POSITIVE (Negative)
[2024-10-04 00:51] LABS: CDiff Toxin Negative (Negative)
[2024-10-04 00:52] LABS: CDIFF Internal ctrl Dots and bkg OK (V)
--- NOTE | 2024-10-04 02:03 | PM.EVENT ---
Event Note Date of Service: 10/04/24 Event Note: Nurse reported patient with 3rd episode of diarrhea overnight. Ordered stool studies. C diff positive. Initiating p.o. vancomycin. Appreciate Infectious Disease consult. Time Spent With Patient Time: Total time managing care of this patient today ____ minutes.
[2024-10-04] MEDS: vancomycin HCL 125 MG CAPSULE PO ×3 (02:35→14:38)
[2024-10-04] MEDS: oxyCODONE HCl Immed Release 15 MG TABLET PO ×3 (02:35→13:05)
[2024-10-04] MEDS: diphenhydrAMINE HCL 25 MG CAPSULE PO ×2 (04:08→10:52)
[2024-10-04 07:32] VITALS: BP 117/61; PULSE 59; RESP 16; TEMP 36.2; O2SAT 95
[2024-10-04] MEDS: Gabapentin 300 MG CAPSULE PO ×2 (08:19→14:38)
[2024-10-04] MEDS: Cholecalciferol (Vitamin D3) 25 MCG TABLET PO (08:19)
[2024-10-04] MEDS: Calcium Oyster Shell Elemental 500 MG TABLET PO (08:20)
[2024-10-04] MEDS: 0.9 % Sodium Chloride Flush 3 ML SYRINGE IVFLUSH (08:23)
[2024-10-04] MEDS: Furosemide 40 MG/4 ML VIAL IVPUSH (08:30)
[2024-10-04] MEDS: Albuterol/Iprat 2.5/0.5MG 3 ML AMPUL.NEB INHALE ×2 (08:50→12:09)
[2024-10-04 08:51] VITALS: PULSE 59; RESP 16; O2SAT 95
[2024-10-04] MEDS: Acetaminophen 325 MG TABLET 650 MG PO (10:52)
[2024-10-04 11:21] LABS: Adenovirus F 40/41 Not Detected (Not Detect.); Astrovirus Not Detected (Not Detect.); Campylobacter Not Detected (Not Detect.); Cryptosporidium Not Detected (Not Detect.); Cyclospora cayetanensis Not Detected (Not Detect.); E. coli EAEC Not Detected (Not Detect.); E. coli EPEC Not Detected (Not Detect.); E. coli ETEC Not Detected (Not Detect.); E. coli STEC Not Detected (Not Detect.); Entamoeba histolytica Not Detected (Not Detect.); Giardia lamblia Not Detected (Not Detect.); Norovirus GI/GII Not Detected (Not Detect.); Plesiomonas shigelloides Not Detected (Not Detect.); Rotavirus A Not Detected (Not Detect.); Salmonella Not Detected (Not Detect.); Sapovirus Not Detected (Not Detect.); Shigella sp./EIEC Not Detected (Not Detect.); Vibrio Not Detected (Not Detect.); Vibrio Cholerae Not Detected (Not Detect.); Yersinia enterocolitica Not Detected (Not Detect.)
[2024-10-04 12:11] VITALS: PULSE 67; RESP 18; O2SAT 95
[2024-10-04] MEDS: cefTRIAXone sodium 1 GM VIAL IVPUSH (12:49)
[2024-10-04] MEDS: Azithromycin 500 MG in 0.9 % Sodium Chloride 250 ML 125 MG IV (12:50)
--- NOTE | 2024-10-04 14:09 | P.CNID_ITS ---
History of Present Illness Data of Consult Service Date: 10/04/24 Requesting physician: Ion Shah Primary Care Provider: Emilee Lopez MD HPI Reason for consult: rash arms/legs She presents with shortness of breath for four days as well as constipation and nausea for four days, She has also itching arms and legs. She has GERD as well as prior gastric bypass She was diagnosed with UTI and there was concern over scabies. Review of Systems 2 Review of Systems: Yes all other systems are reviewed and are negative PMFSH Past Medical History Medical History Abdominal pain Peripheral neuropathy GERD (gastroesophageal reflux disease) Family History Family history: reviewed and not pertinent Surgical History Surgical History H/O gastric bypass Social History Social History Household Members: None Housing: Apartment Do you presently have visiting nurse or other home services: No Comment: N/A Patient Tobacco Use Status: Never used Tobacco Smoked in Last 30 Days: No e-Cigarette/Vaping Use: Never Used Patient Interested in Nicotine Replacement: No Patient Given Instructions on How to Stop Smoking: No Second Hand Smoke Exposure: No Use of substances other than those prescribed or required for medical reasons: No Currently Displaying Signs/Symptoms of Drug Intoxication Withdrawal: No Any prior treatment program specific to substance use: No Have you been hit, kicked, punched, or otherwise hurt by someone within the past year? If so, by whom?: No Do you feel safe in your current relationship?: Yes Is there a partner from a previous relationship who is making you feel unsafe now?: No Are you made to feel afraid or neglected: No Advance Directives: No Advance Directives Information Provided: Yes Advance Directives on File: No Recently lost weight without trying: No How much weight loss: Unsure Eating poorly because of decreased appetite: Yes Nutrition screen score: 3 Nutrition Risks: No Nutritional Risk Patient : No : No Poor oral hygiene: No service: No Meds Allergies Allergy/AdvReac Type Severity Reaction Status Date / Time No Known Allergies Allergy Verified 10/01/24 07:56 Active Medications: Current Medications Acetaminophen (Acetaminophen 325 Mg Tablet) 650 mg PO Q6H PRN PRN Reason: Pain, Mild (Pain Scale 1-3), fever or headache Last Admin: 10/04/24 10:52 Dose: 650 mg Albuterol Sulfate (Albuterol Sulfate 90 Mcg 8 Gm Inhaler) 2 puff INHALE Q6H PRN PRN Reason: shortness of breath or wheezing Albuterol/Ipratropium (Albuterol/Iprat 2.5/0.5mg 3 Ml Ampul.Neb) 3 ml INHALE RQ4H WHILE AWAKE REPLACED BY [facility] Last Admin: 10/04/24 12:09 Dose: 3 ml Calcium Carbonate (Calcium Carbonate 750 Mg Tab.Chew) 750 mg PO Q4H PRN PRN Reason: Heartburn Last Admin: 10/02/24 09:34 Dose: 750 mg Calcium Carbonate (Calcium Oyster Shell Elemental 500 Mg Tablet) 500 mg PO DAILY REPLACED BY [facility] Last Admin: 10/04/24 08:20 Dose: 500 mg Ceftriaxone Sodium (Ceftriaxone Sodium 1 Gm Vial) 1 gm IVPUSH Q24H REPLACED BY [facility] Last Admin: 10/04/24 12:49 Dose: 1 gm Diphenhydramine HCl (Diphenhydramine Hcl 25 Mg Capsule) 25 mg PO Q6H PRN PRN Reason: Itching Last Admin: 10/04/24 10:52 Dose: 25 mg Docusate Sodium (Docusate Sodium 100 Mg/10 Ml Liquid) 100 mg PO BID REPLACED BY [facility] Last Admin: 10/04/24 08:29 Dose: Not Given Enoxaparin Sodium (Enoxaparin Sodium 40 Mg/0.4 Ml Syringe) 40 mg SUBCUT Q24H REPLACED BY [facility] Last Admin: 10/03/24 17:25 Dose: 40 mg Furosemide (Furosemide 40 Mg/4 Ml Vial) 40 mg IVPUSH DAILY REPLACED BY [facility]; Protocol Last Admin: 10/04/24 08:30 Dose: 40 mg Gabapentin (Gabapentin 300 Mg Capsule) 300 mg PO TID REPLACED BY [facility] Last Admin: 10/04/24 08:19 Dose: 300 mg Azithromycin 500 mg/ Sodium (Chloride) 250 mls @ 125 mls/hr IV Q24H REPLACED BY [facility] Last Infusion: 10/04/24 13:24 Dose: 0 mls/hr Magnesium Hydroxide (Milk Of Magnesia 30 Ml Oral.Susp) 30 ml PO DAILY PRN PRN Reason: Constipation Last Admin: 10/02/24 17:07 Dose: 30 ml Melatonin (Melatonin 3 Mg Tablet) 6 mg PO BEDTIME PRN PRN Reason: Insomnia Last Admin: 10/03/24 20:01 Dose: 6 mg Ondansetron HCl (Ondansetron Hcl 4 Mg/2 Ml Vial) 4 mg IVPUSH Q8H PRN PRN Reason: Nausea and Vomiting Oxycodone HCl (Oxycodone Hcl Immed Release 15 Mg Tablet) 15 mg PO QID PRN PRN Reason: Pain, Severe (Pain Scale 7-10) Last Admin: 10/04/24 13:05 Dose: 15 mg Polyethylene Glycol (Polyethylene Glycol 3350 17 Gm Powd.Pack) 17 gm PO DAILY REPLACED BY [facility] Last Admin: 10/04/24 08:30 Dose: Not Given Sodium Biphosphate/Sodium Phosphate (Sodium Phosphate,[place]-Dibasic 133 Ml Enema) 133 ml MO ONCE PRN PRN Reason: Constipation Sodium Chloride (0.9 % Sodium Chloride Flush 3 Ml Syringe) 3 ml IVFLUSH QSHIFT REPLACED BY [facility] Last Admin: 10/04/24 08:23 Dose: 3 ml Vancomycin HCl (Vancomycin Hcl 125 Mg Capsule) 125 mg PO Q6H REPLACED BY [facility] Last Admin: 10/04/24 08:19 Dose: 125 mg Vitamin D (Cholecalciferol (Vitamin D3) 25 Mcg Tablet) 25 mcg PO DAILY REPLACED BY [facility] Last Admin: 10/04/24 08:19 Dose: 25 mcg Home Medications ?Medication ?Instructions ?Recorded ?Confirmed ?Last Taken ?Type gabapentin 300 mg capsule 300 mg PO TID 10/18/23 10/01/24 09/30/24 History calcium carbonate 500 mg PO DAILY 10/23/23 10/01/24 09/30/24 History cholecalciferol (vitamin D3) 25 25 mcg PO DAILY 10/23/23 10/01/24 09/30/24 History mcg (1,000 unit) tablet (Vitamin D3) albuterol sulfate 90 mcg/actuation 2 puff inhalation Q6H PRN 10/01/24 10/01/24 Unknown History aerosol inhaler (Ventolin HFA) shortness of breath or wheezing epinephrine 0.125 mg/actuation 1 puff inhalation Q4H PRN 10/01/24 10/01/24 Unknown History aerosol inhaler Shortness Of Breath Or Wheezing oxycodone 15 mg tablet 15 mg PO QID PRN pain 10/01/24 10/01/24 Unknown History Physical Exam 2 Vital Signs: Vital Signs: Last Vital Signs Temp 97.1 F 10/04/24 07:32 Pulse 67 10/04/24 12:11 Resp 18 10/04/24 12:11 BP 117/61 10/04/24 07:32 Pulse Ox 95 10/04/24 07:32 O2 Del Method Room Air 10/04/24 07:32 BMI result Body Mass Index 34.6 Const: General: cooperative HEENT: Head: Yes normal to inspection Face and sinus: Yes normal facial exam Mouth: Normal oral and palatal mucosa present Teeth and gingiva: d entition normal Eyes: General: appearance normal, both eyes and all related structures P upils: Equal, round and reactive pupils present Resp: Effort & Inspection: normal respiratory effort Cardio: Rate: regular rate Rhythm: regular rhythm GI: Palpation (GI): Soft to palpation and nontender : General: Yes no CVA tenderness Back/Spine/Pelvis: Back: no CVA tenderness Skin: Other: some scabs in various state of healing on arms possible venous stasis LE Neuro: General: moves all extremities Cranial nerves: Yes Equal, round and reactive pupils present Extrem: General: Yes normal to inspection Psych: Appearance: grossly normal Results Labs 10/01/24 08:47 10/02/24 06:36 Microbiology Microbiology Results: Microbiology 10/01/24 12:28 Blood - Venous Blood Culture - Preliminary No growth after 48 hours. 10/01/24 12:28 Blood - Venous Blood Culture - Preliminary No growth after 48 hours. Assessment and Plan (1) Constipation: Status: Acute (2) Pneumonia: Status: Acute Plan She has not been on oxygen and is stable . She can switch to po Ceftin and Zmax, 8 days. 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 There are no signs of scabies. Can give topical steroids to areas.
--- NOTE | 2024-10-04 14:55 | PM.DS ---
DS: Providers Provider Date of Service: 10/04/24 Date of admission: 10/03/24 08:53 Date of discharge: 10/04/24 Primary care physician: Emilee Lopez MD Consults: 10/02/24 10:24 Consult to General Surgery Routine Consulting [place] [facility] Reason for consultation: abd distension 10/03/24 08:03 Consult to Infectious Diseases Routine Consulting Provider: [facility] Reason for consultation: rash ,pneumonia Has provider been notified: No DS: Diagnosis Discharge Diagnosis (1) Constipation: Status: Acute (2) Pneumonia: Status: Acute DS: Summary Hospital Course Hospital Course: admission hpi Abd pain Pt is a 68-year-old female with a PMH significant for mild intermittent asthma, peripheral neuropathy, GERD, chronic back pain on chronic opioids, and hx of gastric bypass?who presents to the ED with?multiple complaints, but especially intractable nausea and lower abdominal pain. Patient previously presented to the ED yesterday evening with similar complaints and was diagnosed with a UTI and possible scabies, and was discharged home on cefuroxime and permethrin. Patient reports abdominal pain worsened last night after she went home. This morning symptoms continue to worsen and she also developed increased shortness of breath which prompted her to re-presented to the ED today. Patient states she has neither been eating or had a bowel movement for the past 4 days. Has been ?extremely? nauseous during this time without vomiting. Reports mild dysuria and ?strong smelling? urine, though has been going less than normal. Patient also reports has been itching bilateral upper shoulders and lower right extremity with the past few days. Patient lives alone with no known recent sick contacts. Reports does get her laundry service outside of the home. No chest pain/pressure, palpitations. Denies significant cough above baseline. Patient reports last night applied her permethrin, but only to areas of pruritus: her shoulders and right leg. In the ED pt was hypertensive up to 156/63, vitals otherwise stable and WNL, satting at 98% on RA. Labs were grossly unremarkable and unchanged from yesterday's. No leukocytosis. Stable H&H. No significant electrolyte abnormalities. Renal function baseline. Mildly transaminitis and baseline. BNP chronically elevated at 162. UA from yesterday not convincingly positive for UTI. Urine from today negative for UTI. Tested negative for flu, COVID, RSV. CXR showed right middle lobe patchy opacity question of infiltrate vs atelectasis. CT of abdomen and pelvis showing mild constipation but no acute intra-abdominal process. EKG demonstrated sinus bradycardia of 52 without evidence of significant ischemia. Pt was treated with DuoNebs, Solu-Medrol, ketorolac, oxycodone, ceftriaxone, and azithromycin. Pt will be admitted to the hospital under observation for intractable nausea, abdominal pain, and inability to tolerate p.o. intake. Hospital coruse: C dif--will treate with Vancomycin for 10 days. possible mild bronchitls vs atlactasis vs pneumonia treated in the ceftriaxone and azithro. She is no longer shob, O2 sat normal. Will change to Augmentin for 5 more days ?UTI--same abxo as above ?Scabies Pt with itching shoulders and right lower leg for the past few days Diagnosed with possible scabies last night in ED Poor application of permethrin at home Permethrin reapplied correctly in the ED Will need to re-apply permetrin to whole body from scalp Id eval added for above . Asthma Not in acute exacerbation Continue home inhalers Peripheral neuropathy Continue gabapentin Time Attestation Discharge Coordination Time (in mins): 35 Quality: Safe Use of Opioids Does Pt have an Active Cancer Diagnosis on the Problem List?: No Quality: Stroke Does the patient have a stroke diagnosis?: No Physical Exam Vital Signs: Vital Signs: Last Vital Signs Temp 97.1 F 10/04/24 07:32 Pulse 67 10/04/24 12:11 Resp 18 10/04/24 12:11 BP 117/61 10/04/24 07:32 Pulse Ox 95 10/04/24 07:32 O2 Del Method Room Air 10/04/24 07:32 BMI result Body Mass Index 34.6 Const: Other: General: AO X 3, no acute distress Resp: CTA bilateral CVS: S1,S2,RRR GI: +BS, NT, no distention Skin: No rash Neuro: motor grossly intact Psych: appropriate affect DS: Data Data Completed and Pending Completed studies during hospitalization [Text1]: Procedures Introduction of Remdesivir Anti-infective into Peripheral Vein, Percutaneous Approach, [employer] 5 (10/23/23) Labs on day of discharge: Laboratory Results - last 24 hr 10/03/24 22:31 Stl C. cayetanensis PCR Not Detected Stool Rotavirus A PCR Not Detected Stl Adenov F 40/41 PCR Not Detected Stool Astrovirus (PCR) Not Detected Stool Campylobacter PCR Not Detected Stool Cryptosporidium PCR Not Detected Stl Sh Tox Pr E STEC PCR Not Detected Stool E coli O157 PCR Not applicable Stl Enterotoxigenic E PCR Not Detected Stool EPEC (PCR) Not Detected Stool EAEC (PCR) Not Detected Stl E. histolytica PCR Not Detected Stool Giardia Lamblia PCR Not Detected Stl P. shigelloides PCR Not Detected Stool Salmonella PCR Not Detected Stool Sapovirus (PCR) Not Detected Stl Shigella/EIEC PCR Not Detected St Y.enterocolitica PCR Not Detected Stool Vibrio (PCR) Not Detected Stl Vibrio cholerae PCR Not Detected Stl Norovirus GI/GII PCR Not Detected C. difficile Tox B Gene POSITIVE A* C. difficile Toxin A&B Negative C. difficile Interpret SEE NOTE Preliminary micro results at discharge 10/01/24 12:28 Blood Culture - Preliminary Blood - Venous No growth after 48 hours. 10/01/24 12:28 Blood Culture - Preliminary Blood - Venous No growth after 48 hours. Discharge Plan Discharge Anticipated Discharge Date/Time: 10/04/24 13:59 Patient Disposition: Home, Self-Care Discharge Diagnosis: C dif, pneumonia Referrals: Emilee Lopez MD [Primary Care Provider] - 1 Week Discharge Medications: New docusate sodium 50 mg/5 mL Liquid 100 mg PO BID Qty: 30 0RF magnesium hydroxide [Milk of Magnesia] 400 mg/5 mL Suspension 30 ml PO DAILY PRN (Reason: Constipation) Qty: 200 0RF amoxicillin-pot clavulanate 875-125 mg tablet 1 tab PO BID Qty: 10 0RF vancomycin 125 mg Capsule 125 mg PO Q6H Qty: 46 0RF Continued albuterol sulfate [Ventolin HFA] 90 mcg/actuation HFA aerosol inhaler 2 puff inhalation Q6H PRN (Reason: shortness of breath or wheezing) epinephrine 0.125 mg/actuation Hfa Aerosol Inhaler 1 puff INHALATION Q4H PRN (Reason: Shortness Of Breath Or Wheezing) Rx Instructions: may repeat once after 1 minute; do not exceed 8 inhalations per 24 hrs oxycodone 15 mg tablet 15 mg PO QID PRN (Reason: pain) gabapentin 300 mg capsule 300 mg PO TID calcium carbonate 500 mg calcium (1,250 mg) Tablet 500 mg PO DAILY cholecalciferol (vitamin D3) [Vitamin D3] 25 mcg (1,000 unit) Tablet 25 mcg PO DAILY cefuroxime axetil 250 mg tablet 250 mg PO BID 7 Days Qty: 14 0RF Rx Instructions: END DATE: 10/06/24 permethrin 5 % cream 1 appl topical Q14D Qty: 60 0RF Rx Instructions: apply second treatment 14 days after first treatment if live lice remain Discharge Orders: Discharge Order (Routine); Ordered 10/04/24 Ordered By: Michele Dong Diet: Advance to usual diet Activity on Discharge: As tolerated Stand Alone Forms: Patient Portal Discharge page Print Language: Chinese Care Plan Goals: recovery from cdif Health Concerns: cdif Plan of Treatment: take Vancomycin for cdif take Augmentin for pneumonia follow up with your Doctor in a week Assessment: sc
[2024-10-04 15:15] VITALS: BP 103/51; PULSE 69; RESP 20; TEMP 37; O2SAT 94
--- NOTE | 2024-10-04 15:30 | MHC.CM.PN ---
DP: PT HAS BEEN MEDICALLY CLEARED FOR DC HOME, NO SERVICES. PT STATES SON WILL TRANSPORT HOME
[2024-10-04] MEDS: Ondansetron ODT 4 MG TAB.RAPDIS TRANSLINGU (16:24)
== END 2024-10-04 17:15 | disposition home or self-care (01) | DRG 194 ==
LOC: HO.ED 10:32 → HO.EDOVER 14:20 → HO.S3 10-02 07:42
PROVIDERS: Physician Assistant; Student in an Organized Health Care Education/Training Program; Admitting Provider Student in an Organized Health Care Education/Training Program; Emergency Provider Emergency Medicine; PCP Internal Medicine Endocrinology, Diabetes & Metabolism; Visit Provider Internal Medicine
DX: J18.9 Pneumonia, unspecified organism (principal); A04.72 Enterocolitis due to Clostridium difficile, not specified as recurrent; J98.11 Atelectasis; J45.20 Mild intermittent asthma, uncomplicated; Z98.84 Bariatric surgery status; G62.9 Polyneuropathy, unspecified; M54.9 Dorsalgia, unspecified; K59.00 Constipation, unspecified; G89.29 Other chronic pain; B86 Scabies; Z20.822 Contact with and (suspected) exposure to COVID-19; Z79.891 Long term (current) use of opiate analgesic; Z79.899 Other long term (current) drug therapy
CPT/HCPCS: 0241U; 36415; 71046; 74177; 80048; 80076; 81001; 81003; 83690; 83735; 83880; 84484; 85025; 87040; 87086; 87324; 87493; 87507; 93005; 94640; 99221; 99285; J0456; J0696; J1650; J1885; J1940; J2405; J2919; J7120; Q9967

== ENCOUNTER → 2024-10-01 08:14 | Outpatient (BNV) | payer MEDICARE, MEDICAID, SELFPAY | PROVIDERS: Emergency Provider Emergency Medicine; PCP Internal Medicine Endocrinology, Diabetes & Metabolism; Visit Provider Internal Medicine Cardiovascular Disease | DX: R94.31 Abnormal electrocardiogram [ECG] [EKG] (principal) | CPT/HCPCS: 93010 ==

== ENCOUNTER → 2024-10-01 14:06 | Outpatient (BNV) | payer MEDICARE, MEDICAID, SELFPAY | PROVIDERS: Admitting Provider Student in an Organized Health Care Education/Training Program; Emergency Provider Emergency Medicine; PCP Internal Medicine Endocrinology, Diabetes & Metabolism; Visit Provider Surgery | DX: R10.9 Unspecified abdominal pain (principal) | CPT/HCPCS: 99222; 99232; 99499 ==

== ENCOUNTER → 2024-10-01 14:06 | Outpatient (BNV) | payer MEDICARE, MEDICAID, SELFPAY | PROVIDERS: Admitting Provider Student in an Organized Health Care Education/Training Program; Emergency Provider Emergency Medicine; PCP Internal Medicine Endocrinology, Diabetes & Metabolism; Visit Provider Student in an Organized Health Care Education/Training Program | DX: R10.9 Unspecified abdominal pain (principal); K59.00 Constipation, unspecified | CPT/HCPCS: 99222; 99231; 99499 ==

== ENCOUNTER → 2024-10-03 08:53 | Outpatient (BNV) | payer MEDICARE, MEDICAID, SELFPAY | PROVIDERS: Admitting Provider Student in an Organized Health Care Education/Training Program; Emergency Provider Emergency Medicine; PCP Internal Medicine Endocrinology, Diabetes & Metabolism; Visit Provider Internal Medicine | DX: K59.00 Constipation, unspecified (principal); J18.9 Pneumonia, unspecified organism | CPT/HCPCS: 99222 ==

== ENCOUNTER 2024-10-23 20:34 | Emergency (ER) | payer MEDICARE, MEDICAID, SELFPAY ==
--- NOTE | 2024-10-23 | ECG_ITS ---
Test Reason : SOB Blood Pressure : / mmHG Vent. Rate : 063 BPM Atrial Rate : 063 BPM P-R Int : 136 ms QRS Dur : 094 ms QT Int : 474 ms P-R-T Axes : 059 004 033 degrees QTc Int : 485 ms Artifact in tracing Normal sinus rhythm probably normal EKG When compared with ECG of 01-OCT-2024 08:37, No significant change was found Referred By: Generic ED Physician Electronically Signed By:PERRY MATTA
--- NOTE | ~2024-10-23 | XR_ITS ---
CLINICAL HISTORY: sob 1 view chest x-ray Comparison: CR/SR - XR CHEST 2V - 10/01/24 09:22 EST Findings: Low lung volumes. No effusion or pneumothorax. Heart size is normal. No acute fracture. IMPRESSION: 1. No acute findings. This document has been electronically signed by: Erasmo Mariano MD on 10/23/2024 22:14:28
[2024-10-23 20:36] VITALS: BP 143/70; BP 170/92; PULSE 64; PULSE 70; RESP 20; TEMP 36.4; O2SAT 97; O2SAT 98; BMI 37.6
[2024-10-23 20:56] LABS: MANUAL DIFF FLAG NO
[2024-10-23 20:58] LABS: Basophils Absolute Auto 0.1 X10*3/uL (0.0-0.2); Basophils Percent Auto 0.7 % (0-2); Eosinophils Absolute Auto 0.1 X10*3/uL (0.0-0.4); Eosinophils Percent Auto 0.7 % (0-4); Hemoglobin 12.3 g/dl (12.0-16.0); Imm Gran Abs Auto 0.04 X10*3/uL (0.00-0.03); Imm Gran Pct Auto 0.4 % (0.0-0.4); Lymphocytes Absolute Auto 1.2 X10*3/uL (1.2-4.9); Lymphocytes Percent Auto 11.4 % (20-40); Mean Corpuscular HGB Conc 34.2 g/dl (31.0-35.0); Mean Corpuscular Hemoglobin 32.5 pg (27.0-33.0); Mean Corpuscular Volume 95.2 fL (80.0-98.0); Mean Platelet Volume 8.2 fL (9.4-12.3); Monocytes Absolute Auto 0.5 X10*3/uL (0.1-1.2); Monocytes Percent Auto 4.7 % (2-11); Neutrophils Absolute Auto 8.7 x10*3/uL (2.0-8.3); Neutrophils Percent Auto 82.1 % (45-73); Platelet Count 319 X10*3/uL (160-400); Red Blood Count 3.78 X10*6/uL (4.20-5.50); Red Cell Distribution Width 13.8 % (11.0-16.0); White Blood Count 10.6 X10*3/uL (4.8-10.8)
--- OUTSIDE RECORDS SUMMARY | 2024-10-23 21:10 | XMS_ITS | Clinical Summary ---
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 ANALGESIC [...] on aerosol inhaler 10-30 00:00: 00 Yes [id number] 2 puff NEEDED 2 puff NEEDED (route: inhalation ) Med Classific ation: Respirato ry Therapy Agents B Complex-Vit arias B12 tablet 10-30 00:00: 00 Yes [id number] 1 tablet DAILY 1 tablet DAILY (route: oral) Med Classific ation: Electroly te Balance-N utritiona l Products calcium carbonate 200 mg calcium (500 mg) chewable tablet 10-30 00:00: 00 Yes [id number] 1 tablet DAILY 1 tablet DAILY (route: oral) Med Classific ation: Gastroint estinal Therapy Agents gabapentin 300 mg capsule 10-30 00:00: 00 Yes [id number] 1 capsule 3 TIMES DAILY 1 capsule 3 TIMES DAILY (route: oral) Med Classific ation: Central Nervous System Agents multivitami n tablet 10-30 00:00: 00 Yes [id number] 1 tablet DAILY 1 tablet DAILY (route: oral) Med Classific ation: Electroly te Balance-N utritiona l Products oxycodone 15 mg tablet 10-30 00:00: 00 Yes [id number] 1 tablet DIRECTED 1 tablet DIRECTED (route: oral) Med Classific ation: Analgesic , Anti-infl ammatory or Antipyret ic prednisone 20 mg tablet 10-29 00:00: 00 11-03 23:59 :00 No [id number] 2 tablet DAILY 2 tablet DAILY (route: oral) Med Classific ation: Endocrine Protonix 40 mg tablet,mary ann yed release 10-30 00:00: 00 Yes [id number] 1 tablet DAILY 1 tablet DAILY (route: oral) Med Classific ation: Gastroint estinal Therapy Agents Vancocin 125 mg capsule 10-29 00:00: 00 11-05 23:59 :00 No [id number] 1 capsule EVERY 6 HOURS 1 capsule EVERY 6 HOURS (route: oral) Med Classific ation: Anti-Infe ctive Agents Vitamin D3 25 mcg (1,000 unit) tablet 10-30 00:00: 00 Yes [id number] 1 tablet DAILY 1 tablet DAILY (route: [...] PRN VIRTUAL VISITS MAY BE PERFORMED UTILIZING [employer] SYSTEM TO OPTIMIZE SKILLED SERVICES FURNISHED ON THE PLAN OF CARE. SKILLED NURSE TO ESTABLISH SUPPORT MEASURES TO MINIMIZE RISK OF REHOSPITALIZATION, AND INSTRUCT PATIENT/CAREGIVER ON METHODS TO REDUCE AVOIDABLE HOSPITALIZATION. [code = START WEEK OF 11/01/23 VIRTUAL VISIT FREQUENCY: 1-6 PER WEEK X 3 WEEKS AND 6 PRN VIRTUAL VISITS MAY BE PERFORMED UTILIZING [employer] SYSTEM TO OPTIMIZE SKILLED SERVICES FURNISHED ON [...] CARE WILL BE ESTABLISHED THAT MEETS PATIENT'S ASSISTED NEEDS AND INCLUDES PATIENT GOAL FOR HOME [...] End Date/Time Encounter Type Admission Type Attending [facility] Care Department Encounter ID Discharge Date Discharge Status Discharge Condition Discharge Reason Percent Goals Met 2023-10-30 00:00:00 2023-12-22 00:00:00 Outpatient KATERIN FERNANDEZ [facility] [id number] 2023-12-22 00:00:00 DISCHARGE TO HOME OR SELF CARE INDEPENDEN T IN THE COMMUNITY GOALS MET ( ONLY) 96.88
--- OUTSIDE RECORDS SUMMARY | 2024-10-23 21:10 | XMS_ITS | Clinical Summary ---
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) USE OF OPIATE ANALGESIC Active 10-30 [...] on aerosol inhaler 10-30 00:00: 00 Yes [id number] 2 puff NEEDED 2 puff NEEDED (route: inhalation ) Med Classific ation: Respirato ry Therapy Agents B Complex-Vit arias B12 tablet 10-30 00:00: 00 Yes [id number] 1 tablet DAILY 1 tablet DAILY (route: oral) Med Classific ation: Electroly te Balance-N utritiona l Products calcium carbonate 200 mg calcium (500 mg) chewable tablet 10-30 00:00: 00 Yes [id number] 1 tablet DAILY 1 tablet DAILY (route: oral) Med Classific ation: Gastroint estinal Therapy Agents gabapentin 300 mg capsule 10-30 00:00: 00 Yes [id number] 1 capsule 3 TIMES DAILY 1 capsule 3 TIMES DAILY (route: oral) Med Classific ation: Central Nervous System Agents multivitami n tablet 10-30 00:00: 00 Yes [id number] 1 tablet DAILY 1 tablet DAILY (route: oral) Med Classific ation: Electroly te Balance-N utritiona l Products oxycodone 15 mg tablet 10-30 00:00: 00 Yes [id number] 1 tablet DIRECTED 1 tablet DIRECTED (route: oral) Med Classific ation: Analgesic , Anti-infl ammatory or Antipyret ic prednisone 20 mg tablet 10-29 00:00: 00 11-03 23:59 :00 No [id number] 2 tablet DAILY 2 tablet DAILY (route: oral) Med Classific ation: Endocrine Protonix 40 mg tablet,mary ann yed release 10-30 00:00: 00 Yes [id number] 1 tablet DAILY 1 tablet DAILY (route: oral) Med Classific ation: Gastroint estinal Therapy Agents Vancocin 125 mg capsule 10-29 00:00: 00 11-05 23:59 :00 No [id number] 1 capsule EVERY 6 HOURS 1 capsule EVERY 6 HOURS (route: oral) Med Classific ation: Anti-Infe ctive Agents Vitamin D3 25 mcg (1,000 unit) tablet 10-30 00:00: 00 Yes [id number] 1 tablet DAILY 1 tablet DAILY (route: [...] PRN VIRTUAL VISITS MAY BE PERFORMED UTILIZING [employer] SYSTEM TO OPTIMIZE SKILLED SERVICES FURNISHED ON THE PLAN OF CARE. SKILLED NURSE TO ESTABLISH SUPPORT MEASURES TO MINIMIZE RISK OF REHOSPITALIZATION, AND INSTRUCT PATIENT/CAREGIVER ON METHODS TO REDUCE AVOIDABLE HOSPITALIZATION. [code = START WEEK OF 11/01/23 VIRTUAL VISIT FREQUENCY: 1-6 PER WEEK X 3 WEEKS AND 6 PRN VIRTUAL VISITS MAY BE PERFORMED UTILIZING [employer] SYSTEM TO OPTIMIZE SKILLED SERVICES FURNISHED ON [...] CARE WILL BE ESTABLISHED THAT MEETS PATIENT'S LONGTERM NEEDS AND INCLUDES PATIENT GOAL FOR HOME [...] End Date/Time Encounter Type Admission Type Attending [facility] Care Department Encounter ID Discharge Date Discharge Status Discharge Condition Discharge Reason Percent Goals Met 2023-10-30 00:00:00 2023-12-22 00:00:00 Outpatient KATERIN FERNANDEZ [facility] [id number] 2023-12-22 00:00:00 DISCHARGE TO HOME OR SELF CARE INDEPENDEN T IN THE COMMUNITY GOALS MET ( ONLY) 96.88
--- OUTSIDE RECORDS SUMMARY | 2024-10-23 21:10 | XMS_ITS | Continuity of Care Document ---
Author Organization [facility] [address] [place] [address] Phone [phone] Care Team Providers Care Meat Puller Name Role Phone Emilee Lopez M.D. Care Team Informati on Lead Refiner [phone] Problems Active Problems Provider Date Asthma Emilee [...] M.D. Onset: 09/16/2022 Posttraumatic stress disorder Emilee bha M.D. 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 04/27/2024 Arnuity Nfxvdww277bvx/Act Aerosol Inhale 1 puff by mouth every day 30units Emilee Lopez M.D. 04/11/2024 [id number] Tablets take 1 tablet by mouth every day 90tabs Emilee Lopez M.D. 12/15/2023 Trazodone VIP41zl Tablets take 1/2-1 tablet by mouth daily at bedtime as needed 90tabs Emilee Lopez M.D. 11/06/2023 Fluticasone Propionate Nasal [place] 24- Tope76chw/Act Suspension 2 sprays each nostril every day as needed 1units Emilee Lopez M.D. 11/06/2023 Srjbxedmlk971sm Capsules take one capsule by mouth three times daily 360caps Emilee Lopez M.D. 08/28/2022 Oxycodone GAD83ln Tablets Take 1 tablet every 6 hours prn Theron Osorio, Ventolin OOK946(90Base) mcg/Act Aerosol Inhale 2 Puffs By Mouth Four Times Daily as Needed 18units J45.909 Noe Beck M.D. Pantoprazole Pcfxck77rd Tablets DR take 1 tablet by mouth every day 90tabs Emilee Lopez M.D. Multivitamin Adults 50+Adlt 50+ Tablets 1 by mouth every day Emilee Lopez M.D. KP Ferrous Jpzzkuc078(65Fe) mg Tablets 1 by mouth every day Emilee Lopez M.D. Calcium 600 + R662-9ep-spw Tablets 1 by mouth every day Emilee Lopez M.D. Eql Vitamin B-12 [id number] Tablets ER 1 by mouth every day Emilee Lopez M.D. Uctlywx781jy Capsules 1-2 every 6 hours as needed Emilee Lopez M.D. History Medications Cylppratktp216zt Tablets 1 tab by mouth twice a [...] 52 ng/mL 15-150 Comprehensive Metabolic Panl 11/06/2023 [facility] Glucose 96 mg/dL (70-99) BUN [...] ML/MIN/1. 73M2 2 Comprehensive Metabolic Panl 09/16/2022 [facility] Glucose 84 mg/dL (70-99) BUN [...] ML/MIN/1. 73M2 3 Laboratory test finding 09/16/2022 [facility] Hemoglobin A1c 5.3 % (4.0-5.6 ) 4 Lipid Panel 09/16/2022 [facility] Cholesterol, Total 192 mg/dL (<200) Triglyceride 52 mg/dL (<150) HDL Chol 112 mg/dL (>39) LDL Cholesterol , Calculated 70 mg/dL (0-130) Non HDL Cholesterol (Calc) 80 mg/dL (<160) Complete Abc With Diff 09/16/2022 [facility] WBC 8.0 K/MM3 (4.0-11. 0) [...] ) Lymph # 1.2 K/MM3 (0.8-3.1 ) [place]# 0.6 K/MM3 (0.4-0.9 ) Eo # 0.2 K/MM3 (0.0-0.4 ) Baso # 0.1 K/MM3 (0.0-0.1 ) Abs. Imm Gran 0.0 K/MM3 Neut 72.7 % (44-76) Lymph 15.3 % (15-43) Monocyte 7.3 % (4.5-10. 5) Eo 3.0 % (0-6) Baso 1.4 % (0-2) Imm Gran 0.3 % Laboratory test finding 09/16/2022 [facility] TSH With Reflex To FT4 [...] with health care provider. DIAGNOSTIC USE: The [place] [employer] (ADA) and the World Health [...] 1 Procedures Date Code Description Status 03/02/2024 76599 Collection Of Venous Blood B y Venipuncture Completed 11/06/2023 07470 Collection Of Venous Blood B y Venipuncture Completed 07/08/2023 NSHOWOFF No Show Office Visit Complet ed 09/16/2022 34798 Collection Of Venous Blood B y Venipuncture [...] Reason for Referral Status Appt [facility] ADEMA, ELAVATED PROBNP C losed 11/14/[address] [place] [address] [address] [place] [address] [phone]
[2024-10-23 21:12] LABS: Alanine Aminotransferase 13 U/L (0-31); Albumin Level 3.4 g/dL (3.5-5.0); Alkaline Phosphatase 72 U/L (39-117); Anion Gap 19 (12-20); Aspartate Amino Transferase 25 U/L (5-31); Bilirubin Total 0.5 mg/dL (0.0-1.0); Blood Urea Nitrogen 13 mg/dL (9-16); Calcium 8.5 mg/dL (8.4-10.2); Carbon Dioxide 21 mmol/L (22-29); Chloride 104 mmol/L (96-108); Estimated Glomerular Filt Rate > 60; Glucose Random 88 mg/dL (60-115); Potassium 3.6 mmol/L (3.3-5.1); Sodium 140 mmol/L (135-145); Total Protein 6.1 g/dL (6.5-8.0)
[2024-10-23 21:18] LABS: B Type Natriuretic Peptide 827 pg/mL (<100)
[2024-10-23 21:20] LABS: Troponin-I High Sensitivity 14.6 ng/L (<3.5-17.0)
[2024-10-23 21:34] LABS: Influenza A PCR NEGATIVE (Negative); Influenza B PCR NEGATIVE (Negative); Resp Syncy Virus RNA Qual PCR NEGATIVE (Negative); SARS COV2 PCR INHOUSE NEGATIVE (Negative)
--- NOTE | 2024-10-23 21:34 | ED_ITS ---
HPI - General Adult General Chief complaint: General Medical Stated complaint: sob since this am, dark colored diarrhea Time Seen by Provider: 10/23/24 21:26 Source: patient Mode of arrival: ambulatory Limitations: no limitations History of Present Illness ED Provider: HPI narrative: Patient with history of asthma peripheral neuropathy got chronic back pain status post gastric bypass comes here for watery darker stool all day today with increased shortness of breath also has some nausea no vomiting, patient has just discharged on 10/04 with C diff was doing much better symptoms started today with diffuse abdominal cramps denies any chest pain no fever no chills Related Data Home Medications ?Medication ?Instructions ?Recorded ?Confirmed gabapentin 300 mg capsule 300 mg PO TID 10/18/23 10/01/24 calcium carbonate 500 mg PO DAILY 10/23/23 10/01/24 cholecalciferol (vitamin D3) 25 25 mcg PO DAILY 10/23/23 10/01/24 mcg (1,000 unit) tablet (Vitamin D3) albuterol sulfate 90 mcg/actuation 2 puff inhalation Q6H PRN 10/01/24 10/01/24 aerosol inhaler (Ventolin HFA) shortness of breath or wheezing epinephrine 0.125 mg/actuation 1 puff inhalation Q4H PRN 10/01/24 10/01/24 aerosol inhaler Shortness Of Breath Or Wheezing oxycodone 15 mg tablet 15 mg PO QID PRN pain 10/01/24 10/01/24 Previous Rx's ?Medication ?Instructions ?Recorded cefuroxime axetil 250 mg tablet 250 mg PO BID 7 days #14 tabs 09/30/24 permethrin 5 % topical cream 1 appl topical Q14D 2 doses #60 09/30/24 grams docusate sodium 50 mg/5 mL oral 100 mg (10 mL) PO BID #30 mL 10/03/24 liquid magnesium hydroxide 400 mg/5 mL 30 ml PO DAILY PRN Constipation 10/03/24 oral suspension (Milk of Magnesia) #200 mL amoxicillin 875 mg-potassium 1 tab PO BID #10 tabs 10/04/24 clavulanate 125 mg tablet ondansetron 4 mg disintegrating 4 mg PO Q8H PRN nausea and 10/04/24 tablet vomiting #20 tabs vancomycin 125 mg capsule 125 mg PO Q6H #46 caps 10/04/24 Allergies Allergy/AdvReac Type Severity Reaction Status Date / Time No Known Allergies Allergy Verified 10/23/24 20:40 Review of Systems 2 Review of Systems: Yes all other systems are reviewed and are negative [facility] Past Medical History Medical History Abdominal pain Peripheral neuropathy GERD (gastroesophageal reflux disease) Surgical History H/O gastric bypass Social History Social History Household Members: None Housing: Apartment Do you presently have visiting nurse or other home services: No Comment: N/A Patient Tobacco Use Status: Never used Tobacco Smoked in Last 30 Days: No e-Cigarette/Vaping Use: Never Used Second Hand Smoke Exposure: No Use of substances other than those prescribed or required for medical reasons: No Advance Directives: Yes Advance Directives on File: Yes Advance Directives Date on File: 10/05/24 Do you have a plan to hurt others: No Plan service: No Physical Exam ED Vital Signs: Vital Signs - 24 hr 10/23/24 20:36 10/23/24 22:26 10/23/24 22:30 Temperature 97.5 F 97.8 F Pulse Rate 64 63 60 Respiratory Rate 20 16 16 Blood Pressure 143/70 H 141/60 H Pulse Oximetry 97 97 Oxygen Delivery Method Room Air Room Air 10/24/24 02:44 Temperature 98.8 F Pulse Rate 62 Respiratory Rate 18 Blood Pressure 126/62 Pulse Oximetry 97 Oxygen Delivery Method Room Air BMI result Body Mass Index 37.6 Appearance: Alert. Oriented X3. No acute distress. Eyes: No pallor or icterus ENT: Pharynx normal. Oral Mucosa moist Neck: Normal inspection. Neck supple. CVS: Normal heart rate and rhythm. Pulses normal. Respiratory: No respiratory distress. Equal air entry bilateral, bilateral wheezing no crackles Abdomen: Soft and nontender. Bowel sounds are present, no mass palpable, no CVA tenderness Guaiac positive Skin: Skin warm and dry. Normal skin color. Normal skin turgor. Extremities:1+ lower extremity edema. No calf tenderness Neuro: Oriented X 3. No motor deficit. No sensory deficit.No cerebellar signs , cranial nerves II-XII intact Medications Administered Discontinued Medications Generic Name Dose Route Start Last Admin Trade Name Cindy PRN Reason Stop Dose Admin Albuterol Sulfate 2.5 mg/ 0 mg 10/23/24 21:46 10/23/24 22:29 Albuterol/Ipratropium 3 ml INHALE 10/23/24 21:47 1 dose ONCE ONE Administration Dicyclomine HCl 20 mg 10/23/24 23:52 10/24/24 00:26 Dicyclomine Hcl 10 Mg Capsule PO 10/23/24 23:53 20 mg ONCE ONE Administration Omeprazole 40 mg 10/24/24 02:20 10/24/24 02:28 Omeprazole 40 Mg Capsule. PO 10/24/24 02:21 40 mg ONCE ONE Administration Oxycodone HCl 15 mg 10/23/24 23:52 10/24/24 00:26 Oxycodone Hcl Immed Release 15 Mg Tablet PO 10/23/24 23:53 15 mg ONCE ONE Administration Medical Decision Making Medical Decision Making [facility] Narrative: Patient with acute diarrhea C diff is negative guaiac is positive but H&H is stable likely enteritis taking p.o. fluids feeling much better at this time will discharge patient home advised to drink plenty of fluids and follow with PCP report to ER if he gets worse patient did not have any bowel movement during stay in the ER after dicyclomine was given Differential Diagnosis Differential Diagnoses: The differential diagnosis associated with the presentation includes Admission/Observation Consideration of admission/observation: Escalation of care including admission/observation considered Lab Data [facility] Lab Attestation statement: I reviewed the patient's lab results. 10/24/24 00:27 10/23/24 20:51 Labs: Lab Results 10/23/24 10/23/24 10/24/24 Range/Units 20:51 22:09 00:27 WBC 10.6 (4.8-10.8) X10*3/uL RBC 3.78 L (4.20-5.50) X10*6/uL Hgb 12.3 12.1 (12.0-16.0) g/dl Hct 36.0 L 35.6 L (37.0-47.0) % MCV 95.2 (80.0-98.0) fL MCH 32.5 (27.0-33.0) pg MCHC 34.2 (31.0-35.0) g/dl RDW 13.8 (11.0-16.0) % Plt Count 319 (160-400) X10*3/uL MPV 8.2 L (9.4-12.3) fL Immature Gran % (Auto) 0.4 (0.0-0.4) % Neut % (Auto) 82.1 H (45-73) % Lymph % (Auto) 11.4 L (20-40) % [place] % (Auto) 4.7 (2-11) % Eos % (Auto) 0.7 (0-4) % Baso % (Auto) 0.7 (0-2) % Lymph # (Auto) 1.2 (1.2-4.9) X10*3/uL [place] # (Auto) 0.5 (0.1-1.2) X10*3/uL Eos # (Auto) 0.1 (0.0-0.4) X10*3/uL Baso # (Auto) 0.1 (0.0-0.2) X10*3/uL Abs Immat Gran (auto) 0.04 H (0.00-0.03) X10*3/uL Absolute Neuts (auto) 8.7 H (2.0-8.3) x10*3/uL Absolute Nucleated RBC 0.000 (0.0-0.012) X10*3/uL Nucleated RBC % (auto) 0.0 (0.0-0.2) /100WBC Sodium 140 (135-145) mmol/L Potassium 3.6 (3.3-5.1) mmol/L Chloride 104 (96-108) mmol/L Carbon Dioxide 21 L (22-29) mmol/L Anion Gap 19 (12-20) BUN 13 (9-16) mg/dL Creatinine 0.60 (0.5-1.4) mg/dL Estim Creat Clear Calc 98.0 Estimated GFR > 60 Random Glucose 88 (60-115) mg/dL Calcium 8.5 (8.4-10.2) mg/dL Total Bilirubin 0.5 (0.0-1.0) mg/dL AST 25 (5-31) U/L ALT 13 (0-31) U/L Alkaline Phosphatase 72 (39-117) U/L Troponin I High Sens 14.6 D (<3.5-17.0) ng/L B-Natriuretic Peptide 827 H (<100) pg/mL Total Protein 6.1 L (6.5-8.0) g/dL Albumin 3.4 L (3.5-5.0) g/dL Stool Occult Blood POSITIVE (NEGATIVE) C. difficile Tox B Gene NEGATIVE (Negative) Influenza Type A (PCR) NEGATIVE (Negative) Influenza Type B (PCR) NEGATIVE (Negative) RSV RNA Qual (PCR) NEGATIVE (Negative) SARS-CoV-2 RNA (RT-PCR) NEGATIVE (Negative) Blood Type A Positive Antibody Screen NEGATIVE Discharge Plan Discharge Clinical Impression: Diarrhea Patient Disposition: Home, Self-Care Prescriptions: No Action albuterol sulfate [Ventolin HFA] 90 mcg/actuation HFA aerosol inhaler 2 puff inhalation Q6H PRN (Reason: shortness of breath or wheezing) epinephrine 0.125 mg/actuation Hfa Aerosol Inhaler 1 puff INHALATION Q4H PRN (Reason: Shortness Of Breath Or Wheezing) Rx Instructions: may repeat once after 1 minute; do not exceed 8 inhalations per 24 hrs oxycodone 15 mg tablet 15 mg PO QID PRN (Reason: pain) docusate sodium 50 mg/5 mL Liquid 100 mg PO BID Qty: 30 0RF magnesium hydroxide [Milk of Magnesia] 400 mg/5 mL Suspension 30 ml PO DAILY PRN (Reason: Constipation) Qty: 200 0RF amoxicillin-pot clavulanate 875-125 mg tablet 1 tab PO BID Qty: 10 0RF vancomycin 125 mg Capsule 125 mg PO Q6H Qty: 46 0RF ondansetron 4 mg tablet,disintegrating 4 mg PO Q8H PRN (Reason: nausea and vomiting) Qty: 20 0RF gabapentin 300 mg capsule 300 mg PO TID calcium carbonate 500 mg calcium (1,250 mg) Tablet 500 mg PO DAILY cholecalciferol (vitamin D3) [Vitamin D3] 25 mcg (1,000 unit) Tablet 25 mcg PO DAILY cefuroxime axetil 250 mg tablet 250 mg PO BID 7 Days Qty: 14 0RF Rx Instructions: END DATE: 10/06/24 permethrin 5 % cream 1 appl topical Q14D Qty: 60 0RF Rx Instructions: apply second treatment 14 days after first treatment if live lice remain Print Language: Belarusian
--- NOTE | 2024-10-23 21:58 | PC.NURSE ---
pt biba from home, a&ox4, respirations even and unlabored. pt reporting x3 days of lower abdominal pain,black stools, shortness of breath and cough. pt denies any sick contacts at this time. pt reports she used her inhaler without relief. pt reports back in september she had cdiff and was treated for it. 20G placed in left ac. pt normal sinus on tele 84-88bpm.
[2024-10-23 22:24] LABS: OBS Int Ctl Valid YES; OBS1 POSITIVE (NEGATIVE)
[2024-10-23 22:26] VITALS: BP 141/60; PULSE 63; RESP 16; TEMP 36.6; O2SAT 97
[2024-10-23] MEDS: Albuterol Sulfate 2.5 MG, Albuterol/Iprat 2.5/0.5MG 3 ML 3 ML INHALE (22:29)
[2024-10-23 22:30] VITALS: PULSE 60; RESP 16; O2SAT 98
[2024-10-23 23:04] LABS: CDiff Gene PCR NEGATIVE (Negative)
[2024-10-24] MEDS: oxyCODONE HCl Immed Release 15 MG TABLET PO (00:26)
[2024-10-24] MEDS: Dicyclomine HCl 10 MG CAPSULE 20 MG PO (00:26)
[2024-10-24 00:31] LABS: Hematocrit 35.6 % (37.0-47.0); Hemoglobin 12.1 g/dl (12.0-16.0)
[2024-10-24] MEDS: Omeprazole 40 MG CAPSULE.DR PO (02:28)
[2024-10-24 02:44] VITALS: BP 126/62; PULSE 62; RESP 18; TEMP 37.1; O2SAT 97
[2024-10-24 04:57] VITALS: BP 138/70; PULSE 77; RESP 18; TEMP 36.9; O2SAT 97
--- NOTE | 2024-10-24 04:59 | PC.NURSE ---
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
[2024-10-24 06:03] VITALS: BP 138/70; PULSE 77; RESP 18; TEMP 36.9; O2SAT 97
[2024-10-24 10:05] LABS: Adenovirus F 40/41 Not Detected (Not Detect.); Astrovirus Not Detected (Not Detect.); Campylobacter Not Detected (Not Detect.); Cryptosporidium Not Detected (Not Detect.); Cyclospora cayetanensis Not Detected (Not Detect.); E. coli EAEC Not Detected (Not Detect.); E. coli EPEC Not Detected (Not Detect.); E. coli ETEC Not Detected (Not Detect.); E. coli STEC Not Detected (Not Detect.); Entamoeba histolytica Not Detected (Not Detect.); Giardia lamblia Not Detected (Not Detect.); Norovirus GI/GII Not Detected (Not Detect.); Plesiomonas shigelloides Not Detected (Not Detect.); Rotavirus A Not Detected (Not Detect.); Salmonella Not Detected (Not Detect.); Sapovirus Not Detected (Not Detect.); Shigella sp./EIEC Not Detected (Not Detect.); Vibrio Not Detected (Not Detect.); Vibrio Cholerae Not Detected (Not Detect.); Yersinia enterocolitica Not Detected (Not Detect.)
== END 2024-10-24 06:03 | disposition home or self-care (01) ==
PROVIDERS: Emergency Provider Internal Medicine; PCP Pediatrics Adolescent Medicine
DX: R06.02 Shortness of breath (principal); M54.50 Low back pain, unspecified; R60.0 Localized edema; R94.31 Abnormal electrocardiogram [ECG] [EKG]; R19.7 Diarrhea, unspecified; Z03.818 Encounter for observation for suspected exposure to other biological agents ruled out; Z98.84 Bariatric surgery status; Z79.899 Other long term (current) drug therapy
CPT/HCPCS: 0241U; 36415; 71045; 80053; 82272; 83880; 84484; 85014; 85018; 85025; 86850; 86900; 86901; 87493; 87507; 93005; 94640; 99284; 99285

== ENCOUNTER → 2024-10-23 20:49 | Outpatient (BNV) | payer MEDICARE, MEDICAID, SELFPAY | PROVIDERS: Emergency Provider Internal Medicine; PCP Pediatrics Adolescent Medicine; Visit Provider Internal Medicine | DX: R06.02 Shortness of breath (principal) | CPT/HCPCS: 93010 ==

== ENCOUNTER → 2024-10-23 21:35 | Outpatient (BNV) | payer MEDICARE, MEDICAID, SELFPAY | PROVIDERS: Emergency Provider Internal Medicine; PCP Pediatrics Adolescent Medicine; Visit Provider Radiology Diagnostic Radiology | DX: R06.02 Shortness of breath (principal) | CPT/HCPCS: 71045 ==

== ENCOUNTER 2024-10-28 21:50 | Emergency (ER) | payer MEDICARE, MEDICAID, SELFPAY ==
--- NOTE | ~2024-10-28 | XR_ITS ---
CLINICAL HISTORY: cough Chest X-ray, 1 View COMPARISON: CR - XR CHEST 1V - 10/23/24 21:26 EST FINDINGS: Consolidation obscuring the right heart border. No pleural effusion. No pneumothorax. No cardiomegaly. No acute fracture. Degenerative changes in the spine. IMPRESSION: Right middle lobe consolidation, which could be due to pneumonia. This document has been electronically signed by: Rohit Parra MD on 10/28/2024 23:53:25
[2024-10-28 21:59] VITALS: BP 160/96; PULSE 59; O2SAT 98
[2024-10-28 22:04] VITALS: BP 122/70; PULSE 53; RESP 18; TEMP 36.6; O2SAT 97
--- NOTE | 2024-10-28 22:17 | ED.NAVMDI ---
HPI - Nausea/Vomiting/Diarrhea General Chief complaint: Nausea/Vomiting/Diarrhea Stated complaint: CHEST DISCOMFORT, COUGH, DIARRHEA, BELTRAN Time Seen by Provider: 10/28/24 21:59 Source: patient Mode of arrival: EMS Limitations: no limitations History of Present Illness ED Provider: HPI Narrative: Patient's history of C diff admitted in 10/11 after that patient has repeated test which were negative for C diff patient's comes here as started having diarrhea again since yesterday had multiple bouts of diarrhea patient has multiple pain medication for chronic pain no fever no chills no blood in his stool Related Data Home Medications ?Medication ?Instructions ?Recorded ?Confirmed gabapentin 300 mg capsule 300 mg PO TID 10/18/23 10/01/24 calcium carbonate 500 mg PO DAILY 10/23/23 10/01/24 cholecalciferol (vitamin D3) 25 25 mcg PO DAILY 10/23/23 10/01/24 mcg (1,000 unit) tablet (Vitamin D3) albuterol sulfate 90 mcg/actuation 2 puff inhalation Q6H PRN 10/01/24 10/01/24 aerosol inhaler (Ventolin HFA) shortness of breath or wheezing epinephrine 0.125 mg/actuation 1 puff inhalation Q4H PRN 10/01/24 10/01/24 aerosol inhaler Shortness Of Breath Or Wheezing oxycodone 15 mg tablet 15 mg PO QID PRN pain 10/01/24 10/01/24 Previous Rx's ?Medication ?Instructions ?Recorded cefuroxime axetil 250 mg tablet 250 mg PO BID 7 days #14 tabs 09/30/24 permethrin 5 % topical cream 1 appl topical Q14D 2 doses #60 09/30/24 grams docusate sodium 50 mg/5 mL oral 100 mg (10 mL) PO BID #30 mL 10/03/24 liquid magnesium hydroxide 400 mg/5 mL 30 ml PO DAILY PRN Constipation 10/03/24 oral suspension (Milk of Magnesia) #200 mL amoxicillin 875 mg-potassium 1 tab PO BID #10 tabs 10/04/24 clavulanate 125 mg tablet ondansetron 4 mg disintegrating 4 mg PO Q8H PRN nausea and 10/04/24 tablet vomiting #20 tabs vancomycin 125 mg capsule 125 mg PO Q6H #46 caps 10/04/24 pantoprazole 40 mg tablet,delayed 40 mg PO DAILY #30 tabs 10/24/24 release (Protonix) loperamide 2 mg tablet 2 mg PO Q6H PRN loose stool #10 10/29/24 (Anti-Diarrheal (loperamide)) tabs Allergies Allergy/AdvReac Type Severity Reaction Status Date / Time No Known Allergies Allergy Verified 10/28/24 22:40 Review of Systems Review of Systems: Yes all other systems are reviewed and are negative PMFSH Past Medical History Medical History Abdominal pain Peripheral neuropathy GERD (gastroesophageal reflux disease) Surgical History H/O gastric bypass Social History Social History Household Members: None Housing: Apartment Do you presently have visiting nurse or other home services: No Comment: N/A Patient Tobacco Use Status: Never used Tobacco Smoked in Last 30 Days: No e-Cigarette/Vaping Use: Never Used Second Hand Smoke Exposure: No Use of substances other than those prescribed or required for medical reasons: No Advance Directives: Yes Advance Directives on File: Yes Advance Directives Date on File: 10/05/24 service: No Physical Exam Vital Signs: Vital Signs: Last Vital Signs Temp 97.8 F 10/29/24 01:30 Pulse 55 10/29/24 01:30 Resp 16 10/29/24 01:30 BP 163/92 H 10/29/24 01:30 Pulse Ox 98 10/29/24 01:30 O2 Del Method Room Air 10/29/24 01:30 BMI result Body Mass Index 34.0 Appearance: Alert. Oriented X3. No acute distress. Anxious Eyes: PERRLA, No Nystagmus ENT: Pharynx normal. Oral Mucosa moist Neck: Normal inspection. Neck supple. CVS: Normal heart rate and rhythm. Pulses normal. Respiratory: No respiratory distress. Equal air entry bilateral, no wheezing/rales/rhonchi Abdomen: Soft and nontender. Bowel sounds are present, no mass palpable, no CVA tenderness Skin: Skin warm and dry. Normal skin color. Normal skin turgor. Extremities: No lower extremity edema. No calf tenderness Neuro: Oriented X 3. No motor deficit. Medications Administered Discontinued Medications Generic Name Dose Route Start Last Admin Trade Name Cindy PRN Reason Stop Dose Admin Sodium Chloride 1,000 mls @ 999 mls/hr 10/28/24 22:17 10/29/24 01:23 Ns IV 10/28/24 23:17 Infused .Q1H1M ONE Infusion Loperamide HCl 2 mg 10/29/24 00:35 10/29/24 00:46 Loperamide Hcl 2 Mg Capsule PO 10/29/24 00:36 2 mg ONCE ONE Administration Oxycodone HCl 15 mg 10/28/24 23:59 10/29/24 00:05 Oxycodone Hcl Immed Release 15 Mg Tablet PO 10/29/24 00:00 15 mg ONCE ONE Administration Medical Decision Making Medical Decision Making [facility] Narrative: Patient has had 3 small loose bowels in the ER C diff test was negative patient is taking p.o. fluids feeling much better will discharge patient home prescribed Imodium Lab Data [facility] Lab Attestation statement: I reviewed the patient's lab results. 10/29/24 00:02 10/28/24 22:54 Labs: Lab Results 10/28/24 10/28/24 10/29/24 Range/Units 22:25 22:54 00:02 WBC 8.3 (4.8-10.8) X10*3/uL RBC 3.27 L (4.20-5.50) X10*6/uL Hgb 10.6 L (12.0-16.0) g/dl Hct 31.4 L (37.0-47.0) % MCV 96.0 (80.0-98.0) fL MCH 32.4 (27.0-33.0) pg MCHC 33.8 (31.0-35.0) g/dl RDW 14.1 (11.0-16.0) % Plt Count 373 (160-400) X10*3/uL MPV 8.5 L (9.4-12.3) fL Immature Gran % (Auto) 0.6 H (0.0-0.4) % Neut % (Auto) 76.1 H (45-73) % Lymph % (Auto) 13.8 L (20-40) % [place] % (Auto) 6.5 (2-11) % Eos % (Auto) 2.3 (0-4) % Baso % (Auto) 0.7 (0-2) % Lymph # (Auto) 1.2 (1.2-4.9) X10*3/uL [place] # (Auto) 0.5 (0.1-1.2) X10*3/uL Eos # (Auto) 0.2 (0.0-0.4) X10*3/uL Baso # (Auto) 0.1 (0.0-0.2) X10*3/uL Abs Immat Gran (auto) 0.05 H (0.00-0.03) X10*3/uL Absolute Neuts (auto) 6.4 (2.0-8.3) x10*3/uL Absolute Nucleated RBC 0.000 (0.0-0.012) X10*3/uL Nucleated RBC % (auto) 0.0 (0.0-0.2) /100WBC Sodium 139 (135-145) mmol/L Potassium 3.8 (3.3-5.1) mmol/L Chloride 115 H (96-108) mmol/L Carbon Dioxide 19 L (22-29) mmol/L Anion Gap 9 L (12-20) BUN 9 (9-16) mg/dL Creatinine 0.73 (0.5-1.4) mg/dL Estim Creat Clear Calc 76.2 Estimated GFR > 60 Random Glucose 102 (60-115) mg/dL Calcium 8.2 L (8.4-10.2) mg/dL Total Bilirubin 0.5 (0.0-1.0) mg/dL AST 32 H (5-31) U/L ALT 11 (0-31) U/L Alkaline Phosphatase 50 (39-117) U/L Total Protein 6.1 L (6.5-8.0) g/dL Albumin 3.3 L (3.5-5.0) g/dL C. difficile Tox B Gene NEGATIVE (Negative) Influenza Type A (PCR) NEGATIVE (Negative) Influenza Type B (PCR) NEGATIVE (Negative) RSV RNA Qual (PCR) NEGATIVE (Negative) SARS-CoV-2 RNA (RT-PCR) NEGATIVE (Negative) Discharge Plan Discharge Clinical Impression: Diarrhea Patient Disposition: Home, Self-Care Instructions: Acute Diarrhea (ED) Additional Instructions: Your C diff test is negative in your stool Drink plenty of fluids Take Imodium 1 tablet after every loose bowel movement, maximum 4 tablets in 24 hours Have yogurt and drink plenty of fluids Prescriptions: New loperamide [Anti-Diarrheal (loperamide)] 2 mg tablet 2 mg PO Q6H PRN (Reason: loose stool) Qty: 10 0RF No Action albuterol sulfate [Ventolin HFA] 90 mcg/actuation HFA aerosol inhaler 2 puff inhalation Q6H PRN (Reason: shortness of breath or wheezing) epinephrine 0.125 mg/actuation Hfa Aerosol Inhaler 1 puff INHALATION Q4H PRN (Reason: Shortness Of Breath Or Wheezing) Rx Instructions: may repeat once after 1 minute; do not exceed 8 inhalations per 24 hrs oxycodone 15 mg tablet 15 mg PO QID PRN (Reason: pain) docusate sodium 50 mg/5 mL Liquid 100 mg PO BID Qty: 30 0RF magnesium hydroxide [Milk of Magnesia] 400 mg/5 mL Suspension 30 ml PO DAILY PRN (Reason: Constipation) Qty: 200 0RF amoxicillin-pot clavulanate 875-125 mg tablet 1 tab PO BID Qty: 10 0RF vancomycin 125 mg Capsule 125 mg PO Q6H Qty: 46 0RF ondansetron 4 mg tablet,disintegrating 4 mg PO Q8H PRN (Reason: nausea and vomiting) Qty: 20 0RF pantoprazole [Protonix] 40 mg tablet,delayed release (DR/EC) 40 mg PO DAILY Qty: 30 0RF gabapentin 300 mg capsule 300 mg PO TID calcium carbonate 500 mg calcium (1,250 mg) Tablet 500 mg PO DAILY cholecalciferol (vitamin D3) [Vitamin D3] 25 mcg (1,000 unit) Tablet 25 mcg PO DAILY cefuroxime axetil 250 mg tablet 250 mg PO BID 7 Days Qty: 14 0RF Rx Instructions: END DATE: 10/06/24 permethrin 5 % cream 1 appl topical Q14D Qty: 60 0RF Rx Instructions: apply second treatment 14 days after first treatment if live lice remain Interventions: ED Discharge Assessment Last Done: 10/29/24 01:30 Discharge Date/Time: 10/29/24 03:13 Print Language: Mexican
[2024-10-28 22:38] VITALS: BP 122/70; PULSE 59; RESP 16; TEMP 36.6; O2SAT 98; BMI 34.0
[2024-10-28] MEDS: 0.9 % Sodium Chloride 1,000 ML 999 ML IV (23:18)
[2024-10-28 23:20] LABS: Alanine Aminotransferase 11 U/L (0-31); Albumin Level 3.3 g/dL (3.5-5.0); Alkaline Phosphatase 50 U/L (39-117); Anion Gap 9 (12-20); Aspartate Amino Transferase 32 U/L (5-31); Bilirubin Total 0.5 mg/dL (0.0-1.0); Blood Urea Nitrogen 9 mg/dL (9-16); Calcium 8.2 mg/dL (8.4-10.2); Carbon Dioxide 19 mmol/L (22-29); Chloride 115 mmol/L (96-108); Creatinine Clr Calc Pharmacy 76.2; Estimated Glomerular Filt Rate > 60; Glucose Random 102 mg/dL (60-115); Potassium 3.8 mmol/L (3.3-5.1); Sodium 139 mmol/L (135-145); Total Protein 6.1 g/dL (6.5-8.0)
[2024-10-28 23:24] LABS: Influenza A PCR NEGATIVE (Negative); Influenza B PCR NEGATIVE (Negative); Resp Syncy Virus RNA Qual PCR NEGATIVE (Negative); SARS COV2 PCR INHOUSE NEGATIVE (Negative)
[2024-10-28 23:45] LABS: CDiff Gene PCR NEGATIVE (Negative)
[2024-10-29] VITALS: BP 163/92; PULSE 55; RESP 16; TEMP 36.6; O2SAT 98
[2024-10-29] MEDS: oxyCODONE HCl Immed Release 15 MG TABLET PO (00:05)
[2024-10-29 00:13] LABS: Basophils Absolute Auto 0.1 X10*3/uL (0.0-0.2); Basophils Percent Auto 0.7 % (0-2); Eosinophils Absolute Auto 0.2 X10*3/uL (0.0-0.4); Eosinophils Percent Auto 2.3 % (0-4); Hematocrit 31.4 % (37.0-47.0); Hemoglobin 10.6 g/dl (12.0-16.0); Imm Gran Abs Auto 0.05 X10*3/uL (0.00-0.03); Imm Gran Pct Auto 0.6 % (0.0-0.4); Lymphocytes Absolute Auto 1.2 X10*3/uL (1.2-4.9); Lymphocytes Percent Auto 13.8 % (20-40); Mean Corpuscular HGB Conc 33.8 g/dl (31.0-35.0); Mean Corpuscular Hemoglobin 32.4 pg (27.0-33.0); Mean Platelet Volume 8.5 fL (9.4-12.3); Monocytes Absolute Auto 0.5 X10*3/uL (0.1-1.2); Monocytes Percent Auto 6.5 % (2-11); Neutrophils Absolute Auto 6.4 x10*3/uL (2.0-8.3); Neutrophils Percent Auto 76.1 % (45-73); Platelet Count 373 X10*3/uL (160-400); Red Blood Count 3.27 X10*6/uL (4.20-5.50); Red Cell Distribution Width 14.1 % (11.0-16.0); White Blood Count 8.3 X10*3/uL (4.8-10.8)
[2024-10-29 00:21] LABS: MANUAL DIFF FLAG NO
[2024-10-29] MEDS: Loperamide HCl 2 MG CAPSULE PO (00:46)
[2024-10-29 01:30] VITALS: BP 163/92; PULSE 55; RESP 16; TEMP 36.6; O2SAT 98
== END 2024-10-29 03:13 | disposition home or self-care (01) ==
PROVIDERS: Emergency Provider Internal Medicine; PCP Internal Medicine
DX: R19.7 Diarrhea, unspecified (principal); J45.909 Unspecified asthma, uncomplicated; Z03.818 Encounter for observation for suspected exposure to other biological agents ruled out
CPT/HCPCS: 0241U; 36415; 71045; 80053; 85025; 87493; 96360; 96361; 99284

== ENCOUNTER → 2024-10-28 22:18 | Outpatient (BNV) | payer MEDICARE, MEDICAID, SELFPAY | PROVIDERS: Emergency Provider Internal Medicine; PCP Internal Medicine Endocrinology, Diabetes & Metabolism; Visit Provider Radiology Diagnostic Radiology | DX: R91.8 Other nonspecific abnormal finding of lung field (principal) | CPT/HCPCS: 71045 ==

== ENCOUNTER 2024-12-02 11:12 | Emergency (ER) | payer MEDICARE, MEDICAID, SELFPAY ==
--- NOTE | ~2024-12-02 | US_ITS ---
EXAMINATION: US PELVIS TRANSABDOMINAL AND TRANSVAGINAL HISTORY: vaginal bleeding COMPARISON: There are no prior studies for comparison. TECHNIQUE: Transabdominal and endovaginal real-time 2D plata-scale ultrasound was performed. The transabdominal component is limited by lack of a full urinary bladder. The patient could not tolerate an endovaginal examination. FINDINGS: The uterus and ovaries are not identified. US/US pelvic and transvaginal IMPRESSION: Nondiagnostic examination as described. Electronically signed by: Damien Akers MD 12/02/2024 12:48 PM [facility] [place]
--- NOTE | 2024-12-02 11:30 | ED.FEMALEGU ---
HPI - Female Genitourinary General Chief complaint: Vaginal Bleeding Stated complaint: VAGINAL BLEEDING PER EMS Time Seen by Provider: 12/02/24 11:19 Source: patient, EMS, RN notes reviewed and old records reviewed Mode of arrival: EMS Limitations: no limitations History of Present Illness ED Provider: Kimberley Goodwin PA-C HPI Narrative: 69-year-old female with history of asthma, chronic back pain on chronic opioids, history of gastric bypass, peripheral neuropathy, GERD, C diff colitis who presents to the ER via EMS for evaluation of vaginal bleeding. Patient reports at 03:00 she woke up and had a large blood clot come from her vagina and had significant vaginal bleeding. She was lightheaded and dizzy at the time. The bleeding has since stopped. She denies any pelvic or abdominal pain. No history of abnormal vaginal bleeding in the past. Has not seen her LICENSED PHYSICAL THERAPIST in several years. She is not on a blood thinner. She reports onset of menses at age 11 with menopause in her early 50s. MD elicited complaint: vaginal bleeding Onset (ago): hour(s) Location of symptoms: vaginal Severity: severe Female Urogenital Radiation: Non-Radiating Consistency: now resolved Vaginal discharge: none Vaginal bleeding: clots Exacerbating factors: urination Relieving factors: none Associated symptoms: headaches and chills Treatment prior to arrival: none Sexual activity: No Related Data Home Medications ?Medication ?Instructions ?Recorded ?Confirmed gabapentin 300 mg capsule 300 mg PO TID 10/18/23 10/01/24 calcium carbonate 500 mg PO DAILY 10/23/23 10/01/24 cholecalciferol (vitamin D3) 25 25 mcg PO DAILY 10/23/23 10/01/24 mcg (1,000 unit) tablet (Vitamin D3) albuterol sulfate 90 mcg/actuation 2 puff inhalation Q6H PRN 10/01/24 10/01/24 aerosol inhaler (Ventolin HFA) shortness of breath or wheezing epinephrine 0.125 mg/actuation 1 puff inhalation Q4H PRN 10/01/24 10/01/24 aerosol inhaler Shortness Of Breath Or Wheezing oxycodone 15 mg tablet 15 mg PO QID PRN pain 10/01/24 10/01/24 Previous Rx's ?Medication ?Instructions ?Recorded cefuroxime axetil 250 mg tablet 250 mg PO BID 7 days #14 tabs 09/30/24 permethrin 5 % topical cream 1 appl topical Q14D 2 doses #60 09/30/24 grams docusate sodium 50 mg/5 mL oral 100 mg (10 mL) PO BID #30 mL 10/03/24 liquid magnesium hydroxide 400 mg/5 mL 30 ml PO DAILY PRN Constipation 10/03/24 oral suspension (Milk of Magnesia) #200 mL amoxicillin 875 mg-potassium 1 tab PO BID #10 tabs 10/04/24 clavulanate 125 mg tablet ondansetron 4 mg disintegrating 4 mg PO Q8H PRN nausea and 10/04/24 tablet vomiting #20 tabs vancomycin 125 mg capsule 125 mg PO Q6H #46 caps 10/04/24 pantoprazole 40 mg tablet,delayed 40 mg PO DAILY #30 tabs 10/24/24 release (Protonix) loperamide 2 mg tablet 2 mg PO Q6H PRN loose stool #10 10/29/24 (Anti-Diarrheal (loperamide)) tabs Allergies Allergy/AdvReac Type Severity Reaction Status Date / Time No Known Allergies Allergy Verified 12/02/24 11:59 Review of Systems Review of Systems: Yes all other systems are reviewed and are negative PMFSH Past Medical History Medical History Abdominal pain Peripheral neuropathy GERD (gastroesophageal reflux disease) Surgical History H/O gastric bypass Social History Social History Household Members: None Housing: Apartment Do you presently have visiting nurse or other home services: No Comment: N/A Patient Tobacco Use Status: Never used Tobacco e-Cigarette/Vaping Use: Never Used Second Hand Smoke Exposure: No Advance Directives: Yes Advance Directives on File: Yes Advance Directives Date on File: 10/05/24 service: No Physical Exam Vital Signs: Vital Signs: Last Vital Signs Temp 97.8 F 12/02/24 15:28 Pulse 81 12/02/24 15:28 Resp 16 12/02/24 15:28 BP 138/63 12/02/24 15:28 Pulse Ox 96 12/02/24 15:28 O2 Del Method Room Air 12/02/24 15:28 BMI result Body Mass Index 34.2 Appearance: Alert. Oriented X3. No acute distress. Pale Head: normocephalic, atraumatic. Eyes: Pupils equal, round and reactive to light. ENT: Pharynx normal. No tonsillar swelling or exudate. Neck: Normal inspection. Neck supple. CVS: Normal heart rate and rhythm. Pulses normal. Respiratory: No respiratory distress. Breath sounds normal. Abdomen: Soft and nontender. +BS x4 Pelvic: normal external inspection. no blood at vaginal introitus. able to pass speculum approx 4cm into vaginal canal before patient had discomfort, no visible bleeding. unable to visualize cervix. bimanual exam without any blood, no palpable masses NESTOR: negative Skin: Skin warm and dry. Normal skin color. Normal skin turgor. No rashes. Extremities: No lower extremity edema. No joint swelling. Neuro/psych: Oriented X 3. No motor deficit. No sensory deficit. CN II-XII intact. Normal speech and cognition. Medications Administered Generic Name Dose Route Start Last Admin Trade Name Freq PRN Reason Stop Dose Admin Sodium Chloride 1,000 mls @ 999 mls/hr 12/02/24 15:45 12/02/24 15:39 Ns IV 12/02/24 16:45 999 mls/hr .Q1H1M ARMANDO Administration Discontinued Medications Generic Name Dose Route Start Last Admin Trade Name Freq PRN Reason Stop Dose Admin Calcium Carbonate 1,500 mg 12/02/24 12:13 12/02/24 12:35 Calcium Carbonate 750 Mg Tab.Chew PO 12/02/24 12:14 1,500 mg ONCE ONE Administration Famotidine 20 mg 12/02/24 12:13 12/02/24 12:35 Famotidine 20 Mg Tablet PO 12/02/24 12:14 20 mg ONCE ONE Administration Sodium Chloride 1,000 mls @ 999 mls/hr 12/02/24 13:15 12/02/24 13:54 Ns IVCONT 12/02/24 14:15 999 mls/hr .Q1H1M ARMANDO Administration Oxycodone HCl 15 mg 12/02/24 13:21 12/02/24 13:54 Oxycodone Hcl Immed Release 15 Mg Tablet PO 12/02/24 13:22 15 mg ONCE ONE Administration Medical Decision Making Medical Decision Making MDM Narrative: 69 yo female presenting with vaginal bleeding. reportedly large clots. dizzy at the time. VSS on arrival. no bleeding since 3am H/H higher than her baseline which may be falsely elevated. she also has an PILO Scr 1.44 from 0.73 at baseline. unable to get pelvic U/S as patient did not tolerate given 1L LR repeat Scr 1.38 with K 5.2. repeat H/H 11.8/35.3 which is her baseline in October of this year another L NS given she is urinating normally. pelvic exam without vaginal bleeding. no rectal bleeding she was monitored for several hours here in the ER and had no recurrence. we discussed the importance of outpatient follow up to r/o endometrial cancer. encouraged outpatient f/u with PCP as well for PILO. Differential Diagnosis Differential Diagnoses: The differential diagnosis associated with the presentation includes uterine cancer, fibroid, endometrial polyp, endometrial hyperplasia, cervical polyps, GI bleeding Admission/Observation Consideration of admission/observation: Escalation of care including admission/observation considered Lab Data [facility] Lab Attestation statement: I reviewed the patient's lab results. leukocytosis, thrombocytosis, no anemia 12/02/24 15:11 12/02/24 15:11 Labs: Lab Results 12/02/24 12/02/24 12/02/24 Range/Units 12:09 12:45 15:11 WBC 17.9 H 16.6 H (4.8-10.8) X10*3/uL RBC 4.49 D 3.80 L (4.20-5.50) X10*6/uL Hgb 14.0 D 11.8 L (12.0-16.0) g/dl Hct 41.2 D 35.3 L (37.0-47.0) % MCV 91.8 92.9 (80.0-98.0) fL MCH 31.2 31.1 (27.0-33.0) pg MCHC 34.0 33.4 (31.0-35.0) g/dl RDW 13.9 13.8 (11.0-16.0) % Plt Count 524 H D 447 H (160-400) X10*3/uL MPV 9.2 L 8.8 L (9.4-12.3) fL Immature Gran % (Auto) 1.1 H (0.0-0.4) % Neut % (Auto) 83.1 H (45-73) % Lymph % (Auto) 9.2 L (20-40) % [place] % (Auto) 6.1 (2-11) % Eos % (Auto) 0.2 (0-4) % Baso % (Auto) 0.3 (0-2) % Lymph # (Auto) 1.7 (1.2-4.9) X10*3/uL [place] # (Auto) 1.1 (0.1-1.2) X10*3/uL Eos # (Auto) 0.0 (0.0-0.4) X10*3/uL Baso # (Auto) 0.1 (0.0-0.2) X10*3/uL Abs Immat Gran (auto) 0.20 H (0.00-0.03) X10*3/uL Absolute Neuts (auto) 14.9 H (2.0-8.3) x10*3/uL Absolute Nucleated RBC 0.000 0.000 (0.0-0.012) X10*3/uL Nucleated RBC % (auto) 0.0 0.0 (0.0-0.2) /100WBC PT 10.8 L (10.9-12.4) SEC INR 0.9 (0.9-1.1) APTT 20.9 L (26.0-36.8) SEC Sodium 133 L 136 (135-145) mmol/L Potassium 4.8 D 5.2 H (3.3-5.1) mmol/L Chloride 102 107 (96-108) mmol/L Carbon Dioxide 16 L 18 L (22-29) mmol/L Anion Gap 20 16 (12-20) BUN 38 H 38 H (9-16) mg/dL Creatinine 1.44 H 1.38 (0.5-1.4) mg/dL Estim Creat Clear Calc 35.3 36.8 Estimated GFR 36 38 Random Glucose 121 H 110 (60-115) mg/dL Calcium 9.2 D 8.4 D (8.4-10.2) mg/dL Magnesium 2.1 (1.6-2.6) mg/dL Total Bilirubin 0.5 (0.0-1.0) mg/dL Direct Bilirubin 0.2 (0.0-0.5) mg/dL AST 49 H (5-31) U/L ALT 33 H (0-31) U/L Alkaline Phosphatase 66 (39-117) U/L Total Protein 7.7 (6.5-8.0) g/dL Albumin 4.3 (3.5-5.0) g/dL Urine Color Yellow Urine Appearance Turbid Urine pH 5.5 (5.0-9.0) Ur Specific [place] 1.020 (1.005-1.025) Urine Protein 100 (2+) H (Neg-Trace) mg/dL Urine Glucose (UA) Negative (Negative) mg/dL Urine Ketones 15 (Negative) mg/dL Urine Blood Large (3+) H (Negative) Urine Nitrite Negative (Negative) Ur Leukocyte Esterase Small (1+) H (Negative) Urine RBC 6-10 H (0-2) /HPF Urine WBC 21-50 H (0-5) /HPF Ur Squamous Epith Cells >20 (0-2) /HPF Urine Bacteria 4+ (None Seen) Hyaline Casts 11-20 (0-2) /LPF Granular Casts Present Blood Type A Positive Antibody Screen NEGATIVE Independent Interpretation I performed an independent interpretation of an: Ultrasound Interpretation: unable to view any significant uterine tissue Radiology Impression Discussion of test interpretation with radiology: I have reviewed the radiologist's reading. Independent Historian Clinical information obtained from an independent historian. History obtained from or confirmed by: EMS External Record Review External record reviewed: Outpatient record and Prior outpatient labs Tests considered The following testing was considered but not selected: CT abd/pelvis considered, recently had one in Sep 2024 Prescription Management I considered prescription management with: Pain Medication Critical Care Time Critical Care Time Critical Care Time: Yes Total Critical Care Time: 33 Attestation: I have personally provided critical care time exclusive of time spent on separately billable procedures. Time includes review of lab data, radiology results, trending of lab work, reassessments and monitoring for potential decompensation. Intervention performed as documented. Discharge Plan Discharge Clinical Impression: PILO (acute kidney injury), Abnormal vaginal bleeding Patient Disposition: Home, Self-Care Instructions: Dysfunctional Uterine Bleeding (ED), Acute Kidney Injury (DC) Additional Instructions: there was NO vaginal bleeding on exam or while you were in the emergency department it is very important you follow up with FILE [employer]TRY [facility] as vaginal bleeding after menopause is not normal and endometrial cancer needs to be ruled out your labs showed a mild kidney injury that improved with IV fluids. recommend getting repeat labs done next week with your doctor to ensure this has normalized completely If you develop new or worsening symptoms call 911 or come back to the ER for further evaluation. Prescriptions: No Action albuterol sulfate [Ventolin HFA] 90 mcg/actuation HFA aerosol inhaler 2 puff inhalation Q6H PRN (Reason: shortness of breath or wheezing) epinephrine 0.125 mg/actuation Hfa Aerosol Inhaler 1 puff INHALATION Q4H PRN (Reason: Shortness Of Breath Or Wheezing) Rx Instructions: may repeat once after 1 minute; do not exceed 8 inhalations per 24 hrs oxycodone 15 mg tablet 15 mg PO QID PRN (Reason: pain) docusate sodium 50 mg/5 mL Liquid 100 mg PO BID Qty: 30 0RF magnesium hydroxide [Milk of Magnesia] 400 mg/5 mL Suspension 30 ml PO DAILY PRN (Reason: Constipation) Qty: 200 0RF amoxicillin-pot clavulanate 875-125 mg tablet 1 tab PO BID Qty: 10 0RF vancomycin 125 mg Capsule 125 mg PO Q6H Qty: 46 0RF ondansetron 4 mg tablet,disintegrating 4 mg PO Q8H PRN (Reason: nausea and vomiting) Qty: 20 0RF pantoprazole [Protonix] 40 mg tablet,delayed release (DR/EC) 40 mg PO DAILY Qty: 30 0RF loperamide [Anti-Diarrheal (loperamide)] 2 mg tablet 2 mg PO Q6H PRN (Reason: loose stool) Qty: 10 0RF gabapentin 300 mg capsule 300 mg PO TID calcium carbonate 500 mg calcium (1,250 mg) Tablet 500 mg PO DAILY cholecalciferol (vitamin D3) [Vitamin D3] 25 mcg (1,000 unit) Tablet 25 mcg PO DAILY cefuroxime axetil 250 mg tablet 250 mg PO BID 7 Days Qty: 14 0RF Rx Instructions: END DATE: 10/06/24 permethrin 5 % cream 1 appl topical Q14D Qty: 60 0RF Rx Instructions: apply second treatment 14 days after first treatment if live lice remain Referrals: Noe Dupont MD [Physician] - Print Language: Ukrainian
[2024-12-02 11:57] VITALS: BP 132/91; PULSE 72; RESP 16; TEMP 36.6; O2SAT 99; BMI 34.2
[2024-12-02 12:18] LABS: MANUAL DIFF FLAG NO
[2024-12-02 12:19] LABS: Basophils Absolute Auto 0.1 X10*3/uL (0.0-0.2); Basophils Percent Auto 0.3 % (0-2); Eosinophils Percent Auto 0.2 % (0-4); Hematocrit 41.2 % (37.0-47.0); Imm Gran Pct Auto 1.1 % (0.0-0.4); Lymphocytes Absolute Auto 1.7 X10*3/uL (1.2-4.9); Lymphocytes Percent Auto 9.2 % (20-40); Mean Corpuscular Hemoglobin 31.2 pg (27.0-33.0); Mean Corpuscular Volume 91.8 fL (80.0-98.0); Mean Platelet Volume 9.2 fL (9.4-12.3); Monocytes Absolute Auto 1.1 X10*3/uL (0.1-1.2); Monocytes Percent Auto 6.1 % (2-11); Neutrophils Absolute Auto 14.9 x10*3/uL (2.0-8.3); Neutrophils Percent Auto 83.1 % (45-73); Platelet Count 524 X10*3/uL (160-400); Red Blood Count 4.49 X10*6/uL (4.20-5.50); Red Cell Distribution Width 13.9 % (11.0-16.0); White Blood Count 17.9 X10*3/uL (4.8-10.8)
[2024-12-02 12:21] LABS: Appearance Urine Turbid; Color Urine Yellow; Glucose Urine UA Negative (Negative); Leukocyte Esterase Urine Small (1+) (Negative); Nitrite Urine Negative (Negative); PH 5.5 (5.0-9.0); UMIC TRIGGER UACC YES; Urine Blood Large (3+) (Negative); Urine Ketones 15 mg/dL (Negative); Urine Protein 100 (2+) mg/dL (Neg-Trace)
[2024-12-02 12:34] LABS: Bacteria Urine 4+ (None Seen); Granular Casts Urine Present; Squamous Epithelial Cell Urine >20 /HPF (0-2); UACC Culture Trigger YES; WBC Urine 21-50 /HPF (0-5)
[2024-12-02] MEDS: Famotidine 20 MG TABLET PO (12:35)
[2024-12-02] MEDS: Calcium Carbonate 750 MG TAB.CHEW 1500 MG PO (12:35)
[2024-12-02 13:00] LABS: INTERNATIONAL NORM RATIO 0.9 (0.9-1.1); Prothrombin Time 10.8 SEC (10.9-12.4)
[2024-12-02 13:06] LABS: Alanine Aminotransferase 33 U/L (0-31); Albumin Level 4.3 g/dL (3.5-5.0); Alkaline Phosphatase 66 U/L (39-117); Anion Gap 20 (12-20); Aspartate Amino Transferase 49 U/L (5-31); Bilirubin Direct 0.2 mg/dL (0.0-0.5); Bilirubin Total 0.5 mg/dL (0.0-1.0); Blood Urea Nitrogen 38 mg/dL (9-16); Calcium 9.2 mg/dL (8.4-10.2); Carbon Dioxide 16 mmol/L (22-29); Chloride 102 mmol/L (96-108); Creatinine Clr Calc Pharmacy 35.3; Estimated Glomerular Filt Rate 36; Glucose Random 121 mg/dL (60-115); Magnesium 2.1 mg/dL (1.6-2.6); Potassium 4.8 mmol/L (3.3-5.1); Sodium 133 mmol/L (135-145); Total Protein 7.7 g/dL (6.5-8.0)
[2024-12-02 13:18] LABS: Partial Thromboplastin Time 20.9 SEC (26.0-36.8)
--- OUTSIDE RECORDS SUMMARY | 2024-12-02 13:40 | XMS_ITS ---
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) ACTIVE OTHER ABNORMALITIES OF GAIT AND MOBILITY (R26.89 - ICD-10-CM) ACTIVE 10/07/2019 OTHER LACK OF COORDINATION (R27.8 - ICD-10-CM) ACTIVE 10/07/2019 UNSPECIFIED OPEN WOUND OF RI GHT FOREARM, SUBSEQUENT ENCOUNTER (S51.801D - ICD-10-CM) ACTIVE 10/07/2019 DIVERTICULOSIS OF LARGE INTE PHUONG WITHOUT PERFORATION OR ABSCESS WITHOUT BLEEDING (K57.30 - ICD-10-CM) ACTIVE 10/07/2019 ANXIETY DISORDER, UNSPECIFIED (F41.9 - ICD-10-CM) ACTI VE 10/07/2019 MAJOR DEPRESSIVE DISORDER, S ALEAH EPISODE, UNSPECIFIED (F32.9 - ICD-10-CM) ACTIVE 10/07/2019 INSOMNIA, UNSPECIFIED (G47.00 - ICD-10-CM) ACTIVE 10/07/2019 PRIMARY GENERALIZED (OSTEO)ARTHRITIS (M15.0 - ICD-10-C M) ACTIVE 10/07/2019 HYPERTENSIVE HEART DISEASE W ITHOUT HEART FAILURE (I11.9 - ICD-10-CM) ACTIVE 10/07/2019 LYMPHEDEMA, NOT ELSEWHERE CLASSIFIED (I89.0 - ICD-10-C M) ACTIVE 10/07/2019 OTHER OSTEOPOROSIS WITHOUT C URRENT PATHOLOGICAL FRACTURE (M81.8 - ICD-10-CM) ACTIVE 10/07/2019 OTHER OBESITY (E66.8 - ICD-10-CM) ACTIVE 019 MILD INTERMITTENT ASTHMA, UN COMPLICATED (J45.20 - ICD-10-CM) ACTIVE 10/07/2019 ALLERGIC RHINITIS, UNSPECIFIED (J30.9 - ICD-10-CM) ACT HEMALATHA 10/07/2019 MUSCLE WEAKNESS (GENERALIZED) (M62.81 - ICD-10-CM) ACT HEMALATHA 10/07/2019 CELLULITIS OF RIGHT UPPER LIMB (L03.113 - ICD-10-CM) A CTIVE 10/07/2019 ACUTE EMBOLISM AND THROMBOSI S OF UNSPECIFIED VEINS OF RIGHT UPPER EXTREMITY (I82.601 - ICD-10-CM) ACTIVE 10/07/2019 INJURY OF BRACHIAL PLEXUS, S UBSEQUENT ENCOUNTER (S14.3XXD - ICD-10-CM) ACTIVE 10/07/2019 CRUSHING INJURY OF RIGHT MAIDA ULDER AND UPPER ARM, SUBSEQUENT ENCOUNTER (S47.1XXD - ICD-10-CM) ACTIVE 10/07/2019 Encounters Encounter Performer Performer Role Encounter Diagnoses Location Date Discharge [facility] 08/29/2013 03:20 pm EST - 09/12/2013 05:00 pm EST Leave [facility] 11/14/2014 02:15 pm EST - 11/17/2014 05:17 pm EST Discharge [facility] 11/20/2014 03:20 pm EST - 12/02/2014 05:30 pm EST Leave [facility] 10/07/2019 09:09 pm EST - 10/12/2019 03:23 pm EST Discharge [facility] 10/12/2019 11:41 pm EST - 10/24/2019 04:48 pm EST Social History
[2024-12-02] MEDS: 0.9 % Sodium Chloride 1,000 ML 999 ML IVCONT (13:54)
[2024-12-02] MEDS: oxyCODONE HCl Immed Release 15 MG TABLET PO (13:54)
[2024-12-02 15:19] LABS: Hematocrit 35.3 % (37.0-47.0); Hemoglobin 11.8 g/dl (12.0-16.0); Mean Corpuscular HGB Conc 33.4 g/dl (31.0-35.0); Mean Corpuscular Hemoglobin 31.1 pg (27.0-33.0); Mean Corpuscular Volume 92.9 fL (80.0-98.0); Mean Platelet Volume 8.8 fL (9.4-12.3); Platelet Count 447 X10*3/uL (160-400); Red Cell Distribution Width 13.8 % (11.0-16.0); White Blood Count 16.6 X10*3/uL (4.8-10.8)
[2024-12-02 15:28] VITALS: BP 138/63; PULSE 81; RESP 16; TEMP 36.6; O2SAT 96
[2024-12-02 15:33] LABS: Anion Gap 16 (12-20); Blood Urea Nitrogen 38 mg/dL (9-16); Calcium 8.4 mg/dL (8.4-10.2); Carbon Dioxide 18 mmol/L (22-29); Chloride 107 mmol/L (96-108); Creatinine Clr Calc Pharmacy 36.8; Estimated Glomerular Filt Rate 38; Glucose Random 110 mg/dL (60-115); Potassium 5.2 mmol/L (3.3-5.1); Sodium 136 mmol/L (135-145)
[2024-12-02] MEDS: 0.9 % Sodium Chloride 1,000 ML 999 ML IV (15:39)
[2024-12-02] MEDS: oxyCODONE HCl Immed Release 5 MG TABLET PO (20:27)
--- NOTE | 2024-12-02 20:53 | PC.NURSE ---
pt brought into ed bed 22, pelvic exam completed by Jo HARDIN, pt tolerated well. pt states at this time she is agreeable to pelvic US. pt assisted back into RP, placed in recliner with blanket. pt steady on feet with cane. pt medicated per mar for 10/10 body aches.
[2024-12-02 21:12] VITALS: BP 121/55; PULSE 78; RESP 16; TEMP 36.6; O2SAT 96
--- NOTE | 2024-12-02 21:40 | PC.NURSE ---
pt to US at this time.
[2024-12-02] MEDS: Gabapentin 300 MG CAPSULE PO (22:28)
[2024-12-02 22:34] VITALS: BP 121/55; PULSE 78; RESP 16; TEMP 36.6; O2SAT 96
== END 2024-12-02 22:35 | disposition home or self-care (01) ==
PROVIDERS: Physician Assistant; Emergency Provider Emergency Medicine; PCP Internal Medicine Endocrinology, Diabetes & Metabolism
DX: N93.9 Abnormal uterine and vaginal bleeding, unspecified (principal); N89.8 Other specified noninflammatory disorders of vagina; M54.50 Low back pain, unspecified; R51.9 Headache, unspecified; N17.9 Acute kidney failure, unspecified; R42 Dizziness and giddiness; R11.0 Nausea; Z79.899 Other long term (current) drug therapy
CPT/HCPCS: 36415; 76830; 76856; 80048; 80076; 81001; 83735; 85025; 85027; 85610; 85730; 86850; 86900; 86901; 87086; 87088; 87186; 96360; 96361; 99284

== ENCOUNTER → 2024-12-02 11:20 | Outpatient (BNV) | payer MEDICARE, MEDICAID, SELFPAY | PROVIDERS: Emergency Provider Emergency Medicine; Visit Provider Radiology Diagnostic Radiology | DX: N93.9 Abnormal uterine and vaginal bleeding, unspecified (principal) | CPT/HCPCS: 76856 ==

== ENCOUNTER 2025-09-02 20:52 | Inpatient (IN) | payer MEDICARE, MEDICAID, SELFPAY ==
--- NOTE | 2025-09-02 | ECG_ITS ---
Test Reason : SOB, CP Blood Pressure : */* mmHG Vent. Rate : 75 BPM Atrial Rate : 75 BPM P-R Int : 130 ms QRS Dur : 84 ms QT Int : 414 ms P-R-T Axes : 42 -16 44 degrees QTcB Int : 462 ms Normal sinus rhythm Inferior infarct , age undetermined Abnormal ECG When compared with ECG of 23-Oct-2024 20:49, No significant change was found Referred By: Generic ED Physician Electronically Signed By: JORDAN NORRIS MD
--- NOTE | ~2025-09-02 | XR_ITS ---
CLINICAL HISTORY: tachycardia 1 view chest x-ray Comparison: CR - XR CHEST 1V - 09/02/25 21:11 EST Findings: No consolidation or effusion. Heart size is normal. No acute fracture. IMPRESSION: 1. No acute findings. This document has been electronically signed by: Tye Hays MD on 09/04/2025 18:36:34
--- NOTE | ~2025-09-02 | XR_ITS ---
CLINICAL HISTORY: chest px SOB CHEST X-RAY FRONTAL VIEW COMPARISON: 10/28/2024. FINDINGS: A single frontal view of the chest was performed. The patient is rotated to the right. The cardiac size is within normal limits. An opacity in the medial aspect of the right upper lobe could represent confluence of shadows or alternatively atelectasis/infiltrate. No consolidation or pleural effusion. No pneumothorax. IMPRESSION: 1. An opacity in the medial aspect of the right upper lobe could represent either a confluence of shadows, or alternatively atelectasis/infiltrate. 2. No consolidation or pleural effusion. No pneumothorax. This document has been electronically signed by: Eliel Monsalve M.D. on 09/02/2025 22:11:34
[2025-09-02 20:57] VITALS: BP 119/75; BP 152/92; PULSE 84; PULSE 85; RESP 18; TEMP 36.6; O2SAT 96; O2SAT 98; BMI 32.3
--- NOTE | 2025-09-02 21:11 | PC.NURSE ---
pt biba from home, reports increased SOB and malaise over last four days, no appetite r food consumption in 4 days. Pt has hx of asthma, denies cigarette smoking hx, but lives with brother who smokes in the home. pt reports secondary chest pain due to SOB. pt placed on 2 L 02 by EM for comfort. pt sp02 is at 99% on room air currently.
--- NOTE | 2025-09-02 21:14 | PC.NURSE ---
ambulation: pt uses cane at baseline.
--- OUTSIDE RECORDS SUMMARY | 2025-09-02 21:26 | XMS_ITS ---
Author Organization [facility] Care Team Providers Care Construction Accountant Name Role Phone Ivette Avendano Unavailable Unavailable Care Team Name Role Address Phone Organization Dates Ivette Chen Elder PCP [address], [place], [address], [place] (Office): : [facility] 10/08/2019 - 10/24/2019 Mental Status Section Date Assessment Total Score Description 10/24/2019 BIMS 14 cognitively int act CAM 0 No delirium ind icated PHQ-9 00 10/14/2019 BIMS 15 cognitively int act CAM 0 No delirium ind icated PHQ-9 02 minimal depress ion Insurance Providers Problems Problem # Description Date of onset Resolved Date Code CodeSystem Concern Status 1 ACUTE EMBOLISM AND THROMBOSIS OF UNSPECIFIED VEINS OF RIGHT UPPER EXTREMITY 10/07/[id number] active 2 ALLERGIC RHINITIS, UNSPECIFIED 10/07/[address] active 3 ANXIETY DISORDER, UNSPECIFIED 10/07/[address] active 4 CELLULITIS OF RIGHT UPPER LIMB 10/07/[id number] active 5 CRUSHING INJURY OF RIGHT SHOULDER AND UPPER ARM, SUBSEQUENT ENCOUNTER 10/07/[address] active 6 DIVERTICULOSIS OF LARGE INTESTINE WITHOUT PERFORATION OR ABSCESS WITHOUT BLEEDING 10/07/[address] active 7 FRACTURE OF ANGLE OF LEFT MANDIBLE, SUBSEQUENT ENCOUNTER FOR FRACTURE WITH ROUTINE HEALING 10/07/[address] active 8 HYPERTENSIVE HEART DISEASE WITHOUT HEART FAILURE 10/07/[address] active 9 INJURY OF BRACHIAL PLEXUS, SUBSEQUENT ENCOUNTER 10/07/[address] active 10 INSOMNIA, UNSPECIFIED 10/07/[address] active 11 INTERSTITIAL CYSTITIS (CHRONIC) WITHOUT HEMATURIA 10/07/[address] active 12 LYMPHEDEMA, NOT ELSEWHERE CLASSIFIED 10/07/[address] active 13 MAJOR DEPRESSIVE DISORDER, SINGLE EPISODE, UNSPECIFIED 10/07/[address] active 14 MILD INTERMITTENT ASTHMA, UNCOMPLICATED 10/07/[address] active 15 MUSCLE WEAKNESS (GENERALIZED) 10/07/[address] active 16 NIGHTMARE DISORDER 10/07/[address] active 17 OTHER ABNORMALITIES OF GAIT AND MOBILITY 10/07/[address] active 18 OTHER LACK OF COORDINATION 10/07/[address] active 19 OTHER OBESITY 10/07/[address] active 20 OTHER OSTEOPOROSIS WITHOUT CURRENT PATHOLOGICAL FRACTURE 10/07/[address] active 21 PRESSURE ULCER OF SACRAL REGION, STAGE 2 10/07/[address] active 22 PRIMARY GENERALIZED (OSTEO)ARTHRITIS 10/07/[address] active 23 RHABDOMYOLYSIS 10/07/[address] active 24 UNSPECIFIED OPEN WOUND OF RIGHT FOREARM, SUBSEQUENT ENCOUNTER 10/07/[address] active Reason for Referral No Reasons for Referral Entered Social History Social History Observation Description Start Date End Date Code Code System Current Smoking Status Tobacco smoking consumption unknown 178882073 SNOMED CT Sex Assigned At Female 1955 [address]-9 [facility] Gender Identity Sexual Orientation Vital Signs Code Code System Vitals Name Values and Units Timing Information 71431-2 LOINC Weight Emccn=272.0 Units=Lbs 02/2020 9279-1 LOINC Respiratory Rate Value=16.0 Units=/m in 10/18/2019 8462-4 LOINC Blood Pressure-Diastolic Value=56 Un its=mmHg 10/18/2019 8480-6 LOINC Blood Pressure-Systolic Value=96 Uni ts=mmHg 10/18/2019 8310-5 LOINC Body Temperature Value=98.6 Units= F 10/18/2019 8867-4 LOINC Heart rate Value=60.0 Units=/min 10614-4 LOINC O2 % BldC Oximetry Value=97.0 Units= % 10/18/2019 8302-2 [facility] Height Value=62.0 Units=Inches 10/08/2019
--- OUTSIDE RECORDS SUMMARY | 2025-09-02 21:26 | XMS_ITS | Data Portability ---
Author Organization [place] - [facility] Address [address] [place], [place] [address] [address] Care Team Providers Care Pipe Stem Repairer Name Role Phone ANDRADE LOPEZ Primary Care Provider [phone] Assessment Encounter Date Assessment Date Assessment LastModified by Organization Details LastModified Time 11/18/2021 11/18/2021 Overview/History : Patient is 65 year old female who is new to and new to provider. She has history of Anxiety, Depression, PTSD, Migraines, Exam: Vitals: Reviewed. WNL. Patient GCS: 15. Anxious and discheveld. She has very cluttered home. Patient DDx considered, but not limited to: Bed bugs was considered due to living conditions but bed was in the living area and non noted as well as no signs of bed bug bites. Medication Reaction considered but patient has no recent medicatio changes and rash pattern not congruent. Atopic dermatitis considered, but patient reports no new soaps, dyes, or lotions, detergents, etc. and again rash qualities are not congruent with an atopic dermatitis. Scabies due to pruritis and feeling of crawling under her skin, and she does have classic tunnel/ burrowing in linear appearance with facial sparing. Cellulitis secodary to her scrtaching and open area on her leg being infected. Work up/Results: Diagnosis was made based on patient history and physical exam. No further diagnostics needed at this time. Plan/Discussion: Patient was seen today for a pruritic rash to body with facial sparing. She has been diagnosed clinically with Scabies. Patient has been prescribe Permetherin 5% cream to apply for 8-14 hours over entire body from neck down, then rinse. She currently has a prescription for hydroxyzine for Anxiety and I encourage her to take this routinely for the pururitis until it improved. Patient also has a secondary cellulitis in her left lower extremity due to open skin from scratching. For this I have prescribed Doxycycline 100mg cap 1 PO BID x 7 days. Patient has also been advised to clean her bedsheets and closing in hot water after using the Permetherin cream. There were no previous records available for review today as this was patients initial encounter with . All information regarding history was obtained through patient/ family testimony. Proper Personal Protective Equipment (PPE), including gloves, eye protection and masks were donned and doffed appropriately and all equipment cleaned using approved technique with germicidal disposable wipes prior to and after care of this patient according to [facility]'s infection prevention protocols. [email or web address] 1 Not available 11/18/2021 12:10:30 2021 2021 Overview/History : 66 YO F known to and new to provider She was diagnosed w/ scabies about 1 weeks ago by other provider. She was prescribed permethrin cream which initially worked well for her sx's but they came back. She does report it was hard to get the cream everywhere where she was having sx's. At the time it seems she was educated to wash her bedding and apartment but she hasn't been able to yet . She is now requesting more permethrin cream to relieve her sx's. She denies any further changes. She is still itchy and has some mild excoriations d/t her scratching. She has been using her atarax to help w/ this sx w/ some effectiveness. No fever/chill,s cp, numbness/tingling, active bleeding, open wounds. Exam: Vitals: VSS and afebrile Constitutional: 66 yo Well developed, well nourished, pleasant patient in no apparent distress. She is nontoxic. Eyes: corrective lenses, No swelling, no discharge, sclera / conjunctiva clear ENT: no nasal discharge, no erythema/ exudate noted in oropharynx, moist mucous membranes, no lymphadenopathy CV: Normal HR, reg rhythm, 2+ radial pulses bilaterally, no edema w/o calf tenderness BL Pulm: Speaks in full sentences, no increased work of breathing. GI: Soft, non-tender to palpation. No masses, normal bowel sounds. MS: Self ambulatory patient, moves all limbs without deficit, no evidence of trauma Neuro: No focal deficits, alert and oriented x4 Skin: Burrowing noted. erythematosus rash scattered in multiple parts of her body, some excoriations are present all w/o any current s/s of infx and there is no erythema, warmth, exudates , drainage, or active bleeding. She does not have any other rashes noted, no s/s of cellulitis throughout. Psych: Calm, cooperative, non-manic. Pleasant DDx considered, but not limited to: Bed Bugs -considered d/t cluttered home but can see pt's bed and none present also stil w/o any notable bed bug bites Scabies - still w/ burrowing, feeling of crawling under skin. dx last week and permethrin helped but sx's recurred likely d/t ineffective use of med and not washing her bedding and living space well enough Celultiis - no warmth or redness noted Infected Wounds - excoriations are visualised w/o any s/s of infx throughout. No exudative drainage, no redness, or warmth. Work up/Results: N/a Plan/Discussion: Scabies: -ML diagnosis given hx and exam -Ethan since permethrin seemed to provide relief and rash is still sparing the face -Believe she failed tx d/t her report of having hard time getting permethrin on everywhere she was having sx's and not effectively cleaning her home -re-educated about home hygiene and need to clean everything very well thoroughly after this diagnosis -D/t failure of permetrhin will trial ivermectin (dosing is 0.2 mg/kg/dose and she weight a reported 130 lbs ~60 kg ) prescribe 12 mg per dose one this week and one next week. My hope is that this will be a more effective tx for this patient and she will experience relief with this -Cont atarax for pruritis -F/u for cont sx's, worsening sx's, redness, warmth, fever, chills Pt is on agreement and verbalizes understanding with the above plans at this time. Pt has no other questions or concerns at this time. All questiosn are answered to the best of my ability. Pt thanks us for our visit today. In order to obtain further information and compare any laboratory results/values, I have accessed old patient records. This information was pertinent in my medical decision making today. [email or web address] Not available 2021 17:37:07 12/10/2021 12/10/2021 Overview/History : 66 YO F known to and to provider She has been diagnosed w/ scabies recently Initially tx with permethrin, got better, then relapsed Then trailed ivermectin, got better for longer, and now has relapsed again She states she has washed all of her clothing and linens as discussed during last visit She is sick of the itching She would like another round of medicine so she can try and eliminate this infestation She denies fevers any warm skin and the pruritis is mostly to her arms and legs. She can feel bugs crawling under her skin and she can see little spots that move. She has no further c/o and she has tolerated all meds very well thus far. She reports she has attempted to deep clean her apartment, she lives alone. No known sick contacts. Exam: Vitals: VSS and afebrile Constitutional: 66 yo Well developed, well nourished, pleasant patient in no apparent distress. She is nontoxic and comfortable. Eyes: corrective lenses, No swelling, no discharge, sclera / conjunctiva clear ENT: no nasal discharge, no erythema/ exudate noted in oropharynx, moist mucous membranes CV: Normal HR, reg rhythm, no rubs/ murmurs/ gallops heard, 2+ radial pulses bilaterally, trace BL LE edema w/o calf tenderness BL Pulm: Speaks in full sentences, no increased work of breathing. MS: Self ambulatory patient w/ cane, moves all limbs without deficit, no evidence of trauma Neuro: No focal deficits, answer questions apropriately she is fully alert and oriented Skin: Excoriations throughout, mostly to proximal arms and legs. Small moving freckles and burrows noted. Back and face seem spared although admits to pruritis in these areas now (admits this makes her anxious and icthy all over). No erythema or warmth noted throughout. HEr legs display chronic venous stasis changes BL. Psych: Calm, cooperative, non-manic. Mild anxiety but overall very calm and cooperative and pleasant. DDx considered, but not limited to: Scabies recurrent - ML given hx and PE. She has gotten benefit from permethrin and ivermectin w/ full resolution but then recurrence of sx's. She has burrows and small freckles that were not preset before that are actually mites under her skin present. Cellulitis - no erythema, warmth, or s/s of infx throughout. Contact/Allergic Dermatitis - no new contacts or allergies. Responded to above tx so scabies more likely bed bugs - bed sheets are new this time, can see bed in living room. No evidence of bugs and she was relieved of sx's w/ above tx. She does not have any classic bed bug bites Work up/Results: N/a Plan/Discussion: Scabies: -Pt w/ scabies despite tx, did get relief from tx but recurred -See above, seems to be scabies based on hx and PE findings -Likely environmental factors causing recurrence -She is to wash everything again and discuss w/ her landlord and exterminators/aida rowe about deep deep cleaning her apartment. Trial another bout of meds. -Discussed w/ DR Hermosillo who agrees w/ above. Suggests trialling Ovide given her scabies may be resistant now from recurrent tx. Prescribed this and ivermectin. -Hopefully this will do the trick but she must be adherent to washing her apartment -F/u if recurs and f/u if worsens -ED precautions discussed and s/s of infx discussed. -At this point no excoriations are open, bleeding, or have any s/s infx -Cont hydralazine which she has for anxiety for pruritis as well Pt is on agreement and verbalizes understanding with the above plans at this time. Pt has no other questions or concerns at this time. All questiosn are answered to the best of my ability. Pt thanks us for our visit today. In order to obtain further information and compare any laboratory results/values, I have accessed old pt records. This information was pertinent in my medical decision making today. Time On Scene with Patient: 00:40:23 [email or web address] Not available 12/10/2021 21:27:29 12/23/2021 12/23/2021 Overview/History : 66 year old female known to but new to provider with an history of depression, anxiety, migraines, cellulitis is being seen for the 4th visit for ? reoccurrence of scabies with question of infection as spot under her left breast is oozing. She has had topical permethrin, total of 4 doses of ivermectin and topical malthion. She felt it was getting better now noticing a few new black spots that she states turn into the bumps. Now mostly all scabbed areas mostly on right arm, bilat lower legs, left right with open area on right lower leg.(see pics) Also new scab that is open with some pus-type drainage on area under left breast. States she has cleaned her apt multiple times, washed all linen as it gets sent out, in hot water. Vacuumed furniture. I questioned need for dermatology referral for which she states she has a call into her PCP. Exam: frail but non-toxic appearing female temp 99.0; multiple scabs over lower legs, right arm with open area RLE, localized erythema. Lungs clear, abd negative; chronic venous stasis appearing lower legs DDx considered, but not limited to: Scabies vs symptomatic pruritis after treatment Wound infection RLE Cellulitis Work up/Results: PE Plan/Discussion: Call to discuss with Dr Aguilar as now multiple scabbed areas, instead of pustules with failed treatment possibly due to inablility to fully remove parasite. No more ivermectin; agreed to tx for cellulities/wound infection and will retreat with permethrin along with steroid burst for itching. -Permethrin x 1 -Prednisone taper 60mg x 1, 40mg x 2 days, 20mg x 2 days -Doxycycline 100mg bid x 7 days. -Strict enforcement of environmental cleaning, removing vacuum clean bags, cleaning hot water and heat all bedding, clothing -? need for derm referral -ED precautions Proper Personal Protective Equipment (PPE), including gloves, eye protection and masks were donned and doffed appropriately and all equipment cleaned using approved technique with germicidal disposable wipes prior to and after care of this patient according to [facility]'s infection prevention protocols. [email or web address] Not available 12/23/2021 18:43:10 01/11/2022 01/11/2022 Time On Scene with Patient: 01:49:54 Time On Scene with Patient: 01:49:54 [email or web address] Not available 01/15/2022 04:14:54 Plan of Treatment Reminders Order Date Submit Date Provider Last Modified By Organization Details Last Modified Time Details Appointments None recorded. Lab None recorded. Referral wound care referral - Good evening, this is Rocky Mckeon PA-C with [facility]. I saw Ms Martino this evening for concern about scabies. She has been seen 4 times prior since Oct 2021 and completed permethrin x2, malathion x1, ivermectin x2, and for concern of infection doxycyclin e x2. 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 Her excoriated areas show no signs of infection. She sorely needs followup with Derm and a referral to wound care/VNA to monitor and treat the excoriated areas. I could not find you on Cortext to direct message. Thank you for your help in this matter. My progress note is being sent to you for review. Thanks again Rocky Mckeon PA-C 2021 VARSHA Lopez MD, [address], [place], [address], 19:55:07 Procedures None recorded. Surgeries None recorded. Imaging None recorded. Medication Orders doxycyclin e hyclate 100 mg capsule 2021 [facility] #[id number], [address], [place], [id number], 18:16:14 permethrin 5 % topical cream 2021 [id number], [address], [place], [id number], 18:14:07 prednisone 20 mg tablet 2021 [id number], [address], [place], [id number], 03/07/202 2 18:19:07 malathion 0.5 % lotion 2021 [facility] #[id number], [address], [place], [id number], 2 20:35:52 ivermectin 3 mg tablet 2021 [facility] #44398, [address], [place], [id number], 2 20:34:08 ivermectin 3 mg tablet 2021 [facility] #49013, [address], [place], [id number], 2 12:07:38 doxycyclin e hyclate 100 mg capsule 2021 [facility] #28783, [address], [place], [id number], 2 11:50:41 permethrin 5 % topical cream 2021 [facility] #[id number], [address], [place], [id number], 11:53:04 Patient TargetsNo targets recorded. Patient Instructions Encounter Date Encounter Id Patient Instructions Last Modified By Organization Details Last Modified Time 11/18/2021 [id number] Thank you for yo ur visit with [facility] today. We cannot always find the exact cause of your symptoms during your initial visit. Please follow up with your primary care provider or specialist as needed to be rechecked or seek medical attention if your symptoms do not go away or get worse. If you develop any new or worsening symptoms and need after hours care, please go to nearest ER and/or call 911. If you have additional concerns or develop a change in your condition between 8am-10pm, please call [facility] at [phone] to help navigate your care. Please seek care or call your primary provider if the rash: 1. Worsens 2. Lasts longer than one week 3. Shows signs of local infection (redness, oozing, or swelling) 4. Occurs together with fever, chills, swollen glands, or other symptoms of infection 5. Looks dark purple or spotted 6. Occurs together with symptoms that suggest autoimmune disorder (recurring fever, malaise, fatigue, unexplained weight loss, or joint swelling) If you have additional concerns or develop a change in your condition between 8am-10pm, please call [facility] at [phone] to help navigate your care. [email or web address] Not available 11/18/2021 12:10:12 12/23/2021 [id number] -You were seen today for scabies and wound infection of right lower leg/open area -Start doxycycline 1 tablet twice a day for 7 days; increase yogurt intake -Prednisone taper: take as directed on bottle for itching -Permethrin cream; head to toe and leave on for 8-14 hours before washing off -Must re-wash in hot water/high heat dry all linens, clothing; vacuum all furniture andempty vacuum. -Itching my last for 2 weeks after successful treatment. -Call PCP again for follow up with ? dermatology referral -Seek medical attention for any increased fever, pain, drainage -Wash open wound on leg daily, apply bacitracin and bandaide [email or web address] Not available 12/23/2021 18:33:56 01/11/2022 [id number] Thank you for yo ur visit with [facility] today. You may have had laboratory tests or cultures performed today. At this time, we do not feel that you have an infection that requires hospitalization. However, infections can get worse, even with antibiotics. If you have worsening redness, pain or fever, go immediately to the Emergency Department. Please follow up with your primary care provider or with the specialist referral you were given, within 12-24 hours to be re-examined. If you develop any new or worsening symptoms and need after hours care, please go to nearest ER and/or call 911. If you have additional concerns or develop a change in your condition between 8am-10pm, please call [facility] at [phone] to help navigate your care. Thank you for your visit with [facility] today. You were seen today for treatment of a wound. Please seek immediate medical attention if you develop increased pain, redness, or swelling of your wound. Also, you should be evaluated if the wound becomes warm to the touch, or if there is a cloudy, yellow-brown discharge from the wound. There is always the possibility of a hidden tendon injury or foreign object in the wound. If you have problems moving your arm or leg, or if you see red streaks up the arm or leg, seek immediate medical attention. If you develop any new or worsening symptoms and need after hours care, please go to nearest ER and/or call 911. If you have additional concerns or develop a change in your condition between 8am-10pm, please call [facility] at [phone] to help navigate your care. [email or web address] Not available 01/11/2022 19:16:03 Reason for Referral Good evening, this is oRcky Mckeon PA-C with [facility]. I saw Ms Martino this evening for concern about scabies. She has been seen 4 times prior since Oct 2021 and completed permethrin x2, malathion x1, ivermectin x2, and for concern of infection doxycycline x2. 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 Her excoriated areas show no signs of infection. She sorely needs followup with Derm and a referral to wound care/VNA to monitor and treat the excoriated areas.I could not find you on Cortext to direct message. Thank you for your help in this matter. My progress note is being sent to you for review.Thanks againRocky Mckeon PA-C Referring Physician: Rocky Mckeon, Emergency Medicine, Encounter Date: 01/11/2022 Procedures Surgical History Date Name Laterality Status Provider Name and Address Organization Details Recorded Time 003 Shaun-en-Y gastrojejunostomy completed Kalina magdaleno, INSURANCE SALES AGENT [address] [place], [address], [place] [facility] 11/18/2021 11:08:11 tonsillectomy completed Kalina magdaleno NP [address] [place], [address], [place] [facility] 11/18/2021 11:06:45 Removal of adenoids completed Mera Booker rt, INSURANCE SALES AGENT [address] [place], [address], [place] [facility] 11/18/2021 11:06:54 section completed Kalina Booker rt, INSURANCE SALES AGENT [address], [place], [address], [place] [facility] 11/18/2021 11:07:02 procedure on pelvis completed Mera Booker rt, INSURANCE SALES AGENT [address], [place], [address], [place] [facility] 11/18/2021 11:07:19 dilation and curettage of uterus completed Kalina Booker rt, INSURANCE SALES AGENT [address], [place], [address], [place] [facility] 11/18/2021 11:10:08 Imaging Results None recorded. Procedure Notes None recorded. Medical Equipment None Reported. Allergies Allergen ID Allergen Name Allergen Category Reaction Reaction Severity Criticality Documentation Date Start Date Code Code System Note Provider Name and Address Organization Details Recorded Time 222136 [facility] n Not available Not available Not available 11/18/2021 [id number] 19 RxNorm Kalina Arslan grace, INSURANCE SALES AGENT [address] [place], [address], [place] [facility] 2 10:58:11 Medications Name Sig Start Date Stop Date Status Note LastModified by Organization Details LastModified Time ivermectin 3 mg tablet TAKE 4 TABLETS BY MOUTH EVERY WEEK FOR 14 DAYS DIRECTED active Not Available Not Available No t Available doxycycline hyclate 100 mg capsule TAKE 1 CAPSULE BY MOUTH TWICE DAILY FOR 7 DAYS DIRECTED active Not Available Not Available No t Available prednisone 20 mg tablet Take 1 tablet every day by oral route. active Not Available Not Available No t Available permethrin 5 % topical cream APPLY (THOROUGH LY MASSAGE INTO SKIN FROM HEAD TO SOLES OF FEET) BY TOPICAL ROUTE ONCE LEAVE ON FOR 8-14 HR, THEN REMOVE BY THOROUGH WASHING active Not Available Not Available No t Available hydroxyzine pamoate 50 mg capsule TAKE 1 CAPSULE BY MOUTH FOUR TIMES DAILY active Not Available Not Available No t Available oxycodone 15 mg tablet TAKE 1 TABLET BY MOUTH FOUR TIMES DAILY active Not Available Not Available No t Available amoxicillin 400 mg-estela orozco clavulanate 57 mg/5 mL oral suspension SHAKE LIQUID AND TAKE 11 ML BY MOUTH TWICE DAILY FOR 7 DAYS. DISCARD REMAINDER 11/18 completed Not Available Not Available Not Available ofloxacin 0.3 % ear drops INSTILL 10 DROPS INTO AFFECTED EAR ONCE DAILY active Not Available Not Available No t Available malathion 0.5 % lotion APPLY BY TOPICAL ROUTE TO DRY SKIN AND RUB IN, ALLOW TO SIT AND RINSE OFF AFTER 8-12 HOURS active Not Available Not Available No t Available pantoprazol e 40 mg tablet,mary ann yed release TAKE 1 TABLET BY MOUTH EVERY DAY active Not Available Not Available No t Available gabapentin 300 mg capsule TAKE ONE CAPSULE BY MOUTH THREE TIMES DAILY active Not Available Not Available No t Available budesonide DR - ER 3 mg capsule,del ayed,extend ed release TAKE 2 CAPSULES BY MOUTH DAILY IN THE MORNING active Not Available Not Available No t Available hydroxyzine HCl 10 mg tablet TAKE 1 TABLET BY MOUTH TWICE DAILY NEEDED active Not Available Not Available No t Available topiramate 100 mg tablet TAKE 1 TABLET BY MOUTH TWICE DAILY active Not Available Not Available No t Available fluticasone propionate 50 mcg/actuati on nasal spray,suspe nsion SHAKE LIQUID AND USE 2 SPRAYS IN EACH NOSTRIL EVERY DAY active Not Available Not Available No t Available prazosin 2 mg capsule TAKE 1 CAPSULE BY MOUTH AT BEDTIME FOR NIGHTMARE S active Not Available Not Available No t Available Ventolin HFA 90 mcg/actuati on aerosol inhaler INHALE 2 PUFFS BY MOUTH FOUR TIMES DAILY NEEDED active Not Available Not Available No t Available Cymbalta 60 mg capsule,del ayed release TAKE 1 CAPSULE BY MOUTH TWICE DAILY WITH MEALS active Not Available Not Available No t Available Suprep Bowel Prep Kit 17.5 gram-3.13 gram-1.6 gram oral solution DIRECTED 11/18 completed Not Available Not Available Not Available Vitals Date Recorded Respiratory rate Heart rate Oxygen saturation Oxygen saturation in Arterial blood by Pulse oximetry Body temperature Systolic And Diastolic Provider Name and Address Organization Details Last Updated DateTime 2 20 /min 78 /min 96 % 96 % 98.2 [degF] 140/80 mm[Hg] Not Available [facility] 2 11:07:20 Date Recorded Body temperature Oxygen saturation Oxygen saturation in Arterial blood by Pulse oximetry Heart rate Respiratory rate Systolic And Diastolic Provider Name and Address Organization Details Last Updated DateTime 2 98.4 [degF] 97 % 97 % 77 /min 18 /min 110/60 mm[Hg] Not Available [facility] 11:57:15 Date Recorded Heart rate Body temperature Respiratory rate Oxygen saturation Oxygen saturation in Arterial blood by Pulse oximetry Systolic And Diastolic Provider Name and Address Organization Details Last Updated DateTime 2 66 /min 98.4 [degF] 18 /min 96 % 96 % 124/82 mm[Hg] Not Available [facility] 2 19:45:37 Date Recorded Heart rate Respiratory rate Oxygen saturation Oxygen saturation in Arterial blood by Pulse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
--- NOTE | 2025-09-02 21:43 | ED.SOB ---
HPI - SOB/Dyspnea General Chief Complaint: Dyspnea Stated Complaint: SOB x4 days 98% on 2L O2 hx of asthma Time Seen by Provider: 09/02/25 21:23 Source: patient and EMS Mode of arrival: EMS Limitations: no limitations History of Present Illness ED Provider: Dr. Abida Balderas HPI Narrative: Patient comes to the emergency room complaining of shortness of breath. Patient states that she is known to have asthma, has been using her inhaler without any significant relief. patient also reports not feeling well, a bit weak for the last 4 days. Patient denies chest pain, denies vomiting or diarrhea. Related Data Home Medications ?Medication ?Instructions ?Recorded ?Confirmed gabapentin 300 mg capsule 300 mg PO TID 10/18/23 10/01/24 calcium carbonate 500 mg PO DAILY 10/23/23 10/01/24 cholecalciferol (vitamin D3) 25 25 mcg PO DAILY 10/23/23 10/01/24 mcg (1,000 unit) tablet (Vitamin D3) albuterol sulfate 90 mcg/actuation 2 puff inhalation Q6H PRN 10/01/24 10/01/24 aerosol inhaler (Ventolin HFA) shortness of breath or wheezing epinephrine 0.125 mg/actuation 1 puff inhalation Q4H PRN 10/01/24 10/01/24 aerosol inhaler Shortness Of Breath Or Wheezing oxycodone 15 mg tablet 15 mg PO QID PRN pain 10/01/24 10/01/24 Previous Rx's ?Medication ?Instructions ?Recorded cefuroxime axetil 250 mg tablet 250 mg PO BID 7 days #14 tabs 09/30/24 permethrin 5 % topical cream 1 appl topical Q14D 2 doses #60 09/30/24 grams docusate sodium 50 mg/5 mL oral 100 mg (10 mL) PO BID #30 mL 10/03/24 liquid magnesium hydroxide 400 mg/5 mL 30 ml PO DAILY PRN Constipation 10/03/24 oral suspension (Milk of Magnesia) #200 mL amoxicillin 875 mg-potassium 1 tab PO BID #10 tabs 10/04/24 clavulanate 125 mg tablet ondansetron 4 mg disintegrating 4 mg PO Q8H PRN nausea and 10/04/24 tablet vomiting #20 tabs vancomycin 125 mg capsule 125 mg PO Q6H #46 caps 10/04/24 pantoprazole 40 mg tablet,delayed 40 mg PO DAILY #30 tabs 10/24/24 release (Protonix) loperamide 2 mg tablet 2 mg PO Q6H PRN loose stool #10 10/29/24 (Anti-Diarrheal (loperamide)) tabs cefuroxime axetil 250 mg tablet 250 mg PO BID 7 days #14 tabs 12/11/24 Allergies Allergy/AdvReac Type Severity Reaction Status Date / Time No Known Allergies Allergy Verified 09/02/25 21:02 Review of Systems Review of Systems: Constitutional : No Weight loss, No Fever, No Chills, No Night Sweats, Complaining of fatigue and generalized malaise ENT/Mouth : No Hearing loss, No Ear Pain, No Nasal Congestion, No Sinus Pain, No Hoarseness, No sore throat, No Rhinorrhea, No Swallowing Difficulty Eyes: No Eye Pain, No Swelling, No Redness, No Foreign Body, No Discharge, No Vision Changes Cardiovascular : No Chest Pain, No SOB, No Dyspnea on Exertion, No Orthopnea, No Edema, No Palpitations Respiratory : complaining of mild cough, wheezing, mild shortness of breath. Gastrointestinal : No Nausea, No Vomiting, No Diarrhea, No Constipation, No abdominal Pain, No Hematochezia, No Melena Genitourinary : no irregular bleeding, No Dysuria, No Urinary Frequency, No Hematuria, No Urinary Incontinence, No Urgency, No Flank Pain, No Urinary Flow Changes, No Hesitancy Musculoskeletal : No joint pain, No Myalgias, No Joint Swelling Skin : No Skin Lesions, No rash Neuro : No Weakness, No Numbness, No Paresthesias, No Loss of Consciousness, No Dizziness, No Headache Psych : No Anxiety/Panic, No Depression, No SI/HI/AH/VH, No Social Issues, Heme/Lymph: No Bruising, No Bleeding,No Lymphadenopathy Endocrine : No Polyuria, No Polydipsia, No Temperature Intolerance [facility] Past Medical History Medical History Abdominal pain Peripheral neuropathy GERD (gastroesophageal reflux disease) Surgical History H/O gastric bypass Social History Social History Household Members: None Housing: Apartment Do you presently have visiting nurse or other home services: No Comment: N/A Patient Tobacco Use Status: Never used Tobacco Smoked in Last 30 Days: No e-Cigarette/Vaping Use: Never Used Second Hand Smoke Exposure: No Use of substances other than those prescribed or required for medical reasons: No Advance Directives: Yes Advance Directives on File: Yes Advance Directives Date on File: 10/05/24 service: No Physical Exam Exam: Exam: Appearance: Alert. Oriented X3. No acute distress. Eyes: Pupils equal, round and reactive to light. ENT: Pharynx normal. Neck: Normal inspection. Neck supple. No lymph nodes noted. No crepitus CVS: Normal heart rate and rhythm. Pulses normal. Normal S1 and S2 Respiratory: No respiratory distress. speaking in full sentences, bilateral wheezing, no rales or crackles Abdomen: Soft and nontender. No rigidity. No distention. Skin: Skin warm and dry. Normal skin color. Normal skin turgor. Extremities: No lower extremity edema. No Lacerations. No Rash . Patient recovering from a left wrist and left elbow fracture, splint in place Neuro: Oriented X 3. No motor deficit. No sensory deficit. Moving all extremities. No slurred speech. CN 2 through 12 grossly intact Psych: calm, cooperative, normal affect Vital Signs: Vital Signs: Last Vital Signs Temp 98.3 F 09/02/25 22:27 Pulse 82 09/02/25 22:27 Resp 18 09/02/25 22:27 BP 119/63 09/02/25 22:27 Pulse Ox 96 09/02/25 22:27 O2 Del Method Room Air 09/02/25 22:27 BMI result Body Mass Index 32.3 Course Course Course Narrative: patient reports generalized malaise for 2-4 days, today, patient had multiple asthma exacerbations not responding well to home treatment With an albuterol pump. Medications Administered Discontinued Medications Generic Name Dose Route Start Last Admin Trade Name Freq PRN Reason Stop Dose Admin Albuterol Sulfate 2.5 mg/ 0 mg 09/02/25 21:57 09/02/25 22:01 Albuterol/Ipratropium 3 ml INHALE 09/02/25 21:58 5 dose ONCE ONE Administration Magnesium Sulfate 2 gm in 50 mls @ 150 mls/hr 09/02/25 21:42 09/02/25 22:34 Magnesium Sulfate/H2o IV 09/02/25 22:01 Infused ONCE ONE Infusion Methylprednisolone Sodium Succinate 125 mg 09/02/25 21:42 09/02/25 21:57 Methylprednisolone Sod Succ 125 Mg/2 Ml Vial IVPUSH 09/02/25 21:43 125 mg ONCE ONE Administration Medical Decision Making Medical Decision Making [facility] Narrative: My interpretation of EKG: Normal sinus rhythm, heart rate 75, no ST segment depression or elevation, no T-wave inversion, QTC 462 my interpretation of labs: No significant in patient's hematology and chemistry, at baseline, patient's blood gases has a normal pH and pCO2. Bicarb 15 which is chronic and at baseline for the patient. Chemistry: No obvious abnormality. Troponin 1 was a bit elevated at 37.9, 2nd troponin decreased to 27.8. Likely secondary to demand ischemia. Patient denies any chest pain. Serology negative for COVID influenza Patient's nurse tried getting the patient up to ambulate. Patient lives by herself. Patient refused, states that she feels too weak to get up. Patient states that for last few days she has noticed that her weakness has gradually been getting worse. At this time, she is not having any more difficulty breathing. Patient is saturating 96% on room air. Asymptomatic other than weakness Physical therapy and case management consult pending Chest x-ray was read possible shadow versus infiltrate. Clinically, patient does not have pneumonia. Patient's white blood cell count within normal limits. Oxygen saturation within normal limits. No coughing, no shortness of breath. Patient's asthma exacerbation has resolved Differential Diagnosis Differential Diagnoses: The differential diagnosis associated with the presentation includes (Viral syndrome, asthma, UTI, deconditioning) Admission/Observation Consideration of admission/observation: Escalation of care including admission/observation considered (Patient is under physician observation waiting to see the case management and Physical therapy teams to determine patient's disposition) Lab Data [facility] Lab Attestation statement: I reviewed the patient's lab results. 09/02/25 21:41 09/02/25 21:41 Labs: Lab Results 09/02/25 09/02/25 09/02/25 Range/Units 21:41 21:48 23:59 WBC 9.7 (4.8-10.8) X10*3/uL RBC 5.92 H D (4.20-5.50) X10*6/uL Hgb 13.7 (12.0-16.0) g/dl Hct 44.1 D (37.0-47.0) % MCV 74.5 L (80.0-98.0) fL MCH 23.1 L (27.0-33.0) pg MCHC 31.1 (31.0-35.0) g/dl RDW 21.5 H (11.0-16.0) % Plt Count 500 H (160-400) X10*3/uL MPV 8.3 L (9.4-12.3) fL Immature Gran % (Auto) 0.5 H (0.0-0.4) % Neut % (Auto) 73.4 H (45-73) % Lymph % (Auto) 15.7 L (20-40) % [place] % (Auto) 8.2 (2-11) % Eos % (Auto) 0.8 (0-4) % Baso % (Auto) 1.4 (0-2) % Lymph # (Auto) 1.5 (1.2-4.9) X10*3/uL [place] # (Auto) 0.8 (0.1-1.2) X10*3/uL Eos # (Auto) 0.1 (0.0-0.4) X10*3/uL Baso # (Auto) 0.1 (0.0-0.2) X10*3/uL Abs Immat Gran (auto) 0.05 H (0.00-0.03) X10*3/uL Absolute Neuts (auto) 7.1 (2.0-8.3) x10*3/uL Absolute Nucleated RBC 0.000 (0.0-0.012) X10*3/uL Nucleated RBC % (auto) 0.0 (0.0-0.2) /100WBC VBG pH 7.37 (7.32-7.43) VBG pCO2 26 mmHg VBG pO2 55 mmHg VBG HCO3 15 L (22-26) mmol/L VBG O2 Saturation 80.0 % VBG Base Excess -8.0 mmol/L Sodium 138 (135-145) mmol/L Potassium 3.5 D (3.3-5.1) mmol/L Chloride 104 (96-108) mmol/L Carbon Dioxide 16 L (22-29) mmol/L Anion Gap 22 H (12-20) BUN 13 (9-16) mg/dL Creatinine 0.93 (0.5-1.4) mg/dL Estim Creat Clear Calc 57.5 Estimated GFR > 60 Random Glucose 99 (60-115) mg/dL Calcium 10.5 H D (8.4-10.2) mg/dL Magnesium 1.7 (1.6-2.6) mg/dL Total Bilirubin 0.8 (0.0-1.0) mg/dL AST 29 (5-31) U/L ALT 33 H (0-31) U/L Alkaline Phosphatase 85 (39-117) U/L Troponin I High Sens 37.9 H D 27.8 H (<3.5-17.0) ng/L Total Protein 7.5 (6.5-8.0) g/dL Albumin 4.5 (3.5-5.0) g/dL COVID-19 (LOBO) Negative (Negative) COVID-19 Clin Com See Note Influenza Type A (KRISTINA) Negative (Negative) Influenza Type B (KRISTINA) Negative (Negative) Influenza A & B Note See Note Independent Interpretation I performed an independent interpretation of an: Plain X-Ray Radiology Impression Discussion of test interpretation with radiology: I have reviewed the radiologist's reading. Radiologist Impression: FINDINGS: A single frontal view of the chest was performed. The patient is rotated to the right. The cardiac size is within normal limits. An opacity in the medial aspect of the right upper lobe could represent confluence of shadows or alternatively atelectasis/infiltrate. No consolidation or pleural effusion. No pneumothorax. IMPRESSION: 1. An opacity in the medial aspect of the right upper lobe could represent either a confluence of shadows, or alternatively atelectasis/infiltrate. 2. No consolidation or pleural effusion. No pneumothorax. Critical Care Time Critical Care Time Critical Care Time: Yes Total Critical Care Time: 35 Attestation: I have personally provided critical care time. Time includes review of lab data, radiology results, discussion with consultants, and monitoring for potential decompensation. Intervention performed as documented. Discharge Plan Discharge Clinical Impression: Asthma with exacerbation, Weakness Prescriptions: No Action albuterol sulfate [Ventolin HFA] 90 mcg/actuation HFA aerosol inhaler 2 puff inhalation Q6H PRN (Reason: shortness of breath or wheezing) epinephrine 0.125 mg/actuation Hfa Aerosol Inhaler 1 puff INHALATION Q4H PRN (Reason: Shortness Of Breath Or Wheezing) Rx Instructions: may repeat once after 1 minute; do not exceed 8 inhalations per 24 hrs oxycodone 15 mg tablet 15 mg PO QID PRN (Reason: pain) docusate sodium 50 mg/5 mL Liquid 100 mg PO BID Qty: 30 0RF magnesium hydroxide [Milk of Magnesia] 400 mg/5 mL Suspension 30 ml PO DAILY PRN (Reason: Constipation) Qty: 200 0RF amoxicillin-pot clavulanate 875-125 mg tablet 1 tab PO BID Qty: 10 0RF vancomycin 125 mg Capsule 125 mg PO Q6H Qty: 46 0RF ondansetron 4 mg tablet,disintegrating 4 mg PO Q8H PRN (Reason: nausea and vomiting) Qty: 20 0RF pantoprazole [Protonix] 40 mg tablet,delayed release (DR/EC) 40 mg PO DAILY Qty: 30 0RF loperamide [Anti-Diarrheal (loperamide)] 2 mg tablet 2 mg PO Q6H PRN (Reason: loose stool) Qty: 10 0RF cefuroxime axetil 250 mg tablet 250 mg PO BID 7 Days Qty: 14 0RF gabapentin 300 mg capsule 300 mg PO TID calcium carbonate 500 mg calcium (1,250 mg) Tablet 500 mg PO DAILY cholecalciferol (vitamin D3) [Vitamin D3] 25 mcg (1,000 unit) Tablet 25 mcg PO DAILY cefuroxime axetil 250 mg tablet 250 mg PO BID 7 Days Qty: 14 0RF Rx Instructions: END DATE: 10/06/24 permethrin 5 % cream 1 appl topical Q14D Qty: 60 0RF Rx Instructions: apply second treatment 14 days after first treatment if live lice remain Print Language: Syrian
[2025-09-02 21:48] LABS: MANUAL DIFF FLAG NO
[2025-09-02 21:50] LABS: Hematocrit 44.1 % (37.0-47.0); Hemoglobin 13.7 g/dl (12.0-16.0); Imm Gran Abs Auto 0.05 X10*3/uL (0.00-0.03); Imm Gran Pct Auto 0.5 % (0.0-0.4); Lymphocytes Absolute Auto 1.5 X10*3/uL (1.2-4.9); Mean Corpuscular HGB Conc 31.1 g/dl (31.0-35.0); Mean Corpuscular Hemoglobin 23.1 pg (27.0-33.0); Mean Corpuscular Volume 74.5 fL (80.0-98.0); NRBC Abs Auto 0.000 X10*3/uL (0.0-0.012); NRBC Pct Auto 0.0 /100WBC (0.0-0.2); Platelet Count 500 X10*3/uL (160-400); Red Blood Count 5.92 X10*6/uL (4.20-5.50); White Blood Count 9.7 X10*3/uL (4.8-10.8)
[2025-09-02 21:51] LABS: Venous Blood Gas Refer to POC result
[2025-09-02 21:52] LABS: VBG HCO3 15 mmol/L (22-26); VBG O2 % Saturation 80.0 %
[2025-09-02] MEDS: Magnesium Sulfate/H2O 2 GM/50 ML PIGGYBACK IV (21:56)
[2025-09-02] MEDS: Albuterol Sulfate 2.5 MG, Albuterol/Iprat 2.5/0.5MG 3 ML 3 ML INHALE (22:01)
[2025-09-02 22:02] VITALS: PULSE 81; RESP 12; O2SAT 97
[2025-09-02 22:07] LABS: Alanine Aminotransferase 33 U/L (0-31); Albumin Level 4.5 g/dL (3.5-5.0); Alkaline Phosphatase 85 U/L (39-117); Anion Gap 22 (12-20); Aspartate Amino Transferase 29 U/L (5-31); Blood Urea Nitrogen 13 mg/dL (9-16); Calcium 10.5 mg/dL (8.4-10.2); Carbon Dioxide 16 mmol/L (22-29); Chloride 104 mmol/L (96-108); Creatinine Clr Calc Pharmacy 57.5; Estimated Glomerular Filt Rate > 60; Magnesium 1.7 mg/dL (1.6-2.6); Potassium 3.5 mmol/L (3.3-5.1); Sodium 138 mmol/L (135-145); Total Protein 7.5 g/dL (6.5-8.0)
[2025-09-02 22:08] LABS: COVID-19 Test Negative (Negative); IDNOW Serial# 55D5AD1C
[2025-09-02 22:09] LABS: IDNOW Serial# 58CA691E; Influenza B2 Negative (Negative); Troponin-I High Sensitivity 37.9 ng/L (<3.5-17.0)
--- NOTE | 2025-09-02 22:26 | PC.NURSE ---
magnesium infusion delay due to pt bending arm, advised pt to keep arm straight.
[2025-09-02 22:27] VITALS: BP 119/63; PULSE 82; RESP 18; TEMP 36.8; O2SAT 96
--- NOTE | 2025-09-02 23:14 | PC.NURSE ---
respirations even and unlabored. pt confirms feeling less SOB.
[2025-09-03 00:26] LABS: Troponin-I High Sensitivity 27.8 ng/L (<3.5-17.0)
--- NOTE | 2025-09-03 01:30 | PC.NURSE ---
pt does not feel safe performing ambulation trial, she report b/l leg weakness and dizziness, provider advised.
--- NOTE | 2025-09-03 01:31 | MHC.EDTECH ---
pt attempted ambulation trial at this time. pt O2 levels remained 97%-98% during the duration of attempted trial. Pt was able to stand but stated she felt dizzy and weak and was afraid that she was going to fall. pt HR 100-108
[2025-09-03 02:15] VITALS: BP 121/70; BP 122/63; PULSE 77; PULSE 99
[2025-09-03 02:17] LABS: Appearance Urine Cloudy; Glucose Urine UA Negative (Negative); PH 5.5 (5.0-9.0); Specific Gravity - Urine 1.025 (1.005-1.025); UMIC TRIGGER UACC YES
[2025-09-03 02:31] LABS: UACC Culture Trigger YES
--- NOTE | 2025-09-03 02:33 | PC.NURSE ---
verbal report given to Stephan RN in overflow manager technical will transport pt to overflow room 1.
[2025-09-03 03:59] VITALS: BP 143/74; PULSE 90; RESP 18; TEMP 36.8; O2SAT 97
[2025-09-03] MEDS: oxyCODONE HCl Immed Release 15 MG TABLET PO ×4 (05:00→22:58)
--- NOTE | 2025-09-03 09:02 | MHC.CM.PN ---
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 P.T. EVAL PENDING.
--- NOTE | 2025-09-03 10:31 | PHA.MEDREC ---
Pharmacy Consult ? Medication Reconciliation Pharmacy has completed the medication reconciliation. Spoke to patient to confirm medication list. Per patient, she takes trazodone 50 mg at bedtime scheduled and she has not taken furosemide 20 mg for at least 3-4 months due to not being bloated. Last dose of medications was yesterday @6pm.
[2025-09-03 14:00] VITALS: BP 159/73; PULSE 88; RESP 18; TEMP 36.8; O2SAT 94
[2025-09-03 18:51] VITALS: BP 108/59; PULSE 81; RESP 18; TEMP 36.5; O2SAT 95
[2025-09-03 22:25] VITALS: BP 119/64; PULSE 74; RESP 17; TEMP 36.6; O2SAT 93
--- NOTE | 2025-09-04 05:35 | PC.NURSE ---
Assumed care of patient in ED OVF at 1900. Patient is alert and oriented x 4, pleasant, calm, cooperative. She is ambulating with standby assist with cane to the bathroom. Takes medications whole with water. Awaiting PT eval. Bed locked and in lowest setting. Alarm on, call riley within reach.
[2025-09-04 06:27] VITALS: BP 105/57; PULSE 72; RESP 18; TEMP 36.2; O2SAT 94
[2025-09-04] MEDS: oxyCODONE HCl Immed Release 15 MG TABLET PO ×3 (06:29→19:34)
[2025-09-04 08:00] VITALS: BP 119/75; PULSE 77; RESP 16; TEMP 36.4; O2SAT 94
--- NOTE | 2025-09-04 09:35 | PC.NURSE ---
Per PT they would like her not to weight bear on left arm. has a brace on it but no xray was done here Shahida HARDIN notified of recommendation.
[2025-09-04 14:00] VITALS: BP 146/87; PULSE 135; RESP 16; TEMP 36.6; O2SAT 94
--- NOTE | 2025-09-04 14:41 | MHC.CM.ED ---
Insurance auth obtained by [facility]. Pamela ROCHA booked for Thursday, 09/05 at 9am. Med [facility] with chart. Patient, Lavern RN and Shahida HARDIN aware. Continue to monitor for d/c needs.
--- NOTE | 2025-09-04 15:52 | ECG_ITS ---
Test Reason : tachycardia Blood Pressure : */* mmHG Vent. Rate : 156 BPM Atrial Rate : 271 BPM P-R Int : * ms QRS Dur : 80 ms QT Int : 302 ms P-R-T Axes : * -15 98 degrees QTcB Int : 486 ms Atrial flutter with variable A-V block Left ventricular hypertrophy with repolarization abnormality ( [place] product ) cannot exclude old Inferior infarct (cited on or before 02-Sep-2025) Abnormal ECG When compared with ECG of 02-Sep-2025 21:24, Atrial flutter has replaced Sinus rhythm Vent. rate has increased by 81 bpm T wave inversion now evident in Lateral leads Referred By: Shahida Garcia Electronically Signed By: PERRY MATTA
--- NOTE | 2025-09-04 16:23 | PC.NURSE ---
NIGHT [employer]OR reporting HR in the 130s when taking vitals. EKG ordered. No chest pain, no SOB, patient reporting a flutter in her chest . EKG obtained, showing aflutter, EKG strip brought to ED provider. ED provider requesting patient be brought to main ED. Labs obtained. Patient moved to main ED.
[2025-09-04 16:39] LABS: MANUAL DIFF FLAG NO
[2025-09-04 16:41] LABS: Hematocrit 37.2 % (37.0-47.0); Hemoglobin 11.8 g/dl (12.0-16.0); Imm Gran Abs Auto 0.06 X10*3/uL (0.00-0.03); Imm Gran Pct Auto 0.5 % (0.0-0.4); Lymphocytes Absolute Auto 3.0 X10*3/uL (1.2-4.9); Mean Corpuscular HGB Conc 31.7 g/dl (31.0-35.0); Mean Corpuscular Hemoglobin 23.9 pg (27.0-33.0); Mean Corpuscular Volume 75.3 fL (80.0-98.0); NRBC Abs Auto 0.000 X10*3/uL (0.0-0.012); NRBC Pct Auto 0.0 /100WBC (0.0-0.2); Platelet Count 426 X10*3/uL (160-400); Red Blood Count 4.94 X10*6/uL (4.20-5.50); White Blood Count 11.9 X10*3/uL (4.8-10.8)
--- NOTE | 2025-09-04 16:50 | MHC.CM.ED ---
Pt to be admitted d/t new onset aflutter with RVR. PVR aware and requested to follow. Transport cancelled.
--- NOTE | 2025-09-04 17:02 | P.HPHOSP_ITS ---
History of Present Illness Date of Service: 09/04/25 Chief Complaint: Onset atrial flutter 69-year-old woman initially presenting to the ER with complaints of shortness of breath with a history of asthma and has been using her inhalers without significant relief. Patient also reported weakness for a few days prior to presenting to the ER. She denied any recent illness, fever, chills, nausea, vomiting, diarrhea, recent travel, sick contacts. She was placed on physicians observation for case management placement. Chest x-ray was negative for pneumonia. Plan was to transfer patient to short-term rehab. Today patient developed atrial flutter with rapid ventricular response, she was given a dose of metoprolol and transferred back to the ER. Plan will be to admit patient for further management and treatment of new onset atrial flutter. Review of Systems 2 Review of Systems: Denies any recent fever chills or decrease in appetite respiratory denies any shortness of breath or cough cardiovascular denies chest pain gastrointestinal denies any dysphagia abdominal pain nausea vomiting or diarrhea genitourinary denies any dysuria frequency or hematuria musculoskeletal denies any joint pain or swelling neuropsych denies any weakness or seizures all other systems reviewed are negative [facility]LY [facility] Medical History Abdominal pain Peripheral neuropathy GERD (gastroesophageal reflux disease) Surgical History H/O gastric bypass Social History Household Members: None Housing: Apartment Do you presently have visiting nurse or other home services: No Comment: N/A Patient Tobacco Use Status: Never used Tobacco Smoked in Last 30 Days: No e-Cigarette/Vaping Use: Never Used Second Hand Smoke Exposure: No Use of substances other than those prescribed or required for medical reasons: No Advance Directives: Yes Advance Directives on File: Yes Advance Directives Date on File: 10/05/24 service: No Meds Allergies Allergy/AdvReac Type Severity Reaction Status Date / Time No Known Allergies Allergy Verified 09/02/25 21:02 Active Medications: Current Medications Acetaminophen (Acetaminophen 325 Mg Tablet) 650 mg PO Q6H PRN PRN Reason: Pain, Mild 1-3,fever,headache Albuterol Sulfate (Albuterol Sulfate 90 Mcg 8 Gm Inhaler) 2 puff INHALE Q6H PRN PRN Reason: shortness of breath or wheezing Apixaban (Apixaban 5 Mg Tablet) 5 mg PO BID [facility] Calcium Carbonate (Calcium Carbonate 750 Mg Tab.Chew) 750 mg PO Q4H PRN PRN Reason: Heartburn Cefuroxime Axetil (Cefuroxime Axetil 500 Mg Tablet) 500 mg PO BID [facility] Stop: 09/11/25 20:59 Gabapentin (Gabapentin 300 Mg Capsule) 300 mg PO TID [facility] Last Admin: 09/04/25 16:37 Dose: 300 mg Magnesium Hydroxide (Milk Of Magnesia 30 Ml Oral.Susp) 30 ml PO DAILY PRN PRN Reason: Constipation Melatonin (Melatonin 3 Mg Tablet) 6 mg PO BEDTIME PRN PRN Reason: Insomnia Omeprazole (Omeprazole 20 Mg Capsule.Dr) 20 mg PO DAILY@06 [facility] Last Admin: 09/04/25 06:24 Dose: 20 mg Ondansetron HCl (Ondansetron Hcl 4 Mg/2 Ml Vial) 4 mg IVPUSH Q8H PRN PRN Reason: Nausea and Vomiting Oxycodone HCl (Oxycodone Hcl Immed Release 15 Mg Tablet) 15 mg PO QID PRN PRN Reason: Pain, Severe (Pain Scale 7-10) Last Admin: 09/04/25 13:24 Dose: 15 mg Sodium Chloride (0.9 % Sodium Chloride Flush 3 Ml Syringe) 3 [facility] Trazodone [facility] (Trazodone Hcl 50 Mg Tablet) 50 mg PO BEDTIME [facility] Last Admin: 09/03/25 22:58 Dose: 50 mg Home Medications ?Medication ?Instructions ?Recorded ?Confirmed ?Last Taken ?Type gabapentin 300 mg capsule 300 mg PO TID 10/18/2309/0309/02/25 18:00 History albuterol sulfate 90 mcg/actuation 2 puff inhalation Q 6H PRN 10/01/24 09/03/25 Unknown History aerosol inhaler (Ventolin HFA) shortness of breath or wheezing oxycodone 15 mg tablet 15 mg PO QID PRN pain 09/03/25 09/02/25 18:00 History pantoprazole 40 mg tablet,delayed 40 mg PO DAILY@0630 09/03/25 09/03/25 09/02/25 08:00 History release (Protonix) trazodone 50 mg tablet 50 mg PO BEDTIME 09/03/2509/01/25 History Physical Exam 2 Vital Signs and Narrative: Vital Signs: Last Vital Signs Temp 97.8 F 09/04/25 14:00 Pulse 135 H 09/04/25 14:00 Resp 16 09/04/25 14:00 BP 146/87 H 09/04/25 14:00 Pulse Ox 94 09/04/25 14:00 O2 Del Method Room Air 09/04/25 14:00 BMI result Body Mass Index 32.3 Appearing in no acute distress head is normocephalic atraumatic eyes pupils are PERRLA sclera is anicteric mouth throat mucous membranes are intact and moist neck is supple no lymphadenopathy, no JVD noted lung sounds are clear to auscultation heart irregularly irregular positive bowel sounds, abdomen is soft, nontender neuro patient is alert x3, no focal deficits Results Labs 09/04/25 16:36 09/02/25 21:41 Labs: Laboratory Results - last 24 hr 09/04/25 16:36 MCV 75.3 L MCH 23.9 L MCHC 31.7 RDW 21.3 H Plt Count 426 H MPV 8.8 L Immature Gran % (Auto) 0.5 H Neut % (Auto) 62.5 Lymph % (Auto) 25.5 [place] % (Auto) 8.7 Eos % (Auto) 1.5 Baso % (Auto) 1.3 Lymph # (Auto) 3.0 [place] # (Auto) 1.0 Eos # (Auto) 0.2 Baso # (Auto) 0.2 Abs Immat Gran (auto) 0.06 H Absolute Neuts (auto) 7.4 Absolute Nucleated RBC 0.000 Nucleated RBC % (auto) 0.0 Assessment and Plan (1) Atrial flutter with rapid ventricular response: Status: Acute Plan 69 year old women admitted new onset atrial flutter. Patient was originally admitted to be case management placement on 09/02/2025 New onset atrial flutter with rapid ventricular response Monitor on telemetry Cardizem 30 q.i.d. Eliquis Cardiology consultation Echocardiogram Possible UTI Started on cefuroxime Follow urine culture Asthma No exacerbation Albuterol as needed GERD Continue PPI Weakness Physical therapy recommended short-term rehab DVT prophylaxis with Eliquis Full code Quality Stroke Does the patient have a stroke diagnosis?: No VTE Prior VTE?: No VTE Risk Level:: Medical - moderate - high VTE Device Contraindication: Treatment Not Indicated VTE Drug Contraindication: N/A - Med Ordered
[2025-09-04 17:07] LABS: Troponin-I High Sensitivity 16.3 ng/L (<3.5-17.0)
[2025-09-04 17:09] LABS: Alanine Aminotransferase 20 U/L (0-31); Albumin Level 4.0 g/dL (3.5-5.0); Alkaline Phosphatase 75 U/L (39-117); Anion Gap 15 (12-20); Aspartate Amino Transferase 28 U/L (5-31); Blood Urea Nitrogen 34 mg/dL (9-16); Calcium 9.3 mg/dL (8.4-10.2); Carbon Dioxide 19 mmol/L (22-29); Chloride 106 mmol/L (96-108); Creatinine Clr Calc Pharmacy 51.4; Estimated Glomerular Filt Rate 53; Potassium 3.6 mmol/L (3.3-5.1); Sodium 136 mmol/L (135-145); Total Protein 6.5 g/dL (6.5-8.0)
[2025-09-04 17:20] VITALS: BP 128/73; PULSE 71; RESP 15; TEMP 36.6; O2SAT 95
--- NOTE | 2025-09-04 17:24 | PC.NURSE ---
assumed care of pt at 1600, pt transported from [facility] d/t new onset aflutter. pt denies cp/sob/dizziness, reports cont'd L wrist pain 8-06/28. while attempting IV access to pt HR decreased from 140-160 to 65-75. provider notified, metoprolol held per provider verbal order. plan for admission.
[2025-09-04 17:42] VITALS: BMI 31.4
[2025-09-04 20:00] VITALS: BP 148/72; PULSE 68; RESP 18; TEMP 36; O2SAT 95
[2025-09-04] MEDS: 0.9 % Sodium Chloride Flush 3 ML SYRINGE IVFLUSH (20:39)
[2025-09-04 23:58] VITALS: BP 116/54; PULSE 57; RESP 17; TEMP 36.7; O2SAT 95
[2025-09-05] VITALS (9 sets, daily range): BP systolic 118–154; BP diastolic 69–86; PULSE 52–84; RESP 16–20; TEMP 36.2–36.9; O2SAT 88–97
[2025-09-05] MEDS: oxyCODONE HCl Immed Release 15 MG TABLET PO ×4 (01:33→21:11)
--- NOTE | 2025-09-05 03:59 | ECG_ITS ---
Test Reason : chest pain Blood Pressure : */* mmHG Vent. Rate : 61 BPM Atrial Rate : 61 BPM P-R Int : 134 ms QRS Dur : 82 ms QT Int : 442 ms P-R-T Axes : 23 -19 -16 degrees QTcB Int : 444 ms Artifact in tracing Normal sinus rhythm Normal ECG When compared to the previous EKG of sep 04 2025, rhythm change Referred By: Gurpreet Pace Electronically Signed By: PERRY MATTA
[2025-09-05 04:47] LABS: Troponin-I High Sensitivity 32.7 ng/L (<3.5-17.0)
--- NOTE | 2025-09-05 07:00 | CA_ITS ---
Transthoracic Echocardiogram Patient (Last, First, Middle): Meaghan Martino M Gender: F Date of : 1955 Age: 69 Procedure Date: 09/05/2025 Procedure Type: Transthoracic Echocardiogram [place] [facility] [place]: 157.48 cm Weight: 77.57 kg BSA: 1.79 m2 Heart Rate: 66 bpm BP: 123 / 69 mmHg Md Ophthalmologist: SB Referring MD: Jo Lafleur NP Symptoms: aflutter Study Quality: Fair apical/no IV access for Definity declined IV ECG Rhythm: Sinus Conclusions: - The left ventricular systolic function is low normal. The visually estimated ejection fraction is between 50-55%. - No obvious valvular pathology seen on this study. Findings Procedure Information The patient declines contrast. Left Ventricle Normal left ventricular cavity size. The left ventricular systolic function is low normal. The visually estimated ejection fraction is between 50-55%. Regional wall motion abnormalities can not be excluded due to suboptimal endocardial definition. Focal hypertrophy of basal septum. Right Ventricle Normal right ventricular cavity size and systolic function. Atria Both atria are normal in size. Aortic Valve There is a normal trileaflet aortic valve. There is no aortic valve stenosis. There is no aortic valve regurgitation. Mitral Valve The mitral valve appears normal. There is no mitral valve regurgitation. There is no mitral valve stenosis. Pulmonic Valve The pulmonic valve is likely normal. Tricuspid Valve There is trace tricuspid valve regurgitation. There is no evidence of pulmonary hypertension. Great Vessels The asc aorta is normal in size. Venous The inferior vena cava is mildly dilated and collapses greater than 50% with inspiration. Pericardium/Pleural There is no evidence of pericardial effusion. Prior Study Comparison Changes noted compared to prior study dated: 10/18/2023. LVEF slightly lower, but image quality is also suboptimal to assess. Recommendations, Care & Conclusions No obvious valvular pathology seen on this study. Measurements 2D Linear Measurements IVSd: 1.09 0.6-0.9/0.6-1.0 cm LVIDd: 4.90 3.9-5.3/4.2-5.9 cm LVIDd Index: 2.74 2.4-3.2/2.2-3.1 cm/m2 LVIDs: 3.55 2.0-3.6 cm LVPWd: 1.18 0.7-1.1 cm LA Diam: 3.20 2.7-3.8/3.0-4.0 cm LAIDs Index: 1.79 1.5-2.3 cm/m2 LV Mass: 260.99 67-162/88-224 g LV Mass Index: 145.80 43-95/49-115 g/m2 LVOT Diam: 2.10 3.0+(-)1.3 cm 2D Systolic Function EF Teich: 53.00 >55% Mitral Valve MV Pk E: 0.33 MV PK A: 0.33 MV Decel Time: 301.00 E/A: 1.00 E'Lateral: 7.51 E'Medial: 6.53 E/E' Med: 5.00 E/E' Lat: 4.30 PHT: 88.00 MVA PHT: 2.50 Decel Lamoure: 1.08 Aortic Valve AoV Pk Jose Cruz: 1.08 AoV Mn Jose Cruz: 0.82 AoV VTI: 0.17 AoV Pk Grad: 5.00 Aov Mn Grad: 3.00 TAWNYA Cont.VTI: 3.28 LVOT LVOT Pk Jose Cruz: 0.94 LVOT Mn Jose Cruz: 0.66 LVOT VTI: 0.16 LVOT Pk Grad: 4.00 LVOT Mn Grad: 2.00 LVOT Diam: 2.10 LVOT Area: 3.46 Diastolic Function MV Pk E: 0.33 MV Pk A: 0.33 E/A: 1.00 E'Medial: 6.53 E/E' Med: 5.00 E' Laterial: 7.51 E/E' Lat: 4.30 Right Ventricle TAPSE (mm): 14.00 TVS' Jose Cruz: 14.50 Tricuspid Valve TR Pk Jose Cruz: 2.41 TR Pk Grad: 23.00 RA Press: 8.00 RVSP: 31.00 Great Vessels Aorta Sinus of Valsalva: 3.30 2.0-3.5 cm Ao Asc: 3.10 2.1-3.4 cm Pulmonary Veins Pulm Vein S/D 1.80 Pulmonary Valve PV Pk Jose Cruz: 1.02 Peak PV Grad: 4.00 Updated in Other Vendor System with Status of Final Iker Madden MD electronically signed on 09/05/2025 12:03:48 PM with status of Final
[2025-09-05 07:03] LABS: Hematocrit 36.0 % (37.0-47.0); Hemoglobin 11.4 g/dl (12.0-16.0); Mean Corpuscular HGB Conc 31.7 g/dl (31.0-35.0); Mean Corpuscular Hemoglobin 23.7 pg (27.0-33.0); Mean Corpuscular Volume 74.7 fL (80.0-98.0); NRBC Abs Auto 0.000 X10*3/uL (0.0-0.012); NRBC Pct Auto 0.0 /100WBC (0.0-0.2); Platelet Count 453 X10*3/uL (160-400); Red Blood Count 4.82 X10*6/uL (4.20-5.50); White Blood Count 12.2 X10*3/uL (4.8-10.8)
[2025-09-05 07:18] LABS: Alanine Aminotransferase 23 U/L (0-31); Albumin Level 4.1 g/dL (3.5-5.0); Alkaline Phosphatase 73 U/L (39-117); Anion Gap 13 (12-20); Aspartate Amino Transferase 29 U/L (5-31); Blood Urea Nitrogen 29 mg/dL (9-16); Calcium 9.2 mg/dL (8.4-10.2); Carbon Dioxide 23 mmol/L (22-29); Chloride 102 mmol/L (96-108); Creatinine Clr Calc Pharmacy 67.6; Estimated Glomerular Filt Rate > 60; Potassium 3.3 mmol/L (3.3-5.1); Sodium 135 mmol/L (135-145); Total Protein 6.6 g/dL (6.5-8.0)
[2025-09-05 07:24] LABS: Troponin-I High Sensitivity 33.0 ng/L (<3.5-17.0)
[2025-09-05] MEDS: Flu Vacc TS2025-26(6mo up)/PF 0.5 ML SYRINGE IM (07:52)
[2025-09-05] MEDS: 0.9 % Sodium Chloride Flush 3 ML SYRINGE IVFLUSH (07:56)
[2025-09-05 08:24] LABS: Magnesium 1.7 mg/dL (1.6-2.6)
--- NOTE | 2025-09-05 09:37 | PM.CNCAR ---
History of Present Illness History of Present Illness Date of Service: 09/05/25 Chief complaint: new onset atrial flutter Narrative: This is a cardiology consultation regarding atrial flutter. She states that she is just not felt well for about a month or so. Various complaints like feeling dizzy, reduced appetite, increased use of inhalers for asthma extra. For ER notes, it seems that she was seen for shortness of breath but the EKG at that time had shown sinus rhythm. Then she developed tachycardia and EKG had shown atrial flutter and she received IV Lopressor and then she was admitted. Patient has no prior cardiac history including any coronary disease myocardial infarction or cardiomyopathy or anything else. She denies any other clear-cut complaints like exertional angina. She states she never paid attention to palpitations. Review of Systems Review of Systems: Yes all other systems are reviewed and are negative Constitutional: Constitutional: Reports as per HPI and Reports no additional constitutional complaints Eyes: Eyes: Reports as per HPI and Denies no additional eye complaints ENT: Denies system reviewed and no additional complaints, except as documented and Reports as per HPI Cardiovascular: Cardiovascular: Reports as per HPI, Reports no additional cardiovascular complaints, Denies acrocyanosis, Denies cool extremities, Denies chest pain, Denies leg edema, Denies lightheadedness, Denies palpitations and Reports dyspnea Respiratory: Respiratory: Reports as per HPI, Denies no additional respiratory complaints and Reports dyspnea Gastrointestinal: Gastrointestinal: Reports as per HPI and Denies no additional gastrointestinal complaints Genitourinary: Genitourinary: Reports as per HPI Musculoskeletal: Musculoskeletal: Reports no additional musculoskeletal complaints and Reports as per HPI Integumentary/Breasts: Skin/Breast: Reports system reviewed and no additional complaints, except as docu Neurologic: Reports system reviewed and no additional complaints, except as documented and Reports as per HPI Psychiatric: Psychiatric: Reports no additional psychiatric complaints and Reports as per HPI Endocrine: Endocrine: Reports no additional endocrine complaints, Reports as per HPI and Denies palpitations Hematologic/Lymphatic: Hematologic/Lymphatic: Reports no additional hematologic/lymphatic complaints and Reports as per HPI Allergic/Immunologic: Allergic/Immunologic: Reports no additional allergic/immunologic complaints and Reports as per HPI COUNTS INCLUDE 234 BEDS AT THE [facility] Past Medical History Medical History Abdominal pain Peripheral neuropathy GERD (gastroesophageal reflux disease) Family History Pertinent family history: No pertinent family history Surgical History Surgical History H/O gastric bypass Social History Social History Household Members: Family Household Members Other:: brother, sister [facility] Do you presently have visiting nurse or other home services: No Comment: N/A Patient Tobacco Use Status: Never used Tobacco Smoked in Last 30 Days: No e-Cigarette/Vaping Use: Never Used Patient Given Instructions on How to Stop Smoking: No Second Hand Smoke Exposure: No Use of substances other than those prescribed or required for medical reasons: No Currently Displaying Signs/Symptoms of Drug Intoxication Withdrawal: No Have you been hit, kicked, punched, or otherwise hurt by someone within the past year? If so, by whom?: No Do you feel safe in your current relationship?: Yes Is there a partner from a previous relationship who is making you feel unsafe now?: No Are you made to feel afraid or neglected: No Advance Directives: Yes Advance Directives on File: Yes Advance Directives Date on File: 10/05/24 Do you have a plan to hurt others: No Plan Recently lost weight without trying: No Nutrition Risks: No Nutritional Risk Patient : No : No Poor oral hygiene: No service: No Meds Allergies Allergy/AdvReac Type Severity Reaction Status Date / Time No Known Allergies Allergy Verified 09/02/25 21:02 Active Medications: Current Medications Acetaminophen (Acetaminophen 325 Mg Tablet) 650 mg PO Q6H PRN PRN Reason: Pain, Mild 1-3,fever,headache Albuterol Sulfate (Albuterol Sulfate 90 Mcg 8 Gm Inhaler) 2 puff INHALE Q6H PRN PRN Reason: shortness of breath or wheezing Apixaban (Apixaban 5 Mg Tablet) 5 mg PO BID [facility] Last Admin: 09/05/25 07:54 Dose: 5 mg Calcium Carbonate (Calcium Carbonate 750 Mg Tab.Chew) 750 mg PO Q4H PRN PRN Reason: Heartburn Cefuroxime Axetil (Cefuroxime Axetil 500 Mg Tablet) 500 mg PO BID [facility] Stop: 09/11/25 20:59 Last Admin: 09/05/25 07:54 Dose: 500 mg Diltiazem HCl (Diltiazem Hcl 30 Mg Tablet) 30 mg PO QID [facility]; Protocol Last Admin: 09/05/25 07:54 Dose: 30 mg Gabapentin (Gabapentin 300 Mg Capsule) 300 mg PO TID [facility] Last Admin: 09/05/25 07:53 Dose: 300 mg Magnesium Hydroxide (Milk Of Magnesia 30 Ml Oral.Susp) 30 ml PO DAILY PRN PRN Reason: Constipation Melatonin (Melatonin 3 Mg Tablet) 6 mg PO BEDTIME PRN PRN Reason: Insomnia Omeprazole (Omeprazole 20 Mg Capsule.Dr) 20 mg PO DAILY@06 [facility] Last Admin: 09/05/25 05:49 Dose: 20 mg Ondansetron HCl (Ondansetron Hcl 4 Mg/2 Ml Vial) 4 mg IVPUSH Q8H PRN PRN Reason: Nausea and Vomiting Oxycodone HCl (Oxycodone Hcl Immed Release 15 Mg Tablet) 15 mg PO QID PRN PRN Reason: Pain, Severe (Pain Scale 7-10) Last Admin: 09/05/25 07:53 Dose: 15 mg Sodium Chloride (0.9 % Sodium Chloride Flush 3 Ml Syringe) [facility] Last Admin: 09/05/25 07:56 Dose: 3 ml Trazodone HCl (Trazodone Hcl 50 Mg Tablet) 50 mg PO BEDTIME [facility] Last Admin: 09/05/25 01:36 Dose: 50 mg Home Medications ?Medication ?Instructions ?Recorded ?Confirmed ?Last Taken ?Type gabapentin 300 mg capsule 300 mg PO TID 10/18/23 09/03/25 09/02/25 18:00 History albuterol sulfate 90 mcg/actuation 2 puff inhalation Q6H PRN 10/01/24 09/03/25 Unknown History aerosol inhaler (Ventolin HFA) shortness of breath or wheezing oxycodone 15 mg tablet 15 mg PO QID PRN pain 10/01/24 09/03/25 09/02/25 18:00 History pantoprazole 40 mg tablet,delayed 40 mg PO DAILY@0630 09/03/25 09/03/25 09/02/25 08:00 History release (Protonix) trazodone 50 mg tablet 50 mg PO BEDTIME 09/03/25 09/03/25 09/01/25 History Physical Exam Vital Signs: Vital Signs: Last Vital Signs Temp 98.1 F 09/05/25 07:19 Pulse 64 09/05/25 07:19 Resp 18 09/05/25 07:19 BP 118/86 09/05/25 07:19 Pulse Ox 95 09/05/25 07:19 O2 Del Method Room Air 09/05/25 07:19 BMI result Body Mass Index 31.4 Const: General: comfortable and no acute distress Orientation/consciousness: patient oriented x3 HEENT: Other: Unremarkable Head: Yes normal to inspection Neck: Neck: Yes normal visual inspection Chest: Chest palpation & inspection: normal inspection of the chest Resp: Auscultation: wheezes and diminished lung sounds Cardio: Palpation: normal PMI Heart sounds: S1 normal heart sound present, S2 normal heart sound present, no gallops, no murmurs and no rubs GI: Palpation (GI): Soft to palpation Back/Spine/Pelvis: Other: unremarkable Skin: General skin exam: no rashes or lesions noted Neuro: General: patient oriented x3 Extrem: General: Yes normal to inspection Psych: Mental Status: mental status grossly normal Objective Labs and Meds 09/05/25 06:09 09/05/25 06:09 Lab results: Laboratory Results - last 24 hr 09/04/25 09/05/25 09/05/25 16:36 04:21 06:09 WBC 11.9 H 12.2 H RBC 4.94 4.82 Hgb 11.8 L 11.4 L Hct 37.2 36.0 L MCV 75.3 L 74.7 L MCH 23.9 L 23.7 L MCHC 31.7 31.7 RDW 21.3 H 21.7 H Plt Count 426 H 453 H MPV 8.8 L 9.1 L Immature Gran % (Auto) 0.5 H Neut % (Auto) 62.5 Lymph % (Auto) 25.5 [place] % (Auto) 8.7 Eos % (Auto) 1.5 Baso % (Auto) 1.3 Lymph # (Auto) 3.0 [place] # (Auto) 1.0 Eos # (Auto) 0.2 Baso # (Auto) 0.2 Abs Immat Gran (auto) 0.06 H Absolute Neuts (auto) 7.4 Absolute Nucleated RBC 0.000 0.000 Nucleated RBC % (auto) 0.0 0.0 Sodium 136 135 Potassium 3.6 3.3 Chloride 106 102 Carbon Dioxide 19 L 23 Anion Gap 15 13 BUN 34 H 29 H Creatinine 1.04 0.78 Estim Creat Clear Calc 51.4 67.6 Estimated GFR 53 > 60 Random Glucose 102 87 Calcium 9.3 D 9.2 Magnesium 1.7 Total Bilirubin 0.4 0.6 AST 28 29 ALT 20 23 Alkaline Phosphatase 75 73 Troponin I High Sens 16.3 32.7 H D 33.0 H Total Protein 6.5 6.6 Albumin 4.0 4.1 ECG Interpretation: Initial EKG showed atrial flutter with rapid rate at 156/Min. Repeat EKGs shows sinus rhythm. Assessment and Plan (1) Atrial flutter with rapid ventricular response: Status: Acute Plan Low-level troponin elevation. In a prior echocardiogram, hyperdynamic LVEF. [id number] tricuspid regurgitation. Moderate pulmonary hypertension. She has been put on diltiazem that is seems reasonable. May not be able tolerate beta-blockers with wheezing. Her CHADS-VASc score is quite low and hence may not need long-term anticoagulation unless there are recurrent episodes. We will follow up on the echocardiogram. Procedures Date of Service Date of Service: 09/05/25
--- NOTE | 2025-09-05 09:57 | MHC.CM.PN ---
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 PT HAD BEEN BOARDING IN ED AND HAD REQUESTED [facility] FOR STR HOWEVER PT IS NOW REPORTING HER GOAL IS TO [facility] AFTER SEEING REVIEWS ON [facility]. PT VERIFIES PCP/HCP ON FILE ARE CORRECT.
--- NOTE | 2025-09-05 15:43 | P.PNIM_ITS ---
Subjective Subjective Date of Service: 09/05/25 Interval History: Episode of a flutter spontaneously converted to sinus rhythm. Anxiety remains a big issue Review of Systems Denies chest pain Denies shortness of breath Denies nausea vomiting diarrhea Denies fever chills Physical Exam 2 Vital Signs: Vital Signs: Last Vital Signs Temp 98.1 F 09/05/25 15:13 Pulse 63 09/05/25 15:13 Resp 18 09/05/25 15:13 BP 141/73 H 09/05/25 15:13 Pulse Ox 96 09/05/25 15:13 O2 Del Method Room Air 09/05/25 15:13 BMI result Body Mass Index 31.4 Const: Other: Awake alert anxious Resp: Other: Clear to auscultation bilaterally no rales rhonchi or wheezes Cardio: Other: No S4; positive S1-S2; no S3 murmurs rubs or gallops GI: Other: Soft nontender nondistended normoactive bowel sounds Extrem: Other: No edema bilaterally Objective Data Active Medications Acetaminophen (Acetaminophen 325 Mg Tablet) 650 mg PO Q6H PRN PRN Reason: Pain, Mild 1-3,fever,headache Albuterol Sulfate (Albuterol Sulfate 90 Mcg 8 Gm Inhaler) 2 puff INHALE Q6H PRN PRN Reason: shortness of breath or wheezing Apixaban (Apixaban 5 Mg Tablet) 5 mg PO BID [facility] Last Admin: 09/05/25 07:54 Dose: 5 mg Documented By: WILMA Calcium Carbonate (Calcium Carbonate 750 Mg Tab.Chew) 750 mg PO Q4H PRN PRN Reason: Heartburn Cefuroxime Axetil (Cefuroxime Axetil 500 Mg Tablet) 500 mg PO BID [facility] Stop: 09/11/25 20:59 Last Admin: 09/05/25 07:54 Dose: 500 mg Documented By: WILMA Diltiazem HCl (Diltiazem Hcl 30 Mg Tablet) 30 mg PO QID [facility]; Protocol Last Admin: 09/05/25 12:58 Dose: 30 mg Documented By: WILMA Gabapentin (Gabapentin 300 Mg Capsule) 300 mg PO TID [facility] Last Admin: 09/05/25 07:53 Dose: 300 mg Documented By: WILMA Magnesium Hydroxide (Milk Of Magnesia 30 Ml Oral.Susp) 30 ml PO DAILY PRN PRN Reason: Constipation Melatonin (Melatonin 3 Mg Tablet) 6 mg PO BEDTIME PRN PRN Reason: Insomnia Omeprazole (Omeprazole 20 Mg Capsule.Dr) 20 mg PO DAILY@0630 [facility] Last Admin: 09/05/25 05:49 Dose: 20 mg Documented By: BRYAN Ondansetron HCl (Ondansetron Hcl 4 Mg/2 Ml Vial) 4 mg IVPUSH Q8H PRN PRN Reason: Nausea and Vomiting Oxycodone HCl (Oxycodone Hcl Immed Release 15 Mg Tablet) 15 mg PO QID PRN PRN Reason: Pain, Severe (Pain Scale 7-10) Last Admin: 09/05/25 12:59 Dose: 15 mg Documented By: WILMA Sodium Chloride (0.9 % Sodium Chloride Flush 3 Ml Syringe) 3 ml IVFLUSH QSHIFT [facility] Last Admin: 09/05/25 07:56 Dose: 3 ml Documented By: WILMA Trazodone HCl (Trazodone Hcl 50 Mg Tablet) 50 mg PO BEDTIME [facility] Last Admin: 09/05/25 01:36 Dose: 50 mg Documented By: BRYAN Labs 09/05/25 06:09 09/05/25 06:09 Labs: Laboratory Results - last 24 hr 09/04/25 09/05/25 09/05/25 16:36 04:21 06:09 MCV 75.3 L 74.7 L MCH 23.9 L 23.7 L MCHC 31.7 31.7 RDW 21.3 H 21.7 H Plt Count 426 H 453 H MPV 8.8 L 9.1 L Immature Gran % (Auto) 0.5 H Neut % (Auto) 62.5 Lymph % (Auto) 25.5 [place] % (Auto) 8.7 Eos % (Auto) 1.5 Baso % (Auto) 1.3 Lymph # (Auto) 3.0 [place] # (Auto) 1.0 Eos # (Auto) 0.2 Baso # (Auto) 0.2 Abs Immat Gran (auto) 0.06 H Absolute Neuts (auto) 7.4 Absolute Nucleated RBC 0.000 0.000 Nucleated RBC % (auto) 0.0 0.0 Anion Gap 15 13 Estim Creat Clear Calc 51.4 67.6 Estimated GFR 53 > 60 Random Glucose 102 87 Calcium 9.3 D 9.2 Magnesium 1.7 Total Bilirubin 0.4 0.6 AST 28 29 ALT 20 23 Alkaline Phosphatase 75 73 Troponin I High Sens 16.3 32.7 H D 33.0 H Total Protein 6.5 6.6 Albumin 4.0 4.1 Microbiology Microbiology Results: Microbiology 09/03/25 Unknown Urine Culture - Preliminary Urine clean catch - Clean Catch Midstream Gram negative fadumo Corynebacterium species Assessment and Plan (1) Atrial flutter with rapid ventricular response: Status: Acute (2) UTI (urinary tract infection): Status: Acute Plan 69 year old women admitted new onset atrial flutter. Patient was originally admitted to be case management placement on 09/02/2025 1.New onset atrial flutter with rapid ventricular response... Converted to normal sinus rhythm -Monitor on telemetry -Cardizem 30 q.i.d. .. Switch to long-acting in a.m. -Eliquis... We will discuss with Cardiology in a.m. 2.Possible UTI -ceftriaxone (1) -Follow urine culture 3.Asthma -stable and well compensated Eliquis Full code Quality Stroke Does the patient have a stroke diagnosis?: No VTE Prior VTE?: No VTE Risk Level:: Medical - moderate - high VTE Device Contraindication: Treatment Not Indicated VTE Drug Contraindication: N/A - Med Ordered
[2025-09-06] VITALS (8 sets, daily range): BP systolic 103–120; BP diastolic 51–70; PULSE 58–67; RESP 14–20; TEMP 36.4–37.3; O2SAT 92–97
[2025-09-06] MEDS: oxyCODONE HCl Immed Release 15 MG TABLET PO ×3 (05:20→18:20)
[2025-09-06 06:48] LABS: MANUAL DIFF FLAG NO
[2025-09-06 07:18] LABS: Alanine Aminotransferase 16 U/L (0-31); Albumin Level 3.5 g/dL (3.5-5.0); Alkaline Phosphatase 64 U/L (39-117); Anion Gap 11 (12-20); Aspartate Amino Transferase 22 U/L (5-31); Blood Urea Nitrogen 19 mg/dL (9-16); Calcium 8.7 mg/dL (8.4-10.2); Carbon Dioxide 25 mmol/L (22-29); Chloride 104 mmol/L (96-108); Creatinine Clr Calc Pharmacy 83.6; Estimated Glomerular Filt Rate > 60; Potassium 3.3 mmol/L (3.3-5.1); Sodium 137 mmol/L (135-145); Total Protein 5.8 g/dL (6.5-8.0)
[2025-09-06 07:33] LABS: Hematocrit 33.3 % (37.0-47.0); Hemoglobin 10.3 g/dl (12.0-16.0); Imm Gran Abs Auto 0.06 X10*3/uL (0.00-0.03); Imm Gran Pct Auto 0.7 % (0.0-0.4); Lymphocytes Absolute Auto 1.9 X10*3/uL (1.2-4.9); Mean Corpuscular HGB Conc 30.9 g/dl (31.0-35.0); Mean Corpuscular Hemoglobin 23.5 pg (27.0-33.0); Mean Corpuscular Volume 76.0 fL (80.0-98.0); NRBC Abs Auto 0.000 X10*3/uL (0.0-0.012); NRBC Pct Auto 0.0 /100WBC (0.0-0.2); Platelet Count 393 X10*3/uL (160-400); Red Blood Count 4.38 X10*6/uL (4.20-5.50); White Blood Count 8.3 X10*3/uL (4.8-10.8)
[2025-09-06] MEDS: 0.9 % Sodium Chloride Flush 3 ML SYRINGE IVFLUSH ×3 (09:18→20:56)
--- NOTE | 2025-09-06 09:18 | MHC.CM.PN ---
Addendum entered by Kathy Colse RN 09/06/25 10:39: PER MD PT CAN BE MEDICALLY CLEARED, WHEN CM MET W.OT TO DISCUSS DISPO SHE INSISTS SHE DOESN'T FEEL WELL AND HASN'T SEEN HER HOSPITALIST YET TODAY ONLY THE SPORTS ADMINISTRATOR, HOSPITALIST AWARE VIA TIGER, PER P.T. THEY ARE STILL RECOMMENDING STR. PT ALSO REPORTED SHE WILL CALL [employer] TO FOLLOW UP. Original Note: EMR REVIEWED, CM RECEIVED MESSAGE THAT PT'S MH LAPSED AND IS NO LONGER ACTIVE, CM MET W/PT TO DISCUSS AND PT INSISTS SHE TOOK CARE OF THIS OVER THE PHONE W/MH ON 09/02, PT A BIT INCONSISTENT SHE THEN SAID IT WAS DURING THE WEEK AND THEN SAID IT WAS 09/02 AND THAT MH IS OPEN ON W/E'S, CM HAD CM SENIOR PLANNING MANAGER CHECK MH WEBSITE AND PT IS SHOWING UP INACTIVE, CM WILL RECHECK ONCE PT IS MEDICALLY CLEARED. CM WILL CONT TO FOLLOW DC NEEDS.
--- NOTE | 2025-09-06 09:49 | PM.PNCARD ---
Subjective Subjective Date of Service: 09/06/25 Interval history: Patient states she is feeling better. Shortness of breath is improving. She has not had any further atrial flutter. Review of Systems Review of Systems Yes all other systems are reviewed and are negative Constitutional: Reports as per HPI and Reports no additional constitutional complaints Eyes: Reports as per HPI and Denies no additional eye complaints Denies system reviewed and no additional complaints, except as documented and Reports as per HPI Cardiovascular: Reports as per HPI, Reports no additional cardiovascular complaints, Denies acrocyanosis, Denies cool extremities, Denies chest pain, Denies leg edema, Denies lightheadedness, Denies palpitations and Reports dyspnea Respiratory: Reports as per HPI, Denies no additional respiratory complaints and Reports dyspnea Gastrointestinal: Reports as per HPI and Denies no additional gastrointestinal complaints Genitourinary: Reports as per HPI Musculoskeletal: Reports no additional musculoskeletal complaints and Reports as per HPI Skin/Breast: Reports system reviewed and no additional complaints, except as docu Reports system reviewed and no additional complaints, except as documented and Reports as per HPI Psychiatric: Reports no additional psychiatric complaints and Reports as per HPI Endocrine: Reports no additional endocrine complaints, Reports as per HPI and Denies palpitations Hematologic/Lymphatic: Reports no additional hematologic/lymphatic complaints and Reports as per HPI Allergic/Immunologic: Reports no additional allergic/immunologic complaints and Reports as per HPI Physical Exam Vital Signs: Last Vital Signs Temp 97.5 F 09/06/25 07:17 Pulse 58 09/06/25 07:17 Resp 18 09/06/25 07:17 BP 118/70 09/06/25 07:17 Pulse Ox 94 09/06/25 07:17 O2 Del Method Room Air 09/06/25 07:17 BMI result Body Mass Index 31.4 Const General: comfortable and no acute distress Orientation/consciousness: patient oriented x3 HEENT Other: Unremarkable Head: Yes normal to inspection Neck Neck: Yes normal visual inspection Chest Chest palpation & inspection: normal inspection of the chest Resp Auscultation: wheezes Cardio Palpation: normal PMI Heart sounds: S1 normal heart sound present, S2 normal heart sound present, no gallops, no murmurs and no rubs GI Palpation (GI): Soft to palpation Back/Spine/Pelvis Other: unremarkable Skin General skin exam: no rashes or lesions noted Neuro General: patient oriented x3 Extrem General: Yes normal to inspection Psych Mental Status: mental status grossly normal Objective Labs and Meds 09/06/25 05:58 09/06/25 05:58 Lab results: Laboratory Results - last 24 hr 09/06/25 05:58 WBC 8.3 RBC 4.38 Hgb 10.3 L Hct 33.3 L MCV 76.0 L MCH 23.5 L MCHC 30.9 L RDW 21.4 H Plt Count 393 MPV 9.1 L Immature Gran % (Auto) 0.7 H Neut % (Auto) 61.5 Lymph % (Auto) 22.3 [place] % (Auto) 11.8 H Eos % (Auto) 2.7 Baso % (Auto) 1.0 Lymph # (Auto) 1.9 [place] # (Auto) 1.0 Eos # (Auto) 0.2 Baso # (Auto) 0.1 Abs Immat Gran (auto) 0.06 H Absolute Neuts (auto) 5.1 Absolute Nucleated RBC 0.000 Nucleated RBC % (auto) 0.0 Sodium 137 Potassium 3.3 Chloride 104 Carbon Dioxide 25 Anion Gap 11 L BUN 19 H Creatinine 0.63 Estim Creat Clear Calc 83.6 Estimated GFR > 60 Fasting Glucose 104 H Calcium 8.7 Total Bilirubin 0.6 AST 22 ALT 16 Alkaline Phosphatase 64 Total Protein 5.8 L Albumin 3.5 Progress Note: A&P Assessment and plan (1) Atrial flutter with rapid ventricular response: Status: Acute Plan In the current echocardiogram, LVEF is 50-55%. No significant valvular findings. She initially had atrial flutter with rapid response but currently normal sinus rhythm. Continue diltiazem and Eliquis. Can switch diltiazem to CD 120 mg daily. We will arrange follow up in the clinic. Potentially consider outpatient flutter ablation and then we can stop the Eliquis. Time Spent With Patient Time: Total time managing care of this patient today ____ minutes. Progress Note: Quality Stroke Does the patient have a stroke diagnosis?: No Procedures Date of Service Date of Service: 09/06/25
--- NOTE | 2025-09-06 15:18 | HO.PM.IMPN ---
Subjective Subjective Date of Service: 09/06/25 Interval History: No acute issues overnight. Monitor remains sinus rhythm. Anxiety somewhat worse Review of Systems Denies chest pain Denies shortness of breath Denies nausea vomiting diarrhea Denies fever chills Physical Exam Vital Signs: Vital Signs: Last Vital Signs Temp 97.6 F 09/06/25 11:06 Pulse 63 09/06/25 11:53 Resp 18 09/06/25 11:06 BP 120/60 09/06/25 11:53 Pulse Ox 92 09/06/25 11:06 O2 Del Method Room Air 09/06/25 11:06 BMI result Body Mass Index 31.4 Const: Other: Awake alert anxious Resp: Other: Clear to auscultation bilaterally no rales rhonchi or wheezes Cardio: Other: No S4; positive S1-S2; no S3 murmurs rubs or gallops GI: Other: Soft nontender nondistended normoactive bowel sounds Extrem: Other: No edema bilaterally Objective Data Active Medications Acetaminophen (Acetaminophen 325 Mg Tablet) 650 mg PO Q6H PRN PRN Reason: Pain, Mild 1-3,fever,headache Last Admin: 09/06/25 15:00 Dose: 650 mg Documented By: TONG Albuterol Sulfate (Albuterol Sulfate 90 Mcg 8 Gm Inhaler) 2 puff INHALE Q6H PRN PRN Reason: shortness of breath or wheezing Apixaban (Apixaban 5 Mg Tablet) 5 mg PO BID [facility] Last Admin: 09/06/25 09:16 Dose: 5 mg Documented By: MARIEL Calcium Carbonate (Calcium Carbonate 750 Mg Tab.Chew) 750 mg PO Q4H PRN PRN Reason: Heartburn Cefuroxime Axetil (Cefuroxime Axetil 500 Mg Tablet) 500 mg PO Q12H [facility] Last Admin: 09/06/25 09:16 Dose: 500 mg Documented By: MARIEL Diltiazem HCl (Diltiazem Hcl 30 Mg Tablet) 30 mg PO QID [facility]; Protocol Last Admin: 09/06/25 11:53 Dose: 30 mg Documented By: TONG Gabapentin (Gabapentin 300 Mg Capsule) 300 mg PO TID [facility] Last Admin: 09/06/25 15:00 Dose: 300 mg Documented By: TONG Lorazepam (Lorazepam 0.5 Mg Tablet) 0.5 mg PO Q8H PRN PRN Reason: Anxiety Magnesium Hydroxide (Milk Of Magnesia 30 Ml Oral.Susp) 30 ml PO DAILY PRN PRN Reason: Constipation Melatonin (Melatonin 3 Mg Tablet) 6 mg PO BEDTIME PRN PRN Reason: Insomnia Omeprazole (Omeprazole 20 Mg Capsule.Dr) 20 mg PO DAILY@0630 [facility] Last Admin: 09/06/25 05:20 Dose: 20 mg Documented By: LOLY Ondansetron HCl (Ondansetron Hcl 4 Mg/2 Ml Vial) 4 mg IVPUSH Q8H PRN PRN Reason: Nausea and Vomiting Oxycodone HCl (Oxycodone Hcl Immed Release 15 Mg Tablet) 15 mg PO QID PRN PRN Reason: Pain, Severe (Pain Scale 7-10) Last Admin: 09/06/25 11:52 Dose: 15 mg Documented By: TONG Sodium Chloride (0.9 % Sodium Chloride Flush 3 Ml Syringe) 3 ml IVFLUSH QSHIFT [facility] Last Admin: 09/06/25 09:18 Dose: 3 ml Documented By: MARIEL Trazodone HCl (Trazodone Hcl 50 Mg Tablet) 50 mg PO BEDTIME [facility] Last Admin: 09/05/25 21:11 Dose: 50 mg Documented By: LOLY Labs 09/06/25 05:58 09/06/25 05:58 Labs: Laboratory Results - last 24 hr 09/06/25 05:58 MCV 76.0 L MCH 23.5 L MCHC 30.9 L RDW 21.4 H Plt Count 393 MPV 9.1 L Immature Gran % (Auto) 0.7 H Neut % (Auto) 61.5 Lymph % (Auto) 22.3 [place] % (Auto) 11.8 H Eos % (Auto) 2.7 Baso % (Auto) 1.0 Lymph # (Auto) 1.9 [place] # (Auto) 1.0 Eos # (Auto) 0.2 Baso # (Auto) 0.1 Abs Immat Gran (auto) 0.06 H Absolute Neuts (auto) 5.1 Absolute Nucleated RBC 0.000 Nucleated RBC % (auto) 0.0 Anion Gap 11 L Estim Creat Clear Calc 83.6 Estimated GFR > 60 Fasting Glucose 104 H Calcium 8.7 Total Bilirubin 0.6 AST 22 ALT 16 Alkaline Phosphatase 64 Total Protein 5.8 L Albumin 3.5 Microbiology Microbiology Results: Microbiology 09/03/25 Unknown Urine Culture - Final Urine clean catch - Clean Catch Midstream Escherichia coli Corynebacterium species Assessment and Plan (1) Atrial flutter with rapid ventricular response: Status: Acute (2) UTI (urinary tract infection): Status: Acute Plan 69 year old women admitted new onset atrial flutter. Patient was originally admitted to be case management placement on 09/02/2025 1.New onset atrial flutter with rapid ventricular response... Converted to normal sinus rhythm -Monitor on telemetry -Cardizem 30 q.i.d. .. Switch to long-acting in a.m. -Eliquis 2.Possible UTI -EColi ss CTX -ceftriaxone (3) 3.Asthma -stable and well compensated Eliquis Full code Quality Stroke Does the patient have a stroke diagnosis?: No VTE Prior VTE?: No VTE Risk Level:: Medical - moderate - high VTE Device Contraindication: Treatment Not Indicated VTE Drug Contraindication: N/A - Med Ordered
[2025-09-07] MEDS: oxyCODONE HCl Immed Release 15 MG TABLET PO ×3 (00:13→12:53)
[2025-09-07 03:23] VITALS: BP 116/56; PULSE 54; RESP 16; TEMP 36.3; O2SAT 99
[2025-09-07 07:08] VITALS: BP 111/56; PULSE 52; RESP 18; TEMP 36.6; O2SAT 94
[2025-09-07] MEDS: 0.9 % Sodium Chloride Flush 3 ML SYRINGE IVFLUSH (08:08)
[2025-09-07 08:11] VITALS: BP 111/56; PULSE 52
[2025-09-07] MEDS: dilTIAZem HCL CD 120 MG CAP.ER.DEG PO (08:11)
--- NOTE | 2025-09-07 09:33 | PM.DS ---
DS: Providers Provider Date of Service: 09/07/25 Date of admission: 09/04/25 16:57 Date of discharge: 09/07/25 Primary care physician: Emilee Lopez MD Consults: 09/03/25 02:09 Consult to Case Management Routine Comment: 09/04/25 16:57 Consult to Cardiology Routine Consulting Provider: [facility] Reason for consultation: new aflutter DS: Diagnosis Discharge Diagnosis (1) Atrial flutter with rapid ventricular response: Status: Acute (2) UTI (urinary tract infection): Status: Acute DS: Summary Hospital Course Hospital Course: from initial hpi: 69-year-old woman initially presenting to the ER with complaints of shortness of breath with a history of asthma and has been using her inhalers without significant relief. Patient also reported weakness for a few days prior to presenting to the ER. She denied any recent illness, fever, chills, nausea, vomiting, diarrhea, recent travel, sick contacts. She was placed on physicians observation for case management placement. Chest x-ray was negative for pneumonia. Plan was to transfer patient to short-term rehab. Today patient developed atrial flutter with rapid ventricular response, she was given a dose of metoprolol and transferred back to the ER. Plan will be to admit patient for further management and treatment of new onset atrial flutter. hospital course: Patient was admitted for new onset atrial flutter with rapid ventricular response. She converted to normal sinus rhythm. Was seen by Cardiology who recommended changing diltiazem to 120 mg long-acting daily and starting Eliquis. Rhythm remained in sinus and mid 50s, shortness breath resolved. For urinary tract infection due to E coli was treated with ceftriaxone and on discharge we will continue 3 more days of cefuroxime. For mild intermittent asthma remained stable. Due to deconditioning was seen by physical therapy recommended short-term rehab to which patient will be discharged she is expected require less than 30 days. Time Attestation Discharge Coordination Time (in mins): 33 Quality: Safe Use of Opioids Does Pt have an Active Cancer Diagnosis on the Problem List?: No Quality: Stroke Does the patient have a stroke diagnosis?: No Physical Exam Exam: Exam: General: AO X 3, no acute distress Resp: CTA bilateral, no accessory muscles used CVS: S1,S2,RRR GI: soft, non tender, non distended Neuro: motor grossly intact, alert Psych: appropriate affect, appropriate insight Vital Signs: Vital Signs: Last Vital Signs Temp 97.8 F 09/07/25 07:08 Pulse 52 09/07/25 08:11 Resp 18 09/07/25 07:08 BP 111/56 L 09/07/25 08:11 Pulse Ox 94 09/07/25 07:08 O2 Del Method Room Air 09/07/25 07:08 BMI result Body Mass Index 31.4 DS: Data Data Completed and Pending Completed studies during hospitalization [Text1]: Procedures Introduction of Remdesivir Anti-infective into Peripheral Vein, Percutaneous Approach, [employer] 5 (10/23/23) Discharge Plan Discharge Anticipated Discharge Date/Time: 09/07/25 09:31 Patient Disposition: er [facility] Discharge Diagnosis: uti, aflutter Referrals: [facility] [Outside] Emilee Lopez MD [Primary Care Provider, Endocrinology] - 1 Week Discharge Medications: New diltiazem HCl [Cardizem CD] 120 mg Capsule,Extended Release 24hr 120 mg PO DAILY Qty: 0 0RF Protocol: Hold for SBP/HR < HOLD for SBP < : 90 HOLD for HR < : 60 cefuroxime axetil 500 mg Tablet 500 mg PO Q12H 3 Days Qty: 0 0RF Eliquis 5 mg Tablet 5 mg PO BID Qty: 0 0RF Continued albuterol sulfate [Ventolin HFA] 90 mcg/actuation HFA aerosol inhaler 2 puff inhalation Q6H PRN (Reason: shortness of breath or wheezing) oxycodone 15 mg tablet 15 mg PO QID PRN (Reason: pain) gabapentin 300 mg capsule 300 mg PO TID trazodone 50 mg tablet 50 mg PO BEDTIME pantoprazole [Protonix] 40 mg tablet,delayed release (DR/EC) 40 mg PO DAILY@0630 Discharge Orders: Discharge Order (Routine); Ordered 09/07/25 Ordered By: Esdras Anand Diet: Advance to usual diet Activity on Discharge: As tolerated Stand Alone Forms: Patient Portal Discharge page Print Language: Citizen Of [place] Care Plan Goals: Recover Health Concerns: UTI, atrial flutter Plan of Treatment: Starting diltiazem 120, apixaban, 3 more days of Ceftin Assessment: See above
[2025-09-07 11:09] VITALS: BP 111/55; PULSE 59; RESP 18; TEMP 36; O2SAT 94
--- NOTE | 2025-09-07 11:33 | MHC.CM.PN ---
PT WILL DC TO [facility] TODAY AT 1330 HOURS [facility]IA [facility]
[2025-09-07 15:02] VITALS: BP 111/55; PULSE 65; RESP 18; TEMP 36.8; O2SAT 95
== END 2025-09-07 16:48 | disposition skilled nursing facility (03) | DRG 309 ==
LOC: HO.ED 09-04 16:50 → HO.EDOVER 09-04 17:07 → HO.IMC 09-04 17:12
PROVIDERS: Hospitalist; Physician Assistant Medical; Admitting Provider Nurse Practitioner Acute Care; Emergency Provider Emergency Medicine; PCP Internal Medicine Endocrinology, Diabetes & Metabolism; Visit Provider Internal Medicine
DX: I48.92 Unspecified atrial flutter (principal); N39.0 Urinary tract infection, site not specified; B96.20 Unspecified Escherichia coli [E. coli] as the cause of diseases classified elsewhere; J45.20 Mild intermittent asthma, uncomplicated; K21.9 Gastro-esophageal reflux disease without esophagitis; I07.1 Rheumatic tricuspid insufficiency; I27.20 Pulmonary hypertension, unspecified; Z20.822 Contact with and (suspected) exposure to COVID-19; Z98.84 Bariatric surgery status; Z79.899 Other long term (current) drug therapy
CPT/HCPCS: 36415; 71045; 80053; 81001; 82803; 83735; 84484; 85025; 85027; 87086; 87088; 87186; 87502; 87635; 90656; 93005; 93306; 94640; 97162; 97530; 99285; J2919; J3475; Q9957

== ENCOUNTER → 2025-09-02 21:11 | Outpatient (BNV) | payer MEDICARE, MEDICAID, SELFPAY | PROVIDERS: Emergency Provider Emergency Medicine; PCP Internal Medicine Endocrinology, Diabetes & Metabolism; Visit Provider Radiology Diagnostic Radiology | DX: R91.8 Other nonspecific abnormal finding of lung field (principal) | CPT/HCPCS: 71045 ==

== ENCOUNTER → 2025-09-02 21:24 | Outpatient (BNV) | payer MEDICARE, MEDICAID, SELFPAY | PROVIDERS: Emergency Provider Emergency Medicine; PCP Internal Medicine Endocrinology, Diabetes & Metabolism; Visit Provider Internal Medicine Cardiovascular Disease | DX: R94.31 Abnormal electrocardiogram [ECG] [EKG] (principal); R07.9 Chest pain, unspecified; R06.02 Shortness of breath | CPT/HCPCS: 93010 ==

== ENCOUNTER → 2025-09-04 15:54 | Outpatient (BNV) | payer MEDICARE, MEDICAID, SELFPAY | PROVIDERS: Admitting Provider Nurse Practitioner Acute Care; Emergency Provider Emergency Medicine; PCP Internal Medicine Endocrinology, Diabetes & Metabolism; Visit Provider Radiology Diagnostic Radiology | DX: R00.0 Tachycardia, unspecified (principal) | CPT/HCPCS: 71045 ==

== ENCOUNTER 2025-09-04 16:57 | Outpatient (BNV) | payer MEDICARE, MEDICAID, SELFPAY | END 2025-09-05 07:00 | PROVIDERS: Admitting Provider Nurse Practitioner Acute Care; Emergency Provider Emergency Medicine; PCP Internal Medicine Endocrinology, Diabetes & Metabolism; Visit Provider Internal Medicine | DX: I42.2 Other hypertrophic cardiomyopathy (principal); I48.92 Unspecified atrial flutter; R07.9 Chest pain, unspecified | CPT/HCPCS: 93010; 93306 ==

== ENCOUNTER → 2025-09-04 16:57 | Outpatient (BNV) | payer MEDICARE, MEDICAID, SELFPAY | PROVIDERS: Admitting Provider Nurse Practitioner Acute Care; Emergency Provider Emergency Medicine; PCP Internal Medicine Endocrinology, Diabetes & Metabolism; Visit Provider Nurse Practitioner Acute Care | DX: I48.92 Unspecified atrial flutter (principal); N39.0 Urinary tract infection, site not specified | CPT/HCPCS: 99223; 99232 ==

== ENCOUNTER → 2025-09-04 16:57 | Outpatient (BNV) | payer MEDICARE, MEDICAID, SELFPAY | PROVIDERS: Admitting Provider Nurse Practitioner Acute Care; Emergency Provider Emergency Medicine; PCP Internal Medicine Endocrinology, Diabetes & Metabolism; Visit Provider Internal Medicine | DX: I48.92 Unspecified atrial flutter (principal) | CPT/HCPCS: 99233 ==

== ENCOUNTER 2025-10-03 13:07 | Emergency (ER) | payer MEDICARE, MEDICAID, SELFPAY ==
--- NOTE | ~2025-10-03 | XR_ITS ---
EXAMINATION: XR ELBOW, LEFT CLINICAL INFORMATION: pain after falling COMPARISON: None available. TECHNIQUE: AP, lateral, and oblique views of the left elbow. FINDINGS: Elbow joint effusion. No definite fractures seen. Arthritis with the osteophyte at the coronoid process. XR/XR elbow LT min 3V IMPRESSION: Joint effusion. Degenerative changes. No fracture seen. Consider repeat exam in one week to exclude occult radial head fracture if clinically warranted. Electronically signed by: Carolina Guerra MD 10/03/2025 04:27 PM [facility]
--- NOTE | ~2025-10-03 | XR_ITS ---
EXAMINATION: XR SHOULDER, LEFT CLINICAL INFORMATION: fall pain COMPARISON: None available. TECHNIQUE: AP external rotation, Grashey, scapular Y, and axillary views of the left shoulder. FINDINGS: Bone alignment is normal. No fracture or dislocation. Mild degenerative changes at the acromioclavicular joint. Soft tissue calcification adjacent to the greater tuberosity. XR/XR shoulder LT min 2V IMPRESSION: Degenerative changes. No fracture or dislocation. Electronically signed by: Carolina Guerra MD 10/03/2025 04:25 PM [facility]
--- NOTE | ~2025-10-03 | XR_ITS ---
EXAMINATION: XR WRIST, LEFT CLINICAL INFORMATION: fall COMPARISON: None available. TECHNIQUE: PA, lateral, and oblique views of the left wrist. FINDINGS: The bones are osteopenic. No acute fracture or dislocation. Well-corticated ossification adjacent to the ulnar styloid, question changes related to old trauma versus accessory ossification center. Soft tissue calcification in the triangular fibrocartilage complex region. XR/XR wrist LT min 3V IMPRESSION: No acute fracture or dislocation. Degenerative changes. Electronically signed by: Carolina Guerra MD 10/03/2025 04:22 PM [facility]TM[facility]
--- NOTE | ~2025-10-03 | XR_ITS ---
EXAMINATION: XR HAND, LEFT CLINICAL INFORMATION: Fall COMPARISON: None available. TECHNIQUE: PA, lateral, and oblique views of the left hand. FINDINGS: The bones are osteopenic. Bone alignment is normal. No acute fracture or dislocation. Arthritis at the DIP joints of the second and third fingers joint space narrowing and osteophyte formation.. Small ossification adjacent to the ulnar styloid, question old trauma versus accessory ossification center. Soft tissue calcification in the triangular fibrocartilage complex. XR/XR hand LT min 3V IMPRESSION: No fracture or dislocation. Degenerative changes. Electronically signed by: Carolina Guerra MD 10/03/2025 04:21 PM EST
[2025-10-03 15:18] VITALS: BP 128/58; PULSE 60; RESP 18; TEMP 36.6; O2SAT 95; BMI 32.9
--- NOTE | 2025-10-03 15:30 | ED.EXTPRO ---
HPI - Extremity Problem General Chief complaint: Extremity Injury, Upper Stated complaint: L hand, elbow & shoulder pain fall 2 weeks ago Time Seen by Provider: 10/03/25 16:48 Source: patient Mode of arrival: ambulatory Limitations: no limitations History of Present Illness ED Provider: Dr. Abida Balderas HPI Narrative: Patient comes to the emergency room complaining of elbow pain for 2 weeks. Patient states that about 2 weeks ago she fell and since then she has been having pain. Patient denies any other injuries, denies hitting her head or losing consciousness, denies any neck pain or back pain, denies being on blood thinners Related Data Home Medications ?Medication ?Instructions ?Recorded ?Confirmed gabapentin 300 mg capsule 300 mg PO TID 10/18/23 09/03/25 albuterol sulfate 90 mcg/actuation 2 puff inhalation Q6H PRN 10/01/24 09/03/25 aerosol inhaler (Ventolin HFA) shortness of breath or wheezing oxycodone 15 mg tablet 15 mg PO QID PRN pain 10/01/24 09/03/25 pantoprazole 40 mg tablet,delayed 40 mg PO DAILY@0630 09/03/25 09/03/25 release (Protonix) trazodone 50 mg tablet 50 mg PO BEDTIME 09/03/25 09/03/25 Previous Rx's ?Medication ?Instructions ?Recorded apixaban 5 mg tablet (Eliquis) 5 mg PO BID #0 tabs 09/07/25 cefuroxime axetil 500 mg tablet 500 mg PO Q12H 3 days #0 tabs 09/07/25 diltiazem HCl 120 mg 120 mg PO DAILY #0 caps 09/07/25 capsule,extended release 24 hr (Cardizem CD) ketorolac 10 mg tablet 10 mg PO Q8H #12 tabs 10/03/25 Allergies Allergy/AdvReac Type Severity Reaction Status Date / Time No Known Allergies Allergy Verified 10/03/25 15:19 Review of Systems Review of Systems: Constitutional : No Weight loss, No Fever, No Chills, No Night Sweats, No Fatigue, No Malaise ENT/Mouth : No Hearing loss, No Ear Pain, No Nasal Congestion, No Sinus Pain, No Hoarseness, No sore throat, No Rhinorrhea, No Swallowing Difficulty Eyes: No Eye Pain, No Swelling, No Redness, No Foreign Body, No Discharge, No Vision Changes Cardiovascular : No Chest Pain, No SOB, No Dyspnea on Exertion, No Orthopnea, No Edema, No Palpitations Respiratory : No Cough, No Sputum, No Wheezing, No Smoke Exposure, No Dyspnea Gastrointestinal : No Nausea, No Vomiting, No Diarrhea, No Constipation, No abdominal Pain, No Hematochezia, No Melena Genitourinary : no irregular bleeding, No Dysuria, No Urinary Frequency, No Hematuria, No Urinary Incontinence, No Urgency, No Flank Pain, No Urinary Flow Changes, No Hesitancy Musculoskeletal : complaining of left elbow pain, No Myalgias, No Joint Swelling Skin : No Skin Lesions, No rash Neuro : No Weakness, No Numbness, No Paresthesias, No Loss of Consciousness, No Dizziness, No Headache Psych : No Anxiety/Panic, No Depression, No SI/HI/AH/VH, No Social Issues, Heme/Lymph: No Bruising, No Bleeding,No Lymphadenopathy Endocrine : No Polyuria, No Polydipsia, No Temperature Intolerance [facility] Past Medical History Medical History Abdominal pain Peripheral neuropathy GERD (gastroesophageal reflux disease) Surgical History H/O gastric bypass Social History Social History Household Members: Family Household Members Other:: brother, sister Housing: [facility] Do you presently have visiting nurse or other home services: No Comment: N/A Patient Tobacco Use Status: Never used Tobacco e-Cigarette/Vaping Use: Never Used Second Hand Smoke Exposure: No Advance Directives: Yes Advance Directives on File: Yes Advance Directives Date on File: 10/05/24 Do you have a plan to hurt others: No Plan service: No Physical Exam Exam: Exam: Appearance: Alert. Oriented X3. No acute distress. Eyes: Pupils equal, round and reactive to light. ENT: Pharynx normal. Neck: Normal inspection. Neck supple. No lymph nodes noted. No crepitus CVS: Normal heart rate and rhythm. Pulses normal. Normal S1 and S2 Respiratory: No respiratory distress. Breath sounds normal. No Wheezing. No rales Abdomen: Soft and nontender. No rigidity. No distention. Skin: Skin warm and dry. Normal skin color. Normal skin turgor. Extremities: there is a small palpable effusion to the left elbow, patient is able to flex and extend the left elbow with normal range of motion. No obvious ecchymosis, no abrasions or lacerations. Neuro: Oriented X 3. No motor deficit. No sensory deficit. Moving all extremities. No slurred speech. CN 2 through 12 grossly intact Psych: calm, cooperative, normal affect Vital Signs: Vital Signs: Last Vital Signs Temp 98 F 10/03/25 17:39 Pulse 60 10/03/25 17:39 Resp 18 10/03/25 17:39 BP 128/58 L 10/03/25 17:39 Pulse Ox 95 10/03/25 17:39 O2 Del Method Room Air 10/03/25 17:39 BMI result Body Mass Index 32.9 Course Course Course Narrative: RME: Patient's presents to ED left elbow pain after falling 2 weeks ago sister said the same pain. Also left hand wrist pain. Images ordered Medications Administered Discontinued Medications Generic Name Dose Route Start Last Admin Trade Name Freq PRN Reason Stop Dose Admin Ketorolac Tromethamine 30 mg 10/03/25 17:05 10/03/25 17:18 Ketorolac Tromethamine 30 Mg/Ml Vial IM 10/03/25 17:06 30 mg ONCE ONE Administration Medical Decision Making Medical Decision Making [facility] Narrative: I discussed the x-rays with the patient: No fractures in the hand wrist elbow or shoulder. I discussed with the patient that if she is still has pain in a week from today, she can follow-up with the primary care physician and she may need to get a repeat x-ray to exclude an occult radial head fracture patient states that a sling would make her feel better. , also patient requested pain medication. Patient was given IM Toradol. Patient is adamant that she does not take any blood thinners. septic joint is not suspected Differential Diagnosis Differential Diagnoses: The differential diagnosis associated with the presentation includes ( Elbow effusion, dislocation, fracture, contusion) Independent Interpretation I performed an independent interpretation of an: Plain X-Ray Radiology Impression Discussion of test interpretation with radiology: I have reviewed the radiologist's reading. Radiologist Impression: Bone alignment is normal. No fracture or dislocation. Mild degenerative changes at the acromioclavicular joint. Soft tissue calcification adjacent to the greater tuberosity. Joint effusion. Degenerative changes. No fracture seen. Consider repeat exam in one week to exclude occult radial head fracture if clinically warranted. The bones are osteopenic. No acute fracture or dislocation. Well-corticated ossification adjacent to the ulnar styloid, question changes related to old trauma versus accessory ossification center. Soft tissue calcification in the triangular fibrocartilage complex region. Discharge Plan Discharge Clinical Impression: Effusion of elbow joint, left Patient Disposition: Home, Self-Care Instructions: Swollen Joint (ED) Additional Instructions: Please follow-up with your primary care physician tomorrow. If you have any worsening or new symptoms, please return to the emergency room or call 911 Prescriptions: New ketorolac 10 mg tablet 10 mg PO Q8H Qty: 12 0RF Rx Instructions: maximum total duration of 5 days from all oral, intranasal, or parenteral formulations No Action albuterol sulfate [Ventolin HFA] 90 mcg/actuation HFA aerosol inhaler 2 puff inhalation Q6H PRN (Reason: shortness of breath or wheezing) oxycodone 15 mg tablet 15 mg PO QID PRN (Reason: pain) gabapentin 300 mg capsule 300 mg PO TID trazodone 50 mg tablet 50 mg PO BEDTIME pantoprazole [Protonix] 40 mg tablet,delayed release (DR/EC) 40 mg PO DAILY@0630 diltiazem HCl [Cardizem CD] 120 mg Capsule,Extended Release 24hr 120 mg PO DAILY Qty: 0 0RF Protocol: Hold for SBP/HR < HOLD for SBP < : 90 HOLD for HR < : 60 cefuroxime axetil 500 mg Tablet 500 mg PO Q12H 3 Days Qty: 0 0RF Eliquis 5 mg Tablet 5 mg PO BID Qty: 0 0RF Interventions: ED Discharge Assessment Last Done: 10/03/25 17:39 Discharge Date/Time: 10/03/25 17:40 Print Language: [place]
[2025-10-03 17:39] VITALS: BP 128/58; PULSE 60; RESP 18; TEMP 36.6; O2SAT 95
--- OUTSIDE RECORDS SUMMARY | 2025-10-03 20:23 | XMS_ITS | Data Portability ---
Author Organization [place] [facility] Address [address] [place], [place] [address] [address] Care Team Providers Care Cash Management Officer Name Role Phone ANDRADE LOPEZ Primary Care Provider [phone] Assessment Encounter Date Assessment Date Assessment LastModified [...] after care of this patient according to [facility]'s infection prevention protocols. [email or web address] 1 Not available [...] after care of this patient according to [facility]'s infection prevention protocols. [email or web address] Not available 12/23/2021 [...] evening, this is Rocky Mckeon PA-C with [facility]. I saw Ms Martino this evening [...] VARSHA Lopez MD, [address], [place], [address], 19:55:07 Procedures None recorded. Surgeries None recorded. Imaging None recorded. Medication Orders doxycyclin e hyclate 100 mg capsule 2021 [facility]23165, [address], [place], [id number], 18:16:14 permethrin 5 % topical cream 2021 [facility], [address], [place], [id number], 18:14:07 prednisone 20 mg tablet 2021 [place] [facility], [address], [place], [id number], 03/07/202 2 18:19:07 malathion 0.5 % lotion 2021 [facility] #99480, [address], [place], [id number], 2 20:35:52 ivermectin 3 mg tablet 2021 [facility] #22267, [address], [place], [id number], 2 20:34:08 ivermectin 3 mg tablet 2021 [facility] #33974, [address], [place], [id number], 2 12:07:38 doxycyclin e hyclate 100 mg capsule 2021 [facility]05008, [address], [place], [id number], 2 11:50:41 permethrin 5 % topical cream 2021 [facility] #96504, [address], [place], [id number], 11:53:04 Patient TargetsNo targets recorded. Patient Instructions Encounter Date Encounter Id Patient Instructions Last Modified By Organization Details Last Modified Time 11/18/2021 [id number] Thank you for yo ur visit with [facility] today. We cannot always find the exact [...] in your condition between 8am-10pm, please call [facility] at [phone] to help navigate your care. Please seek [...] in your condition between 8am-10pm, please call [facility] at [phone] to help navigate your care. [email or web address] 1 Not available 11/18/2021 12:10:12 12/23/2021 [id number] -You were seen today for scabies and [...] bandaide [email or web address] Not available 12/23/2021 18:33:56 01/11/2022 [id number] Thank you for yo ur visit with [facility] today. You may have had laboratory tests [...] in your condition between 8am-10pm, please call [facility] at [phone] to help navigate your care. Thank you for your visit with [facility] today. You were seen today for treatment [...] in your condition between 8am-10pm, please call [facility] at [phone] to help navigate your care. [email or web address] Not available 01/11/2022 19:16:03 Reason for Referral Good evening, this is Rocky Mckeon PA-C with [facility]. I saw Ms Martino this evening [...] Time 003 Shaun-en-Y gastrojejunostomy completed Kalina magdaleno, FIELD APPLICATIONS SPECIALIST [address] [place], [address], [place] [facility] 11/18/2021 11:08:11 tonsillectomy completed Kalina magdaleno NP [address] [place], [address], [place] [facility] 11/18/2021 11:06:45 Removal of adenoids completed Mera Booker rt, FIELD APPLICATIONS SPECIALIST [address] [place], [address], [place] [facility] 11/18/2021 11:06:54 section completed Kalina Booker rt, FIELD APPLICATIONS SPECIALIST [address], [place], [address], [place] [facility] 11/18/2021 11:07:02 procedure on pelvis completed Mera Booker rt, FIELD APPLICATIONS SPECIALIST [address], [place], [address], [place] [facility] 11/18/2021 11:07:19 dilation and curettage of uterus completed Kalina Booker rt, FIELD APPLICATIONS SPECIALIST [address], [place], [address], [place] [facility] 11/18/2021 11:10:08 Imaging Results None recorded. Procedure Notes None recorded. Medical Equipment None Reported. Allergies Allergen ID Allergen Name Allergen Category Reaction Reaction Severity Criticality Documentation Date Start Date Code Code System Note Provider Name and Address Organization Details Recorded Time 579488 [facility] medicatio n Not available Not available Not available 11/18/2021 11151 19 RxNorm Kalina Arslan grace, FIELD APPLICATIONS SPECIALIST [address] [place], [address], [place] [facility] 2 10:58:11 Medications Name Sig Start [...] Recorded Respiratory rate Heart rate Oxygen saturation Body temperature Systolic And Diastolic Provider Name and Address Organization Details Last Updated DateTime 2 20 /min 78 /min 96 % 98.2 [degF] 140/80 mm[Hg] Not Available [facility] 2 11:07:20 Date Recorded Body temperature Oxygen saturation Heart rate Respiratory rate Systolic And Diastolic Provider Name and Address Organization Details Last Updated DateTime 2 98.4 [degF] 97 % 77 /min 18 /min 110/60 mm[Hg] Not Available [facility] 2 11:57:15 Date Recorded Heart rate Body temperature Respiratory rate Oxygen saturation Systolic And Diastolic Provider Name and Address Organization Details Last Updated DateTime 2 66 /min 98.4 [degF] 18 /min 96 % 124/82 mm[Hg] Not Available [facility] 2 19:45:37 Date Recorded Heart rate Respiratory rate Oxygen saturation Body temperature Systolic And Diastolic Provider Name and Address Organization Details Last Updated DateTime 2 84 /min 20 /min 94 % 99 [degF] 118/62 mm[Hg] Not Available [facility] 2 17:22:04 Date Recorded Oxygen saturation Body temperature Respiratory rate Heart rate Systolic And Diastolic Provider Name and Address Organization Details Last Updated DateTime 2 97 % 98 [degF] 18 /min 67 /min 136/78 mm[Hg] Not Available [facility] 2 19:24:17 Social History Question Answer Notes LastModified by Organization Details LastModified Time Tobacco Smoking Status Current Every Day Smoker Kalina Escudero, BETO [address], [place], [address], [place] [facility] 11/18/2021 10:59:46 Do You Have An Advance Directive? No Health Care Proxy - Son Shaheed Martino [email or web address] Information not available 11/18/2021 What Is Your Code Status? Full Code [email or web address] Information not available 11/18/2021 Within The Past 12 Months, Has It Happened That The Food You Bought Just Didn't Last And You Didn't Have Money To Get More. No [email or web address] Information not available 11/18/2021 Within The Past 12 Months, Have You Worried That Your Food Would Run Out Before You Got Money To Buy More. No I Have Meals On Wheels So I Dont Usually Worry About Food. [email or web address] Information not available 11/18/2021 Fall Risk: [...] Visiting Friends Or Family Or Going To Gnosticism Or Club Meetings) 3 Or 4 Times [...] use any illicit or recreational drugs? No [email or web address] Information not available 11/18/2021 Do you or have you ever used any other forms of tobacco or nicotine? No [email or web address] Information not available 11/18/2021 What is your level of alcohol consumption? None [email or web address] Information not available 11/18/2021 Mental Status None recorded. Family History Relationship Description Onset Age of this Age Resolved Age Notes LastModified by Organization Details LastModified Time Father Malignant neoplastic disease Liver Prosta te [email or web address] Not available 11/18/2021 11:08:46 Medical History Condition Response Diabetes N Coronary Artery Disease N CHF N Parkinson's Disease N Cancer N Stroke N Dementia N Hypothyroidism N Asthma N COPD N Depression Y High Cholesterol N Rheumatoid Arthritis N Pulmonary Embolism N Hypertension N Osteoporosis Y A-fib N Kidney Disease N Gynecological HistoryNo gynecological history recorded. Obstetrics History GPAL:G 0 P 0 0 0 0 Immunizations Vaccine Type Date Status Note Provider Kali jorgensen and Address Organization Details Recorded Time COVID-19 vaccine, vector-nr, rS-Ad26, PF, 0.5 mL 03/08/2021 completed Kalina Escudero NP [address] [place], [address], [place] [facility] 11/18/2021 10:58:50 COVID-19, mRNA, LNP-S, PF, 100 mcg/0.5mL dose or 50 mcg/0.25mL dose 10/09/2021 completed Kalina Escudero NP [address] [place], [address], [place] [facility] 11/18/2021 10:59:13 Past Encounters Encounter ID Performer Location Encounter Start Date Encounter Closed Date Diagnosis/Indication Diagnosis SNOMED-CT Code Diagnosis ICD10 Code Diagnosis IMO Codes Diagnosis Note [id number] Kalina castellanos NP [facility] [address] [place] [address] 11/18/2021 10:07:59 11/19/2021 11:47:19 Infestation by Sarcoptes scabiei shawn hominis [id number] B86 Cellulitis of lower limb 527016686 L03.119 Pruritic disorder 561527 002 L29.9 Anxiety 42042479 F41.9 Patient currently prescribed Hydroxyzin e PRN for Anxiety, this should also help and can be taken for her pruritis. [id number] LASHAWN Zeng [facility] [address] [place] [address] 2021 11:24:12 11/27/2021 11:16:46 Infestation by Sarcoptes scabiei shawn hominis [id number] B86 [id number] LASHAWN Zeng [facility] [address] [facility] [place] [address] 12/10/2021 19:10:40 12/11/2021 10:48:06 Infestation by Sarcoptes scabiei shawn hominis [id number] B86 [id number] Jeanette LairdBETO mariscal [facility] [address] [facility] [place] [address] 12/23/2021 17:08:19 12/25/2021 10:31:44 Infestation by Sarcoptes scabiei shawn hominis [id number] B86 Wound cellulitis 2076226 03 L03.90 [id number] LASHAWN Mariee [facility] [address] [facility] [place] [address] 01/11/2022 19:15:34 01/17/2022 16:15:13 Wound cellulitis 349380307 L03.90 Proper Personal Protective Equipment (PPE), including gloves, eye protection and masks were donned and doffed dex fritz and all equipment cleaned using approved technique with germicidal disposable wipes prior to and after care of this patient according to [facility]'s infection prevention protocols. Overview/H istory: 66 [...] attempted to contact Dr Robert villa via [employer] but was unable to find her in the directory* *-I sent the following message to her via a wound care referral order: Christiano disla evening, this is Rocky [facility]keon [facility]. I saw Ms Martino this evening [...] Concerns Section Related Observation LastModified by Organization Detai ls LastModified Time None Recorded Concern Status LastModified by Organization Details LastModified Time None Recorded Advance Directives Directive N: Health Care Proxy - Son Jayson Martino Payers Insurance Date Sequence Insurance Name Policy Number Policy Barnett Covered Member ID Barnett Member ID Guarantor Name 01/20/2022 2 [place] [facility] Meaghan Martino [id number] Meaghan Martino 11/17/2021 1 [place] [facility] Meaghan Martino [id number] Meaghan Martino 11/17/2021 1 *SELF PAY* Meaghan Martino [id number] Meaghan Martino 11/17/2021 2 [place] [facility] Meaghan Martino [id number] Meaghan Martino 12/23/2021 1 [place] [facility] Meaghan Martino [id number] Meaghan Martino Notes Date Note Type Note Provider Name and Address Organization Details Recorded Time 2 text/html Patient is a 65-year-old female who is new to [facility] and neither provider. Patient has past [...] Denies vaginal pain, discharge or odor. Kalina Escudero NP [address] [place], [address], [place] [facility] 11/18/2021 12:10:56 2 text/html 66 [...] active bleeding, open wounds. LASHAWN Hazel [address], [place], [address], [place] [facility] 2021 17:37:18 2 text/html [...] sick contacts. LASHAWN Hazel [address], [place], [address], [place] [facility] 12/10/2021 21:27:39 2 text/html [...] issues. Jeanette Jean-Baptiste NP [address], [place], [address], [place] [facility] 12/23/2021 18:43:23 2 text/html General HPI Template - DHReported by Patient 66 yo female new to provider known to [facility] Oct 2021 shes been seen 4 times4 different Scabies tx and 2 courses of Doxycyclineshe was seen 3 weks ago and placed on Doxycyline for 2nd courseshe reports she started to itch againno fevers chills LASHAWN Mariee [address], [place], [address], [place] [facility] 01/15/2022 20:21:20 OBGyn Episode No OBEpisode recorded.
--- OUTSIDE RECORDS SUMMARY | 2025-10-03 20:23 | XMS_ITS | Continuity of Care Document ---
Author Organization [facility] [address] [facility] [facility] [address] [address] Phone [phone] Care Team Providers Care Traffic Control Technician Name Role Phone Emilee Lopez M.D. Care Team Informati on License Clerk [phone] Problems Active Problems Provider Date Asthma Emilee [...] difficile colitis Emilee bah M.D. Onset: 11/06/2023 Atrial flutter Emilee Lopez M.D. 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 04/27/2024 Arnuity Wroakth205eas/Act Aerosol Inhale 1 puff by mouth every day 30units Emilee Lopez M.D. 04/11/2024 Znpnzdgldw23nd Tablets Take 1 Tablet By Mouth Every Day 90tabs Emilee Lopez M.D. 12/15/2023 Trazodone RAL97so Tablets Take 1/2-1 Tablet By Mouth Daily AT Bedtime as Needed 90tabs Emilee Lopez M.D. 11/06/2023 Fluticasone Propionate Nasal [place] 24- Vetn21gvv/Act Suspension 2 sprays each nostril every day as needed 1units Emilee Lopez M.D. 11/06/2023 Jckokiqfah804ft Capsules take one capsule by mouth three times daily 360caps Emilee Lopez M.D. 08/28/2022 Oxycodone AHE54uq Tablets Take 1 tablet every 6 hours prn Theron Osorio, Ventolin IHM534(90Base) mcg/Act Aerosol Inhale 2 Puffs By Mouth Four Times Daily as Needed 18units J45.909 Noe Beck M.D. Pantoprazole Tjxxha78kp Tablets DR Take 1 Tablet By Mouth Every Day 90tabs Emilee Lopez M.D. Multivitamin Adults 50+Adlt 50+ Tablets 1 by mouth every day Emilee Lopez M.D. KP Ferrous Nafdekz258(65Fe) mg Tablets 1 by mouth every day Emilee Lopez M.D. Calcium 600 + L300-4zs-foi Tablets 1 by mouth every day Emilee Lopez M.D. Eql Vitamin B-12 QE0619dnl Tablets ER 1 by mouth every day Emilee Lopez M.D. Ticlpcr025gd Capsules 1-2 every 6 hours as needed Emilee Lopez M.D. Fvbxxjw3kp Tablets 1 by mouth twice a day Unknown Diltiazem HCL UF121xp Caps ER 24HR 1 by mouth every day Unknown Vital Signs Date Vital Result Comment 03/02/2024 [...] IU/L 0-40 Alt (SGPT) 14 IU/L 0-32 Hemoglobin A1c 03/02/2024 [facility] Hemoglobin A1c 5.3 % 4.8-5.6 1 Ferritin 03/02/2024 [facility] Ferritin 52 ng/mL 15-150 Comprehensive Metabolic Panl 11/06/[address] [facility] Glucose 96 mg/dL (70-99) [...] ML/MIN/1. 73M2 2 Comprehensive Metabolic Panl 09/16/[address] [facility] Glucose 84 mg/dL (70-99) [...] Estimated GFR Creatinine 97 ML/MIN/1. 73M2 3 Hemoglobin A1c 09/16/[address] [facility] Hemoglobin A1c 5.3 % (4.0-5.6 ) 4 Lipid Panel 09/16/[address] [facility] Cholesterol, Total 192 mg/dL (<200) Triglyceride 52 mg/dL (<150) HDL Chol 112 mg/dL (>39) LDL Cholesterol , Calculated 70 mg/dL (0-130) Non HDL Cholesterol (Calc) 80 mg/dL (<160) Complete Abc With Diff 09/16/[address] [facility] WBC 8.0 K/MM3 (4.0-11. [...] ) Lymph # 1.2 K/MM3 (0.8-3.1 ) [place]# 0.6 K/MM3 (0.4-0.9 ) Eo # 0.2 K/MM3 (0.0-0.4 ) Baso # 0.1 K/MM3 (0.0-0.1 ) Abs. Imm Gran 0.0 K/MM3 Neut 72.7 % (44-76) Lymph 15.3 % (15-43) Monocyte 7.3 % (4.5-10. 5) Eo 3.0 % (0-6) Baso 1.4 % (0-2) Imm Gran 0.3 % TSH With Reflex To FT4 09/16/[address] [facility] TSH With Reflex To FT4 0.94 uIU/mL (0.4-4.2 ) Probnp 09/16/[address] [facility] Probnp 1004 pg/mL High (0-125) 25Oh Vitamin D 09/16/[address] [facility] 25Oh Vitamin D 39.5 NG/ML (20-50) Ferritin 09/16/[address] [facility] Ferritin 17 NG/ML (14-283) Vitamin B12 09/16/[address] [facility] Vitamin B12 697 pg/mL (232-124 5) 1 [...] with health care provider. DIAGNOSTIC USE: The [place] Diabetes Association (ADA) and the World Health [...] Supplement 1 Procedures Date Code Description Status 11/30/2024 NSHOWOFF No Show Office Visit Complet ed 03/02/2024 56303 Collection Of Venous Blood B y Venipuncture Completed 11/06/2023 31003 Collection Of Venous Blood B y Venipuncture Completed 07/08/2023 NSHOWOFF No Show Office Visit Complet ed 09/16/2022 59824 Collection Of Venous Blood B y Venipuncture [...] Lopez M.D. Plan of Treatment Future Appointment(s):* 11/01/2025 2:45 pm - Emilee Lopez M.D. at Main [...] Reason for Referral Status Appt [facility] Cardiology LEG JIMMYSRAVANTHI, GILBERTOKELLIE PROBNP C losed 11/14/[address] [place] [address] [place] [address] [phone]
--- OUTSIDE RECORDS SUMMARY | 2025-10-03 20:23 | XMS_ITS ---
Author Organization [facility] Care Team Providers Care Factory Hand Name Role Phone Ivette Avendano Unavailable Unavailable Care Team Name Role Address Phone Organization Dates Ivette Chen Elder PCP [address], [place], [address], [place] (Office): : [facility] 10/08/2019 - 10/24/2019 Mental [...] VEINS OF RIGHT UPPER EXTREMITY 10/07/[address] active 2 ALLERGIC RHINITIS, UNSPECIFIED 10/07/[address] active 3 ANXIETY DISORDER, UNSPECIFIED 10/07/[address] active 4 CELLULITIS OF RIGHT UPPER LIMB 10/07/20 [address] active 5 CRUSHING INJURY OF RIGHT SHOULDER AND UPPER ARM, SUBSEQUENT ENCOUNTER 10/07/[address] active 6 DIVERTICULOSIS OF LARGE INTESTINE WITHOUT PERFORATION OR ABSCESS WITHOUT BLEEDING 10/07/[address] active 7 FRACTURE OF ANGLE OF LEFT MANDIBLE, SUBSEQUENT ENCOUNTER FOR FRACTURE WITH ROUTINE HEALING 10/07/[address] active 8 HYPERTENSIVE HEART DISEASE WITHOUT HEART FAILURE 10/07/[address] active 9 INJURY OF BRACHIAL PLEXUS, SUBSEQUENT ENCOUNTER 10/07/[address] active 10 INSOMNIA, UNSPECIFIED 10/07/[address] active 11 INTERSTITIAL CYSTITIS (CHRONIC) WITHOUT HEMATURIA 10/07/[address] active 12 LYMPHEDEMA, NOT ELSEWHERE CLASSIFIED 10/07/[address] active 13 MAJOR DEPRESSIVE DISORDER, SINGLE EPISODE, UNSPECIFIED 10/07/[address] active 14 MILD INTERMITTENT ASTHMA, UNCOMPLICATED 10/07/[address] active 15 MUSCLE WEAKNESS (GENERALIZED) 10/07/[address] active 16 NIGHTMARE DISORDER 10/07/[address] active 17 OTHER ABNORMALITIES OF GAIT AND MOBILITY 10/07/[address] active 18 OTHER LACK OF COORDINATION 10/07/[address] active 19 OTHER OBESITY 10/07/[address] active 20 OTHER OSTEOPOROSIS WITHOUT CURRENT PATHOLOGICAL FRACTURE 10/07/[address] active 21 PRESSURE ULCER OF SACRAL REGION, STAGE 2 10/07/[address] active 22 PRIMARY GENERALIZED (OSTEO)ARTHRITIS 10/07/[address] active 23 RHABDOMYOLYSIS 10/07/[address] active 24 UNSPECIFIED OPEN WOUND OF RIGHT FOREARM, SUBSEQUENT ENCOUNTER 10/07/[address] active Reason for Referral No Reasons for Referral Entered Social History Social History Observation Description Start Date End Date Code Code System Current Smoking Status Tobacco smoking consumption unknown 145817497 SNOMED CT Sex Assigned At Female 1955 18297-4 LOINC Gender Identity Sexual Orientation Vital Signs Code Code System Vitals Name Values and Units Timing Information 21883-3 LOINC Weight Wcofi=747.0 Units=Lbs 02/2020 9279-1 [facility] Respiratory Rate Value=16.0 Units=/m in 10/18/2019 8462-4 [facility] Blood Pressure-Diastolic Value=56 Un its=mmHg 10/18/2019 8480-6 [facility] Blood Pressure-Systolic Value=96 Uni ts=mmHg 10/18/2019 8310-5 [facility] Body Temperature Value=98.6 Units= F 10/18/2019 8867-4 [facility] Heart rate Value=60.0 Units=/min 19374-7 [facility] O2 % BldC Oximetry Value=97.0 Units= % 10/18/2019 8302-2 [facility] Height Value=62.0 Units=Inches 10/08/2019
--- OUTSIDE RECORDS SUMMARY | 2025-11-14 19:00 | XMS_ITS | Clinical Summary ---
Author Organization Unknown Care Team Providers Care Chore Tender Name Role Phone JOSEFA HAGER OTHER, ANDRADE Unavailable Un available ROCK RN, DARIEL Unavailable Unavailab tyrel MENDEZ LPN, CHRISTINE Unavailable Unavailable LORENZO MCCAULEY, ANDRADE Unavailable Unavailable HAWA HADDAD, MADAI Unavailable Unavailable Payers Payer Name Policy Type Policy Number Effective Date Expira tion Date MEDICARE.NGS.PDGM [id number] Problems Condition Name Condition Details Condition Category Status Onset Date Resolution Date Last Treatment Date Treating Clinician Comments MILD INTERMITTENT ASTHMA WITH (ACUTE) EXACERBATION Active 2024-10 00:00: 00 OTHER CHRONIC PAIN Active 10-19 00:00: 00 POLYOSTEOART HRITIS, UNSPECIFIED Active 2024-10 00:00: 00 URINARY TRACT INFECTION, SITE NOT SPECIFIED Active 2024-10 00:00: 00 AGE-REL OSTEOPOR W CRNT PATH FX, L FOREARM, 7THD Active 2024-10 00:00: 00 LYMPHEDEMA, NOT ELSEWHERE CLASSIFIED Active 2024-10 00:00: 00 UNSPECIFIED ATRIAL FLUTTER Active 2024-10 00:00: 00 OTHER IDIOPATHIC PERIPHERAL AUTONOMIC NEUROPATHY Active 2024-10 00:00: 00 MAJOR DEPRESSIVE DISORDER, SINGLE EPISODE, UNSPECIFIED Active 2024-10 00:00: 00 GENERALIZED ANXIETY DISORDER Active 2024-10 00:00: 00 NONINFECTIVE GASTROENTERI TIS AND COLITIS, UNSPECIFIED Active 2024-10 00:00: 00 MIGRAINE, UNSP, NOT INTRACTABLE, WITHOUT STATUS MIGRAINOSUS Active 2024-10 00:00: 00 INSOMNIA, UNSPECIFIED Active 2024-10 00:00: 00 GASTRO-ESOPH AGEAL REFLUX DISEASE WITHOUT ESOPHAGITIS Active 2024-10 00:00: 00 Obesity, class 1 Active 2024-10 00:00: 00 BODY MASS INDEX [BMI] 31.0-31.9, ADULT Active 2024-10 00:00: 00 PERSONAL HISTORY OF OTHER DISEASES OF THE DIGESTIVE SYSTEM Active 2024-10 00:00: 00 HALF-WAY (CURRENT) USE OF ANTICOAGULAN TS Active 2024-10 00:00: 00 PERSONAL HISTORY OF OTHER VENOUS THROMBOSIS AND EMBOLISM Active 2024-10 00:00: 00 PERSONAL HISTORY OF NICOTINE DEPENDENCE Active 2024-10 00:00: 00 HISTORY OF FALLING Active 2024-10 00:00: 00 Allergies, Adverse Reactions, Alerts Allergy Name Allergy Type Status Severity Reaction(s) Onset Date Inactive Date Treating Clinician Comments ASPIRIN Propensity to adverse reactions Active 2025-08 21:18:3 4 ADHESIVE Propensity to adverse reactions Active 2025-08 21:18:5 0 CELEBREX Propensity to adverse reactions Active 2025-08 21:19:0 8 CODEINE Propensity to adverse reactions Active 2025-08 21:19:2 1 MOTRIN IB Propensity to adverse reactions Active 2025-08 21:19:3 4 LATEX- Propensity to adverse reactions Active 2025-08 21:19:5 5 NICKEL Propensity to adverse reactions Active 2025-08 21:20:1 1 SULINDAC Propensity to adverse reactions Active 2025-08 21:20:3 7 Immunizations Ordered Immunization Name Filled Immunization Name Date Status Comments Refusal Reason INFLUENZA, TIV (INACTIVATED) 2025-09-07 00:00:00 PNEUMOCOCCAL (PPV), PPV 2025-09-07 00:00:00 DOSE #2, COVID-19 VACCINE 2021-01-10 00:00:00 DOSE #1, COVID-19 VACCINE 2020-12-20 00:00:00 Vital Signs Vital Name Observation Time Observation Value Commen ts Temperature 2025-09-29 12:40:00.000 97 [degF] Temperature 2025-09-26 13:42:00.000 97.3 [degF] Temperature 2025-09-20 10:33:00.000 97.9 [degF] Temperature 2025-09-17 21:11:00.000 98.5 [degF] BMI (%) 2025-09-17 12:44:24.000 34 kg/m2 Height 2025-09-17 12:44:02.000 61 [in_us] Pulse 2025-09-29 12:40:00.000 60 /min Pulse 2025-09-26 13:42:00.000 58 /min Pulse 2025-09-25 10:46:00.000 61 /min Pulse 2025-09-20 10:33:00.000 58 /min Pulse 2025-09-17 21:11:00.000 66 /min O2 Saturation (%) 2025-09-29 12:40:00.000 98 % O2 Saturation (%) 2025-09-26 13:42:00.000 93 % O2 Saturation (%) 2025-09-25 10:46:00.000 95 % O2 Saturation (%) 2025-09-20 10:33:00.000 97 % O2 Saturation (%) 2025-09-17 21:11:00.000 94 % Respirations 2025-09-29 12:40:00.000 18 /min Respirations 2025-09-26 13:42:00.000 18 /min Respirations 2025-09-25 10:46:00.000 18 /min Respirations 2025-09-20 10:33:00.000 18 /min Respirations 2025-09-17 21:11:00.000 18 /min Weight (lbs) 2025-09-17 12:44:24.000 180 [lb_av] Systolic Blood Pressure 2025-09-29 12:40:00.000 110 mm [Hg] Systolic Blood Pressure 2025-09-26 13:42:00.000 98 mm[ Hg] Systolic Blood Pressure 2025-09-25 10:46:00.000 92 mm[ Hg] Systolic Blood Pressure 2025-09-20 10:33:00.000 122 mm [Hg] Systolic Blood Pressure 2025-09-17 21:11:00.000 112 mm [Hg] Diastolic Blood Pressure 2025-09-29 12:40:00.000 60 mm [Hg] Diastolic Blood Pressure 2025-09-26 13:42:00.000 50 mm [Hg] Diastolic Blood Pressure 2025-09-25 10:46:00.000 70 mm [Hg] Diastolic Blood Pressure 2025-09-20 10:33:00.000 62 mm [Hg] Diastolic Blood Pressure 2025-09-17 21:11:00.000 60 mm [Hg] Plan of Treatment Planned Activity Planned Date Details Comments Future Scheduled Test RN TO OBSE RVE, ASSESS, EVALUATE, AND DEVELOP AN INDIVIDUALIZED PLAN OF CARE. AGENCY MAY ACCEPT ORDERS FROM CONSULTING PHYSICIANS RN TO OBSERVE AND ASSESS, LEAD OPERATOR/LATHE MACHINE OPERATOR TO OBSERVE FOR RISK FOR FALLS AND INSTRUCT IN FALL PREVENTION, HOME SAFETY, MEDICATION MANAGEMENT, INFECTION PREVENTION, AND NUTRITION MANAGEMENT. RN/LEAD OPERATOR/LATHE MACHINE OPERATOR NURSE MAY PERFORM O2 SATURATION LEVEL ON ADMISSION AND PRN FOR RN TO ASSESS/LEAD OPERATOR TO OBSERVE PATIENT, WITH NOTIFICATION TO THE PHYSICIAN IF SATURATION IS 90% IN THE ABSENCE OF MORE SPECIFIC PARAMETERS FROM THE PHYSICIAN. AGENCY MAY PERFORM A RESUMPTION OF CARE VISIT FOLLOWING ANY HOSPITAL ADMISSION. RN/LEAD OPERATOR/LATHE MACHINE OPERATOR TO MONITOR CO-MORBID CONDITIONS LISTED ON THE PLAN OF CARE AND ANY NEW CONDITIONS THAT PRESENT THEMSELVES DURING THIS EPISODE TO IDENTIFY CHANGES AND INTERVENE TO MINIMIZE COMPLICATIONS. [code = RN TO OBSERVE, ASSESS, EVALUATE, AND DEVELOP AN INDIVIDUALIZED PLAN OF CARE. AGENCY MAY ACCEPT ORDERS FROM CONSULTING PHYSICIANS RN TO OBSERVE AND ASSESS, LEAD OPERATOR/LATHE MACHINE OPERATOR TO OBSERVE FOR RISK FOR FALLS AND INSTRUCT IN FALL PREVENTION, HOME SAFETY, MEDICATION MANAGEMENT, INFECTION PREVENTION, AND NUTRITION MANAGEMENT. RN/LEAD OPERATOR/LATHE MACHINE OPERATOR NURSE MAY PERFORM O2 SATURATION LEVEL ON ADMISSION AND PRN FOR RN TO ASSESS/LEAD OPERATOR TO OBSERVE PATIENT, WITH NOTIFICATION TO THE PHYSICIAN IF SATURATION IS 90% IN THE ABSENCE OF MORE SPECIFIC PARAMETERS FROM THE PHYSICIAN. AGENCY MAY PERFORM A RESUMPTION OF CARE VISIT FOLLOWING ANY HOSPITAL ADMISSION. RN/LEAD OPERATOR/LATHE MACHINE OPERATOR TO MONITOR CO-MORBID CONDITIONS LISTED ON THE PLAN OF CARE AND ANY NEW CONDITIONS THAT PRESENT THEMSELVES DURING THIS EPISODE TO IDENTIFY CHANGES AND INTERVENE TO MINIMIZE COMPLICATIONS.] Future Scheduled Test MEDICATION MANAGEMENT; RN/LEAD OPERATOR/LATHE MACHINE OPERATOR TO REVIEW MEDICATIONS FOR INTERACTIONS, EFFECTIVENESS OF DRUG THERAPY, AND SIGNS/SYMPTOMS OF ADVERSE REACTIONS. MAY INSTRUCT AND REINFORCE MEDICATION TEACHING RELATED TO THE USE OF MEDICATIONS, DOSAGE, FREQUENCY, PURPOSE, SIDE EFFECTS, AND TO REPORT COMPLICATIONS. [code = MEDICATION MANAGEMENT; RN/LEAD OPERATOR/LATHE MACHINE OPERATOR TO REVIEW MEDICATIONS FOR INTERACTIONS, EFFECTIVENESS OF DRUG THERAPY, AND SIGNS/SYMPTOMS OF ADVERSE REACTIONS. MAY INSTRUCT AND REINFORCE MEDICATION TEACHING RELATED TO THE USE OF MEDICATIONS, DOSAGE, FREQUENCY, PURPOSE, SIDE EFFECTS, AND TO REPORT COMPLICATIONS.] Future Scheduled Test CARDIOVASC ULAR SYSTEM; RN TO ASSESS/TEACH, LEAD OPERATOR/LATHE MACHINE OPERATOR TO OBSERVE/TEACH RELATED TO ATRIAL FLUTTER ALTERED CARDIOVASCULAR STATUS TO MINIMIZE COMPLICATIONS AND REDUCE HOSPITALIZATION. [code = CARDIOVASCULAR SYSTEM; RN TO ASSESS/TEACH, LEAD OPERATOR/LATHE MACHINE OPERATOR TO OBSERVE/TEACH RELATED TO ATRIAL FLUTTER ALTERED CARDIOVASCULAR STATUS TO MINIMIZE COMPLICATIONS AND REDUCE HOSPITALIZATION.] Future Scheduled Test RESPIRATOR Y SYSTEM MANAGEMENT; RN TO ASSESS AND TEACH, LEAD OPERATOR/LATHE MACHINE OPERATOR TO OBSERVE AND TEACH RELATED TO ASTHMA ALTERED RESPIRATORY STATUS TO MINIMIZE COMPLICATIONS AND REDUCE HOSPITALIZATION. [code = RESPIRATORY SYSTEM MANAGEMENT; RN TO ASSESS AND TEACH, LEAD OPERATOR/LATHE MACHINE OPERATOR TO OBSERVE AND TEACH RELATED TO ASTHMA ALTERED RESPIRATORY STATUS TO MINIMIZE COMPLICATIONS AND REDUCE HOSPITALIZATION.] Future Scheduled Test ASTHMA MAN AGEMENT; RN TO ASSESS AND TEACH, LEAD OPERATOR/LATHE MACHINE OPERATOR TO OBSERVE AND TEACH ASTHMA MANAGEMENT AND PROVIDE EARLY INTERVENTIONS TO MINIMIZE RISK OF HOSPITALIZATION [code = ASTHMA MANAGEMENT; RN TO ASSESS AND TEACH, LEAD OPERATOR/LATHE MACHINE OPERATOR TO OBSERVE AND TEACH ASTHMA MANAGEMENT AND PROVIDE EARLY INTERVENTIONS TO MINIMIZE RISK OF HOSPITALIZATION] Future Scheduled Test PAIN MANAG EMENT; RN TO ASSESS AND TEACH, LATHE MACHINE OPERATOR/LEAD OPERATOR TO OBSERVE AND TEACH AND PROVIDE EDUCATION ON PAIN MANAGEMENT TECHNIQUES. [code = PAIN MANAGEMENT; RN TO ASSESS AND TEACH, LATHE MACHINE OPERATOR/LEAD OPERATOR TO OBSERVE AND TEACH AND PROVIDE EDUCATION ON PAIN MANAGEMENT TECHNIQUES.] Future Scheduled Test FALL REDUC TION MANAGEMENT; RN TO ASSESS AND OBSERVE, LEAD OPERATOR/LATHE MACHINE OPERATOR TO OBSERVE FALL RISK FACTORS AND EDUCATE PATIENT/CAREGIVER ON STRATEGIES TO MINIMIZE THE RISK OF FALLING. [code = FALL REDUCTION MANAGEMENT; RN TO ASSESS AND OBSERVE, LEAD OPERATOR/LATHE MACHINE OPERATOR TO OBSERVE FALL RISK FACTORS AND EDUCATE PATIENT/CAREGIVER ON STRATEGIES TO MINIMIZE THE RISK OF FALLING.] Future Scheduled Test GENITOURIN MOY MANAGEMENT; RN TO ASSESS AND TEACH, LEAD OPERATOR/LATHE MACHINE OPERATOR TO OBSERVE AND TEACH RELATED TO ALTERED GENITOURINARY STATUS TO MINIMIZE COMPLICATIONS AND REDUCE HOSPITALIZATION. [code = GENITOURINARY MANAGEMENT; RN TO ASSESS AND TEACH, LEAD OPERATOR/LATHE MACHINE OPERATOR TO OBSERVE AND TEACH RELATED TO ALTERED GENITOURINARY STATUS TO MINIMIZE COMPLICATIONS AND REDUCE HOSPITALIZATION.] Future Scheduled Test PRN VISITS ; NUMBER OF RN/LEAD OPERATOR/LATHE MACHINE OPERATOR VISITS: 1 RN/LEAD OPERATOR/LATHE MACHINE OPERATOR TO PERFORM: ASSESSMENT FOR THE FOLLOWING REASONS: STATUS CHANGES [code = PRN VISITS; NUMBER OF RN/LEAD OPERATOR/LATHE MACHINE OPERATOR VISITS: 1 RN/LEAD OPERATOR/LATHE MACHINE OPERATOR TO PERFORM: ASSESSMENT FOR THE FOLLOWING REASONS: STATUS CHANGES] Future Scheduled Test OCCUPATION AL THERAPIST TO EVALUATE FOR EVALUATION OF PTS LEFT HAND SPRAIN, SHE IS WEARING A BRACE. [code = OCCUPATIONAL THERAPIST TO EVALUATE FOR EVALUATION OF PTS LEFT HAND SPRAIN, SHE IS WEARING A BRACE.] Goal Patient Goal - R EDUCTION IN GENERALIZED PAIN Goal Provider Goal - A PLAN OF CARE WILL BE ESTABLISHED THAT MEETS THE PATIENT S NEEDS. PATIENT WILL DEMONSTRATE OXYGEN SATURATION WITHIN NORMAL LIMITS OR PATIENT S OPTIMAL LEVEL ESTABLISHED BY THE PHYSICIAN THROUGHOUT CARE. CHANGES TO CO-MORBID CONDITIONS AND ANY NEW CONDITIONS WILL BE IDENTIFIED AND REPORTED TO THE PHYSICIAN. Goal Provider Goal - PATIENT TO VERBALIZE, AND CONSISTENTLY DEMONSTRATE EFFECTIVE, SAFE MANAGEMENT OF MEDICATION INCLUDING KNOWLEDGE OF EFFECTIVENESS, POTENTIAL SIDE EFFECTS AND DRUG REACTIONS AND WHEN TO CONTACT THE APPROPRIATE CARE PROVIDER. PATIENT/CAREGIVER WILL BE ABLE TO VERBALIZE UNDERSTANDING OF MEDICATION REGIMEN AND ACCURATELY TAKE MEDICATIONS PRESCRIBED WITHOUT ADVERSE EFFECTS BY EOE Goal Provider Goal - PATIENT / CAREGIVER WILL VERBALIZE/DEMONSTRATE UNDERSTANDING OF MEASURES TO MANAGE ALTERED CARDIOVASCULAR STATUS BY END OF THE EPISODE Goal Provider Goal - PATIENT / CAREGIVER WILL VERBALIZE/DEMONSTRATE UNDERSTANDING OF MEASURES TO MANAGE ALTERED RESPIRATORY STATUS BY END OF EPISODE. Goal Provider Goal - PATIENT/CAREGIVER WILL VERBALIZE/ DEMONSTRATE AN ABILITY TO ADHERE TO SELF-MANAGEMENT OF ASTHMA TO MINIMIZE COMPLICATIONS AND AVOID HOSPITALIZATIONS BY END OF EPISODE. Goal Provider Goal - PATIENT / CAREGIVER WILL VERBALIZE / DEMONSTRATE UNDERSTANDING OF PAIN CONTROL MEASURES BY EOE Goal Provider Goal - PATIENT/CAREGIVER WILL VERBALIZE/DEMONSTRATE UNDERSTANDING OF FALL RISK FACTORS AND IMPLEMENT STRATEGIES TO MINIMIZE FALL RISK. PATIENT/CAREGIVER WILL VERBALIZE/DEMONSTRATE AN ABILITY TO ADHERE TO FALL REDUCTION SELF-MANAGEMENT AND LIFE-STYLE CHANGES BY END OF THE EPISODE Goal Provider Goal - PATIENT / WILL VERBALIZE/DEMONSTRATE UNDERSTANDING OF MEASURES TO MANAGE ALTERED GENITOURINARY STATUS BY END OF EPISODE. Goal Provider Goal - Goal Provider Goal - Encounters Start Date/Time End Date/Time Encounter Type Admission Type Attending Clinicians Care Facility Care Department Encounter ID Discharge Date Discharge Status Discharge Condition Discharge Reason Percent Goals Met 2025-09-17 00:00:00 2025-11-15 00:00:00 Outpatient NEW ADMISSION DARIEL [facility] [id number]
== END 2025-10-03 17:40 | disposition home or self-care (01) ==
PROVIDERS: Emergency Provider Emergency Medicine; PCP Internal Medicine Endocrinology, Diabetes & Metabolism
DX: M25.422 Effusion, left elbow (principal); M25.512 Pain in left shoulder; M79.642 Pain in left hand; M25.522 Pain in left elbow; M25.532 Pain in left wrist; Z91.81 History of falling
CPT/HCPCS: 73030; 73080; 73110; 73130; 96372; 99283; 99284; J1885

== ENCOUNTER → 2025-10-03 15:30 | Outpatient (BNV) | payer MEDICARE, MEDICAID, SELFPAY | PROVIDERS: Emergency Provider Emergency Medicine; Visit Provider Radiology Diagnostic Radiology | DX: M25.511 Pain in right shoulder (principal); M19.012 Primary osteoarthritis, left shoulder; M19.032 Primary osteoarthritis, left wrist; M19.042 Primary osteoarthritis, left hand; M25.422 Effusion, left elbow; M19.022 Primary osteoarthritis, left elbow; Z04.3 Encounter for examination and observation following other accident | CPT/HCPCS: 73030; 73080; 73110; 73130 ==